=== PATIENT | male | born 1950 | race Caucasian/White ===

== ENCOUNTER 2023-09-16 16:07 | Inpatient (IN) ==
--- NOTE | 2023-09-16 16:20 | ED Triage Note ---
Date of Service September 16, 2023 Provider in Triage Author: Av Judge. History of Present Illness This patient was briefly evaluated while in triage. An abbreviated physical exam was performed. This patient is a 72-year-old Male who presents to the ED for evaluation of ongoing difficulty breathing. History of pleural effusion, had catheter placed 09/03/23. Dyspnea has not improved. Seems to be worse at night. States he could not take the difficulty breathing at night, and anxiety at night. No fevers. No chest pain. States the drainage from the catheter is becoming more clear/quinton and less red. Renal cell carcinoma on PO medication. Follows with pulmonary and oncology. Physical Exam CONSTITUTIONAL: in no acute pain or distress, resting comfortably SKIN: pink, warm, dry CARDIAC: tachycardic rate and regular rhythm RESPIRATORY: decreased breath sounds on left. In no severe respiratory distress Initial orders for labs and / or imaging were placed and patient was placed directly into an exam room. Please see further documentation for the full ED course.
--- NOTE | 2023-09-16 16:56 | Emergency Department Note ---
Impression & Plan Hypoxia, Tachypnea, Leukocytosis, Renal cancer, Abnormal chest CT, Elevated lactic acid level ED Provider Note NAME: BOB GAVIRIA AGE: 72 SEX: M : 1950 ARRIVES VIA: Walk-In INFORMANT: [Patient] ED PROVIDER(S): [Cheo Schafer MD] CHIEF COMPLAINT: Shortness of breath HISTORY OF PRESENT ILLNESS: The patient is a 72-year-old male who has had increasing shortness of breath for the last month. He has renal cancer and has had 1 kidney removed. He has disease spread to his lungs and has a right chest catheter in place from which he drains fluid. The patient states that despite the catheter, he has noticed increasing shortness of breath, especially with exertion. He has not had chest pain, no fever, no cough. No vomiting or diarrhea, he does have some occasional nausea. He has not noticed any urinary burning or other urinary issues. PMHx/PSHx/Social Hx: See Below PHYSICAL EXAM: GENERAL: Patient is in mild distress secondary to shortness of breath. HEENT: No acute trauma, normocephalic atraumatic, mucous membranes dry, no nasal congestion. NECK: No stridor, no adenopathy, no meningismus, trachea is midline. LUNGS: Increased respiratory rate, there are diminished breath sounds throughout, no wheezing. HEART: Mildly tachycardic, regular rhythm, no murmurs. ABDOMEN: Soft, nontender, no peritonitis. EXTREMITIES: No cyanosis, full range of motion of all the joints without pain or difficulty. NEUROLOGIC: Oriented x 3, no acute motor or sensory deficits, no focal weakness. SKIN: No jaundice, no diaphoresis. Pale. DIFFERENTIAL DIAGNOSIS: Pleural effusion, anemia, renal failure, electrolyte imbalance, PE, pneumonia, CHF, among others EMERGENCY DEPARTMENT PROCEDURES: MEDICAL DECISION MAKING: There is a mild leukocytosis, this could be consistent with infection. There was a mild anemia with a hemoglobin of 13.1. Platelet count somewhat elevated at 613. Renal panel testing showed a higher potassium and lower sodium. No renal failure. Lactic acid level was elevated at over 3, consistent with potential infection versus dehydration and hypoxia. No concerning liver enzyme elevation. ECG showed a sinus tachycardia, no acute ischemia. Cardiac enzyme testing x 1 was not consistent with acute cardiac injury. Chest x-ray shows potential pneumonia as well as some pleural fluid. No pneumothorax. The film was markedly different when compared to previous films. Chest CT did not show PE, multifocal pneumonia was seen versus changes from worsening malignancy. There was no pneumothorax. On exam, the patient was hypoxic without oxygen. He was tachypneic. The patient received IV saline, 1 L in total. He was given IV cefepime as empiric antibiotic coverage. He was maintained on nasal cannula O2 supplementation. The patient is more comfortable since treatment here in the ED. His heart rate has improved. He may have a pneumonia based on his workup. His dyspnea clearly has worsened in the last week, he has become hypoxic. The patient is in need of hospital stay. He did not meet criteria for 30 cc/kg of saline via sepsis protocol. I would be hesitant to give aggressive fluid hydration given the pleural fluid already noted on imaging. His lactic acid level does appear to be clearing based on a repeat test drawn after his 1 L of fluid hydration. I spoke with the patient and case management, I did speak with the on-call hospitalist. Prior/Outside records/notes reviewed: None ECG per my interpretation: Indication was shortness of breath. The ECG shows a sinus tachycardia with a rate of 101. There is no ST elevation, there is some nonspecific ST change. No PVCs. The QTc is 404. Continuous Cardiac Monitoring per my interpretation: An order was placed for continuous cardiac monitoring. The monitor shows a rate of 100 with normal sinus rhythm. Imaging/x-ray results per my interpretation: Chest x-ray shows potential right lung mass/infiltrate. There was pleural fluid seen on the left. No pneumothorax. Chronic Medical/Social conditions affecting care: Renal cancer Care/Management discussed with: Case management, the on-call hospitalist Level of care consideration(s): After review of the information above and other included data: --I believe the patient requires escalation of care to admission Critical Care Note: I have personally spent 39 minutes of critical care time in the direct management of this patient. This includes bedside care, interpretation of diagnostic studies, and testing, discussion with consultants, patient, and family members, and other required patient management activities. This 39 minutes is in excess of all separately billable procedures. DISPOSITION: Admission Past Med/Surg History Problem List (Updated 09/16/23 @ 20:58 by Cheo Schafer MD) Elevated lactic acid level (Acute) Abnormal chest CT (Acute) Renal cancer (Acute) Leukocytosis (Acute) Tachypnea (Acute) Hypoxia (Acute) Hyperkalemia Sepsis Lactate blood increase Acute respiratory failure with hypoxia Recurrent right pleural effusion Cough Encounter for pre-operative examination Acquired absence of kidney Pleural effusion due to another disorder Dyspnea Essential (primary) hypertension Mixed hyperlipidemia Depression Nonalcoholic steatohepatitis Type 2 diabetes mellitus without complication Multiple lung nodules on CT Malignant pleural effusion - Left Pleurx catheter placed 04/28/22 Per 05/05/22 CXR - left sided chest tube in place, small residual left pleural effusion with left basilar consolidation Renal cell cancer 2018- s/p nephrectomy, no chemo or radiation Medical History History of elevated PSA History of urinary calculi History of mumps History of measles History of varicella Surgical History Hx of cystoscopy S/P thoracentesis Left pleural effusion 03/09/22 H/O prostate biopsy History of nephrectomy 2018- left History of inguinal hernia repair Family History Father Diabetes Congestive heart failure Mother Cancer breast cancer Social History Smoking Status: Never smoker Tobacco Type: Cigars Cigarettes Per Day: SMOKED OCCASIONAL CIGAR - QUIT MANY YRS AGO; Second Hand Exposure: No; Do You Dip or Chew Tobacco: No; Hx Alcohol Use: Yes Alcohol type: beer Alcohol Intake Frequency Comment: rarely Hx Substance Use: No Preferred Language: Japanese Communication Ability: Effective 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 Beliefs That Will Affect Care: None marital status: Current Living Situation: Spouse current occupational status: retired How many Children do You have: 2 Feels Safe at Home: Yes caffeine: Yes during the past year weight has: remained stable Seatbelt Use: always Assistive Devices: None Allergies Allergies Allergy/AdvReac Type Severity Reaction Status Date / Time No Known Allergies Allergy Verified 09/16/23 19:12 Home Meds Home Medications Medication Instructions Recorded Confirmed metformin 1,000 mg tablet 1,000 mg PO BID 01/10/20 09/16/23 tamsulosin 0.4 mg capsule 0.8 mg PO QAM 01/16/20 09/16/23 dulaglutide 0.75 mg/0.5 mL 0.75 mg subcut WK 02/18/21 09/16/23 subcutaneous pen injector (Trulicity) simvastatin 20 mg tablet (Zocor) 20 mg PO QPM 03/24/22 09/16/23 levothyroxine 50 mcg capsule 50 mcg PO DAILY 09/01/23 09/16/23 dexamethasone 0.5 mg/5 mL oral 10 mg PO DIRECTED 09/16/23 09/16/23 solution everolimus (antineoplastic) 5 mg 5 mg PO DAILY 09/16/23 09/16/23 tablet lorazepam 1 mg tablet 1 mg PO Q4 PRN Anxiety 09/16/23 09/16/23 venlafaxine 150 mg 150 mg PO DAILY 09/16/23 09/16/23 capsule,extended release 24 hr Results & Data (ED) Vital Signs Vital Signs - 24 hr 09/16/23 16:11 09/16/23 16:22 09/16/23 16:25 Temperature 36 C L Temperature Source Temporal Artery Scan Pulse Rate 111 H 98 H Pulse Rate [Apical] Pulse Rate from SpO2 Sensor 99 H Respiratory Rate 18 19 Respiratory Effort / Characteristics Non-Labored Respiratory Depth Normal Respiratory Pattern Regular Blood Pressure 113/72 Blood Pressure [Right Arm] Blood Pressure Mean 85 Blood Pressure Mean [Right Arm] Pulse Oximetry 92 93 90 Oxygen Delivery Method Room Air Nasal Cannula Oxygen Flow Rate 2 Sepsis Recent Fever Within 48 Hours No Sepsis New/Unexplained Change in Mental Status N/A Sepsis Action Taken by Nursing No Action Required 09/16/23 16:30 09/16/23 16:42 09/16/23 17:00 Temperature Temperature Source Pulse Rate 99 H 100 H 103 H Pulse Rate [Apical] Pulse Rate from SpO2 Sensor 99 H 102 H Respiratory Rate 49 H 49 H Respiratory Effort / Characteristics Respiratory Depth Respiratory Pattern Blood Pressure 129/73 Blood Pressure [Right Arm] Blood Pressure Mean 91 Blood Pressure Mean [Right Arm] Pulse Oximetry 91 93 Oxygen Delivery Method Oxygen Flow Rate Sepsis Recent Fever Within 48 Hours Sepsis New/Unexplained Change in Mental Status Sepsis Action Taken by Nursing 09/16/23 17:30 09/16/23 18:12 09/16/23 18:13 Temperature Temperature Source Pulse Rate 94 H Pulse Rate [Apical] Pulse Rate from SpO2 Sensor 94 H 99 H Respiratory Rate 34 H Respiratory Effort / Characteristics Respiratory Depth Respiratory Pattern Blood Pressure 133/73 Blood Pressure [Right Arm] Blood Pressure Mean 111 Blood Pressure Mean [Right Arm] Pulse Oximetry 93 90 Oxygen Delivery Method Oxygen Flow Rate Sepsis Recent Fever Within 48 Hours Sepsis New/Unexplained Change in Mental Status Sepsis Action Taken by Nursing 09/16/23 18:13 09/16/23 18:30 09/16/23 19:05 Temperature Temperature Source Pulse Rate 98 H 97 H Pulse Rate [Apical] 96 H Pulse Rate from SpO2 Sensor 98 H 97 H Respiratory Rate 48 H 34 H 50 H Respiratory Effort / Characteristics Spontaneous Respiratory Depth Normal Respiratory Pattern Regular Blood Pressure Blood Pressure [Right Arm] 130/73 Blood Pressure Mean Blood Pressure Mean [Right Arm] 92 Pulse Oximetry 90 90 93 Oxygen Delivery Method Nasal Cannula Oxygen Flow Rate 4 Sepsis Recent Fever Within 48 Hours Sepsis New/Unexplained Change in Mental Status Sepsis Action Taken by Custodial Medications Current Medication List: was personally reviewed by me Laboratory Data Attestation: I reviewed the patient's lab results. 09/16/23 16:33 09/16/23 16:33 Lab Results 09/16/23 09/16/23 09/16/23 Range/Units 16:33 17:08 18:58 WBC 12.99 H (4.8-10.8) K/ul RBC 4.05 L (4.70-6.10) M/uL Hgb 13.1 L (14.0-18.0) g/dl Hct 39.2 L (42.0-52.0) % MCV 96.8 (80.0-100.0) fL MCH 32.3 (25.0-34.0) pg MCHC 33.4 (32.0-36.0) g/dL RDW Std Deviation 47.9 H (36.4-46.3) fL RDW Coeff of Joaquim 13.4 (11.5-14.5) % Plt Count 613 H (130-400) K/uL MPV 8.4 L (9.4-12.4) fL Immature Gran % (Auto) 0.5 % Neut % (Auto) 87.2 % Lymph % (Auto) 5.7 % [place] % (Auto) 6.1 % Eos % (Auto) 0.3 % Baso % (Auto) 0.2 % Neut # (Auto) 11.32 H (1.40-6.50) K/uL Lymph # (Auto) 0.74 L (1.20-3.40) K/uL [place] # (Auto) 0.79 H (0.11-0.59) K/uL Eos # (Auto) 0.04 (0.00-0.50) K/uL Baso # (Auto) 0.03 (0.00-0.20) K/uL Immature Gran # (Auto) 0.07 (0.01-0.20) K/uL Sodium 132 L (136-145) mmol/L Potassium 5.2 H (3.5-5.1) mmol/L Chloride 98 (98-107) mmol/L Carbon Dioxide 23 (21-32) mmol/L Anion Gap 11 (3-11) BUN 28 H (6-23) mg/dl Creatinine 0.89 (0.6-1.4) mg/dl Est Cr Clr Drug Dosing 75.5 ml/min Est GFR ( Amer) 100.4 ml/min Est GFR (Non-Af Amer) 86.6 ml/min BUN/Creatinine Ratio 31.5 H (10-20) Glucose 148 H (70-99(Fasting)) mg/dl Lactate 3.6 H* 2.1 H* (0.4-2.0) mmol/L Calcium 9.8 (8.6-10.3) mg/dl Magnesium 1.7 (1.7-2.4) mg/dl Total Bilirubin 0.7 (0.2-1.0) mg/dl AST 19 (13-39) U/L ALT 13 (7-52) U/L Alkaline Phosphatase 99 (34-104) U/L Troponin I High Sens 9.7 (0-20) pg/ml Total Protein 8.6 H (6.0-8.3) gm/dl Albumin 3.8 (3.4-5.0) gm/dl Globulin 4.8 H (2.5-4.0) gm/dl Albumin/Globulin Ratio 0.8 L (0.9-2) Procalcitonin 0.64 H (0-0.5) ng/ml Administered Medications Discontinued Medications Sodium Chloride (Nss) 500 mls @ 999 mls/hr IV .Q31M ONE Stop: 09/16/23 17:26 Last Infusion: 09/16/23 18:43 Dose: Infused Documented By: Admin: 09/16/23 17:06 Dose: 999 mls/hr Documented By: DEMETRIO Cefepime HCl (Maxipime) 2,000 mg in 20 mls @ 5 mls/min IV NOW STA; Protocol Stop: 09/16/23 17:23 Last Admin: 09/16/23 17:35 Dose: 5 mls/min Documented By: MERA Sodium Chloride (Nss) 500 mls @ 999 mls/hr IV .Q31M ONE Stop: 09/16/23 19:02 Last Infusion: 09/16/23 20:01 Dose: Infused Documented By: Admin: 09/16/23 18:43 Dose: 999 mls/hr Documented By: MERA Ioversol (Optiray 320 125ml) 119 ml IV ONCE ONE Stop: 09/16/23 18:11 Last Admin: 09/16/23 18:10 Dose: 119 ml Documented By: OXANA Morphine Sulfate (Morphine Sulfate 2 Mg/Ml Carp) 1 mg IV NOW STA Stop: 09/16/23 19:46 Last Admin: 09/16/23 19:54 Dose: 1 mg Documented By: MANJIT Imaging Data Radiologist's Impression: Chest X-Ray 09/16/23 16:20 XR chest 1V portable CLINICAL HISTORY: hx pleural effusion, ongoing dyspnea TECHNIQUE: Single frontal radiograph of the chest was obtained. Comparison: Comparison is made to chest radiograph 09/03/2023 FINDINGS: No lines and tubes are seen. Cardiomegaly is noted. Airspace opacities are in the bilateral lower lungs. Small bilateral pleural effusions are seen. IMPRESSION: 1. Multifocal airspace opacities may represent atelectasis, pneumonia, and/or aspiration. 2. Small bilateral pleural effusions. ACT 112: Negative or not required by law. Electronically signed by: Nirmal Pineda M.D. 09/16/2023 5:14 PM Chest CTA 09/16/23 16:51 CT angio chest PE protocol CLINICAL HISTORY: PE TECHNIQUE: Multidetector row helical CT of the chest was performed with angiographic protocol. Coronal and sagittal reformations were obtained. Coronal and sagittal MIPS were obtained from the axial data set and were submitted for review. Automated dose lowering techniques and/or adjustment according to patient size were utilized for this exam. CT DOSE: 898.94 mGy.cm Comparison: None available at the time of this dictation. FINDINGS: Lungs and pleura: Bilateral pleural thickening is significantly advanced from the prior exam. Scattered pulmonary nodules are seen including 8 mm nodule in the right upper lobe and a 12 mm nodule in the left upper lobe (image 160). Interlobular septal thickening is seen favoring the bilateral lower lungs. Heart and pericardium: Heart size is normal. No pericardial effusion. Vessels: No evidence of pulmonary embolism. Mediastinum and maryjane: Mediastinal lymphadenopathy is similar to prior exam. Chest wall and lower neck: Redemonstration of lymphadenopathy in the left axilla and lower paratracheal station, similar to prior exam. Abdomen: Unremarkable. Bones: Degenerative changes in the thoracic spine. IMPRESSION: 1. No evidence of pulmonary embolus. 2. Significant interval worsening of pleural thickening. A right chest tube is seen. 3. Multifocal airspace opacities may represent lymphangitic spread of tumor with or without superimposed aspiration/pneumonia. 4. Stable lymphadenopathy. 5. Additional findings as above. ACT 112: Negative or not required by law. Electronically signed by: Nirmal Pineda M.D. 09/16/2023 6:22 PM Discharge Plan Visit Data Chief Complaint: Shortness of Breath/Dyspnea Stated Complaint: SOB/TROUBLE BREATHING ED Provider: Cheo Schafer Discharge Problem: Hypoxia, Tachypnea, Leukocytosis, Renal cancer, Abnormal chest CT, Elevated lactic acid level Patient Disposition: Admitted As Inpatient Condition: Fair Discharge Instructions Interventions: ED Discharge Assessment Last Done: 09/16/23 20:07 Discharge Problem: Leukocytosis Qualifiers: Leukocytosis type: unspecified Qualified Code(s): D72.829 - Elevated white blood cell count, unspecified Renal cancer Qualifiers: Laterality: unspecified laterality Qualified Code(s): C64.9 - Malignant neoplasm of unspecified kidney, except renal pelvis
[2023-09-16 16:58] LABS: Basophils # (auto) 0.03 K/uL (0.00-0.20); Basophils % (auto) 0.2 %; Eosinophils # (auto) 0.04 K/uL (0.00-0.50); Eosinophils % (auto) 0.3 %; Hematocrit (blood only) 39.2 % (42.0-52.0); Hemoglobin 13.1 g/dl (14.0-18.0); Immature Granulocytes # (auto) 0.07 K/uL (0.01-0.20); Immature Granulocytes % (auto) 0.5 %; Lymphocytes # (auto) 0.74 K/uL (1.20-3.40); Lymphocytes % (auto) 5.7 %; Mean Corpuscular Hemoglobin 32.3 pg (25.0-34.0); Mean Corpuscular Hgb Conc 33.4 g/dL (32.0-36.0); Mean Corpuscular Volume 96.8 fL (80.0-100.0); Mean Platelet Volume 8.4 fL (9.4-12.4); Monocytes # (auto) 0.79 K/uL (0.11-0.59); Monocytes % (auto) 6.1 %; Neutrophils # (auto) 11.32 K/uL (1.40-6.50); Neutrophils % (auto) 87.2 %; Platelet Count 613 K/uL (130-400); RDW Coefficient of Variation 13.4 % (11.5-14.5); RDW Standard Deviation 47.9 fL (36.4-46.3); Red Blood Count 4.05 M/uL (4.70-6.10); White Blood Count 12.99 K/ul (4.8-10.8)
[2023-09-16] MEDS: SODIUM CHLORIDE 0.9% 500 ML IV ONE ×2 (17:06→18:43)
[2023-09-16 17:13] LABS: Albumin Globulin Ratio 0.8 (0.9-2); Albumin Level 3.8 gm/dl (3.4-5.0); BUN Creatinine Ratio 31.5 (10-20); Bilirubin,Total 0.7 mg/dl (0.2-1.0); Calcium 9.8 mg/dl (8.6-10.3); Creatinine Clr Calc Pharmacy 75.5 ml/min; Est GFR (African American) 100.4 ml/min; Est GFR (Non-African American) 86.6 ml/min; Globulin 4.8 gm/dl (2.5-4.0); Magnesium 1.7 mg/dl (1.7-2.4); Potassium 5.2 mmol/L (3.5-5.1); Total Protein 8.6 gm/dl (6.0-8.3)
--- NOTE | 2023-09-16 17:16 | XRay Report ---
XR chest 1V portable CLINICAL HISTORY: hx pleural effusion, ongoing dyspnea TECHNIQUE: Single frontal radiograph of the chest was obtained. Comparison: Comparison is made to chest radiograph 09/03/2023 FINDINGS: No lines and tubes are seen. Cardiomegaly is noted. Airspace opacities are in the bilateral lower john gs. Small bilateral pleural effusions are seen. IMPRESSION: 1. Multifocal airspace opacities may represent atelectasis, pneumonia, and/or aspiration. 2. Small bilateral pleural effusions. ACT 112: Negative or not required by law. Electronically signed by: Nirmal Pineda M.D. 09/16/2023 5:14 PM
[2023-09-16 17:19] LABS: Troponin I High Sensitivity 9.7 pg/ml (0-20)
[2023-09-16] MEDS: CEFEPIME 2,000 MG/20 ML VIAL IV STA (17:35)
[2023-09-16] MEDS: OPTIRAY 320 125ml IV ONE (18:10)
--- NOTE | 2023-09-16 18:25 | CT Scan Report ---
CT angio chest PE protocol CLINICAL HISTORY: PE TECHNIQUE: Multidetector row helical CT of the chest was performed with angiographic protocol. [place] l and sagittal reformations were obtained. Coronal and sagittal MIPS were obtained from the axial graham a set and were submitted for review. Automated dose lowering techniques and/or adjustment according to patient size were utilized for this exam. CT DOSE: 898.94 mGy.cm Comparison: None available at the time of this dictation. FINDINGS: Lungs and pleura: Bilateral pleural thickening is significantly advanced from the prior exam. Scatter ed pulmonary nodules are seen including 8 mm nodule in the right upper lobe and a 12 mm nodule in the left upper lobe (image 160). Interlobular septal thickening is seen favoring the bilateral lower john gs. Heart and pericardium: Heart size is normal. No pericardial effusion. Vessels: No evidence of pulmonary embolism. Mediastinum and maryjane: Mediastinal lymphadenopathy is similar to prior exam. Chest wall and lower neck: Redemonstration of lymphadenopathy in the left axilla and lower paratrache al station, similar to prior exam. Abdomen: Unremarkable. Bones: Degenerative changes in the thoracic spine. IMPRESSION: 1. No evidence of pulmonary embolus. 2. Significant interval worsening of pleural thickening. A right chest tube is seen. 3. Multifocal airspace opacities may represent lymphangitic spread of tumor with or without superimp osed aspiration/pneumonia. 4. Stable lymphadenopathy. 5. Additional findings as above. ACT 112: Negative or not required by law. Electronically signed by: Nirmal Pineda M.D. 09/16/2023 6:22 PM
--- NOTE | 2023-09-16 19:04 | History & Physical Report ---
Date of Service September 16, 2023 Assessment & Plan (1) Acute respiratory failure with hypoxia: Plan: -Admit to the PCU on tele and pulse oximetry -Currently hemodynamically stable, stable on 4L NC, and currently comfortable at rest -Presented to the ED with progressive SOB/TAMEZ over the past 1-2 weeks -Patient had new Pleurx cath placed on 09/02 by [facility] [place] [facility] -CTA of the chest was read as being negative for PE but with multifocal airspace opacities and significant interval pleural thickening -S/P one dose of Cefepime and 1L NSS in the ED -Will continue with Cefepime and Vancomycin for now -Will start incentive spirometry, flutter therapy, scheduled levalbuterol -PRN O2 to keep SpO2 at or above 92% -Will obtain procal, sputum culture, full respiratory biofire and VBG -Spoke with night staff in the ICU, l appreciate their assistance, they will check on him later tonight in case he decompensates -Will consult Pulmonology and Oncology to follow while admitted -SQ lovenoc for DVT PPX -HH/DMII diet -AM CBC,CMP, mag, PT/INR (2) Sepsis: Plan: -Meets sepsis criteria with the following: -WBC of 12k -Tachycardia with HR in the 110's -Pneumonia as his source -Initial lactate on arrival was 3.6 -->2.1 after 1L NSS in the ED -Received a dose of Cefepime in the ED -Blood cultures were collected in the ED -His sepsis fluid bolus based on ideal body weight is 1854mL >Will give a 500 mL LR bolus now but will hold off on large fluid boluses at this time as he has been hemodynamically stable and we want to avoid exacerbating his respiratory status with causing another malignant pleural effusion >Can continue small IV fluid boluses overnight if needed -Will continue with Cefepime and Vancomycin for now (3) Lactate blood increase: Plan: -Initial lactate of 3.6 -->2.1 after 1L NSS in the ED -Likely due to sepsis and dehydration -Has been hemodynamically stable -Rest of care per sepsis plan (4) Hyperkalemia: Plan: -Potassium of 5.2 in the ED -Unsure at this time if this was due to hemolysis as his renal function is stable and he is not on potassium supplements or potassium sparing medications -S/P 1L NSS in the ED -Will repeat stat potassium level and treat medically if still elevated -Continue to monitor on tele -Monitor am renal function and electrolytes (5) Essential (primary) hypertension: Plan: -Stable -No current antihypertensives at home -Continue to monitor (6) Type 2 diabetes mellitus without complication: Plan: -Hold metformin and Dulaglutide -Monitor BSG ACHS, goal is 110-160 -Will start with CF 50 and CR 15 ACHS for now as his appetite has been very poor -Adjust regimen as needed (7) Renal cell cancer: Plan: -Will be consulting Oncology and Pulmonology Plan The patient was discussed with Dr. Rome at the time of the admission History of Present Illness Chief Complaint: SOB Primary Care Provider: Yahir Ellis DO Ulises is a 72 year old male with a PMH significant for metastatic renal cell carcinoma with recurrent malignant pleural effusion S/P Right PleurX ca theter placement with Dr. Nguyễn on 09/03/23, S/P right nephrectomy in 2018, DMII, HTN, hyperlipidemia, and hypothyroidism who presented to the [facility] ED on 09/16/23 for progressive SOB and anxiety. On arrival to the ED the patient was noted to be tachycardic at 100, saturating at 90% on RA, respirations in the 30- 40's, and afebrile. Labs were significant for a leukocytosis of 12 with neutrophil predominance of 11, potassium of 5.2, sodium of 132, lactate of 3.6, and high sen trop WNL. Chest xray was read as "1. Multifocal airspace opacities may represent atelectasis, pneumonia, and/or aspiration. 2. Small bilateral pleural effusions.". CTA of the chest was read as "1. No evidence of pulmonary embolus. 2. Significant interval worsening of pleural thickening. A right chest tube is seen. 3. Multifocal airspace opacities may represent lymphangitic spread of tumor with or without superimposed aspiration/pneumonia. 4. Stable lymphadenopathy. 5. Additional findings as above.". Prior to admission the patient was given a dose of cefepime and 2, 500 mL NSS boluses. At the time of the exam the patient was sitting in bed in mild respiratory distress with tachypnea and and abdominal breathing, currently stable on 4L NC. History was obtained from the patient and his who is bedside. The patient is between treatments for his metastatic cancer at this time. [facility] and was to start a new oral therapy today. He had his current right-sided plurex catheter placed by [facility] on 09/03/23. He initially had improved respiratory status after placement. Over the past 1-2 weeks he has been developing progressive SOB/TAMEZ and a non-productive cough. They have been draining his plurex cath every other day and drained it just prior to ED arrival. His said they drained approximately 150 cc of quinton colored fluid. He denies chest pain, hemoptysis, pleuritic chest pain, abd pain, dysuria, hematuria, melena, LE swelling, and recent trauma. When asked, he denies feeling as though he is getting tired or having to work harder to breath, states that his increased respirations are mostly due to anxiety. We discussed code status, he wishes to be a full code at this time and his is his POA. Please refer to Dr. Rome's attestation for any changes to the treatment plan Allergies Allergy/AdvReac Type Severity Reaction Status Date / Time No Known Allergies Allergy Verified 09/16/23 19:12 Home Medications Medication Instructions Recorded Confirmed Type metformin 1,000 mg tablet 1,000 mg PO BID 01/10/20 09/16/23 History tamsulosin 0.4 mg capsule 0.8 mg PO QAM 01/16/20 09/16/23 History dulaglutide 0.75 mg/0.5 mL 0.75 mg subcut WK 02/18/21 09/16/23 History subcutaneous pen injector (Trulicity) simvastatin 20 mg tablet (Zocor) 20 mg PO QPM 03/24/22 09/16/23 History levothyroxine 50 mcg capsule 50 mcg PO DAILY 09/01/23 09/16/23 History dexamethasone 0.5 mg/5 mL oral 10 mg PO DIRECTED 09/16/23 09/16/23 History solution everolimus (antineoplastic) 5 mg 5 mg PO DAILY 09/16/23 09/16/23 History tablet lorazepam 1 mg tablet 1 mg PO Q4 PRN Anxiety 09/16/23 09/16/23 History venlafaxine 150 mg 150 mg PO DAILY 09/16/23 09/16/23 History capsule,extended release 24 hr Past Med/Surg History Problem List (Updated 09/18/23 @ 12:32 by Herbert Pond MD) Hypomagnesemia Pulmonary infiltrates Metastatic renal cell carcinoma Palliative care by specialist Advanced care planning/counseling discussion Dyspnea and respiratory abnormalities Cancer related pain Elevated lactic acid level (Acute) Abnormal chest CT (Acute) Renal cancer (Acute) Leukocytosis (Acute) Tachypnea (Acute) Hypoxia (Acute) Hyperkalemia Sepsis Lactate blood increase Acute respiratory failure with hypoxia Recurrent right pleural effusion Cough Encounter for pre-operative examination Acquired absence of kidney Pleural effusion due to another disorder Dyspnea Essential (primary) hypertension Mixed hyperlipidemia Depression Nonalcoholic steatohepatitis Type 2 diabetes mellitus without complication Multiple lung nodules on CT Malignant pleural effusion - Left Pleurx catheter placed 04/28/22 Per 05/05/22 CXR - left sided chest tube in place, small residual left pleural effusion with left basilar consolidation Renal cell cancer 2018- s/p nephrectomy, no chemo or radiation Medical History History of elevated PSA History of urinary calculi History of mumps History of measles History of varicella Surgical History Hx of cystoscopy S/P thoracentesis Left pleural effusion 03/09/22 H/O prostate biopsy History of nephrectomy 2018- left History of inguinal hernia repair Family History Father Diabetes Congestive heart failure Mother Cancer breast cancer Social History Smoking Status: Former smoker Tobacco Type: Cigars Cigarettes Per Day: SMOKED OCCASIONAL CIGAR - QUIT MANY YRS AGO; Second Hand Exposure: No; Do You Dip or Chew Tobacco: No; Tobacco Cessation Education Requested by Patient: No Hx Alcohol Use: Yes Alcohol type: beer Alcohol Intake Frequency Comment: rarely Hx Substance Use: No Preferred Language: Setswana Communication Ability: Effective Medical Receptionist Assistant Required: No Beliefs That Will Affect Care: None marital status: Current Living Situation: Spouse current occupational status: retired How many Children do You have: 2 Other Information That Helps Us Care for You: No Feels Safe at Home: Yes Safety Concerns: Feels Safe At This Time caffeine: Yes during the past year weight has: remained stable Seatbelt Use: always Assistive Devices: Walker Physical Exam Physical Exam: Physical Exam: General: In mild distress due to anxiety, stated age, chronically ill- appearing but non-toxic HEENT: Normocephalic, atraumatic, no scleral icterus, pupils around round, symmetrical, and reactive to light, dry mucus membranes, trachea midline, no thyromegaly Chest/Pulm: Mild respiratory distress with abdominal breathing, symmetrical chest expansion, scattered rhonchi and wheezing throughout >Pleurx cath is in place in the right lower chest, currently wrapped and without signs of drainage or infection Cardiac: Tachycardic rate, regular rhythm, no murmurs noted Abdomen: Negative for ascites and bruising, normoactive bowel sounds, soft, non-tender to palpation throughout Musculoskeletal: Symmetrical and without signs of acute trauma, upper and lower extremities with full ROM, no atrophy, spasticity, or flaccidity Extremities: Radial, dorsalis pedis, and posterior tibial pulses are intact and symmetrical, no edema noted in the BL LE's Skin: Warm, dry, no rashes , lesions, or scars noted Neuro: Alert and oriented to person, place, month, year, and president, no focal defects, no tremors noted Psych: Mildly anxious, but polite and cooperative during the exam Results & Data Results & Data Vital Signs (Past 12 Hours) Vital Signs Temp Pulse Resp BP Pulse Ox O2 Del Method O2 Flow Rate 09/16/23 18:30 97 H 34 H 90 09/16/23 18:13 98 H 48 H 90 09/16/23 18:13 133/73 09/16/23 18:12 90 09/16/23 17:30 94 H 34 H 93 09/16/23 17:00 103 H 49 H 129/73 93 09/16/23 16:42 100 H 09/16/23 16:30 99 H 49 H 91 09/16/23 16:25 90 Nasal Cannula 2 09/16/23 16:22 98 H 19 93 09/16/23 16:11 36 C L 111 H 18 113/72 92 Room Air Laboratory Results Abnormal lab results 09/16/23 09/16/23 09/16/23 Range/Units 16:33 17:08 18:58 WBC 12.99 H (4.8-10.8) K/ul RBC 4.05 L (4.70-6.10) M/uL Hgb 13.1 L (14.0-18.0) g/dl Hct 39.2 L (42.0-52.0) % RDW Std Deviation 47.9 H (36.4-46.3) fL Plt Count 613 H (130-400) K/uL MPV 8.4 L (9.4-12.4) fL Neut # (Auto) 11.32 H (1.40-6.50) K/uL Lymph # (Auto) 0.74 L (1.20-3.40) K/uL [place] # (Auto) 0.79 H (0.11-0.59) K/uL Sodium 132 L (136-145) mmol/L Potassium 5.2 H (3.5-5.1) mmol/L BUN 28 H (6-23) mg/dl BUN/Creatinine Ratio 31.5 H (10-20) Glucose 148 H (70-99(Fasting)) mg/dl Lactate 3.6 H* 2.1 H* (0.4-2.0) mmol/L Total Protein 8.6 H (6.0-8.3) gm/dl Globulin 4.8 H (2.5-4.0) gm/dl Albumin/Globulin Ratio 0.8 L (0.9-2) Diagnostic Findings Chest X-Ray 09/16/23 16:20 XR chest 1V portable CLINICAL HISTORY: hx pleural effusion, ongoing dyspnea TECHNIQUE: Single frontal radiograph of the chest was obtained. Comparison: Comparison is made to chest radiograph 09/03/2023 FINDINGS: No lines and tubes are seen. Cardiomegaly is noted. Airspace opacities are in the bilateral lower lungs. Small bilateral pleural effusions are seen. IMPRESSION: 1. Multifocal airspace opacities may represent atelectasis, pneumonia, and/or aspiration. 2. Small bilateral pleural effusions. ACT 112: Negative or not required by law. Electronically signed by: Nirmal Pineda M.D. 09/16/2023 5:14 PM Chest CTA 09/16/23 16:51 CT angio chest PE protocol CLINICAL HISTORY: PE TECHNIQUE: Multidetector row helical CT of the chest was performed with angiographic protocol. Coronal and sagittal reformations were obtained. Coronal and sagittal MIPS were obtained from the axial data set and were submitted for review. Automated dose lowering techniques and/or adjustment according to patient size were utilized for this exam. CT DOSE: 898.94 mGy.cm Comparison: None available at the time of this dictation. FINDINGS: Lungs and pleura: Bilateral pleural thickening is significantly advanced from th e prior exam. Scattered pulmonary nodules are seen including 8 mm nodule in the right upper lobe and a 12 mm nodule in the left upper lobe (image 160). Interlobular septal thickening is seen favoring the bilateral lower lungs. Heart and pericardium: Heart size is normal. No pericardial effusion. Vessels: No evidence of pulmonary embolism. Mediastinum and maryjane: Mediastinal lymphadenopathy is similar to prior exam. Chest wall and lower neck: Redemonstration of lymphadenopathy in the left axilla and lower paratracheal station, similar to prior exam. Abdomen: Unremarkable. Bones: Degenerative changes in the thoracic spine. IMPRESSION: 1. No evidence of pulmonary embolus. 2. Significant interval worsening of pleural thickening. A right chest tube is seen. 3. Multifocal airspace opacities may represent lymphangitic spread of tumor with or without superimposed aspiration/pneumonia. 4. Stable lymphadenopathy. 5. Additional findings as above. ACT 112: Negative or not required by law. Electronically signed by: Nirmal Pineda M.D. 09/16/2023 6:22 PM ECG Additional Comments: Sinus tachycardia Low voltage QRS Borderline ECG When compared with ECG of 05-MAY-2023 12:17, Nonspecific T wave abnormality now evident in Lateral leads Code Status & VTE Plan Code Status Full code VTE Prophylaxis Plan VTE Prophylaxis will be ordered: Yes Supervising Physician Co-Signing Physician Notes 72 yo male with metastatic renal disease, DM type 2 , right malignant pleural effusion, pleurx cath in place, drained at home 3 times a week, presents with dyspnea at rest , no fever, chiils, dry cough, no swelling, diagnosed with acute respiratory failure with hypoxia, CT chest no PE, but possible pneumonia vs lymphangitic spread of tumor , he started on IV Cefepime, oxygen provided. Follow up on blood cultures. Patient is about to start new chemotherapy today. Admit to PCU, IV antibiotics, oxygen suppl, consult pulm/oncology for furter recommendations, patient is full code. Insulin sliding scale for DM type 2, will hold Metformin, monitor BMP, has mild hyperkalemia. PG Care Time/CCT Total # of Minutes Spent Total Time Spent with Patient: Total time spent is greater than 50% in coordination of care (as documented) at patient's floor/unit and/or counseling patient: Coding [place] [address] INT INP/OBS CARE 75MIN Patient Type Established Medical Decision Making High Complexity Diagnoses Acute respiratory failure with hypoxia J96.01 Sepsis A41.9 Lactate blood increase R79.89 Hyperkalemia E87.5 Essential (primary) hypertension I10 Type 2 diabetes mellitus without complication E11.9 Renal cell cancer C64.9
[2023-09-16] MEDS ORDERED: VANCOMYCIN CONSULT ACTIVE PRN (19:33)
[2023-09-16] MEDS ORDERED: VANCOMYCIN HCL 1,000 MG in SODIUM CHLORIDE 0.9% 250 ML IV STA (19:33)
[2023-09-16] MEDS ORDERED: GLUCOSE 40% GEL 15 GM TUBE PO PRN (19:40)
[2023-09-16] MEDS ORDERED: GLUCOSE 10 TAB/TUBE PO PRN (19:40)
[2023-09-16] MEDS ORDERED: DEXTROSE 50% 50 ML SYRINGE IV PRN (19:40)
[2023-09-16] MEDS ORDERED: CARBOHYDRATES FOR HYPOGLYCEMIA PO PRN (19:40)
[2023-09-16] MEDS ORDERED: GLUCAGON FOR INJ 1 MG VIAL SQ PRN (19:40)
[2023-09-16] MEDS: MoRPHine SULFATE 2 MG/ML CARP IV STA ×2 (19:54→22:11)
[2023-09-16] MEDS: VANCOMYCIN HCL 2,000 MG in SODIUM CHLORIDE 0.9% 500 ML IV ONE (20:47)
[2023-09-16] MEDS: LACTATED RINGER'S 500 ML IV ONE (20:49)
[2023-09-16] MEDS: LEVALBUTEROL 1.25MG/0.5ML NEB NEB SCH (20:51)
[2023-09-16 21:03] LABS: Adenovirus PCR Not Detected (NotDetected); Bordetella parapertussis PCR Not Detected (NotDetected); Bordetella pertussis PCR Not Detected (NotDetected); Chlamydia pneumoniae PCR Not Detected (NotDetected); Coronavirus 229E PCR Not Detected (NotDetected); Coronavirus CoV-2 (COVID19)PCR Not Detected (NotDetected); Coronavirus HKU1 PCR Not Detected (NotDetected); Coronavirus NL63 PCR Not Detected (NotDetected); Coronavirus OC43PCR Not Detected (NotDetected); Human Metapneumovirus PCR Not Detected (NotDetected); Influenza A PCR Not Detected (NotDetected); Influenza B PCR Not Detected (NotDetected); Mycoplasma pneumoniae PCR Not Detected (NotDetected); Parainfluenza Virus 1 PCR Not Detected (NotDetected); Parainfluenza Virus 2 PCR Not Detected (NotDetected); Parainfluenza Virus 3 PCR Not Detected (NotDetected); Parainfluenza Virus 4 PCR Not Detected (NotDetected); Respiratory Syncytial VirusPCR Not Detected (NotDetected); Rhinovirus/Enterovirus PCR Not Detected (NotDetected)
[2023-09-16 21:22] LABS: Base Excess VBG -3.7 mEq/L; HCO3 VBG 22 mmol/L; PCO2 VBG 42 mmHg (38-50); PO2 VBG 46 mmHg; pH VBG 7.33 (7.36-7.41)
[2023-09-16] MEDS: INSULIN ASPART PER UNIT CHARGE SC SCH (21:43)
[2023-09-16] MEDS: SIMVASTATIN 20 MG TAB PO SCH (22:06)
[2023-09-16] MEDS: ENOXAPARIN INJ 40 MG/0.4 ML SYR SQ SCH (22:06)
[2023-09-17] MEDS: VANCOMYCIN HCL 1,000 MG in SODIUM CHLORIDE 0.9% 250 ML IV SCH (05:20)
[2023-09-17] MEDS: LEVOTHYROXINE SODIUM 50 MCG TABLET PO SCH (05:24)
[2023-09-17] MEDS: MoRPHine SULFATE 2 MG/ML CARP IV PRN ×3 (06:02→15:33)
[2023-09-17] MEDS: LEVALBUTEROL 1.25 MG/3 ML NEB ONE ×3 (07:01→19:11)
[2023-09-17 07:18] LABS: Basophils # (auto) 0.04 K/uL (0.00-0.20); Basophils % (auto) 0.3 %; Eosinophils # (auto) 0.05 K/uL (0.00-0.50); Eosinophils % (auto) 0.4 %; Hematocrit (blood only) 34.5 % (42.0-52.0); Immature Granulocytes # (auto) 0.08 K/uL (0.01-0.20); Immature Granulocytes % (auto) 0.7 %; Lymphocytes # (auto) 0.69 K/uL (1.20-3.40); Mean Corpuscular Hemoglobin 31.9 pg (25.0-34.0); Mean Corpuscular Hgb Conc 31.9 g/dL (32.0-36.0); Mean Platelet Volume 8.5 fL (9.4-12.4); Monocytes # (auto) 0.95 K/uL (0.11-0.59); Monocytes % (auto) 8.3 %; Neutrophils # (auto) 9.67 K/uL (1.40-6.50); Neutrophils % (auto) 84.3 %; Platelet Count 495 K/uL (130-400); RDW Coefficient of Variation 13.6 % (11.5-14.5); RDW Standard Deviation 50.2 fL (36.4-46.3); Red Blood Count 3.45 M/uL (4.70-6.10); White Blood Count 11.48 K/ul (4.8-10.8)
[2023-09-17 07:37] LABS: INR 1.1 (0.9-1.1); Prothrombin Time 11.4 Seconds (9.0-12.0)
[2023-09-17 07:59] LABS: Albumin Globulin Ratio 0.8 (0.9-2); Albumin Level 2.9 gm/dl (3.4-5.0); Bilirubin,Total 0.6 mg/dl (0.2-1.0); Calcium 8.7 mg/dl (8.6-10.3); Creatinine Clr Calc Pharmacy 75.8 ml/min; Est GFR (African American) 100.9 ml/min; Globulin 3.7 gm/dl (2.5-4.0); Magnesium 1.6 mg/dl (1.7-2.4); Potassium 5.1 mmol/L (3.5-5.1); Total Protein 6.6 gm/dl (6.0-8.3)
[2023-09-17] MEDS ORDERED: methylPREDNISolone 10 mg/mL (For Ped Dose < 7mg) IV SCH (08:30)
--- NOTE | 2023-09-17 08:32 | Palliative Care Consultation ---
Date of Consultation September 17, 2023 Assessment & Plan (1) Cancer related pain: uncontrolled cancer pain and dyspnea renal fxn WAL Pain regimen modified to: MS 1 and 2mg IV q2h prn / Hold for somnolence or RR less than 14; please document RR with each dose administration. (2) Dyspnea and respiratory abnormalities: see #1 (3) Advanced care planning/counseling discussion: Met face to face with pt at bedside for 30min He is recalcitrant to discussion, states he wants to keep pursuing cancer treatment He does not want to discuss goals of care beyond desiring more chemo. He reaffirms desire to be full code. He was not ready or willing to discuss implication of current admission and disease progression but did allow brief discussion acknowledging discussions with prior providers this admission and is aware there is more cancer through the lungs and wrapping around lungs/into lining. He however wants to believe this is fixable and states he will speak with oncology about what next steps should/could be. He was able to admit that if he is told there is no more cancer rx to offer and his disease is "terminal" then he would desire a comfort focus and only then would he be willing to engage is more conversations about EOL issues. (4) Palliative care by specialist: (5) Metastatic renal cell carcinoma: Plan as above will follow along for cancer related sx mgt ACP discussion reflected above, he reaffirms full code Thank you for allowing us to participate in the ongoing care of this patient. Please don't hesitate to call or page with any additional concerns. Dr. Maggy Garcia DNP Director, Palliative Care History of Present Illness Reason for Consultation: rcc, multiple symptoms Attending Physician: Herbert Pond MD History of Present Illness Admitted yesterday with progressive weakness, declining PS, progressive met RCC, dyspnea Per admitting notes: "metastatic renal cell carcinoma with recurrent malignant pleural effusion S/P Right PleurX catheter placement with Dr. Nguyễn on 09/03/23, S/P right nephrectomy in 2018, DMII, HTN, hyperlipidemia, and hypothyroidism who presented to the [facility] ED on 09/16/23 for progressive SOB and anxiety. On arrival to the ED the patient was noted to be tachycardic at 100, saturating at 90% on RA, respirations in the 30-40's, and afebrile. Labs were significant for a leukocytosis of 12 with neutrophil predominance of 11, potassium of 5.2, sodium of 132, lactate of 3.6, and high sen trop WNL. Chest xray was read as "1. Multifocal airspace opacities may represent atelectasis, pneumonia, and/or aspiration. 2. Small bilateral pleural effusions.". CTA of the chest was read as "1. No evidence of pulmonary embolus. 2. Significant interval worsening of pleural thickening. A right chest tube is seen. 3. Multifocal airspace opacities may represent lymphangitic spread of tumor with or without superimposed aspiration/pneumonia. 4. Stable lymphadenopathy. 5. Additional findings as above.". Prior to admission the patient was given a dose of cefepime and 2, 500 mL NSS boluses. At the time of the exam the patient was sitting in bed in mild respiratory distress with tachypnea and and abdominal breathing, currently stable on 4L NC. History was obtained from the patient and his who is bedside. The patient is between treatments for his metastatic cancer at this time. [facility] and was to start a new oral therapy today. He had his current right-sided plurex catheter placed by [facility] on 09/03/23. He initially had improved respiratory status after placement. Over the past 1-2 weeks he has been developing progressive SOB/TAMEZ and a non-productive cough. They have been draining his plurex cath every other day and drained it just prior to ED arrival. His said they drained approximately 150 cc of quinton colored fluid. He denies chest pain, hemoptysis, pleuritic chest pain, abd pain, dysuria, hematuria, melena, LE swelling, and recent trauma. When asked, he denies feeling as though he is getting tired or having to work harder to breath, states that his increased respirations are mostly due to anxiety. We discussed code status, he wishes to be a full code at this time and his is his POA. " Allergies Allergy/AdvReac Type Severity Reaction Status Date / Time No Known Allergies Allergy Verified 09/16/23 19:12 Home Medications Medication Instructions Recorded Confirmed Type metformin 1,000 mg tablet 1,000 mg PO BID 01/10/20 09/16/23 History tamsulosin 0.4 mg capsule 0.8 mg PO QAM 01/16/20 09/16/23 History dulaglutide 0.75 mg/0.5 mL 0.75 mg subcut WK 02/18/21 09/16/23 History subcutaneous pen injector (Trulicity) simvastatin 20 mg tablet (Zocor) 20 mg PO QPM 03/24/22 09/16/23 History levothyroxine 50 mcg capsule 50 mcg PO DAILY 09/01/23 09/16/23 History dexamethasone 0.5 mg/5 mL oral 10 mg PO DIRECTED 09/16/23 09/16/23 History solution everolimus (antineoplastic) 5 mg 5 mg PO DAILY 09/16/23 09/16/23 History tablet lorazepam 1 mg tablet 1 mg PO Q4 PRN Anxiety 09/16/23 09/16/23 History venlafaxine 150 mg 150 mg PO DAILY 09/16/23 09/16/23 History capsule,extended release 24 hr Patient History Medical History History of elevated PSA History of urinary calculi History of mumps History of measles History of varicella Surgical History Hx of cystoscopy S/P thoracentesis Left pleural effusion 03/09/22 H/O prostate biopsy History of nephrectomy 2018- left History of inguinal hernia repair Family History Father Diabetes Congestive heart failure Mother Cancer breast cancer Social History Smoking Status: Former smoker Tobacco Type: Cigars Cigarettes Per Day: SMOKED OCCASIONAL CIGAR - QUIT MANY YRS AGO; Second Hand Exposure: No; Do You Dip or Chew Tobacco: No; Tobacco Cessation Education Requested by Patient: No Hx Alcohol Use: Yes Alcohol type: beer Alcohol Intake Frequency Comment: rarely Hx Substance Use: No Preferred Language: Slovak Communication Ability: Effective Long Term Care Pharmacist Required: No Beliefs That Will Affect Care: None marital status: Current Living Situation: Spouse current occupational status: retired How many Children do You have: 2 Other Information That Helps Us Care for You: No Feels Safe at Home: Yes Safety Concerns: Feels Safe At This Time caffeine: Yes during the past year weight has: remained stable Seatbelt Use: always Assistive Devices: Walker Review of Systems Review of Systems: All systems reviewed & are unremarkable except as noted in Subjective Physical Exam Constitutional: + acute distress, + cachectic, + frail a ppearing and + diaphoretic Eyes: PERRL ENMT: Mouth: + dry oral mucous membranes and + poor dentition Neck: normal visual inspection and trachea midline Respiratory: + respiratory distress, + uses accessory muscles, + dullness to percussion, + cough, + pursed lip breathing and symmetric chest movement; + not able to speak in complete sentence Auscultation: + diminished lung sounds, + crackles and + pleural rub present Cardiovascular: Rate/Rhythm: + tachycardic and + irregularly irregular Gastrointestinal (Abdomen): Inspection/Auscultation: + abdomen distended Percussion/Palpation: + guarding Musculoskeletal: gen weakness Skin: + turgor decreased, + pallor and + hair thinning Neurologic: aaox3 Psychiatric: depressed, anxious, irritable at times Results & Data Vital Signs (Past 12 Hours) Vital Signs Temp Pulse Pulse Resp BP BP Pulse Ox 09/17/23 07:42 09/17/23 07:27 36.7 C 84 19 114/70 94 09/17/23 07:02 83 36 H 94 09/17/23 03:06 36.5 C 79 19 108/68 94 09/16/23 23:27 94 H 09/16/23 22:50 36.9 C 82 16 114/70 94 09/16/23 21:46 36.6 C 94 H 40 H 138/71 94 09/16/23 21:13 40 H 94 09/16/23 21:00 09/16/23 20:53 94 H 22 94 O2 Del Method O2 Flow Rate 09/17/23 07:42 Nasal Cannula 09/17/23 07:27 Nasal Cannula 5 09/17/23 07:02 Nasal Cannula 5 09/17/23 03:06 Nasal Cannula 4 09/16/23 23:27 09/16/23 22:50 Nasal Cannula 4 09/16/23 21:46 Nasal Cannula 4 09/16/23 21:13 Nasal Cannula 4 09/16/23 21:00 Nasal Cannula 4 09/16/23 20:53 Nasal Cannula 4 Laboratory Results 09/17/23 09/17/23 09/16/23 Range/Units 07:27 06:42 21:41 WBC 11.48 H (4.8-10.8) K/ul RBC 3.45 L (4.70-6.10) M/uL Hgb 11.0 L (14.0-18.0) g/dl Hct 34.5 L (42.0-52.0) % MCV 100.0 (80.0-100.0) fL MCH 31.9 (25.0-34.0) pg MCHC 31.9 L (32.0-36.0) g/dL RDW Std Deviation 50.2 H (36.4-46.3) fL RDW Coeff of Joaquim 13.6 (11.5-14.5) % Plt Count 495 H (130-400) K/uL MPV 8.5 L (9.4-12.4) fL Immature Gran % (Auto) 0.7 % Neut % (Auto) 84.3 % Lymph % (Auto) 6.0 % Morehouse % (Auto) 8.3 % Eos % (Auto) 0.4 % Baso % (Auto) 0.3 % Neut # (Auto) 9.67 H (1.40-6.50) K/uL Lymph # (Auto) 0.69 L (1.20-3.40) K/uL Morehouse # (Auto) 0.95 H (0.11-0.59) K/uL Eos # (Auto) 0.05 (0.00-0.50) K/uL Baso # (Auto) 0.04 (0.00-0.20) K/uL Immature Gran # (Auto) 0.08 (0.01-0.20) K/uL PT 11.4 (9.0-12.0) Seconds INR 1.1 (0.9-1.1) VBG pH (7.36-7.41) VBG pCO2 (38-50) mmHg VBG pO2 mmHg VBG HCO3 mmol/L VBG O2 Saturation % VBG Base Excess mEq/L Sodium 136 (136-145) mmol/L Potassium 5.1 (3.5-5.1) mmol/L Chloride 103 (98-107) mmol/L Carbon Dioxide 23 (21-32) mmol/L Anion Gap 10 (3-11) BUN 22 (6-23) mg/dl Creatinine 0.88 (0.6-1.4) mg/dl Est Cr Clr Drug Dosing 75.8 ml/min Est GFR ( Amer) 100.9 ml/min Est GFR (Non-Af Amer) 87.0 ml/min BUN/Creatinine Ratio 25.0 H (10-20) Glucose 126 H (70-99(Fasting)) mg/dl POC Glucose 99 148 H (70-99) mg/dl Lactate (0.4-2.0) mmol/L Calcium 8.7 (8.6-10.3) mg/dl Magnesium 1.6 L (1.7-2.4) mg/dl Total Bilirubin 0.6 (0.2-1.0) mg/dl AST 14 (13-39) U/L ALT 9 (7-52) U/L Alkaline Phosphatase 76 (34-104) U/L Troponin I High Sens (0-20) pg/ml Total Protein 6.6 D (6.0-8.3) gm/dl Albumin 2.9 L (3.4-5.0) gm/dl Globulin 3.7 (2.5-4.0) gm/dl Albumin/Globulin Ratio 0.8 L (0.9-2) Procalcitonin (0-0.5) ng/ml Nasal Screen MRSA (PCR) (Negative) Adenovirus (PCR) (NotDetected) B. pertussis DNA (PCR) (NotDetected) B.parapertussis DNA PCR (NotDetected) C. pneumoniae DNA (PCR) (NotDetected) Coronavirus OC43 (PCR) (NotDetected) Coronavirus HKU1 (PCR) (NotDetected) Coronavirus 229E (PCR) (NotDetected) SARS-CoV-2 (PCR) (NotDetected) Coronavirus NL63 (PCR) (NotDetected) Human Metapneumovir PCR (NotDetected) Influenza Type A (PCR) (NotDetected) Influenza Type B (PCR) (NotDetected) M. pneumoniae (PCR) (NotDetected) Parainfluenza 1 (PCR) (NotDetected) Parainfluenza 2 (PCR) (NotDetected) Parainfluenza 3 (PCR) (NotDetected) Parainfluenza 4 (PCR) (NotDetected) RSV (PCR) (NotDetected) Entero/Rhino (PCR) (NotDetected) 09/16/23 09/16/23 09/16/23 Range/Units 20:53 19:42 18:58 WBC (4.8-10.8) K/ul RBC (4.70-6.10) M/uL Hgb (14.0-18.0) g/dl Hct (42.0-52.0) % MCV (80.0-100.0) fL MCH (25.0-34.0) pg MCHC (32.0-36.0) g/dL RDW Std Deviation (36.4-46.3) fL RDW Coeff of Joaquim (11.5-14.5) % Plt Count (130-400) K/uL MPV (9.4-12.4) fL Immature Gran % (Auto) % Neut % (Auto) % Lymph % (Auto) % Morehouse % (Auto) % Eos % (Auto) % Baso % (Auto) % Neut # (Auto) (1.40-6.50) K/uL Lymph # (Auto) (1.20-3.40) K/uL Morehouse # (Auto) (0.11-0.59) K/uL Eos # (Auto) (0.00-0.50) K/uL Baso # (Auto) (0.00-0.20) K/uL Immature Gran # (Auto) (0.01-0.20) K/uL PT (9.0-12.0) Seconds INR (0.9-1.1) VBG pH 7.33 L (7.36-7.41) VBG pCO2 42 (38-50) mmHg VBG pO2 46 mmHg VBG HCO3 22 mmol/L VBG O2 Saturation 75.0 % VBG Base Excess -3.7 mEq/L Sodium (136-145) mmol/L Potassium 5.0 (3.5-5.1) mmol/L Chloride (98-107) mmol/L Carbon Dioxide (21-32) mmol/L Anion Gap (3-11) BUN (6-23) mg/dl Creatinine (0.6-1.4) mg/dl Est Cr Clr Drug Dosing ml/min Est GFR ( Amer) ml/min Est GFR (Non-Af Amer) ml/min BUN/Creatinine Ratio (10-20) Glucose (70-99(Fasting)) mg/dl POC Glucose (70-99) mg/dl Lactate 2.1 H* (0.4-2.0) mmol/L Calcium (8.6-10.3) mg/dl Magnesium (1.7-2.4) mg/dl Total Bilirubin (0.2-1.0) mg/dl AST (13-39) U/L ALT (7-52) U/L Alkaline Phosphatase (34-104) U/L Troponin I High Sens (0-20) pg/ml Total Protein (6.0-8.3) gm/dl Albumin (3.4-5.0) gm/dl Globulin (2.5-4.0) gm/dl Albumin/Globulin Ratio (0.9-2) Procalcitonin (0-0.5) ng/ml Nasal Screen MRSA (PCR) Negative (Negative) Adenovirus (PCR) Not Detected (NotDetected) B. pertussis DNA (PCR) Not Detected (NotDetected) B.parapertussis DNA PCR Not Detected (NotDetected) C. pneumoniae DNA (PCR) Not Detected (NotDetected) Coronavirus OC43 (PCR) Not Detected (NotDetected) Coronavirus HKU1 (PCR) Not Detected (NotDetected) Coronavirus 229E (PCR) Not Detected (NotDetected) SARS-CoV-2 (PCR) Not Detected (NotDetected) Coronavirus NL63 (PCR) Not Detected (NotDetected) Human Metapneumovir PCR Not Detected (NotDetected) Influenza Type A (PCR) Not Detected (NotDetected) Influenza Type B (PCR) Not Detected (NotDetected) M. pneumoniae (PCR) Not Detected (NotDetected) Parainfluenza 1 (PCR) Not Detected (NotDetected) Parainfluenza 2 (PCR) Not Detected (NotDetected) Parainfluenza 3 (PCR) Not Detected (NotDetected) Parainfluenza 4 (PCR) Not Detected (NotDetected) RSV (PCR) Not Detected (NotDetected) Entero/Rhino (PCR) Not Detected (NotDetected) 09/16/23 09/16/23 Range/Units 17:08 16:33 WBC 12.99 H (4.8-10.8) K/ul RBC 4.05 L (4.70-6.10) M/uL Hgb 13.1 L (14.0-18.0) g/dl Hct 39.2 L (42.0-52.0) % MCV 96.8 (80.0-100.0) fL MCH 32.3 (25.0-34.0) pg MCHC 33.4 (32.0-36.0) g/dL RDW Std Deviation 47.9 H (36.4-46.3) fL RDW Coeff of Joaquim 13.4 (11.5-14.5) % Plt Count 613 H (130-400) K/uL MPV 8.4 L (9.4-12.4) fL Immature Gran % (Auto) 0.5 % Neut % (Auto) 87.2 % Lymph % (Auto) 5.7 % Morehouse % (Auto) 6.1 % Eos % (Auto) 0.3 % Baso % (Auto) 0.2 % Neut # (Auto) 11.32 H (1.40-6.50) K/uL Lymph # (Auto) 0.74 L (1.20-3.40) K/uL Morehouse # (Auto) 0.79 H (0.11-0.59) K/uL Eos # (Auto) 0.04 (0.00-0.50) K/uL Baso # (Auto) 0.03 (0.00-0.20) K/uL Immature Gran # (Auto) 0.07 (0.01-0.20) K/uL PT (9.0-12.0) Seconds INR (0.9-1.1) VBG pH (7.36-7.41) VBG pCO2 (38-50) mmHg VBG pO2 mmHg VBG HCO3 mmol/L VBG O2 Saturation % VBG Base Excess mEq/L Sodium 132 L (136-145) mmol/L Potassium 5.2 H (3.5-5.1) mmol/L Chloride 98 (98-107) mmol/L Carbon Dioxide 23 (21-32) mmol/L Anion Gap 11 (3-11) BUN 28 H (6-23) mg/dl Creatinine 0.89 (0.6-1.4) mg/dl Est Cr Clr Drug Dosing 75.5 ml/min Est GFR ( Amer) 100.4 ml/min Est GFR (Non-Af Amer) 86.6 ml/min BUN/Creatinine Ratio 31.5 H (10-20) Glucose 148 H (70-99(Fasting)) mg/dl POC Glucose (70-99) mg/dl Lactate 3.6 H* (0.4-2.0) mmol/L Calcium 9.8 (8.6-10.3) mg/dl Magnesium 1.7 (1.7-2.4) mg/dl Total Bilirubin 0.7 (0.2-1.0) mg/dl AST 19 (13-39) U/L ALT 13 (7-52) U/L Alkaline Phosphatase 99 (34-104) U/L Troponin I High Sens 9.7 (0-20) pg/ml Total Protein 8.6 H (6.0-8.3) gm/dl Albumin 3.8 (3.4-5.0) gm/dl Globulin 4.8 H (2.5-4.0) gm/dl Albumin/Globulin Ratio 0.8 L (0.9-2) Procalcitonin 0.64 H (0-0.5) ng/ml Nasal Screen MRSA (PCR) (Negative) Adenovirus (PCR) (NotDetected) B. pertussis DNA (PCR) (NotDetected) B.parapertussis DNA PCR (NotDetected) C. pneumoniae DNA (PCR) (NotDetected) Coronavirus OC43 (PCR) (NotDetected) Coronavirus HKU1 (PCR) (NotDetected) Coronavirus 229E (PCR) (NotDetected) SARS-CoV-2 (PCR) (NotDetected) Coronavirus NL63 (PCR) (NotDetected) Human Metapneumovir PCR (NotDetected) Influenza Type A (PCR) (NotDetected) Influenza Type B (PCR) (NotDetected) M. pneumoniae (PCR) (NotDetected) Parainfluenza 1 (PCR) (NotDetected) Parainfluenza 2 (PCR) (NotDetected) Parainfluenza 3 (PCR) (NotDetected) Parainfluenza 4 (PCR) (NotDetected) RSV (PCR) (NotDetected) Entero/Rhino (PCR) (NotDetected) Diagnostic Findings Chest X-Ray 09/16/23 16:20 XR chest 1V portable CLINICAL HISTORY: hx pleural effusion, ongoing dyspnea TECHNIQUE: Single frontal radiograph of the chest was obtained. Comparison: Comparison is made to chest radiograph 09/03/2023 FINDINGS: No lines and tubes are seen. Cardiomegaly is noted. Airspace opacities are in the bilateral lower lungs. Small bilateral pleural effusions are seen. IMPRESSION: 1. Multifocal airspace opacities may represent atelectasis, pneumonia, and/or aspiration. 2. Small bilateral pleural effusions. ACT 112: Negative or not required by law. Electronically signed by: Nirmal Pineda M.D. 09/16/2023 5:14 PM Chest CTA 09/16/23 16:51 CT angio chest PE protocol CLINICAL HISTORY: PE TECHNIQUE: Multidetector row helical CT of the chest was performed with angiographic protocol. Coronal and sagittal reformations were obtained. Coronal and sagittal MIPS were obtained from the axial data set and were submitted for review. Automated dose lowering techniques and/or adjustment according to patient size were utilized for this exam. CT DOSE: 898.94 mGy.cm Comparison: None available at the time of this dictation. FINDINGS: Lungs and pleura: Bilateral pleural thickening is significantly advanced from the prior exam. Scattered pulmonary nodules are seen including 8 mm nodule in the right upper lobe and a 12 mm nodule in the left upper lobe (image 160). Interlobular septal thickening is seen favoring the bilateral lower lungs. Heart and pericardium: Heart size is normal. No pericardial effusion. Vessels: No evidence of pulmonary embolism. Mediastinum and maryjane: Mediastinal lymphadenopathy is similar to prior exam. Chest wall and lower neck: Redemonstration of lymphadenopathy in the left axilla and lower paratracheal station, similar to prior exam. Abdomen: Unremarkable. Bones: Degenerative changes in the thoracic spine. IMPRESSION: 1. No evidence of pulmonary embolus. 2. Significant interval worsening of pleural thickening. A right chest tube is seen. 3. Multifocal airspace opacities may represent lymphangitic spread of tumor with or without superimposed aspiration/pneumonia. 4. Stable lymphadenopathy. 5. Additional findings as above. ACT 112: Negative or not required by law. Electronically signed by: Nirmal Pineda M.D. 09/16/2023 6:22 PM PG Care Time/CCT Total # of Minutes Spent Total Time Spent with Patient: Total time spent is greater than 50% in coordination of care (as documented) at patient's floor/unit and/or counseling patient: I spent 90 minutes overall addressing this case: 20 min in medical data review/discussion with referring provider(s) and/or preparation for the visit 20 min in direct interaction with the patient/exam 30 min in Advance Care Planning/Goals of Care discussions as detailed above in note (must be >16min) 10 min in subsequent review and synthesis of assessment and plan 10 min communicating with other providers regarding the patient's case: Advanced Care Planning 03836 Advanced Care Planning 30 [place] [address] IN/OBS CONSULT LVL 5,80M (25 - SIGNIFICANT, SEPARATELY IDENTIFIABLE ) Patient Type New Medical Decision Making High Complexity Diagnoses Cancer related pain G89.3 Dyspnea and respiratory abnormalities R06.00; R06.89 Advanced care planning/counseling discussion Z71.89 Palliative care by specialist Z51.5 Metastatic renal cell carcinoma C64.9 Additional Codes Advanced Care Planning - 61523 Advanced Care Planning 30 Min: 05077 Advanced Care Planning 30 Min ([id number])
--- NOTE | 2023-09-17 08:42 | Electrocardiogram Report ---
Test Reason : Blood Pressure : / mmHG Vent. Rate : 101 BPM Atrial Rate : 101 BPM P-R Int : 158 ms QRS Dur : 072 ms QT Int : 312 ms P-R-T Axes : 024 -03 036 degrees QTc Int : 404 ms Sinus tachycardia Low voltage QRS Nonspecific T wave abnormality Lateral leads Borderline ECG When compared with ECG of 05-MAY-2023 12:17, Nonspecific T wave abnormality now evident in Lateral leads Confirmed by Jorge New ([id number]) on 09/17/2023 8:42:02 AM Referred By: Yahir Ellis Confirmed By:Jorge New
[2023-09-17] MEDS: LORazepam 1 MG TAB PO PRN (09:01)
[2023-09-17] MEDS: MAGNESIUM SULFATE / D5W 1 GM/100 ML BAG IV SCH (09:01)
[2023-09-17] MEDS: TAMSULOSIN HCL 0.4 MG CAP PO SCH (09:02)
[2023-09-17] MEDS: VENLAFAXINE HCL XR 150 MG CAPXR PO SCH (09:02)
--- NOTE | 2023-09-17 09:13 | Pharmacy Report ---
Pharmacy PK ABX Note - Date of Service September 17, 2023 - Assessment and Plan Assessment 72 year old M receiving empiric vancomycin/cefepime for treatment of possible sepsis/pulmonary source. Patient PMH including metastatic renal cell carcinoma with recurrent malignant pleural effusion S/P Right PleurX catheter placement on 09/03/23, S/P right nephrectomy in 2018, DMII, HTN, hyperlipidemia, and hypothyroidism. Pertinent microbiologic data includes: negative MRSA Nasal Swab, blood cultures pending. Initial WBC 12.99, Procal 0.64, lactate 3.6. SCr at baseline. Plan Vancomycin * Loading dose: 2000 mg IV x 1 * Maintenance dose: 1000 mg IV every 12 hours * Regimen is predicted to achieve target AUC/JJ of 400-600 mg/L.hr * Random level ordered / with AM labs Pharmacy will continue to follow and will adjust dose/frequency as necessary. Thank you. Pharmacy has transitioned to AUC monitoring for vancomycin. AUC/JJ is the preferred PK/PD target and is associated with decreased risk of nephrotoxicity compared to traditional trough targets.
[2023-09-17] MEDS: methylPREDNISolone 40 MG in SYRINGE 0 ML IV SCH (09:40)
--- NOTE | 2023-09-17 11:09 | Hospitalist Progress Note ---
Date of Service September 17, 2023 Assessment & Plan (1) Acute respiratory failure with hypoxia: Plan: Supplemental oxygen to maintain saturation greater than 90%. Bilateral infiltrates seen on CT scan that could be due to underlying malignancy or possibly infectious. Pulmonary medicine consultation requested and pending. He is currently on cefepime and vancomycin, day 2. No sputum produced for culture. (2) Pulmonary infiltrates: Plan: Bilateral infiltrates noted on chest CT scan. He is not coughing, has no fever, no elevated white count. This might be due to underlying malignancy. However, pneumonia needs to be ruled out. Pulmonary medicine consultation pending. He remains on cefepime and vancomycin, day 2 (3) Sepsis: Plan: Present on admission. Continue antibiotic therapy for now. Obtain sputum culture if sputum is produced. Supportive care (4) Hyperkalemia: Plan: Mild on admission. Avoid potassium supplementation. Correct acidosis. Serial labs (5) Essential (primary) hypertension: Plan: Stable. Continue current medical management (6) Type 2 diabetes mellitus without complication: Plan: ADA diet. Sliding scale coverage. Hold metformin and Dulaglutide (7) Renal cell cancer: Plan: With recurrent right malignant pleural effusion. He now has a right Pleurx catheter in place. Oncology and pulmonology consultation requested and pending Plan To be determined Admission and Anticipated Discharge Date Admission Date: September 16, 2023 Subjective Alert and oriented. He has asked that his morphine be administered more frequently as needed. 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 Magnesium replacement ongoing parenterally. Awaiting pulmonary consultation, oncology consultation, and palliative care. He recently had a right Pleurx catheter placed to drain his recurrent malignant pleural effusion. Review of Systems 2 Review of Systems: Constitutional-no fever or chills ENT-no blurred vision, no double vision, no epistaxis, no sore throat Respiratory-no cough, no wheezing. Shortness of breath with minimal exertion Cardiac-no palpitations, no chest pain, no syncope GI-no nausea, vomiting, diarrhea, melena, hematochezia -no urinary retention, no urinary incontinence, no dysuria, no hematuria Musculoskeletal-no joint pain, no muscle tenderness Skin-no bruising, no rashes, no pruritus Neuro-no isolated weakness, no paresthesia Psych-no depression, no anxiety Physical Exam 2 Physical Exam: General-alert and oriented x3, no fever, no chills HEENT-head atraumatic and normocephalic, pupils equal and reactive to light, extraocular muscles intact Neck-no lymphadenopathy or thyromegaly, trachea midline Chest-diminished breath sounds and rhonchi at the right base. Right Pleurx catheter in place. No rales, wheezing or rhonchi Cardiac-regular rate and rhythm, normal S1 and S2 Abdomen-normal bowel sounds, no hepatosplenomegaly Extremities-no cyanosis, clubbing, or edema Neuro-cranial nerves II through XII intact, motor and sensory function within normal limits, strength symmetrical, no focal deficits Psych-normal affect, normal mood Results & Data Results & Data Vital Signs (Past 12 Hours) Vital Signs Temp Pulse Pulse Resp BP BP Pulse Ox 09/17/23 07:42 09/17/23 07:27 36.7 C 84 19 114/70 94 09/17/23 07:02 83 36 H 94 09/17/23 03:06 36.5 C 79 19 108/68 94 09/16/23 23:27 94 H O2 Del Method O2 Flow Rate 09/17/23 07:42 Nasal Cannula 09/17/23 07:27 Nasal Cannula 5 09/17/23 07:02 Nasal Cannula 5 09/17/23 03:06 Nasal Cannula 4 09/16/23 23:27 Laboratory Results 09/17/23 06:42 09/17/23 06:42 PG Care Time/CCT Total # of Minutes Spent Total Time Spent with Patient: Total time spent is greater than 50% in coordination of care (as documented) at patient's floor/unit and/or counseling patient: Coding Level of Care Code 99531 SUB INP/OBS CARE 3/50MIN Diagnoses Acute respiratory failure with hypoxia J96.01 Pulmonary infiltrates R91.8 Sepsis A41.9 Hyperkalemia E87.5 Essential (primary) hypertension I10 Type 2 diabetes mellitus without complication E11.9 Renal cell cancer C64.9
[2023-09-17] MEDS ORDERED: MoRPHine SULFATE 2 MG/ML CARP IV PRN (11:40)
[2023-09-17] MEDS ORDERED: POLYETHYLENE (MIRALAX) 17 GM PACK PO PRN (11:41)
--- NOTE | 2023-09-17 14:48 | Pulmonary Consultation ---
Date of Consultation September 17, 2023 Assessment & Plan (1) Metastatic renal cell carcinoma: Laterality: right Qualified Code(s): C64.1 - Malignant neoplasm of right kidney, except renal pelvis (2) Hypoxia: (3) Recurrent right pleural effusion: Plan 72-year-old male known to me with a history of metastatic renal cell carcinoma. He presents with hypoxic respiratory failure due to significant metastatic disease burden from RCC. He has bilateral metastatic pleural disease which is causing significant restrictive pulmonary physiology leading to hypoxemia. 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 His Pleurx catheter appears to be adequately placed. Recommend continue drainage every other day. The site does not look infected. I am doubtful of an actual pulmonary infection, but think it is reasonable to continue with empiric antibiotics for the time being. I restarted the cefepime. Vancomycin has been discontinued as his MRSA screen was negative. Recommend ongoing discussion with palliative care and oncology. No further recommendations at this time. Please call with questions. Thank you for the consult. History of Present Illness Reason for Consultation: "Acute hypoxic respiratory failure, pneumonia" Attending Physician: Herbert Pond MD History of Present Illness 72-year-old male with a history of bilateral malignant pleural effusions related to renal cell carcinoma diagnosed in 2018, diabetes mellitus type 2, hypertension, hyperlipidemia and hypothyroidism who presented to the hospital yesterday due to significant shortness of breath. Denies chest pain, fevers, chills, cough or night sweats. I placed a Pleurx catheter in the right pleural space 09/03/2023 which the family has been draining every other day. [facility] was consulted by the hospitalist service today. He is currently being treated for presumptive pneumonia based on CT chest findings with vancomycin. He received a dose of cefepime in the emergency department. Procalcitonin was mildly elevated to 0.64. MRSA screen was negative on admission. CT chest was performed in the ER 09/16/2023 and radiology noted no evidence of pulmonary embolism, significant interval worsening of pleural thickening, multifocal airspace opacities concerning for lymphangitic spread of tumor with or without superimposed pneumonia and stable lymphadenopathy. Upon my review there does appear to be a loculated right upper lobe pleural effusion. There is a small basilar pleural effusion. The pleural catheter appears to be in appropriate position. There does appear to be lymphangitic spread of tumor. There is no obvious infiltrates concerning for pneumonia. Echo 08/20/2023 with grade 1 diastolic dysfunction. LV function was normal. White count on admission was elevated to 12,999. Lactate was also elevated to 3.6 on admission. Overall, he does not endorse any significant change in his shortness of breath compared to yesterday. Patient's was present during the exam. Allergies Allergy/AdvReac Type Severity Reaction Status Date / Time No Known Allergies Allergy Verified 09/16/23 19:12 Home Medications Medication Instructions Recorded Confirmed Type metformin 1,000 mg tablet 1,000 mg PO BID 01/10/20 09/16/23 History tamsulosin 0.4 mg capsule 0.8 mg PO QAM 01/16/20 09/16/23 History dulaglutide 0.75 mg/0.5 mL 0.75 mg subcut WK 02/18/21 09/16/23 History subcutaneous pen injector (Trulicity) simvastatin 20 mg tablet (Zocor) 20 mg PO QPM 03/24/22 09/16/23 History levothyroxine 50 mcg capsule 50 mcg PO DAILY 09/01/23 09/16/23 History dexamethasone 0.5 mg/5 mL oral 10 mg PO DIRECTED 09/16/23 09/16/23 History solution everolimus (antineoplastic) 5 mg 5 mg PO DAILY 09/16/23 09/16/23 History tablet lorazepam 1 mg tablet 1 mg PO Q4 PRN Anxiety 09/16/23 09/16/23 History venlafaxine 150 mg 150 mg PO DAILY 09/16/23 09/16/23 History capsule,extended release 24 hr Patient History Medical History History of elevated PSA History of urinary calculi History of mumps History of measles History of varicella Surgical History Hx of cystoscopy S/P thoracentesis Left pleural effusion 03/09/22 H/O prostate biopsy History of nephrectomy 2018- left History of inguinal hernia repair Family History Father Diabetes Congestive heart failure Mother Cancer breast cancer Social History Smoking Status: Former smoker Tobacco Type: Cigars Cigarettes Per Day: SMOKED OCCASIONAL CIGAR - QUIT MANY YRS AGO; Second Hand Exposure: No; Do You Dip or Chew Tobacco: No; Tobacco Cessation Education Requested by Patient: No Hx Alcohol Use: Yes Alcohol type: beer Alcohol Intake Frequency Comment: rarely Hx Substance Use: No Preferred Language: Irish Communication Ability: Effective 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 GENERAL - 72-year-old male appearing his stated age who is in no acute distress. Communicates well with provider and answers questions appropriately. SKIN - Without rashes or lesions. NOSE - Midline and without cyanosis. MOUTH/OROPHARYNX - Without perioral cyanosis. NECK - Neck with FROM. LUNGS - Chest wall evaluation demonstrates normal chest wall A:P diameter. Auscultation reveals diminishment of bilateral lung sounds with crackles on the right. CARDIAC - RRR with S1/S2. No murmur, rubs, or gallops appreciated. PSYCH - A&Ox3 and cooperates fully with examiner. Pt is very pleasant and inter acts well with examiner. Results & Data Results & Data Vital Signs (Past 12 Hours) Vital Signs Temp Pulse Resp BP BP Pulse Ox O2 Del Method 09/17/23 11:09 36.7 C 82 17 118/70 99 Nasal Cannula 09/17/23 07:42 Nasal Cannula 09/17/23 07:27 36.7 C 84 19 114/70 94 Nasal Cannula 09/17/23 07:02 83 36 H 94 Nasal Cannula 09/17/23 03:06 36.5 C 79 19 108/68 94 Nasal Cannula O2 Flow Rate 09/17/23 11:09 09/17/23 07:42 09/17/23 07:27 5 09/17/23 07:02 5 09/17/23 03:06 4 PG Care Time/CCT Total # of Minutes Spent Total Time Spent with Patient: Total time spent is greater than 50% in coordination of care (as documented) at patient's floor/unit and/or counseling patient: Coding Level of Care Code 20558 INT INP/OBS CARE 2/55MIN Diagnoses Renal cell carcinoma of right kidney metastatic to other site C64.1 Laterality: right Hypoxia R09.02 Recurrent right pleural effusion J90
[2023-09-17] MEDS: CEFEPIME 2,000 MG in SYRINGE 0 ML IV SCH (15:33)
--- NOTE | 2023-09-17 16:59 | Oncology Consultation ---
Date of Consultation September 17, 2023 History of Present Illness Attending Physician: Herbert Pond MD Allergies Allergy/AdvReac Type Severity Reaction Status Date / Time No Known Allergies Allergy Verified 09/16/23 19:12 Home Medications Medication Instructions Recorded Confirmed Type metformin 1,000 mg tablet 1,000 mg PO BID 01/10/20 09/16/23 History tamsulosin 0.4 mg capsule 0.8 mg PO QAM 01/16/20 09/16/23 History dulaglutide 0.75 mg/0.5 mL 0.75 mg subcut WK 02/18/21 09/16/23 History subcutaneous pen injector (Trulicity) simvastatin 20 mg tablet (Zocor) 20 mg PO QPM 03/24/22 09/16/23 History levothyroxine 50 mcg capsule 50 mcg PO DAILY 09/01/23 09/16/23 History dexamethasone 0.5 mg/5 mL oral 10 mg PO DIRECTED 09/16/23 09/16/23 History solution everolimus (antineoplastic) 5 mg 5 mg PO DAILY 09/16/23 09/16/23 History tablet lorazepam 1 mg tablet 1 mg PO Q4 PRN Anxiety 09/16/23 09/16/23 History venlafaxine 150 mg 150 mg PO DAILY 09/16/23 09/16/23 History capsule,extended release 24 hr Patient History Medical History History of elevated PSA History of urinary calculi History of mumps History of measles History of varicella Surgical History Hx of cystoscopy S/P thoracentesis Left pleural effusion 03/09/22 H/O prostate biopsy History of nephrectomy 2018- left History of inguinal hernia repair Family History Father Diabetes Congestive heart failure Mother Cancer breast cancer Social History Smoking Status: Former smoker Tobacco Type: Cigars Cigarettes Per Day: SMOKED OCCASIONAL CIGAR - QUIT MANY YRS AGO; Second Hand Exposure: No; Do You Dip or Chew Tobacco: No; Tobacco Cessation Education Requested by Patient: No Hx Alcohol Use: Yes Alcohol type: beer Alcohol Intake Frequency Comment: rarely Hx Substance Use: No Preferred Language: Citizen Of [place] Communication Ability: Effective Documentation Consultant Required: No Beliefs That Will Affect Care: None marital status: Current Living Situation: Spouse current occupational status: retired How many Children do You have: 2 Other Information That Helps Us Care for You: No Feels Safe at Home: Yes Safety Concerns: Feels Safe At This Time caffeine: Yes during the past year weight has: remained stable Seatbelt Use: always Assistive Devices: Walker Results & Data Vital Signs (Past 12 Hours) Vital Signs Temp Pulse Pulse Resp BP Pulse Ox O2 Del Method 09/17/23 16:44 82 09/17/23 14:56 36.6 C 84 19 123/75 97 Nasal Cannula 09/17/23 11:09 36.7 C 82 17 118/70 99 Nasal Cannula 09/17/23 07:42 Nasal Cannula 09/17/23 07:27 36.7 C 84 19 114/70 94 Nasal Cannula 09/17/23 07:02 83 36 H 94 Nasal Cannula O2 Flow Rate 09/17/23 16:44 09/17/23 14:56 09/17/23 11:09 09/17/23 07:42 09/17/23 07:27 5 09/17/23 07:02 5
[2023-09-17] MEDS ORDERED: NON-FORMULARY PATIENT'S OWN MED SCH (18:00)
[2023-09-17] MEDS: EVEROLIMUS 5 MG PO SCH (20:44)
[2023-09-17] MEDS: [UNRECOGNIZED DRUG - OTHER] PO SCH (20:45)
[2023-09-17] MEDS: LENVATINIB PO SCH (20:45)
[2023-09-18] MEDS ORDERED: VANCOMYCIN LEVEL ONE (04:44)
[2023-09-18] MEDS: LEVALBUTEROL 1.25 MG/3 ML NEB ONE (07:25)
[2023-09-18 07:38] LABS: Hematocrit (blood only) 32.6 % (42.0-52.0); Hemoglobin 10.3 g/dl (14.0-18.0); Mean Corpuscular Hemoglobin 31.7 pg (25.0-34.0); Mean Corpuscular Hgb Conc 31.6 g/dL (32.0-36.0); Mean Corpuscular Volume 100.3 fL (80.0-100.0); Mean Platelet Volume 8.6 fL (9.4-12.4); Platelet Count 440 K/uL (130-400); RDW Coefficient of Variation 13.2 % (11.5-14.5); RDW Standard Deviation 49.2 fL (36.4-46.3); Red Blood Count 3.25 M/uL (4.70-6.10); White Blood Count 11.53 K/ul (4.8-10.8)
[2023-09-18 08:09] LABS: Basophils # (auto) 0.01 K/uL (0.00-0.20); Basophils % (auto) 0.1 %; Immature Granulocytes # (auto) 0.05 K/uL (0.01-0.20); Immature Granulocytes % (auto) 0.4 %; Lymphocytes # (auto) 0.53 K/uL (1.20-3.40); Lymphocytes % (auto) 4.6 %; Monocytes # (auto) 0.19 K/uL (0.11-0.59); Monocytes % (auto) 1.6 %; Neutrophils # (auto) 10.75 K/uL (1.40-6.50); Neutrophils % (auto) 93.3 %
[2023-09-18] MEDS: DOCUSATE SODIUM/SENNA 50/8.6MG TAB PO SCH (08:11)
[2023-09-18 09:02] LABS: Calcium 8.9 mg/dl (8.6-10.3); Potassium 5.3 mmol/L (3.5-5.1)
[2023-09-18 09:08] LABS: BUN Creatinine Ratio 27.6 (10-20); Creatinine Clr Calc Pharmacy 76.4 ml/min; Est GFR (African American) 101.3 ml/min; Est GFR (Non-African American) 87.4 ml/min
[2023-09-18] MEDS ORDERED: LEVALBUTEROL 1.25MG/0.5ML NEB NEB PRN (11:10)
--- NOTE | 2023-09-18 12:33 | Hospitalist Progress Note ---
Date of Service September 18, 2023 Assessment & Plan (1) Acute respiratory failure with hypoxia: Plan: Supplemental oxygen to maintain saturation greater than 90%. Bilateral infiltrates seen on CT scan are probably due to underlying malignancy rather than infectious. Pulmonary medicine consultation appreciated. He remains on cefepime, day 3. Vancomycin has been discontinued. No sputum produced for culture. (2) Pulmonary infiltrates: Plan: Bilateral infiltrates noted on chest CT scan. He is not coughing, has no fever, no elevated white count. These findings are probably due to underlying malignancy. Pulmonary medicine consultation. He remains on cefepime, day 3. Vancomycin has been discontinued (3) Sepsis: Plan: Present on admission. Now resolved. Continue antibiotic therapy for now. Obtain sputum culture if sputum is produced. Supportive care (4) Hyperkalemia: Plan: Mild on admission. Now resolved. Avoid potassium supplementation. Serial labs (5) Hypomagnesemia: Plan: Corrected with parenteral replacement. Serial labs (6) Essential (primary) hypertension: Plan: Stable. Continue current medical management (7) Type 2 diabetes mellitus without complication: Plan: ADA diet. Sliding scale coverage. Holding metformin and Dulaglutide (8) Renal cell cancer: Plan: With recurrent right malignant pleural effusion. He now has a right Pleurx catheter in place. Oncology and pulmonology consultation appreciated. He has started chemotherapy while an inpatient. Plan Hopeful discharge to home soon Admission and Anticipated Discharge Date Admission Date: September 16, 2023 Subjective Alert and oriented. No distress. Palliative care consultation appreciated. Chemotherapy has been started while hospitalized. Supportive care Review of Systems 2 Review of Systems: Constitutional-no fever or chills ENT-no blurred vision, no double vision, no epistaxis, no sore throat Respiratory-no cough, no wheezing. Shortness of breath with minimal exertion Cardiac-no palpitations, no chest pain, no syncope GI-no nausea, vomiting, diarrhea, melena, hematochezia -no urinary retention, no urinary incontinence, no dysuria, no hematuria Musculoskeletal-no joint pain, no muscle tenderness Skin-no bruising, no rashes, no pruritus Neuro-no isolated weakness, no paresthesia Psych-depressed affect Physical Exam 2 Physical Exam: General-alert and oriented x3, no fever, no chills HEENT-head atraumatic and normocephalic, pupils equal and reactive to light, extraocular muscles intact Neck-no lymphadenopathy or thyromegaly, trachea midline Chest-diminished breath sounds and rhonchi at the right base. Right Pleurx catheter in place. No rales, wheezing or rhonchi Cardiac-regular rate and rhythm, normal S1 and S2 Abdomen-normal bowel sounds, no hepatosplenomegaly Extremities-no cyanosis, clubbing, or edema Neuro-cranial nerves II through XII intact, motor and sensory function within normal limits, strength symmetrical, no focal deficits Psych-depressed affect Results & Data Results & Data Vital Signs (Past 12 Hours) Vital Signs Temp Pulse Pulse Resp BP Pulse Ox O2 Del Method 09/18/23 09:00 75 09/18/23 08:06 Nasal Cannula 09/18/23 07:27 78 16 97 Nasal Cannula 09/18/23 07:20 36.5 C 73 19 107/66 98 Nasal Cannula 09/18/23 02:48 36.5 C 73 16 125/76 100 Nasal Cannula O2 Flow Rate 09/18/23 09:00 09/18/23 08:06 3 09/18/23 07:27 4 09/18/23 07:20 5.0 09/18/23 02:48 5 Laboratory Results 09/18/23 06:50 09/18/23 06:50 PG Care Time/CCT Total # of Minutes Spent Total Time Spent with Patient: Total time spent is greater than 50% in coordination of care (as documented) at patient's floor/unit and/or counseling patient: Coding Level of Care Code 62923 SUB INP/OBS CARE 3/50MIN Diagnoses Acute respiratory failure with hypoxia J96.01 Pulmonary infiltrates R91.8 Sepsis A41.9 Hyperkalemia E87.5 Hypomagnesemia E83.42 Essential (primary) hypertension I10 Type 2 diabetes mellitus without complication E11.9 Renal cell cancer C64.9
[2023-09-18] MEDS: SODIUM ZIRCONIUM CYCLOSILICATE 10 GM PACKET PO SCH (14:48)
[2023-09-18] MEDS: DEXAMETHASONE 0.5 MG/5 ML PO SCH (17:42)
[2023-09-18] MEDS ORDERED: MoRPHine SULFATE 2 MG/ML CARP IV PRN (18:32)
[2023-09-18] MEDS: MoRPHine SULFATE 2 MG/ML CARP IV PRN (20:05)
[2023-09-19 07:05] LABS: Hematocrit (blood only) 30.4 % (42.0-52.0); Hemoglobin 9.9 g/dl (14.0-18.0); Mean Corpuscular Hemoglobin 32.4 pg (25.0-34.0); Mean Corpuscular Hgb Conc 32.6 g/dL (32.0-36.0); Mean Corpuscular Volume 99.3 fL (80.0-100.0); Mean Platelet Volume 8.6 fL (9.4-12.4); Platelet Count 425 K/uL (130-400); RDW Coefficient of Variation 13.2 % (11.5-14.5); RDW Standard Deviation 47.9 fL (36.4-46.3); Red Blood Count 3.06 M/uL (4.70-6.10); White Blood Count 16.37 K/ul (4.8-10.8)
[2023-09-19 07:54] LABS: BUN Creatinine Ratio 32.6 (10-20); Calcium 8.9 mg/dl (8.6-10.3); Creatinine Clr Calc Pharmacy 77.3 ml/min; Est GFR (African American) 101.8 ml/min; Est GFR (Non-African American) 87.9 ml/min; Magnesium 1.8 mg/dl (1.7-2.4); Potassium 5.5 mmol/L (3.5-5.1)
[2023-09-19 07:55] LABS: Basophils # (auto) 0.01 K/uL (0.00-0.20); Basophils % (auto) 0.1 %; Immature Granulocytes # (auto) 0.11 K/uL (0.01-0.20); Immature Granulocytes % (auto) 0.7 %; Lymphocytes # (auto) 0.58 K/uL (1.20-3.40); Lymphocytes % (auto) 3.5 %; Monocytes # (auto) 0.22 K/uL (0.11-0.59); Monocytes % (auto) 1.3 %; Neutrophils # (auto) 15.45 K/uL (1.40-6.50); Neutrophils % (auto) 94.4 %
--- NOTE | 2023-09-19 14:07 | Hospitalist Progress Note ---
Date of Service September 19, 2023 Assessment & Plan (1) Acute respiratory failure with hypoxia: Plan: Supplemental oxygen to maintain saturation greater than 90%. Bilateral infiltrates seen on CT scan are probably due to underlying lymphangitic spread of malignancy rather than infectious etiology. Pulmonary medicine consultation appreciated. He remains on cefepime, day 4. Vancomycin has been discontinued. No sputum produced for culture. (2) Pulmonary infiltrates: Plan: Bilateral infiltrates noted on chest CT scan. Probably represents lymphangitic spread of malignancy. He is not coughing, has no fever, no elevated white count. Pulmonary medicine consultation appreciated. He remains on cefepime, day 4, and Solu-Medrol. Vancomycin has been discontinued (3) Sepsis: Plan: Present on admission. Now resolved. Continue antibiotic therapy for now. Obtain sputum culture if sputum is produced. Supportive care (4) Hyperkalemia: Plan: Potassium has increased to 5.5. Lokelma uptitrated to 3 times daily dosing today, September 18. Continue daily lab evaluation (5) Hypomagnesemia: Plan: Corrected with parenteral replacement. Serial labs (6) Essential (primary) hypertension: Plan: Stable. Continue current medical management (7) Type 2 diabetes mellitus without complication: Plan: ADA diet. Sliding scale coverage. Holding metformin and Dulaglutide (8) Renal cell cancer: Plan: With recurrent right malignant pleural effusion. He now has a right Pleurx catheter in place. Oncology and pulmonology consultation appreciated. He has started chemotherapy while an inpatient. Plan Hopeful discharge to home soon Admission and Anticipated Discharge Date Admission Date: September 16, 2023 Subjective Alert and oriented. No new problems. He is undergoing chemotherapy with everolimus. Potassium has increased to a 5.5 and Lokelma has been uptitrated to 3 times daily dosing. Continue daily lab. Review of Systems 2 Review of Systems: Constitutional-no fever or chills ENT-no blurred vision, no double vision, no epistaxis, no sore throat Respiratory-no cough, no wheezing. Shortness of breath with minimal exertion Cardiac-no palpitations, no chest pain, no syncope GI-no nausea, vomiting, diarrhea, melena, hematochezia -no urinary retention, no urinary incontinence, no dysuria, no hematuria Musculoskeletal-no joint pain, no muscle tenderness Skin-no bruising, no rashes, no pruritus Neuro-no isolated weakness, no paresthesia Psych-depressed affect Physical Exam 2 Physical Exam: General-alert and oriented x3, no fever, no chills HEENT-head atraumatic and normocephalic, pupils equal and reactive to light, extraocular muscles intact Neck-no lymphadenopathy or thyromegaly, trachea midline Chest-diminished breath sounds and rhonchi at the right base. Right Pleurx catheter in place. No rales, wheezing or rhonchi Cardiac-regular rate and rhythm, normal S1 and S2 Abdomen-normal bowel sounds, no hepatosplenomegaly Extremities-no cyanosis, clubbing, or edema Neuro-cranial nerves II through XII intact, motor and sensory function within normal limits, strength symmetrical, no focal deficits Psych-depressed affect Results & Data Results & Data Vital Signs (Past 12 Hours) Vital Signs Temp Pulse Pulse Resp BP BP Pulse Ox 09/19/23 11:31 36.4 C L 53 L 18 127/75 98 09/19/23 08:00 52 L 09/19/23 08:00 09/19/23 07:26 36.3 C L 66 17 144/80 H 99 09/19/23 03:08 36.6 C 68 16 124/66 98 O2 Del Method O2 Flow Rate 09/19/23 11:31 Nasal Cannula 09/19/23 08:00 09/19/23 08:00 Room Air 09/19/23 07:26 Room Air 09/19/23 03:08 Nasal Cannula 3 Laboratory Results 09/19/23 06:35 09/19/23 06:35 PG Care Time/CCT Total # of Minutes Spent Total Time Spent with Patient: Total time spent is greater than 50% in coordination of care (as documented) at patient's floor/unit and/or counseling patient: Coding Level of Care Code 62815 SUB INP/OBS CARE 3/50MIN Diagnoses Acute respiratory failure with hypoxia J96.01 Pulmonary infiltrates R91.8 Sepsis A41.9 Hyperkalemia E87.5 Hypomagnesemia E83.42 Essential (primary) hypertension I10 Type 2 diabetes mellitus without complication E11.9 Renal cell cancer C64.9
[2023-09-19] MEDS: SODIUM ZIRCONIUM CYCLOSILICATE 10 GM PACKET PO SCH (16:29)
[2023-09-20 07:54] LABS: Calcium 9.4 mg/dl (8.6-10.3); Est GFR (African American) 100.4 ml/min; Est GFR (Non-African American) 86.6 ml/min; Potassium 6.1 mmol/L (3.5-5.1)
[2023-09-20] MEDS: DEXTROSE 50% 50 ML SYRINGE IV ONE (08:54)
[2023-09-20] MEDS: LEVALBUTEROL 1.25MG/0.5ML NEB NEB SCH (08:54)
[2023-09-20] MEDS: INSULIN HUMAN REGULAR PER UNIT 10 UNITS in SYRINGE 9.9 ML IV STA (08:55)
[2023-09-20] MEDS: LEVALBUTEROL 1.25 MG/3 ML NEB ONE ×2 (09:07→13:20)
[2023-09-20] MEDS: CALCIUM GLUCONATE 1,000 MG/60 ML BAG IV STA (09:18)
[2023-09-20] MEDS: methylPREDNISolone 40 MG in SYRINGE 0 ML IV SCH (10:12)
[2023-09-20] MEDS: PATIROMER CALCIUM SORBITEX 8.4 GM PACK PO SCH (12:48)
[2023-09-20 13:06] LABS: BUN Creatinine Ratio 30.6 (10-20); Creatinine Clr Calc Pharmacy 68.1 ml/min; Est GFR (African American) 90.2 ml/min; Est GFR (Non-African American) 77.8 ml/min; Potassium 5.6 mmol/L (3.5-5.1)
[2023-09-20] MEDS: LEVALBUTEROL 1.25 MG/3 ML NEB NEB SCH (13:26)
--- NOTE | 2023-09-20 16:30 | Hospitalist Progress Note ---
Date of Service September 20, 2023 Assessment & Plan (1) Acute respiratory failure with hypoxia: Plan: Secondary to metastatic disease to lungs with possible lymphangitis spread +/- superimposed bacterial PNA Procal mildly elevated. No fevers or sputum production. Did have sepsis on admission with leukocytosis, tachycardia, and tachypnea, hypoxia, and bilateral infiltrates on CXR Now improving, weaned to 2.5LNC at rest-continue supplemental oxygen to maintain saturation greater than 90%. Pulmonary medicine consultation appreciated-PleurX to be drained every other day, continue abx for now but dc Vanco as MRSA nasal swab neg.I d/w PULM 09/19 and no role for IV steroids-discontinued Not producing sputum for sample. Blood cxs NGTD-will follow Continue cefepime Follow CXR (2) Pulmonary infiltrates: Plan: as above, PNA vs lymphangitis spread of cancer to lungs (3) Sepsis: Plan: Present on admission. Now resolved. Continue antibiotic therapy Obtain sputum culture if sputum is produced. Supportive care (4) Hyperkalemia: Plan: Potassium continues to increase daily despite being on Lokelma 3 times daily x 2 days No offending meds and d/w Oncology-everolimus not known to cause hyperkalemia Add daily Patiromer, change diet to low potassium as reports he has been getting bananas on tray each day Give 1 gram IV calcium gluc, D50 amp plus IV insulin 10 units, levalbuterol nebs-make scheduled Follow repeat BMP at noon-improved to 5.6 Follow again in AM Consider lasix (5) Hypomagnesemia: Plan: Corrected with parenteral replacement (6) Type 2 diabetes mellitus without complication: Plan: ADA diet. Sliding scale coverage. Holding metformin and Dulaglutide (7) Renal cell cancer: Plan: With recurrent right malignant pleural effusion. He now has a right Pleurx catheter in place. Oncology and pulmonology consultation appreciated. He has started chemotherapy while an inpatient. Drain catheter every other day Plan DVT proph-Lovenox SQ Dispo-continued stay, will need 2 step walk test prior to discharge, possible dc to home in 1-2 days Admission and Anticipated Discharge Date Admission Date: September 16, 2023 Subjective Pt feels better today than previous and at bedside thinks he is looking much better, has more energy. He reports his appetite is coming back. He is able to walk to bathroom and back without any problems. He moved his bowels a small amount today for the first time in 4-5 days. Tele with NSR, normal rates Physical Exam Constitutional: WD/WN, vitals as above Respiratory: Auscultation: + crackles (right base); no rhonchi and no wheezes Cardiovascular: Rate/Rhythm: regular rate and regular rhythm Heart Sounds: no murmur Extremities: + edema (1+ pitting edema distal legs bilat) Gastrointestinal (Abdomen): normal bowel sounds, soft, nontender, no h epatosplenomegaly Psychiatric: A+Ox3, euthymic affect Results & Data Results & Data Vital Signs (Past 12 Hours) Vital Signs Temp Pulse Pulse Resp BP BP Pulse Ox 09/20/23 15:45 36.4 C L 82 18 131/77 98 09/20/23 15:34 82 09/20/23 13:25 83 18 99 09/20/23 10:48 36.7 C 69 17 135/80 99 09/20/23 10:47 36.7 C 69 17 135/80 99 09/20/23 09:27 61 09/20/23 09:27 09/20/23 09:08 103 H 12 99 09/20/23 07:13 36.4 C L 52 L 17 150/78 H 96 O2 Del Method O2 Flow Rate 09/20/23 15:45 Nasal Cannula 2.5 09/20/23 15:34 09/20/23 13:25 Nasal Cannula 2 09/20/23 10:48 Nasal Cannula 3 09/20/23 10:47 Nasal Cannula 5 09/20/23 09:27 09/20/23 09:27 Nasal Cannula 3 09/20/23 09:08 Nasal Cannula 3 09/20/23 07:13 Nasal Cannula Laboratory Results BMP x 2, blood cultures reviewed PG Care Time/CCT Total # of Minutes Spent Total Time Spent with Patient: Total time spent is greater than 50% in coordination of care (as documented) at patient's floor/unit and/or counseling patient: Coding Level of Care Code 70665 SUB INP/OBS CARE 3/50MIN Diagnoses Acute respiratory failure with hypoxia J96.01 Pulmonary infiltrates R91.8 Sepsis A41.9 Hyperkalemia E87.5 Hypomagnesemia E83.42 Type 2 diabetes mellitus without complication E11.9 Renal cell cancer C64.9
[2023-09-20] MEDS ORDERED: LEVALBUTEROL 1.25 MG/3 ML NEB NEB SCH (19:00)
[2023-09-21 07:52] LABS: Basophils # (auto) 0.02 K/uL (0.00-0.20); Basophils % (auto) 0.2 %; Eosinophils # (auto) 0.05 K/uL (0.00-0.50); Eosinophils % (auto) 0.5 %; Hematocrit (blood only) 35.4 % (42.0-52.0); Hemoglobin 11.5 g/dl (14.0-18.0); Immature Granulocytes # (auto) 0.07 K/uL (0.01-0.20); Immature Granulocytes % (auto) 0.7 %; Lymphocytes # (auto) 1.02 K/uL (1.20-3.40); Lymphocytes % (auto) 10.3 %; Mean Corpuscular Hemoglobin 31.7 pg (25.0-34.0); Mean Corpuscular Hgb Conc 32.5 g/dL (32.0-36.0); Mean Corpuscular Volume 97.5 fL (80.0-100.0); Mean Platelet Volume 8.5 fL (9.4-12.4); Monocytes # (auto) 0.78 K/uL (0.11-0.59); Monocytes % (auto) 7.9 %; Neutrophils # (auto) 7.93 K/uL (1.40-6.50); Neutrophils % (auto) 80.4 %; Platelet Count 443 K/uL (130-400); RDW Coefficient of Variation 13.2 % (11.5-14.5); RDW Standard Deviation 47.4 fL (36.4-46.3); Red Blood Count 3.63 M/uL (4.70-6.10); White Blood Count 9.87 K/ul (4.8-10.8)
[2023-09-21 08:19] LABS: Calcium 9.1 mg/dl (8.6-10.3); Creatinine Clr Calc Pharmacy 73.4 ml/min; Est GFR (African American) 98.6 ml/min; Est GFR (Non-African American) 85.1 ml/min; Magnesium 1.8 mg/dl (1.7-2.4); Potassium 4.5 mmol/L (3.5-5.1)
--- NOTE | 2023-09-21 13:16 | Hospitalist Progress Note ---
Date of Service September 21, 2023 Assessment & Plan (1) Acute respiratory failure with hypoxia: Plan: Secondary to metastatic disease to lungs with possible lymphangitis spread +/- superimposed bacterial PNA Procal mildly elevated. No fevers or sputum production. Did have sepsis on admission with leukocytosis, tachycardia, and tachypnea, hypoxia, and bilateral infiltrates on CXR Now improving, weaned off supplemental O2 at rest-check 2 step walk test in AM prior to discharge Pulmonary medicine consultation appreciated-PleurX to be drained every other day, continue abx for now but dcd Vanco as MRSA nasal swab neg. I d/w PULM 09/19 and no role for IV steroids-discontinued Not producing sputum for sample. Blood cxs NGTD-will follow Continue cefepime x 1 more days for total of 7 days Follow CXR in AM (2) Pulmonary infiltrates: Plan: as above, PNA vs lymphangitis spread of cancer to lungs follow chest imaging (3) Sepsis: Plan: Present on admission. Now resolved. Continue antibiotic therapy Obtain sputum culture if sputum is produced. Supportive care (4) Hyperkalemia: Plan: Potassium continued to increase daily despite being on Lokelma 3 times daily x 2 days. Now improved with Patiromer, low K+ diet, D50 and insulin, levalbuterol nebs No offending meds and d/w Oncology-everolimus not known to cause hyperkalemia Continue daily Patiromer for today Is urinating and LE edema improved without lasix follow BMP in AM (5) Hypomagnesemia: Plan: Corrected with parenteral replacement (6) Type 2 diabetes mellitus without complication: Plan: ADA diet. Sliding scale coverage. Holding metformin and Dulaglutide (7) Renal cell cancer: Plan: With recurrent right malignant pleural effusion. He now has a right Pleurx catheter in place. Oncology and pulmonology consultation appreciated. He has started chemotherapy while an inpatient. Drain catheter every other day-minimal drainage removed on 09/20 F/u Oncology as outpt Plan DVT proph-Lovenox SQ Dispo-continued stay, will need 2 step walk test prior to discharge, likely dc to home tomorrow Admission and Anticipated Discharge Date Admission Date: September 16, 2023 Anticipated date of discharge: 09/22/23 Subjective Pt feeling stronger today. Not having any SOB, is moving bowels. Is now weaned off O2 at rest. He reports he is urinating large amounts today and legs are less swollen. Tele with NSR, ST rates 60-120s with exertion Physical Exam Constitutional: WD/WN, vitals as above Respiratory: Auscultation: + crackles (right base); no rhonchi and no wheezes Cardiovascular: Rate/Rhythm: regular rate and regular rhythm Heart Sounds: no murmur Extremities: no edema Gastrointestinal (Abdomen): normal bowel sounds, soft, nontender, no hepatosplenomegaly Psychiatric: A+Ox3, euthymic affect Results & Data Results & Data Vital Signs (Past 12 Hours) Vital Signs Temp Pulse Pulse Resp BP Pulse Ox O2 Del Method 09/21/23 12:50 92 H 18 94 Room Air 09/21/23 11:23 36.3 C L 78 18 145/79 H 96 Room Air 09/21/23 07:56 66 09/21/23 07:56 Room Air 09/21/23 07:38 36.2 C L 76 18 153/80 H 93 Room Air 09/21/23 06:59 69 18 94 Room Air 09/21/23 06:01 94 Room Air 09/21/23 04:35 95 Nasal Cannula 09/21/23 02:58 36.4 C L 16 157/88 H 100 Nasal Cannula O2 Flow Rate 09/21/23 12:50 09/21/23 11:23 09/21/23 07:56 09/21/23 07:56 09/21/23 07:38 09/21/23 06:59 09/21/23 06:01 09/21/23 04:35 1 09/21/23 02:58 2 Laboratory Results CBC, BMP, magnesium, blood cxs reviewed PG Care Time/CCT Total # of Minutes Spent Total Time Spent with Patient: Total time spent is greater than 50% in coordination of care (as documented) at patient's floor/unit and/or counseling patient: Coding Level of Care Code 03206 SUB INP/OBS CARE 2/35MIN Diagnoses Acute respiratory failure with hypoxia J96.01 Pulmonary infiltrates R91.8 Sepsis A41.9 Hyperkalemia E87.5 Hypomagnesemia E83.42 Type 2 diabetes mellitus without complication E11.9 Renal cell cancer C64.9
--- NOTE | 2023-09-21 14:22 | Communication Note ---
Date of Service: September 21, 2023 Feeling better, likely dc home this week Feels he can resume chemo Does not want to discuss / explore GOC fairly consistent that he would not want to discuss those issues until he is told he cannot have more chemo I will sign off no charge submitted Thank you for allowing us to participate in the ongoing care of this patient. Maggy Garcia DNP Director, Palliative Care
[2023-09-22 07:43] LABS: BUN Creatinine Ratio 28.9 (10-20); Calcium 8.6 mg/dl (8.6-10.3); Creatinine Clr Calc Pharmacy 71.9 ml/min; Est GFR (African American) 99.2 ml/min; Est GFR (Non-African American) 85.6 ml/min; Potassium 4.3 mmol/L (3.5-5.1)
--- NOTE | 2023-09-22 08:54 | XRay Report ---
TWO VIEW CHEST CLINICAL HISTORY: Pneumonia. Metastatic disease. FINDINGS: PA and lateral chest radiographs are compared to chest x-ray and chest CT dated 09/16/2023. The the heart is top normal for projection noting atherosclerotic calcification of the thoracic aort a. There is prominence of the pulmonary vasculature. A pleural catheter is again seen at the right kiara ng base. There are small bilateral pleural effusions with dependent consolidation. Fluid is seen kiana g the right minor fissure. No pneumothorax is identified. Findings of extensive pleural-based metasta tic disease were better assessed on the recent chest CT. The skeletal structures are osteopenic. The bony thorax is grossly intact. Surgical clips are seen in the upper abdomen. IMPRESSION: 1. A right pleural drain is unchanged in position. Small bilateral pleural effusions persist. 2. Dependent consolidation is seen bilaterally, left greater than right. This likely represents a com bination of atelectasis and pleural-based metastatic disease. Correlate clinically for evidence of peters perimposed pneumonia. 3. Pleural-based metastatic disease was much better assessed on recent CT scans. 4. Cardiomegaly with prominence of the pulmonary vasculature. Correlate clinically for evidence of fl uid overload/congestive change. ACT 112: Negative or not required by law. Electronically signed by: Cheo Mcgregor M.D. 09/22/2023 8:52 AM
[2023-09-22] MEDS ORDERED: LEVALBUTEROL 1.25 MG/3 ML NEB NEB PRN (12:08)
--- NOTE | 2023-09-22 13:05 | Discharge Summary ---
Discharge Summary Date of Service September 22, 2023 Principal Dx & Hospital Course #1 = Principal Diagnosis (1) Acute respiratory failure with hypoxia: Secondary to metastatic disease to lungs with possible lymphangitis spread +/- superimposed bacterial PNA Procal mildly elevated. No fevers or sputum production. Did have sepsis on admission with leukocytosis, tachycardia, and tachypnea, hypoxia, and bilateral infiltrates on CXR Now improving, weaned off supplemental O2 -passed a 2 step walk test-no supplemental O2 needed at home Continue flutter valve, ICS at home Continue albuterol inhaler prn cough at home as nebs here helped Pulmonary medicine consultation appreciated-PleurX to be drained every other day, recommended abx. I d/w PULM 09/19 and no role for IV steroids-discontinued Not producing sputum for sample. Blood cxs NGTD Received 7 days of cefepime Repeat CXR on day of discharge slightly improved with less fluid but still with multiple air space opacities, bibasilar consolidation and small bilat effusions F/u as scheduled with PULM in 1 week Continue chemo with Oncology (2) Pulmonary infiltrates: as above, PNA vs lymphangitis spread of cancer to lungs follow chest imaging completed abx (3) Sepsis: Present on admission. Now resolved. COmpleted antibiotic therapy blood cxs negative (4) Hyperkalemia: Potassium continued to increase daily despite being on Lokelma 3 times daily x 2 days. Now improved with Patiromer x 1 dose, low K+ diet, D50 and insulin, levalbuterol nebs No offending meds and d/w Oncology-everolimus not known to cause hyperkalemia follow BMP in 5 days as outpt Continue low K diet after discharge (5) Hypomagnesemia: Corrected with parenteral replacement (6) Type 2 diabetes mellitus without complication: ADA diet. Sliding scale coverage. Holding metformin and Dulaglutide but can resume on discharge (7) Renal cell cancer: With recurrent right malignant pleural effusion. He now has a right Pleurx catheter in place. Oncology and pulmonology consultation appreciated. He has started chemotherapy while an inpatient with Lenvima and everolimus Drain catheter every other day-minimal drainage removed on 09/20 F/u Oncology as outpt Plan DVT proph-Lovenox SQ Dispo-dc to home Notes For Next Care Provider Check BMP on Wednesday to monitor for hyperkalemia Medication Changes From Visit Added albuterol inhaler Started Lenvima and everolimus for chemo Admission HPI Per Admitting Provider Ulises is a 72 year old male with a PMH significant for metastatic renal cell carcinoma with recurrent malignant pleural effusion S/P Right PleurX catheter placement with Dr. Nguyễn on 09/03/23, S/P right nephrectomy in 2018, DMII, HTN, hyperlipidemia, and hypothyroidism who presented to the [facility] ED on 09/16/23 for progressive SOB and anxiety. On arrival to the ED the patient was noted to be tachycardic at 100, saturating at 90% on RA, respirations in the 30- 40's, and afebrile. Labs were significant for a leukocytosis of 12 with neutrophil predominance of 11, potassium of 5.2, sodium of 132, lactate of 3.6, and high sen trop WNL. Chest xray was read as "1. Multifocal airspace opacities may represent atelectasis, pneumonia, and/or aspiration. 2. Small bilateral pleural effusions.". CTA of the chest was read as "1. No evidence of pulmonary embolus. 2. Significant interval worsening of pleural thickening. A right chest tube is seen. 3. Multifocal airspace opacities may represent lymphangitic spread of tumor with or without superimposed aspiration/pneumonia. 4. Stable lymphadenopathy. 5. Additional findings as above.". Prior to admission the patient was given a dose of cefepime and 2, 500 mL NSS boluses. At the time of the exam the patient was sitting in bed in mild respiratory distress with tachypnea and and abdominal breathing, currently stable on 4L NC. History was obtained from the patient and his who is bedside. The patient is between treatments for his metastatic cancer at this time. [facility] and was to start a new oral therapy today. He had his current right-sided plurex catheter placed by [facility] on 09/03/23. He initially had improved respiratory status after placement. Over the past 1-2 weeks he has been developing progressive SOB/TAMEZ and a non-productive cough. They have been draining his plurex cath every other day and drained it just prior to ED arrival. His said they drained approximately 150 cc of quinton colored fluid. He denies chest pain, hemoptysis, pleuritic chest pain, abd pain, dysuria, hematuria, melena, LE swelling, and recent trauma. When asked, he denies feeling as though he is getting tired or having to work harder to breath, states that his increased respirations are mostly due to anxiety. We discussed code status, he wishes to be a full code at this time and his is his POA. Please refer to Dr. Rome's attestation for any changes to the treatment plan Discharge Exam Constitutional WD/WN, vitals as above Respiratory Auscultation: + crackles (right base); no rhonchi and no wheezes Cardiovascular Rate/Rhythm: regular rate and regular rhythm Heart Sounds: no murmur Extremities: + edema (trace pitting edema legs bilat) Gastrointestinal (Abdomen) normal bowel sounds, soft, nontender, no hepatosplenomegaly Psychiatric A+Ox3, euthymic affect Updated Medication List Medication Instructions Recorded Confirmed Type metformin 1,000 mg tablet 1,000 mg PO BID 01/10/20 09/16/23 History tamsulosin 0.4 mg capsule 0.8 mg PO QAM 01/16/20 09/16/23 History dulaglutide 0.75 mg/0.5 mL 0.75 mg subcut WK 02/18/21 09/16/23 History subcutaneous pen injector (Trulicity) simvastatin 20 mg tablet (Zocor) 20 mg PO QPM 03/24/22 09/16/23 History levothyroxine 50 mcg capsule 50 mcg PO DAILY 09/01/23 09/16/23 History dexamethasone 0.5 mg/5 mL oral 10 mg PO DIRECTED 09/16/23 09/16/23 History solution everolimus (antineoplastic) 5 mg 5 mg PO DAILY 09/16/23 09/16/23 History tablet lorazepam 1 mg tablet 1 mg PO Q4 PRN Anxiety 09/16/23 09/16/23 History venlafaxine 150 mg 150 mg PO DAILY 09/16/23 09/16/23 History capsule,extended release 24 hr albuterol sulfate 90 mcg/actuation 2 inh inhalation QID PRN shortness 09/22/23 Rx aerosol inhaler of breath or cough #8.5 grams lenvatinib 18 mg/day (10 mg x 1 18 mg PO DAILY #90 caps 09/22/23 Rx and 4 mg x 2) capsule (Lenvima) Hospital Stay Data Consultations 09/16/23 18:55 ED Decision to Admit Stat 09/16/23 19:42 Consult Pulmonology Routine 09/16/23 20:30 Consult Oncology Routine 09/17/23 08:29 Consult Palliative Care Routine Diagnostic Imagining Performed 09/16/23 16:51 CT angio chest PE protocol Stat Pending Results Patient Have Any Pending Studies at Discharge: No Discharge Instructions Given to Patient (Per Discharging Provider) You were admitted with shortness of breath from fluid in and around your lungs as well as from your cancer in the lungs. Yo were treated with antibiotics for pneumonia, inhalers, and chemotherapy for the cancer. You had improvement and completed all your antibiotics. Please continue using the inhaler as needed for cough, and the flutter valve and incentive spirometer. You had some high potassium levels which may be from your cancer treatments. Please continue to follow a low potassium diet and have your blood work checked on Wednesday09/27/23 with results sent to your PCP and to Dr. Packer. Follow up with the Customer Support Consultant and Oncologist as scheduled. Please follow up with your PCP as scheduled as well. Continue draining the PleurX every other day. Total Time Total Time Spent Total Time Spent (In Minutes): 35 min Coding Level of Care Code 85553 INP/OBS DISCH >30 MIN Diagnoses Acute respiratory failure with hypoxia J96.01 Pulmonary infiltrates R91.8 Sepsis A41.9 Hyperkalemia E87.5 Hypomagnesemia E83.42 Type 2 diabetes mellitus without complication E11.9 Renal cell cancer C64.9
== END 2023-09-22 14:58 | disposition home health service (06) | DRG 871 ==
LOC: ED 16:07 → 2S 19:09 → SUATTDRO 19:09 → 2S 20:07

== ENCOUNTER 2023-11-08 11:01 | Inpatient (IN) ==
--- NOTE | 2023-11-08 11:17 | Emergency Department Note ---
Impression & Plan SOB (shortness of breath), Generalized weakness, Metastatic renal cell carcinoma, Elevated lactic acid level ED Provider Note CHIEF COMPLAINT: SOB, cough HISTORY OF PRESENTING ILLNESS: This 73 year old male patient presents to the ER with his for evaluation of SOB and a cough for the past month. Symptoms have been getting progressively worse over the past several days. He has a history of kidney cancer that has metastasized to his lungs. He is currently on oral chemotherapy. He has not had any radiation. He follows with Dr. Packer of oncology and Gopi of pulmonology. He has not had much energy since the symptoms started. Denies chest pain. No swelling of his legs. Denies abdominal pain, nausea, or vomiting. No fevers, but has been having a dry cough, runny nose, and nasal congestion. He is not on any blood thinners. REVIEW OF SYSTEMS: See HPI for pertinent positives and pertinent negatives. ALLERGIES: NKDA MEDICATIONS: See below PAST MEDICAL HISTORY: See below PHYSICAL EXAM: Vital Signs: Vitals are noted on the nurse's note and reviewed by myself. GENERAL: The patient appears chronically ill, but non toxic in appearance and in no acute distress. SKIN: Capillary reflex less than 2 seconds. HEAD: Normocephalic, atraumatic. EARS: Bilateral external auditory canals clear without tragus tenderness. Bilateral tympanic membranes pearly sutton without erythema or effusion. No mastoid tenderness bilaterally. EYES: Pupils equal round and reactive to light and accommodation. Conjunctivae without injection, sclerae without icterus. Extraocular movements intact. NOSE: Patent, turbinates inflamed with no discharge. No sinus tenderness. MOUTH: Mucous membranes moist. Airway patent, uvula midline. Pharynx is not erythematous and not edematous without exudate. Pharynx without postnasal drip. No evidence for peritonsillar abscess. NECK: Supple without nuchal rigidity. No lymphadenopathy. HEART: Regular rate and rhythm without murmurs gallops or rubs. LUNGS: Clear to auscultation bilaterally with a few scattered wheezes without rales or rhonchi. No accessory muscle use or retractions. ABDOMEN: Positive bowel sounds x 4. Normal tympanic percussion. Soft, nontender, without masses or organomegaly. MUSCULOSKELETAL: Bilateral lower extremities without erythema, edema, warmth, or tenderness to palpation. Peripheral pulses 2+ and equal in the bilateral upper and lower extremities. NEURO: Patient was alert and oriented. DIFFERENTIAL DIAGNOSIS: Differential diagnosis includes URI, bronchitis, pneumonia, pneumothorax, hemothorax, PE, KS, pericarditis, myocarditis, airway obstruction, aspiration, pulmonary edema, asthma, COPD, CHF, pleurisy, metabolic acidosis, anemia, neoplasm, or others. ED COURSE AND MEDICAL DECISION MAKING: HISTORY FROM INDEPENDENT HISTORIAN: Additional history was obtained from the patient's MONITOR: Continuous quality assurance monitor body: Order was placed for continuous quality assurance monitor body. Patient was placed on the quality assurance monitor body and continuous pulse ox. Patient was noted to be in normal sinus rhythm at an initial rate of 88 bpm per my interpretation. EKG: EKG was interpreted by myself as normal sinus rhythm at 93 bpm with no acute ST or T wave changes. MEDICATIONS GIVEN: A total 1.5 L normal saline solution bolus. DuoNeb treatment. INTERPRETATION OF LABS: I interpreted the labs with full lab results as below in the lab section of this note. White blood cell count normal at 10.28. Hemoglobin low at 12.3, but stable. Platelet count normal at 371. Coags are normal. Sodium low at 132, glucose 126, and alk phos 160, but CMP otherwise normal. Lipase normal at 32. Magnesium normal at 1.7. High-sensitivity troponin x 2 were normal. Lactate elevated 2.9 with repeat lactate of 2.1. Procalcitonin normal at 0.18. Urinalysis with 1+ protein and 1+ ketones, but no evidence for UTI. Respiratory bio fire was negative. INTERPRETATION OF IMAGING: Imaging studies were interpreted by myself and read by radiology as per the imaging section of this note. CTA of the chest with IV contrast showed no evidence for PE or pneumonia. Findings consistent with a partial treatment response with improvement in the bilateral pleural effusions, pleural metastatic disease, and thoracic lymphadenopathy since September 16, 2023. Interval decrease in the size of the right adrenal metastasis. Persistent intralobar septal thickening which could reflect lymphangitic tumor or pulmonary edema. Heterogeneity of the liver with possible intrahepatic biliary ductal dilation with the left hepatic lobe. These findings may be artifactual, however, metastatic disease cannot be excluded. This can be assessed with nonemergent CT scan of the abdomen. Cholelithiasis. Mild nonspecific nydia hepatis and peripancreatic stranding which can be assessed on the follow-up CT scan. CONSULTATIONS: On-call hospitalist MDM SUMMARY: I examined the patient. The patient has had a cough and shortness of breath for the past month, but worsening shortness of breath and weakness over the past 2 days. An IV lock was placed and labs were drawn. The patient was initially given 500 mL normal saline solution bolus. However, his lactate level came back at 2.9 and he was given an additional 1 L normal saline solution bolus. The 1.5 L was close to his ideal body weight sepsis fluids, but I did not want to give additional fluids due to concerns for fluid overload. Blood cultures were obtained. Since there was no obvious source of infection at this time, antibiotics were held as the elevated lactate may be secondary to dehydration or his chronic medical conditions. Repeat lactate was still elevated at 2.1. Procalcitonin was normal. EKG and high-sensitivity troponin x 2 were normal and I have a low suspicion for ACS. Urinalysis without evidence for UTI. Respiratory bio fire was negative. The remainder of the laboratory studies as above. The patient declined any medication for pain while in the emergency department. He was given a DuoNeb treatment with partial improvement of his shortness of breath, but resolution of his wheezing. CTA of the chest with IV contrast showed no evidence for PE or pneumonia. It appears that there is partial treatment response of his known cancer and metastases. I had a meaningful discussion about this patient with Dr. Vo who agrees with my assessment and the treatment plan. Due to the patient's progressive shortness of breath and weakness at home with persistently elevated lactate levels, we feel the patient requires admission at this time. I spoke with the on-call hospitalist who agreed to admit the patient for further evaluation and treatment. Please refer to their dictation for further details. The patient's care was transferred in stable condition. DIAGNOSIS: Shortness of breath Weakness Elevated lactate Metastatic renal cell carcinoma Past Med/Surg History Problem List (Updated 11/08/23 @ 18:55 by Ariane Dukes PA-C) Elevated lactic acid level (Acute) Mouth pain Difficulty swallowing Generalized weakness (Acute) SOB (shortness of breath) (Acute) Dyspnea on exertion Hypomagnesemia Pulmonary infiltrates Metastatic renal cell carcinoma (Acute) Cancer related pain Abnormal chest CT (Acute) Renal cancer (Acute) Hyperkalemia Recurrent right pleural effusion Cough Encounter for pre-operative examination Acquired absence of kidney Pleural effusion due to another disorder Dyspnea Essential (primary) hypertension Mixed hyperlipidemia Depression Nonalcoholic steatohepatitis Type 2 diabetes mellitus without complication Multiple lung nodules on CT Malignant pleural effusion - Left Pleurx catheter placed 04/28/22 Per 05/05/22 CXR - left sided chest tube in place, small residual left pleural effusion with left basilar consolidation Medical History History of elevated PSA History of urinary calculi History of mumps History of measles History of varicella Surgical History Hx of cystoscopy S/P thoracentesis Left pleural effusion 03/09/22 H/O prostate biopsy History of nephrectomy 2018- left History of inguinal hernia repair Family History Father Diabetes Congestive heart failure Mother Cancer breast cancer Social History Smoking Status: Never smoker Tobacco Type: Cigars Cigarettes Per Day: SMOKED OCCASIONAL CIGAR - QUIT MANY YRS AGO; Second Hand Exposure: No; Do You Dip or Chew Tobacco: No; Hx Alcohol Use: Yes Alcohol type: beer Alcohol Intake Frequency Comment: rarely Hx Substance Use: No Preferred Language: Swedish Communication Ability: Effective [employer]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[employer] Required: No Beliefs That Will Affect Care: None marital status: Current Living Situation: Spouse current occupational status: retired How many Children do You have: 2 Feels Safe at Home: Yes caffeine: Yes during the past year weight has: remained stable Seatbelt Use: always Assistive Devices: Walker Allergies Allergies Allergy/AdvReac Type Severity Reaction Status Date / Time No Known Allergies Allergy Verified 10/22/23 10:38 Home Meds Home Medications Medication Instructions Recorded Confirmed metformin 1,000 mg tablet 1,000 mg PO BID 01/10/20 11/08/23 tamsulosin 0.4 mg capsule 0.8 mg PO QAM 01/16/20 11/08/23 dulaglutide 0.75 mg/0.5 mL 0.75 mg subcut WK 02/18/21 11/08/23 subcutaneous pen injector (Trulicity) simvastatin 20 mg tablet (Zocor) 20 mg PO QPM 03/24/22 11/08/23 levothyroxine 50 mcg capsule 50 mcg PO DAILY 09/01/23 11/08/23 lorazepam 1 mg tablet 1 mg PO Q4 PRN Anxiety 09/16/23 11/08/23 venlafaxine 150 mg 150 mg PO DAILY 09/16/23 11/08/23 capsule,extended release 24 hr cabotegravir sodium 30 mg tablet 60 mg PO UD 10/22/23 11/08/23 (Vocabria) magnesium aspart,citrate,oxide 400 mg PO DAILY 10/22/23 11/08/23 dronabinol 5 mg capsule 5 mg PO BID 11/08/23 11/08/23 sodium polystyrene sulfonate 15 60 ml PO DAILY 11/08/23 11/08/23 gram-sorbitol 20 gram/60 mL oral susp (SPS (with sorbitol)) Previous Rx's Medication Instructions Recorded albuterol sulfate 90 mcg/actuation 2 inh inhalation QID PRN shortness 09/22/23 aerosol inhaler of breath or cough #8.5 grams dexamethasone 0.5 mg/5 mL oral 10 mg (100 mL) PO DIRECTED #0 mL 09/22/23 solution everolimus (antineoplastic) 5 mg 5 mg PO DAILY #0 tabs 09/22/23 tablet lenvatinib 18 mg/day (10 mg x 1 18 mg PO DAILY #90 caps 09/22/23 and 4 mg x 2) capsule (Lenvima) Results & Data (ED) Vital Signs Vital Signs - 24 hr 11/08/23 11:02 11/08/23 11:20 11/08/23 11:34 Temperature 36.6 C Temperature Source Temporal Artery Scan Pulse Rate 102 H 91 H Pulse Rate from SpO2 Sensor Respiratory Rate 24 Respiratory Effort / Characteristics Non-Labored Spontaneous Short of Breath Respiratory Depth Normal Blood Pressure 110/74 Blood Pressure Mean 86 Pulse Oximetry 94 94 93 Oxygen Delivery Method Room Air Room Air Room Air Sepsis Recent Fever Within 48 Hours No Sepsis New/Unexplained Change in Mental Status N/A Sepsis Action Taken by Nursing No Action Required 11/08/23 11:38 11/08/23 11:39 11/08/23 12:00 Temperature Temperature Source Pulse Rate 91 H 87 Pulse Rate from SpO2 Sensor 87 88 Respiratory Rate 26 H 25 H Respiratory Effort / Characteristics Respiratory Depth Blood Pressure Blood Pressure Mean Pulse Oximetry 94 96 Oxygen Delivery Method Sepsis Recent Fever Within 48 Hours Sepsis New/Unexplained Change in Mental Status Sepsis Action Taken by Nursing 11/08/23 12:33 11/08/23 13:09 11/08/23 13:12 Temperature Temperature Source Pulse Rate 85 Pulse Rate from SpO2 Sensor 85 79 Respiratory Rate 15 Respiratory Effort / Characteristics Respiratory Depth Blood Pressure 133/83 Blood Pressure Mean 98 Pulse Oximetry 93 95 Oxygen Delivery Method Sepsis Recent Fever Within 48 Hours Sepsis New/Unexplained Change in Mental Status Sepsis Action Taken by Nursing 11/08/23 13:12 11/08/23 13:12 11/08/23 13:27 Temperature Temperature Source Pulse Rate Pulse Rate from SpO2 Sensor 77 Respiratory Rate Respiratory Effort / Characteristics Respiratory Depth Blood Pressure 133/83 133/83 Blood Pressure Mean 98 98 Pulse Oximetry 94 Oxygen Delivery Method Sepsis Recent Fever Within 48 Hours Sepsis New/Unexplained Change in Mental Status Sepsis Action Taken by Nursing 11/08/23 13:30 11/08/23 13:30 11/08/23 14:00 Temperature Temperature Source Pulse Rate Pulse Rate from SpO2 Sensor Respiratory Rate Respiratory Effort / Characteristics Respiratory Depth Blood Pressure 129/80 129/80 137/88 Blood Pressure Mean 92 92 99 Pulse Oximetry Oxygen Delivery Method Sepsis Recent Fever Within 48 Hours Sepsis New/Unexplained Change in Mental Status Sepsis Action Taken by Nursing 11/08/23 14:00 11/08/23 14:00 11/08/23 14:30 Temperature Temperature Source Pulse Rate Pulse Rate from SpO2 Sensor Respiratory Rate Respiratory Effort / Characteristics Respiratory Depth Blood Pressure 137/88 137/88 142/91 H Blood Pressure Mean 99 99 103 Pulse Oximetry Oxygen Delivery Method Sepsis Recent Fever Within 48 Hours Sepsis New/Unexplained Change in Mental Status Sepsis Action Taken by Nursing 11/08/23 14:30 11/08/23 14:39 Temperature Temperature Source Pulse Rate 79 Pulse Rate from SpO2 Sensor Respiratory Rate 20 Respiratory Effort / Characteristics Respiratory Depth Blood Pressure 142/91 H Blood Pressure Mean 103 Pulse Oximetry 94 Oxygen Delivery Method Sepsis Recent Fever Within 48 Hours Sepsis New/Unexplained Change in Mental Status Sepsis Action Taken by Nursing Laboratory Data 11/08/23 11:58 11/08/23 11:58 Lab Results 11/08/23 11/08/23 11/08/23 Range/Units 11:58 13:43 13:45 WBC 10.28 (4.8-10.8) K/ul RBC 4.29 L (4.70-6.10) M/uL Hgb 12.3 L (14.0-18.0) g/dl Hct 38.5 L (42.0-52.0) % MCV 89.7 (80.0-100.0) fL MCH 28.7 (25.0-34.0) pg MCHC 31.9 L (32.0-36.0) g/dL RDW Std Deviation 42.9 (36.4-46.3) fL RDW Coeff of Joaquim 13.1 (11.5-14.5) % Plt Count 371 (130-400) K/uL MPV 9.4 (9.4-12.4) fL Immature Gran % (Auto) 0.4 % Neut % (Auto) 84.1 % Lymph % (Auto) 8.2 % [place] % (Auto) 7.0 % Eos % (Auto) 0.1 % Baso % (Auto) 0.2 % Neut # (Auto) 8.65 H (1.40-6.50) K/uL Lymph # (Auto) 0.84 L (1.20-3.40) K/uL [place] # (Auto) 0.72 H (0.11-0.59) K/uL Eos # (Auto) 0.01 (0.00-0.50) K/uL Baso # (Auto) 0.02 (0.00-0.20) K/uL Immature Gran # (Auto) 0.04 (0.01-0.20) K/uL PT 11.2 (9.0-12.0) Seconds INR 1.0 (0.9-1.1) APTT 30 (21-31) Seconds PTT Ratio 1.1 Sodium 132 L (136-145) mmol/L Potassium 4.8 (3.5-5.1) mmol/L Chloride 96 L (98-107) mmol/L Carbon Dioxide 26 (21-32) mmol/L Anion Gap 10 (3-11) BUN 15 (6-23) mg/dl Creatinine 0.80 (0.6-1.4) mg/dl Est Cr Clr Drug Dosing Not Reportable Est GFR ( Amer) 104.2 ml/min Est GFR (Non-Af Amer) 89.9 ml/min BUN/Creatinine Ratio 18.8 (10-20) Glucose 126 H (70-99(Fasting)) mg/dl Lactate 2.9 H* 2.1 H* (0.4-2.0) mmol/L Calcium 9.3 (8.6-10.3) mg/dl Magnesium 1.7 (1.7-2.4) mg/dl Total Bilirubin 0.8 (0.2-1.0) mg/dl AST 34 (13-39) U/L ALT 22 (7-52) U/L Alkaline Phosphatase 160 H (34-104) U/L Troponin I High Sens 7.6 5.7 (0-20) pg/ml Total Protein 7.6 (6.0-8.3) gm/dl Albumin 3.1 L (3.4-5.0) gm/dl Globulin 4.5 H (2.5-4.0) gm/dl Albumin/Globulin Ratio 0.7 L (0.9-2) Lipase 32 (11-82) U/L Procalcitonin (0-0.5) ng/ml 11/08/23 Range/Units 14:29 WBC (4.8-10.8) K/ul RBC (4.70-6.10) M/uL Hgb (14.0-18.0) g/dl Hct (42.0-52.0) % MCV (80.0-100.0) fL MCH (25.0-34.0) pg MCHC (32.0-36.0) g/dL RDW Std Deviation (36.4-46.3) fL RDW Coeff of Joaquim (11.5-14.5) % Plt Count (130-400) K/uL MPV (9.4-12.4) fL Immature Gran % (Auto) % Neut % (Auto) % Lymph % (Auto) % [place] % (Auto) % Eos % (Auto) % Baso % (Auto) % Neut # (Auto) (1.40-6.50) K/uL Lymph # (Auto) (1.20-3.40) K/uL [place] # (Auto) (0.11-0.59) K/uL Eos # (Auto) (0.00-0.50) K/uL Baso # (Auto) (0.00-0.20) K/uL Immature Gran # (Auto) (0.01-0.20) K/uL PT (9.0-12.0) Seconds INR (0.9-1.1) APTT (21-31) Seconds PTT Ratio Sodium (136-145) mmol/L Potassium (3.5-5.1) mmol/L Chloride (98-107) mmol/L Carbon Dioxide (21-32) mmol/L Anion Gap (3-11) BUN (6-23) mg/dl Creatinine (0.6-1.4) mg/dl Est Cr Clr Drug Dosing Est GFR ( Amer) ml/min Est GFR (Non-Af Amer) ml/min BUN/Creatinine Ratio (10-20) Glucose (70-99(Fasting)) mg/dl Lactate (0.4-2.0) mmol/L Calcium (8.6-10.3) mg/dl Magnesium (1.7-2.4) mg/dl Total Bilirubin (0.2-1.0) mg/dl AST (13-39) U/L ALT (7-52) U/L Alkaline Phosphatase (34-104) U/L Troponin I High Sens (0-20) pg/ml Total Protein (6.0-8.3) gm/dl Albumin (3.4-5.0) gm/dl Globulin (2.5-4.0) gm/dl Albumin/Globulin Ratio (0.9-2) Lipase (11-82) U/L Procalcitonin 0.18 (0-0.5) ng/ml Administered Medications Lactated Ringer's (Lr) 1,000 mls @ 80 mls/hr IV .[id number] [facility] Stop: 11/09/23 03:59 Last Admin: 11/08/23 16:50 Dose: 80 mls/hr Documented By: MR Discontinued Medications Acetaminophen (Acetaminophen 325 Mg Tab) 650 mg PO NOW STA Stop: 11/08/23 15:25 Last Admin: 11/08/23 16:55 Dose: 650 mg Documented By: MR Albuterol (Albut/Ipratrop 3mg/0.5mg Neb 3 Ml Vial) 3 ml NEB NOW STA; Protocol Stop: 11/08/23 11:29 Last Admin: 11/08/23 11:39 Dose: 3 ml Documented By: CHANTALE Sodium Chloride (Nss) 500 mls @ 999 mls/hr IV .Q31M STA Stop: 11/08/23 11:57 Last Infusion: 11/08/23 12:10 Dose: Infused Documented By: Admin: 11/08/23 11:39 Dose: 999 mls/hr Documented By: CHANTALE Sodium Chloride (Nss) 1,000 mls @ 999 mls/hr IV .Q1H1M ONE Stop: 11/08/23 13:23 Last Infusion: 11/08/23 18:36 Dose: Infused Documented By: Admin: 11/08/23 12:41 Dose: 999 mls/hr Documented By: LEILA Ioversol (Optiray 320 125ml) 119 ml IV ONCE ONE Stop: 11/08/23 12:48 Last Admin: 11/08/23 12:48 Dose: 119 ml Documented By: KASSIDY Multi-Ingredient Mouthwash/Gargle (First - Mouthwash Blm 5 Ml Udp) 5 ml PO ONE ONE Stop: 11/08/23 15:16 Last Admin: 11/08/23 16:59 Dose: 5 ml Documented By: MR Imaging Data Radiologist's Impression: Chest CTA 11/08/23 11:28 CT ANGIOGRAPHY OF THE CHEST, PULMONARY EMBOLUS PROTOCOL CLINICAL HISTORY: Shortness of breath. Renal cell carcinoma. Evaluate for pulmonary embolus. COMPARISON STUDY: Chest CT September 16, 2023. Chest radiograph September 29, 2023. TECHNIQUE: Following IV administration of 119 mL of Optiray, helical axial images of the chest were obtained utilizing the pulmonary embolus protocol. Maximal intensity projections and sagittal and coronal reformats were viewed on an independent 3D workstation. IV contrast was administered without complication. Automated exposure control was utilized for the study. A dose lowering technique was utilized adhering to the principles of ALARA. CT DOSE: 710.47 mGy.cm FINDINGS: No pulmonary emboli are identified. There is no thoracic aortic dissection. Trace pericardial effusion is present. Small left pleural effusion has decreased in size since chest CT September 16, 2023. Right pleural effusion has essentially resolved. Irregular interlobular septal thickening persists. Thoracic lymphadenopathy has improved since CT of September 16, 2023. A left lower cervical lymph node image measures 3.2 x 1.9 cm, previously 3.5 x 2.4 cm. A subcarinal lymph node measures 5.6 x 3.1 cm, previously 6.5 x 3.5 cm. Several these nodes are partially calcified. Pleural thickening, greater on the left, has improved. A 3.9 cm irregular subpleural right lower lobe nodular opacity on image 79 previously measured 4.3 cm. Additional subpleural nodular opacities have mildly improved. There is no pneumothorax. No suspicious lesions within the bony thorax are present. There are gallstones within the gallbladder. Periportal edema is noted. There is also mild peripancreatic edema. The liver appears heterogeneous. This may be artifactual although underlying lesions could appear similar. Possible intrahepatic biliary ductal dilatation within the left hepatic lobe is noted. A 4 cm right adrenal metastasis previously measured 5.6 cm. IMPRESSION: 1. No pulmonary emboli identified. 2. Findings consistent with a partial treatment response. Improvement in the bilateral pleural effusions, pleural metastatic disease and thoracic lymphadenopathy since CT of September 16, 2023, as detailed above. Interval decrease in size of a right adrenal metastasis. 3. Persistent interlobular septal thickening. This could reflect lymphangitic tumor or pulmonary edema. 4. Heterogeneity of the liver with possible intrahepatic biliary ductal dilatation with the left hepatic lobe. The findings may be artifactual however metastatic disease cannot be excluded. This can be assessed with nonemergent CT of the abdomen. 5. Cholelithiasis. 5. Mild nonspecific nydia hepatis and peripancreatic stranding which can be assessed on the follow-up CT. ACT 112: Negative or not required by law. Electronically signed by: Tee Babb M.D. 11/08/2023 1:20 PM Discharge Plan Visit Data Chief Complaint: Shortness of Breath/Dyspnea Stated Complaint: DIFFICULTY BREATHING, COUGHING ED Provider: Lizette Vo ED Midlevel Provider: Ariane Dukes Discharge Problem: SOB (shortness of breath), Generalized weakness, Metastatic renal cell carcinoma, Elevated lactic acid level Patient Disposition: Admitted As Inpatient Condition: Good Discharge Instructions Interventions: ED Discharge Assessment Last Done: 11/08/23 17:54 Discharge Problem: Metastatic renal cell carcinoma Qualifiers: Laterality: unspecified laterality Qualified Code(s): C64.9 - Malignant neoplasm of unspecified kidney, except renal pelvis
[2023-11-08] MEDS: ALBUT/IPRATROP 3MG/0.5MG NEB 3 ML VIAL NEB STA (11:39)
[2023-11-08] MEDS: SODIUM CHLORIDE 0.9% 500 ML IV STA (11:39)
--- NOTE | 2023-11-08 12:21 | Emergency Department Note ---
ED Visit Note I was consulted by the Advanced Practice Provider, Ariane Dukes PA-C. I performed a substantive portion of the visit. This includes aspects of: History: Patient is a 73-year-old male presenting with shortness of breath that has been progressively worsening over the last month. It has been noticeably worse in the last week or so. Patient has a history of kidney cancer with metastases. He states he feels more short of breath when laying flat. Denies any chest pain. He is not on any anticoagulation. MDM: - Laboratory workup interpreted by myself showed normal WBC; stable electrolytes; normal troponin; elevated lactate (2.9); normal lipase - CTA chest negative for PE. - Viral respiratory panel negative - UA negative for infection. - Patient given 1.5L NS in ER. Repeat lactate still elevated at 2.1. - Given patient's symptoms and persistently elevated lactate, will admit to hospitalist service .
[2023-11-08 12:30] LABS: Basophils # (auto) 0.02 K/uL (0.00-0.20); Basophils % (auto) 0.2 %; Eosinophils # (auto) 0.01 K/uL (0.00-0.50); Eosinophils % (auto) 0.1 %; Hematocrit (blood only) 38.5 % (42.0-52.0); Hemoglobin 12.3 g/dl (14.0-18.0); Immature Granulocytes # (auto) 0.04 K/uL (0.01-0.20); Immature Granulocytes % (auto) 0.4 %; Lymphocytes # (auto) 0.84 K/uL (1.20-3.40); Lymphocytes % (auto) 8.2 %; Mean Corpuscular Hemoglobin 28.7 pg (25.0-34.0); Mean Corpuscular Hgb Conc 31.9 g/dL (32.0-36.0); Mean Corpuscular Volume 89.7 fL (80.0-100.0); Mean Platelet Volume 9.4 fL (9.4-12.4); Monocytes # (auto) 0.72 K/uL (0.11-0.59); Neutrophils # (auto) 8.65 K/uL (1.40-6.50); Neutrophils % (auto) 84.1 %; Platelet Count 371 K/uL (130-400); RDW Coefficient of Variation 13.1 % (11.5-14.5); RDW Standard Deviation 42.9 fL (36.4-46.3); Red Blood Count 4.29 M/uL (4.70-6.10); White Blood Count 10.28 K/ul (4.8-10.8)
[2023-11-08 12:36] LABS: Adenovirus PCR Not Detected (NotDetected); Bordetella parapertussis PCR Not Detected (NotDetected); Bordetella pertussis PCR Not Detected (NotDetected); Chlamydia pneumoniae PCR Not Detected (NotDetected); Coronavirus 229E PCR Not Detected (NotDetected); Coronavirus CoV-2 (COVID19)PCR Not Detected (NotDetected); Coronavirus HKU1 PCR Not Detected (NotDetected); Coronavirus NL63 PCR Not Detected (NotDetected); Coronavirus OC43PCR Not Detected (NotDetected); Human Metapneumovirus PCR Not Detected (NotDetected); Influenza A PCR Not Detected (NotDetected); Influenza B PCR Not Detected (NotDetected); Mycoplasma pneumoniae PCR Not Detected (NotDetected); Parainfluenza Virus 1 PCR Not Detected (NotDetected); Parainfluenza Virus 2 PCR Not Detected (NotDetected); Parainfluenza Virus 3 PCR Not Detected (NotDetected); Parainfluenza Virus 4 PCR Not Detected (NotDetected); Respiratory Syncytial VirusPCR Not Detected (NotDetected); Rhinovirus/Enterovirus PCR Not Detected (NotDetected)
[2023-11-08 12:40] LABS: Alanine Aminotransferase 22 U/L (7-52); Albumin Globulin Ratio 0.7 (0.9-2); Albumin Level 3.1 gm/dl (3.4-5.0); Alkaline Phosphatase 160 U/L (34-104); Anion Gap 10 (3-11); Aspartate Aminotransferase 34 U/L (13-39); BUN Creatinine Ratio 18.8 (10-20); Bilirubin,Total 0.8 mg/dl (0.2-1.0); Blood Urea Nitrogen 15 mg/dl (6-23); Calcium 9.3 mg/dl (8.6-10.3); Carbon Dioxide 26 mmol/L (21-32); Chloride 96 mmol/L (98-107); Est GFR (African American) 104.2 ml/min; Est GFR (Non-African American) 89.9 ml/min; Globulin 4.5 gm/dl (2.5-4.0); Glucose 126 mg/dl (70-99(Fasting)); Lipase 32 U/L (11-82); Magnesium 1.7 mg/dl (1.7-2.4); Potassium 4.8 mmol/L (3.5-5.1); Sodium 132 mmol/L (136-145); Total Protein 7.6 gm/dl (6.0-8.3)
[2023-11-08] MEDS: SODIUM CHLORIDE 0.9% 1,000 ML IV ONE (12:41)
[2023-11-08 12:47] LABS: Troponin I High Sensitivity 7.6 pg/ml (0-20)
[2023-11-08] MEDS: OPTIRAY 320 125ml IV ONE (12:48)
[2023-11-08 13:03] LABS: Partial Thromboplastin Ratio 1.1; Partial Thromboplastin Time 30 Seconds (21-31); Prothrombin Time 11.2 Seconds (9.0-12.0)
--- NOTE | 2023-11-08 13:21 | CT Scan Report ---
CT ANGIOGRAPHY OF THE CHEST, PULMONARY EMBOLUS PROTOCOL CLINICAL HISTORY: Shortness of breath. Renal cell carcinoma. Evaluate for pulmonary embolus. COMPARISON STUDY: Chest CT September 16, 2023. Chest radiograph September 29, 2023. TECHNIQUE: Following IV administration of 119 mL of Optiray, helical axial images of the chest were o btained utilizing the pulmonary embolus protocol. Maximal intensity projections and sagittal and cor onal reformats were viewed on an independent 3D workstation. IV contrast was administered without co mplication. Automated exposure control was utilized for the study. A dose lowering technique was ut ilized adhering to the principles of ALARA. CT DOSE: 710.47 mGy.cm FINDINGS: No pulmonary emboli are identified. There is no thoracic aortic dissection. Trace pericard ial effusion is present. Small left pleural effusion has decreased in size since chest CT September 15 4. Right pleural effusion has essentially resolved. Irregular interlobular septal thickening persists . Thoracic lymphadenopathy has improved since CT of September 16, 2023. A left lower cervical lymph node im age 89 of 231 measures 3.2 x 1.9 cm, previously 3.5 x 2.4 cm. A subcarinal lymph node measures 5.6 x 3.1 cm, previously 6.5 x 3.5 cm. Several these nodes are partially calcified. Pleural thickening, gr eater on the left, has improved. A 3.9 cm irregular subpleural right lower lobe nodular opacity on im age 81 previously measured 4.3 cm. Additional subpleural nodular opacities have mildly improved. Ther e is no pneumothorax. No suspicious lesions within the bony thorax are present. There are gallstones within the gallbladder. Periportal edema is noted. There is also mild peripancreatic edema. The liver appears heterogeneous. This may be artifactual although underlying lesions could appear similar. Pos sible intrahepatic biliary ductal dilatation within the left hepatic lobe is noted. A 4 cm right adre nal metastasis previously measured 5.6 cm. IMPRESSION: 1. No pulmonary emboli identified. 2. Findings consistent with a partial treatment response. Improvement in the bilateral pleural effusi ons, pleural metastatic disease and thoracic lymphadenopathy since CT of September 16, 2023, as detailed ab ove. Interval decrease in size of a right adrenal metastasis. 3. Persistent interlobular septal thickening. This could reflect lymphangitic tumor or pulmonary emili a. 4. Heterogeneity of the liver with possible intrahepatic biliary ductal dilatation with the left hepa tic lobe. The findings may be artifactual however metastatic disease cannot be excluded. This can be assessed with nonemergent CT of the abdomen. 5. Cholelithiasis. 5. Mild nonspecific nydia hepatis and peripancreatic stranding which can be assessed on the follow-up CT. ACT 112: Negative or not required by law. Electronically signed by: Tee Babb M.D. 11/08/2023 1:20 PM
[2023-11-08 13:26] LABS: Appearance Urine Clear (Clear); Bacteria Urine Automated None Seen (None Seen); Bilirubin Urine Negative (Negative); Blood Urine Negative (Negative); Color Urine Dark Yellow; Glucose Urine UA Negative (Negative); Ketones Urine 1+ (Negative); Leukocyte Esterase Urine Trace (Negative); Nitrite Urine Negative (Negative); Protein Urine 1+ (Negative); RBC Urine Automated 0-2 /hpf (0-2); Specific Gravity Urine 1.025 (1.000-1.030); Urobilinogen Urine Negative (Negative); WBC Urine Automated 0-5 /hpf (0-5)
[2023-11-08 13:27] LABS: Cast Urine Automated 0-2 /lpf (0-2); Mucus Urine Present (None Prsent)
--- NOTE | 2023-11-08 14:47 | History & Physical Report ---
Date of Service November 08, 2023 Assessment & Plan (1) Generalized weakness: Plan: Admit to Med/Surg on pulse oximetry Currently stable and nontoxic-appearing Presented to ED with approximately 1 month of progressive generalized weakness and intermittent shortness of breath Suspect his generalized weakness is likely due to malnutrition and dehydration due to poor oral intake from what appears to be mucositis from his chemotherapy Patient is without signs or symptoms of infection at this time, Pro-Tr is within normal limits, no signs of UTI or pneumonia, no recent GI symptoms or signs of skin infection Patient is status post 1.5 L normal saline in the ED, will give an additional 1 L LR on admission at 80 mL/h due to his dehydration Will start twice daily nutritional supplements to assist with nutritional support Will start aspiration precautions with easy due to diet and speech therapy consult Follow blood cultures ordered on admission If patient continues to have weakness without signs of infection, may need to consult with cancer care partnership for consideration of chemotherapy holiday SQ Lovenox for DVT prophylaxis Heart healthy/DM type II diet AM CBC, CMP, mag, PT/INR (2) SOB (shortness of breath): Plan: Patient notes progressive dyspnea on exertion over the past month with significant increase over the past 48 hours Does not feel his symptoms are occurring at rest at this time CTA of the chest was negative for signs of PE, appears to have partial treatment response No signs of pneumonia on imaging today Patient did have his Pleurx catheter recently removed in the pulmonology clinic on 10/26/2021, cannot rule out slowly progressing pleural effusion since this time causing his symptoms as last CT of the chest was obtained in August Patient does feel as though he got some improvement with the albuterol nebulizer treatment he received in the ED Suspect some component of his ongoing dyspnea is due to anxiety Start incentive spirometry and 4 times daily as needed albuterol nebulizer treatments Will obtain chest x-ray tomorrow morning to monitor for progression of pleural effusion since removal of his Pleurx catheter Continue as needed Ativan for anxiety (3) Difficulty swallowing: Plan: Patient notes increased mouth pain and difficulty swallowing over the past month or so His exam today appears more consistent with mucositis from his chemotherapy than oral thrush as he is without signs of white plaque but with erythematous mucosa Was prescribed 4 times daily dexamethasone suspension for this issue, however, he reports he often does not use it 4 times a day due to his schedule Will hold dexamethasone suspension for now and try 3 times daily Magic swizzle swish and swallow to monitor for improvement along with as needed acetaminophen If clinical concern for thrush increases can start swish and swallow nystatin Aspiration precautions with easy to diet have been ordered Will place speech consult to determine need for further evaluation with his recent issue of having pill stuck towards the distal aspect of his esophagus (4) Mouth pain: Plan: See difficulty swallowing (5) Type 2 diabetes mellitus without complication: Plan: Monitor BSG ACHS, goal is [id number] Will hold home metformin and Trulicity for now Start CF of 50 NCR of 15 ACHS for now with his reduced oral intake Hold basal insulin at this time to avoid hypoglycemia Adjust regimen as needed (6) Metastatic renal cell carcinoma: Plan: Will plan to continue lenvatinib and everolimus as his family can bring these in today If concern that his current chemotherapy is causing his ongoing generalized weakness will need to consult the cancer care partnership and consider chemotherapy Plan The patient was discussed with Dr. Tesfaye at the time of the admission History of Present Illness Chief Complaint: SOB, generalized weakness Primary Care Provider: DO Ulises Branham is a 73 year old male with a PMH significant for metastatic renal cell carcinoma with recurrent malignant pleural effusion S/P Right PleurX catheter placement with Dr. Nguyễn on 09/03/23 (currently on oral lenavtinib/everolimus), S/P right nephrectomy in 2018, DMII, HTN, hyperlipidemia, and hypothyroidism who presented to the [facility] ED on 11/08/2023 due to ongoing shortness of breath and generalized weakness over the past month. He remained stable in the ED besides right heart rate of 102 on arrival. Labs were significant for a WBC within normal limits, sodium of 132, initial lactate of 2.9, and full respiratory bio fire negative. CTA of the chest was read as negative for pulmonary emboli and did note findings consistent with a partial treatment response with improvement in the bilateral pleural effusions, pleural metastatic disease and thoracic lymphadenopathy send CT on September 16, 2023. Persistent interlobar septal thickening which could reflect lymphangitic tumor or pulmonary edema. Heterogenicity of the liver with possible intrahepatic biliary ductal dilation with left hepatic lobe. Findings may be artifactual however metastatic disease cannot be excluded. This can be assessed with nonemergent CT of the abdomen. Cholelithiasis. Mild nonspecific portal hepatis and Nazario pancreatic stranding which can be assessed on follow-up CT. The patient was given total of 1.5 L NSS and albuterol treatment while in the ED with improvement of his lactate to 2.1. We are asked to evaluate the patient for admission due to ongoing generalized weakness and elevated lactate on arrival. Is a patient was lying in bed no acute distress at time of exam with his bedside, history is obtained from both. They state that the patient has had progressive decreased oral intake and generalized weakness over the past month. He has also noticed increased cough and shortness of breath over this time span with significant increase in the past 48 hours. When asked, the patient states that he has been having difficulty swallowing due to mouth pain and dry mucous membranes. He feels the many of his pills get stuck shortly before they get to his stomach but eventually pass. When asked, he states that he does try to drink liquids prior to taking his pills this does seem to help at times. He will normally try to take his pills with applesauce to prevent him from getting stuck. He states that he has been feeling well after starting his new oral chemotherapy approximately 2 months ago, and that his generalized weakness seems to be consistent with decreased oral intake. He has had his ongoing dry cough and feels as though his increased shortness of breath is mainly due to anxiety when he feels as though he has lots of things he needs to get done. Denies recent fever, chills, chest pain, hemoptysis, abdominal pain, nausea/vomiting, dysuria, hematuria, increased urinary frequency, diarrhea, lower extremity swell ing, and recent trauma. He is a full code and when his to make medical decisions for him if he cannot make himself. Please refer to Dr. Tesfaye's attestation for any changes to the treatment plan. Allergies Allergy/AdvReac Type Severity Reaction Status Date / Time No Known Allergies Allergy Verified 10/22/23 10:38 Home Medications Medication Instructions Recorded Confirmed Type metformin 1,000 mg tablet 1,000 mg PO BID 01/10/20 11/08/23 History tamsulosin 0.4 mg capsule 0.8 mg PO QAM 01/16/20 11/08/23 History dulaglutide 0.75 mg/0.5 mL 0.75 mg subcut WK 02/18/21 11/08/23 History subcutaneous pen injector (Trulicity) simvastatin 20 mg tablet (Zocor) 20 mg PO QPM 03/24/22 11/08/23 History levothyroxine 50 mcg capsule 50 mcg PO DAILY 09/01/23 11/08/23 History lorazepam 1 mg tablet 1 mg PO Q4 PRN Anxiety 09/16/23 11/08/23 History venlafaxine 150 mg 150 mg PO DAILY 09/16/23 11/08/23 History capsule,extended release 24 hr albuterol sulfate 90 mcg/actuation 2 inh inhalation QID PRN shortness 09/22/23 11/08/23 Rx aerosol inhaler of breath or cough #8.5 grams dexamethasone 0.5 mg/5 mL oral 10 mg (100 mL) PO DIRECTED #0 mL 09/22/23 11/08/23 Rx solution everolimus (antineoplastic) 5 mg 5 mg PO DAILY #0 tabs 09/22/23 11/08/23 Rx tablet lenvatinib 18 mg/day (10 mg x 1 18 mg PO DAILY #90 caps 09/22/23 11/08/23 Rx and 4 mg x 2) capsule (Lenvima) cabotegravir sodium 30 mg tablet 60 mg PO UD 10/22/23 11/08/23 History (Vocabria) magnesium aspart,citrate,oxide 400 mg PO DAILY 10/22/23 11/08/23 History dronabinol 5 mg capsule 5 mg PO BID 11/08/23 11/08/23 History sodium polystyrene sulfonate 15 60 ml PO DAILY 11/08/23 11/08/23 History gram-sorbitol 20 gram/60 mL oral susp (SPS (with sorbitol)) Past Med/Surg History Problem List (Updated 11/09/23 @ 15:32 by El[facility] Solano [facility]) Multiple pulmonary nodules Elevated lactic acid level (Acute) Mouth pain Difficulty swallowing Generalized weakness (Acute) SOB (shortness of breath) (Acute) Dyspnea on exertion Hypomagnesemia Pulmonary infiltrates Metastatic renal cell carcinoma (Acute) Cancer related pain Abnormal chest CT (Acute) Renal cancer (Acute) Hyperkalemia Recurrent right pleural effusion Cough Encounter for pre-operative examination Acquired absence of kidney Pleural effusion due to another disorder Dyspnea Essential (primary) hypertension Mixed hyperlipidemia Depression Nonalcoholic steatohepatitis Type 2 diabetes mellitus without complication Multiple lung nodules on CT Malignant pleural effusion - Left Pleurx catheter placed 04/28/22 Per 05/05/22 CXR - left sided chest tube in place, small residual left pleural effusion with left basilar consolidation Medical History History of elevated PSA History of urinary calculi History of mumps History of measles History of varicella Surgical History Hx of cystoscopy S/P thoracentesis Left pleural effusion 03/09/22 H/O prostate biopsy History of nephrectomy 2018- left History of inguinal hernia repair Family History Father Diabetes Congestive heart failure Mother Cancer breast cancer Social History Smoking Status: Never smoker Tobacco Type: Cigars Cigarettes Per Day: SMOKED OCCASIONAL CIGAR - QUIT MANY YRS AGO; Second Hand Exposure: No; Do You Dip or Chew Tobacco: No; Tobacco Cessation Education Requested by Patient: No Hx Alcohol Use: No Hx Substance Use: No Preferred Language: German Communication Ability: Effective 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 Beliefs That Will Affect Care: None marital status: Current Living Situation: Spouse current occupational status: retired How many Children do You have: 2 Other Information That Helps Us Care for You: No Feels Safe at Home: Yes Safety Concerns: Feels Safe At This Time caffeine: Yes during the past year weight has: remained stable Seatbelt Use: always Assistive Devices: Cane, Walker and Wheelchair Assistive Devices Comment: Walker used in hospital Physical Exam Physical Exam: Physical Exam: General: In no acute distress, stated age, malnourished, chronically ill- appearing HEENT: Normocephalic, atraumatic, no scleral icterus, pupils around round, symmetrical, and reactive to light, mucus membranes are dry and erythematous consistent with mucositis, trachea midline, no thyromegaly Chest/Pulm: No respiratory distress, symmetrical chest expansion, scattered expiratory wheezing Cardiac: RRR, no murmurs noted Abdomen: Negative for ascites and bruising, normoactive bowel sounds, soft, non-tender to palpation throughout Musculoskeletal: Symmetrical and without signs of acute trauma, upper and lower extremities with full ROM, no atrophy, spasticity, or flaccidity Extremities: Radial, dorsalis pedis, and posterior tibial pulses are intact and symmetrical, no edema noted in the BL LE's Skin: Warm, dry, no rashes , lesions, or scars noted Neuro: Alert and oriented to person, place, month, year, and president, no focal defects, , no tremors noted Psych: No acute distress, calm and cooperative during the exam Results & Data Results & Data Vital Signs (Past 12 Hours) Vital Signs Temp Pulse Resp BP Pulse Ox O2 Del Method 11/08/23 12:33 85 15 93 11/08/23 12:00 25 H 96 11/08/23 11:39 87 26 H 94 11/08/23 11:38 91 H 11/08/23 11:34 91 H 93 Room Air 11/08/23 11:20 94 Room Air 11/08/23 11:02 36.6 C 102 H 24 110/74 94 Room Air Laboratory Results Abnormal lab results 11/08/23 11/08/23 11/08/23 Range/Units 11:58 13:45 Unknown RBC 4.29 L (4.70-6.10) M/uL Hgb 12.3 L (14.0-18.0) g/dl Hct 38.5 L (42.0-52.0) % MCHC 31.9 L (32.0-36.0) g/dL Neut # (Auto) 8.65 H (1.40-6.50) K/uL Lymph # (Auto) 0.84 L (1.20-3.40) K/uL [place] # (Auto) 0.72 H (0.11-0.59) K/uL Sodium 132 L (136-145) mmol/L Chloride 96 L (98-107) mmol/L Glucose 126 H (70-99(Fasting)) mg/dl Lactate 2.9 H* 2.1 H* (0.4-2.0) mmol/L Alkaline Phosphatase 160 H (34-104) U/L Albumin 3.1 L (3.4-5.0) gm/dl Globulin 4.5 H (2.5-4.0) gm/dl Albumin/Globulin Ratio 0.7 L (0.9-2) Urine Protein 1+ H (Negative) Urine Ketones 1+ H (Negative) Ur Leukocyte Esterase Trace H (Negative) U Epithel Cells (Auto) 3-5 H (0-2) /hpf Urine Mucus Present A (None Prsent) Diagnostic Findings Chest CTA 11/08/23 11:28 CT ANGIOGRAPHY OF THE CHEST, PULMONARY EMBOLUS PROTOCOL CLINICAL HISTORY: Shortness of breath. Renal cell carcinoma. Evaluate for pulmonary embolus. COMPARISON STUDY: Chest CT September 16, 2023. Chest radiograph September 29, 2023. TECHNIQUE: Following IV administration of 119 mL of Optiray, helical axial images of the chest were obtained utilizing the pulmonary embolus protocol. Maximal intensity projections and sagittal and coronal reformats were viewed on an independent 3D workstation. IV contrast was administered without complication. Automated exposure control was utilized for the study. A dose lowering technique was utilized adhering to the principles of ALARA. CT DOSE: 710.47 mGy.cm FINDINGS: No pulmonary emboli are identified. There is no thoracic aortic dissection. Trace pericardial effusion is present. Small left pleural effusion has decreased in size since chest CT September 16, 2023. Right pleural effusion has essentially resolved. Irregular interlobular septal thickening persists. Thoracic lymphadenopathy has improved since CT of September 16, 2023. A left lower cervical lymph node image 202 of 231 measures 3.2 x 1.9 cm, previously 3.5 x 2.4 cm. A subcarinal lymph node measures 5.6 x 3.1 cm, previously 6.5 x 3.5 cm. Several these nodes are partially calcified. Pleural thickening, greater on the left, has improved. A 3.9 cm irregular subpleural right lower lobe nodular opacity on image 79 previously measured 4.3 cm. Additional subpleural nodular o pacities have mildly improved. There is no pneumothorax. No suspicious lesions within the bony thorax are present. There are gallstones within the gallbladder. Periportal edema is noted. There is also mild peripancreatic edema. The liver appears heterogeneous. This may be artifactual although underlying lesions could appear similar. Possible intrahepatic biliary ductal dilatation within the left hepatic lobe is noted. A 4 cm right adrenal metastasis previously measured 5.6 cm. IMPRESSION: 1. No pulmonary emboli identified. 2. Findings consistent with a partial treatment response. Improvement in the bilateral pleural effusions, pleural metastatic disease and thoracic lymphadenopathy since CT of September 16, 2023, as detailed above. Interval decrease in size of a right adrenal metastasis. 3. Persistent interlobular septal thickening. This could reflect lymphangitic tumor or pulmonary edema. 4. Heterogeneity of the liver with possible intrahepatic biliary ductal dilatation with the left hepatic lobe. The findings may be artifactual however metastatic disease cannot be excluded. This can be assessed with nonemergent CT of the abdomen. 5. Cholelithiasis. 5. Mild nonspecific nydia hepatis and peripancreatic stranding which can be assessed on the follow-up CT. ACT 112: Negative or not required by law. Electronically signed by: Tee Bbab M.D. 11/08/2023 1:20 PM ECG Additional Comments: Normal sinus rhythm Low voltage QRS Cannot rule out Anterior infarct , age undetermined Abnormal ECG When compared with ECG of 16-SEP-2023 16:25, Minimal criteria for Anterior infarct are now Present Nonspecific T wave abnormality no longer evident in Lateral leads Code Status & VTE Plan Code Status full code VTE Prophylaxis Plan VTE Prophylaxis will be ordered: Yes Supervising Physician Co-Signing Physician Notes I personally saw and examined the patient. I verified all quintana points and agree with Eduard Jamil PA-C with the following exceptions and/or additions: 73 year old male with metastatic renal cell carcinoma on chemotherapy presents to the ER with shortness of breath. Recent pleurx tube removed 10/26 without accumulation of pleural effusion. No chest pain. Shortness of breath with generalized fatigue and weakness. No one sided weakness, change in speech, vision, hearing. Some pain in his mouth with swallowing. No dysphagia. O/E A&Ox3, oral mucosal erythema, HS RRR, no murmurs, Chest CTAB, Abdo SNT, CN2->12 intact, no focal motor/sensory deficit A/P Shortness of breath - no clear cause of worsening shortness of breath on admission. he clearly has metastatic disease to his lung although this is improving. No PE. chemotherapy drugs do not have cardiomyopathy listed as a side effect. Suspect most likely just generalized fatigue and weakness from malnutrition and chemotherapy. TSH with AM labs Grade 2 stomatitis - suspected secondary to everolimus. magic mouth wash. Otherwise as above PG Care Time/CCT Total # of Minutes Spent Total Time Spent with Patient: Total time spent is greater than 50% in coordination of care (as documented) at patient's floor/unit and/or counseling patient: Coding [place] [address] INT INP/OBS CARE 3/75MIN Patient Type Established Medical Decision Making High Complexity Diagnoses Generalized weakness R53.1 SOB (shortness of breath) R06.02 Difficulty swallowing R13.10 Mouth pain K13.79 Type 2 diabetes mellitus without complication E11.9 Renal cell carcinoma of right kidney metastatic to other site C64.1 Laterality: right (6) Metastatic renal cell carcinoma Laterality: right Qualified Code(s): C64.1 - Malignant neoplasm of right kidney, except renal pelvis
[2023-11-08] MEDS ORDERED: GLUCOSE 40% GEL 15 GM TUBE PO PRN (15:17)
[2023-11-08] MEDS ORDERED: DEXTROSE 50% 50 ML SYRINGE IV PRN (15:17)
[2023-11-08] MEDS ORDERED: GLUCAGON FOR INJ 1 MG VIAL SQ PRN (15:17)
[2023-11-08] MEDS ORDERED: GLUCOSE 10 TAB/TUBE PO PRN (15:17)
[2023-11-08] MEDS: LACTATED RINGER'S 1,000 ML IV SCH (16:50)
[2023-11-08] MEDS: ACETAMINOPHEN 325 MG TAB PO STA (16:55)
[2023-11-08] MEDS: FIRST - Mouthwash BLM 5 ML UDP PO ONE (16:59)
[2023-11-08] MEDS: INSULIN ASPART PER UNIT CHARGE SC SCH (19:58)
[2023-11-08] MEDS: FIRST - Mouthwash BLM 119 ML PO SCH (20:20)
[2023-11-08] MEDS: ENOXAPARIN INJ 40 MG/0.4 ML SYR SQ SCH (20:20)
[2023-11-08] MEDS: SIMVASTATIN 20 MG TAB PO SCH (20:21)
[2023-11-08] MEDS: droNABinol 2.5 MG CAP PO SCH (21:21)
[2023-11-08] MEDS ORDERED: ACETAMINOPHEN 325 MG TAB PO PRN (21:30)
[2023-11-08] MEDS: EVEROLIMUS PO SCH (22:44)
[2023-11-08] MEDS: LENVATINIB MESYLATE 4 MG PO SCH (22:45)
[2023-11-09] MEDS: LEVOTHYROXINE SODIUM 50 MCG TABLET PO SCH (06:12)
--- NOTE | 2023-11-09 07:06 | Electrocardiogram Report ---
Test Reason : Blood Pressure : / mmHG Vent. Rate : 093 BPM Atrial Rate : 093 BPM P-R Int : 172 ms QRS Dur : 074 ms QT Int : 334 ms P-R-T Axes : 033 -13 030 degrees QTc Int : 415 ms Normal sinus rhythm Low voltage QRS Cannot rule out Anterior infarct , age undetermined Abnormal ECG When compared with ECG of 16-SEP-2023 16:25, Minimal criteria for Anterior infarct are now Present Nonspecific T wave abnormality no longer evident in Lateral leads Confirmed by Jose Manuel Weinberg ([id number]) on 11/09/2023 7:06:25 AM Referred By: REFERRED SELF Confirmed By:Jose Manuel Weinberg
[2023-11-09 07:15] LABS: Basophils # (auto) 0.03 K/uL (0.00-0.20); Basophils % (auto) 0.3 %; Eosinophils # (auto) 0.06 K/uL (0.00-0.50); Eosinophils % (auto) 0.6 %; Hematocrit (blood only) 39.8 % (42.0-52.0); Hemoglobin 12.6 g/dl (14.0-18.0); Immature Granulocytes # (auto) 0.03 K/uL (0.01-0.20); Immature Granulocytes % (auto) 0.3 %; Lymphocytes # (auto) 0.98 K/uL (1.20-3.40); Lymphocytes % (auto) 9.3 %; Mean Corpuscular Hemoglobin 28.8 pg (25.0-34.0); Mean Corpuscular Hgb Conc 31.7 g/dL (32.0-36.0); Mean Corpuscular Volume 90.9 fL (80.0-100.0); Mean Platelet Volume 9.5 fL (9.4-12.4); Monocytes # (auto) 0.56 K/uL (0.11-0.59); Monocytes % (auto) 5.3 %; Neutrophils # (auto) 8.87 K/uL (1.40-6.50); Neutrophils % (auto) 84.2 %; Platelet Count 385 K/uL (130-400); RDW Standard Deviation 43.3 fL (36.4-46.3); Red Blood Count 4.38 M/uL (4.70-6.10); White Blood Count 10.53 K/ul (4.8-10.8)
--- NOTE | 2023-11-09 07:32 | XRay Report ---
XR chest 1V portable HISTORY: 73 years-old Male monitor for recurrent pleural effusions acute shortness of breath COMPARISON: CTA chest 11/08/2023 TECHNIQUE: AP view of the chest FINDINGS: Cardiac silhouette is mildly enlarged. Pulmonary emphysema with interstitial coarsening. Scattered no dular airspace opacities redemonstrated with irregular focus of consolidation within the basal right lower lobe better seen on comparison CTA. Nodular pleural thickening of left greater than right hemit horaces with small left pleural effusion and persistent left basilar consolidation. Trace right pleur al effusion. Bones appear grossly intact. IMPRESSION: 1. Unchanged trace right and small left pleural effusions with bibasilar densities. 2. Emphysema with reticular interstitial opacities again noted which may represent interstitial pulmo nary edema versus lymphangitic carcinomatosis. 3. Please refer to yesterday's CTA of the chest for further discussion of the patient's metastatic fi ndings. ACT 112: Negative or not required by law. The above report was generated using voice recognition software. It may contain grammatical, syntax o r spelling errors. Electronically signed by: Ramon Godinez M.D. 11/09/2023 7:31 AM
[2023-11-09 07:35] LABS: Albumin Globulin Ratio 0.7 (0.9-2); Albumin Level 3.1 gm/dl (3.4-5.0); BUN Creatinine Ratio 18.3 (10-20); Bilirubin,Total 0.8 mg/dl (0.2-1.0); Calcium 9.7 mg/dl (8.6-10.3); Est GFR (African American) 109.4 ml/min; Est GFR (Non-African American) 94.4 ml/min; Globulin 4.5 gm/dl (2.5-4.0); Magnesium 1.8 mg/dl (1.7-2.4); Potassium 4.9 mmol/L (3.5-5.1); Total Protein 7.6 gm/dl (6.0-8.3)
[2023-11-09 07:49] LABS: Thyroid Stimulating Hormone 26.136 uIu/ml (0.300-4.500)
[2023-11-09 07:54] LABS: INR 1.1 (0.9-1.1); Prothrombin Time 11.5 Seconds (9.0-12.0)
--- NOTE | 2023-11-09 08:22 | Hospitalist Progress Note ---
Date of Service November 09, 2023 Assessment & Plan (1) Generalized weakness: Plan: Admit to Med/Surg on pulse oximetry Currently stable and nontoxic-appearing Presented to ED with approximately 1 month of progressive generalized weakness and intermittent shortness of breath Suspect his generalized weakness is likely due to malnutrition and dehydration due to poor oral intake from what appears to be mucositis from his chemotherapy Patient is without signs or symptoms of infection at this time, Pro-Tr is within normal limits, no signs of UTI or pneumonia, no recent GI symptoms or signs of skin infection Patient is status post 1.5 L normal saline in the ED, will give an additional 1 L LR on admission at 80 mL/h due to his dehydration Will start twice daily nutritional supplements to assist with nutritional support Will start aspiration precautions with easy due to diet and speech therapy consult Follow blood cultures ordered on admission If patient continues to have weakness without signs of infection, may need to consult with [facility] for consideration of chemotherapy holiday SQ Lovenox for DVT prophylaxis Heart healthy/DM type II diet AM CBC, CMP, mag, PT/INR 11/08 TSH elevated 26 -T4 checked w/ AM labs and wnl 0.76 however will add T3 On Synthroid 50mcg daily at baseline -TSH was 11 back in April 2023 and reports has NOT had any changes at that time however has had dry skin/hoarseness/edema/etc and will plan for increase to 75mcg for AM and rec repeat TFT outpt/adjustment as needed Lipase not elevated, given peripancreatic stranding on CT CTA w/o PE, persistent interlobular septal thickening, ?lymphangitic tumor vs pulm edema Does also note cholelithiasis. TB wnl, ALP elevated 144. Monitor for RUQ pain/etc but denied GI sx on admission other than poor PO intake from mucositis from chemo? Lasix 20mg IV x 1 given congestion, no pleurX in place (removed October, reported not having any drainage). Site looks good but reports RN to notify provider/remove raquel. Will consult while inpatient Hematology consult placed to weigh in, continues on current oral regimen unless otherwise stated by heme/onc PT/OT consults pending (2) SOB (shortness of breath): Plan: Worsening SOB on exertion over the past month, worsened in past 48hrs prior to admission. Not much symptoms at rest but significant worsening w/ activity No increased/change in sputum production Respiratory biofire negative CTA Chest NEG for PE, shows some partial response to treatment w/ his chemotherapy WBC borderline 10.5 but w/ L shift. Procal 0.18 on admission/blood cultures obtained/pending and will need to monitor PleurX removed earlier this month, October 26, per patient as not having much output/drainage- had been placed due to recurrent malignant effusions, --> cannot rule out slowly progressing pleural effusion since this time causing his symptoms as last CT of the chest was obtained in August --Pulm consulted while inpatient, as above as still w/ sutures needing removed as well/consideration for replacement Lasix 20mg IV x 1 to see if helps (wet, unproductive cough, effusions on imaging) poor PO intake but ?related to congestion --CTA chest noting "Persistent interlobular septal thickening. This could reflect lymphangitic tumor or pulmonary edema" Hematology/oncology consult placed, appreciate recs/assistance Continue incentive spirometer, nebulizer treatments as needed, supplemental O2 to maintain sats (94% on RA) Suspect some component of anxiety-Ativan available prn Consider 2step prior to dc to ensure no drops/needs w/ ambulation (3) Difficulty swallowing: Plan: Increased mouth pain/issues with swallowing for approx 1 month Aspiration precautions, Speech consult - did have recent issue of having pill stuck towards distal aspect of esophagus Was on dexamethasone suspension QID however not using as frequent at home. Held PO steroid on admission and ordered magic swizzle which he reports is helping Does NOT appear to have thrush at this time but will continue to monitor/add swish/swallow nystatin if occurs Aspiration precautions, speech evaluation as above TSH elevated to 26 as above, plans for increased synthroid in AM/repeat TFT outpatient Heme/onc consulted as above as well given CTA report, ?need for CTAP for assessment -- will defer until see by oncology Continue to monitor PO intake., brand engineer consult placed (4) Mouth pain: Plan: See difficulty swallowing, continue magic swizzle. No appearance of thrus h/monitor for need for nystatin but will continue to monitor (5) Type 2 diabetes mellitus without complication: Plan: A1c 7.2 back in February 2022, will plan to add to AM labs Home metformin/Trulicity on hold BSG AC/HS, SSI while inpatient. Holding off basal insulin to prevent hypoglycemia Monitor BSGs/adjustment as needed (6) Metastatic renal cell carcinoma: Plan: Will plan to continue lenvatinib and everolimus as his family can bring these in - ordered Heme/onc consulted as above for input/assistance/consideration for chemo contributing to current clinical picture Plan continued inpatient stay Admission and Anticipated Discharge Date Admission Date: November 08, 2023 Subjective Patient evaluated this morning, sitting up in bed. Reports not feeling much better since admission. Had PleurX in place previously, but noted had removal October 26 as not having much drainage. +cough, CTA negative for PE but discussed consult for heme/onc. Discussed Synthroid dosing, prior elevation and he denies having had any adjustments. Given TSH elevated to 26 discussed plan to increase to 75mcg for AM. Pulm consult placed for consideration/needing replacement as well as patient reporting nurse called him and said provider would see him inpatient for suture removal. Site looks good/not infected appearing. He has a cough, wet sounding but nonproductive. Also has some nasal congestion, nasal spray ordered. Speech seen, soft/bite size diet continued. Does have some mucositis/pain from chemo, denies need at this time and reports they have been giving him mouthwash. Questions/concerns addressed at this time. Results & Data Results & Data Vital Signs (Past 12 Hours) Vital Signs Temp Pulse Resp BP Pulse Ox O2 Del Method 11/09/23 07:31 36.9 C 80 18 148/91 H 94 Room Air PG Care Time/CCT Total # of Minutes Spent Total Time Spent with Patient: Total time spent is greater than 50% in coordination of care (as documented) at patient's floor/unit and/or counseling patient: Coding Level of Care Code 87496 SUB INP/OBS CARE 3/50MIN Diagnoses Generalized weakness R53.1 SOB (shortness of breath) R06.02 Difficulty swallowing R13.10 Mouth pain K13.79 Type 2 diabetes mellitus without complication E11.9 Renal cell carcinoma of right kidney metastatic to other site C64.9 Laterality: unspecified laterality (6) Metastatic renal cell carcinoma Laterality: unspecified laterality Qualified Code(s): C64.9 - Malignant neoplasm of unspecified kidney, except renal pelvis
[2023-11-09 08:25] LABS: T4 Free Thyroxine 0.76 ng/dl (0.61-1.60)
[2023-11-09] MEDS: VENLAFAXINE HCL XR 150 MG CAPXR PO SCH (08:59)
[2023-11-09] MEDS: TAMSULOSIN HCL 0.4 MG CAP PO SCH (08:59)
[2023-11-09] MEDS: MAGNESIUM OXIDE 400 MG TAB PO SCH (08:59)
[2023-11-09] MEDS: SODIUM CHLORIDE 0.65% NA SOLN 45 ML (OCEAN) ONE (10:35)
--- NOTE | 2023-11-09 11:10 | Pulmonary Consultation ---
Date of Consultation November 09, 2023 Assessment & Plan (1) SOB (shortness of breath): (2) Metastatic renal cell carcinoma: Laterality: unspecified laterality Qualified Code(s): C64.9 - Malignant neoplasm of unspecified kidney, except renal pelvis (3) Abnormal chest CT: (4) Multiple pulmonary nodules: Plan CTA chest 11/08/2023 personally reviewed: Circumferential small left-sided pleural effusion with pleural thickening Right lower lobe supradiaphragmatic 3.9 cm nodularity, left upper lobe 9 mm pulmonary nodule, both are mildly improved compared to 09/16/2023 Significant subcarinal lymphadenopathy -- Small pleural effusion with pleural thickening on the left Likely related to patient's underlying stage IV renal cell carcinoma Initially patient had Pleurx catheter placed on the left side, it was removed in the office by patient's primary juice mixer on 10/27/2023 No intervention needed for the pleural effusion Procalcitonin 0.18, respiratory bio fire negative for everything on 11/08/2023 --Multiple pulmonary nodules Like representing metastatic spread in the renal cell carcinoma Plan: Sutures from the right side have been removed without any issues. Patient has very minimal fluid on the left side which is chronic. No significant pleural effusion on the right side. No further recommendation from pulmonary perspective. Please call directly with any questions Please note the above document was generated using voice recognition software. It may contain grammatical, syntax or spelling errors.Any formal questions or concerns about the content, text or information contained within the body of this dictation should be directly addressed to the provider for clarification. History of Present Illness Attending Physician: Viola Gaona MD History of Present Illness 73-year-old male presented to the hospital for generalized weakness Past medical history: Renal cell carcinoma with pleural effusions in the past, hypothyroidism, anxiety/depression Pulmonary were consulted for history of Pleurx catheter At the time of examination patient's was in the room Patient was resting comfortably on the bed. He was saturating 94% on room air. Respiratory rate were in the mid teens. Heart rate in the high 70s The reason he came to the hospital was generalized weakness and shortness of breath. Denied any fever or chills No nausea vomiting Occasional cough with clear phlegm. No hemoptysis. No dysuria or diarrhea prior to coming to the hospital. He has been complaining of diarrhea today. Allergies Allergy/AdvReac Type Severity Reaction Status Date / Time No Known Allergies Allergy Verified 10/22/23 10:38 Home Medications Medication Instructions Recorded Confirmed Type metformin 1,000 mg tablet 1,000 mg PO BID 01/10/20 11/08/23 History tamsulosin 0.4 mg capsule 0.8 mg PO QAM 01/16/20 11/08/23 History dulaglutide 0.75 mg/0.5 mL 0.75 mg subcut WK 02/18/21 11/08/23 History subcutaneous pen injector (Trulicity) simvastatin 20 mg tablet (Zocor) 20 mg PO QPM 03/24/22 11/08/23 History levothyroxine 50 mcg capsule 50 mcg PO DAILY 09/01/23 11/08/23 History lorazepam 1 mg tablet 1 mg PO Q4 PRN Anxiety 09/16/23 11/08/23 History venlafaxine 150 mg 150 mg PO DAILY 09/16/23 11/08/23 History capsule,extended release 24 hr albuterol sulfate 90 mcg/actuation 2 inh inhalation QID PRN shortness 09/22/23 11/08/23 Rx aerosol inhaler of breath or cough #8.5 grams dexamethasone 0.5 mg/5 mL oral 10 mg (100 mL) PO DIRECTED #0 mL 09/22/23 11/08/23 Rx solution everolimus (antineoplastic) 5 mg 5 mg PO DAILY #0 tabs 09/22/23 11/08/23 Rx tablet lenvatinib 18 mg/day (10 mg x 1 18 mg PO DAILY #90 caps 09/22/23 11/08/23 Rx and 4 mg x 2) capsule (Lenvima) cabotegravir sodium 30 mg tablet 60 mg PO UD 10/22/23 11/08/23 History (Vocabria) magnesium aspart,citrate,oxide 400 mg PO DAILY 10/22/23 11/08/23 History dronabinol 5 mg capsule 5 mg PO BID 11/08/23 11/08/23 History sodium polystyrene sulfonate 15 60 ml PO DAILY 11/08/23 11/08/23 History gram-sorbitol 20 gram/60 mL oral susp (SPS (with sorbitol)) Patient History Medical History History of elevated PSA History of urinary calculi History of mumps History of measles History of varicella Surgical History Hx of cystoscopy S/P thoracentesis Left pleural effusion 03/09/22 H/O prostate biopsy History of nephrectomy 2018- left History of inguinal hernia repair Family History Father Diabetes Congestive heart failure Mother Cancer breast cancer Social History Smoking Status: Never smoker Tobacco Type: Cigars Cigarettes Per Day: SMOKED OCCASIONAL CIGAR - QUIT MANY YRS AGO; Second Hand Exposure: No; Do You Dip or Chew Tobacco: No; Tobacco Cessation Education Requested by Patient: No Hx Alcohol Use: No Hx Substance Use: No Preferred Language: Romanian Communication Ability: Effective Hand Quilter Required: No Beliefs That Will Affect Care: None marital status: Current Living Situation: Spouse current occupational status: retired How many Children do You have: 2 Other Information That Helps Us Care for You: No Feels Safe at Home: Yes Safety Concerns: Feels Safe At This Time caffeine: Yes during the past year weight has: remained stable Seatbelt Use: always Assistive Devices: Cane, Walker and Wheelchair Assistive Devices Comment: Walker used in hospital Review of Systems 2 Review of Systems: All systems reviewed & are unremarkable except as noted in HPI & below Physical Exam 2 Physical Exam: Constitutional: No acute distress HEENT: EOMI, PERRLA Respiratory system: Decreased air entry bilaterally, no wheeze, no rhonchi, positive crackles bilateral lower lobes CVS: S1-S2 positive, no murmurs or gallops Abdomen: Soft, nontender, nondistended, positive bowel sounds x4 Extremities: +2 pulses bilaterally radialis/ dorsalis pedis, no cyanosis, no edema Neuro: Awake alert oriented x3 Psych: Normal mood and affect G/U: No Lopez Skin: no rashes, warm and dry Lymphatic: no cervical or axillary lymphadenopathy Results & Data Results & Data Vital Signs (Past 12 Hours) Vital Signs Temp Pulse Resp BP Pulse Ox O2 Del Method 11/09/23 07:31 36.9 C 80 18 148/91 H 94 Room Air Laboratory Results 11/09/23 06:21 11/09/23 06:21 PG Care Time/CCT Total # of Minutes Spent Total Time Spent with Patient: Total time spent is greater than 50% in coordination of care (as documented) at patient's floor/unit and/or counseling patient: Coding Level of Care Code 87083 INT INP/OBS CARE 2/55MIN Diagnoses SOB (shortness of breath) R06.02 Renal cell carcinoma of right kidney metastatic to other site C64.9 Laterality: unspecified laterality Abnormal chest CT R93.89 Multiple pulmonary nodules R91.8
[2023-11-09] MEDS: FUROSEMIDE INJ 20 MG/2 ML VIAL IV ONE (11:14)
[2023-11-09] MEDS: LORazepam 1 MG TAB PO PRN (17:30)
[2023-11-09] MEDS: ALBUTEROL HFA 8 GM INHALER INH PRN (18:09)
[2023-11-09 20:01] LABS: Adenovirus F 40/41 PCR Not Detected (NotDetected); Astrovirus PCR Not Detected (NotDetected); Campylobacter PCR Not Detected (NotDetected); Cryptosporidium PCR Not Detected (NotDetected); Cyclospora cayetanensis PCR Not Detected (NotDetected); Entamoeba histolytica PCR Not Detected (NotDetected); Enteroaggregative E.coli(EAEC) Not Detected (NotDetected); Enteropathogenic E.coli (EPEC) Not Detected (NotDetected); Enterotoxigenic E.coli (ETEC) Not Detected (NotDetected); Giardia lamblia PCR Not Detected (NotDetected); Norovirus GI/GII PCR Not Detected (NotDetected); Plesiomonas shigelloides PCR Not Detected (NotDetected); Rotavirus A PCR Not Detected (NotDetected); Salmonella PCR Not Detected (NotDetected); Sapovirus PCR Not Detected (NotDetected); Shiga-like Toxin E.coli (STEC) Not Detected (NotDetected); Shigella/Enteroinvasive E.coli Not Detected (NotDetected); Vibrio cholerae PCR Not Detected (NotDetected); Vibrio species PCR Not Detected (NotDetected); Yersinia enterocolitica PCR Not Detected (NotDetected)
[2023-11-10] MEDS: LEVOTHYROXINE SODIUM 75 MCG TABLET PO SCH (05:48)
[2023-11-10 08:02] LABS: Albumin Globulin Ratio 0.7 (0.9-2); Albumin Level 3.1 gm/dl (3.4-5.0); BUN Creatinine Ratio 20.8 (10-20); Bilirubin,Total 0.6 mg/dl (0.2-1.0); Calcium 9.4 mg/dl (8.6-10.3); Creatinine Clr Calc Pharmacy 81.9 ml/min; Est GFR (African American) 108.8 ml/min; Est GFR (Non-African American) 93.9 ml/min; Globulin 4.4 gm/dl (2.5-4.0); Magnesium 1.7 mg/dl (1.7-2.4); Total Protein 7.5 gm/dl (6.0-8.3)
[2023-11-10 08:06] LABS: Basophils # (auto) 0.02 K/uL (0.00-0.20); Basophils % (auto) 0.2 %; Eosinophils % (auto) 1.1 %; Hematocrit (blood only) 38.1 % (42.0-52.0); Hemoglobin 12.2 g/dl (14.0-18.0); Immature Granulocytes # (auto) 0.02 K/uL (0.01-0.20); Immature Granulocytes % (auto) 0.2 %; Lymphocytes # (auto) 0.74 K/uL (1.20-3.40); Lymphocytes % (auto) 8.2 %; Mean Corpuscular Hemoglobin 28.4 pg (25.0-34.0); Mean Corpuscular Volume 88.6 fL (80.0-100.0); Mean Platelet Volume 9.8 fL (9.4-12.4); Monocytes # (auto) 0.55 K/uL (0.11-0.59); Monocytes % (auto) 6.1 %; Neutrophils # (auto) 7.54 K/uL (1.40-6.50); Neutrophils % (auto) 84.2 %; Platelet Count 369 K/uL (130-400); RDW Coefficient of Variation 13.2 % (11.5-14.5); RDW Standard Deviation 42.5 fL (36.4-46.3); White Blood Count 8.97 K/ul (4.8-10.8)
--- NOTE | 2023-11-10 08:20 | Hospitalist Progress Note ---
Date of Service November 10, 2023 Assessment & Plan (1) Generalized weakness: Plan: 73yo presents for ~1 month of progressive weakness/SOB. Suspect ongoing dehydration/malnutrition/deconditioning contributing as well as hypothyroidism and side effects from chemotherapy/mucositis s/p 1.5L NSS in ER, additional 1L on admission for dehydration from poor PO intake , likely from mucositis from his chemotherapy. CTA chest NEGATIVE for PE, dose show response to treatment. No evidence for PNA. Of note, no RUQ pain on exam but does have cholelithiasis on imaging. TB wnl, ALP elevated but trending down on repeat and will monitor. Lipase not elevated UA w/o signs for infection, culture NO GROWTH FINAL Biofire negative. Stool biofire checked/negative given reports diarrhea WBC wnl, remains afebrile Blood cultures NGTD x 48 hours Magic mouth wash, nystatin. Speech consulted- minced/moist diet. Continue aspiration precautions Nutrition consult/boost with meals Given lasix 20mg IV x 1 for little volume overload from IVF on admission to see if assisted w/ SOB symptoms. Pulm consulted and no need for repeat PleurX at this tiem TSH elevation to 26, normal T4/t3 however on replacement at baseline and symptoms consistent with such and INCREASED to 75mcg daily. Repeat TFT 4wks w/ PCP/adjustment if needed Changing ativan to 1mg BID scheduled, prn available in day if needing but per discussion w/ patient/ he takes pretty routinely morning/night and want to prevent any withdrawal Did consult heme/onc as suspect chemo contributing/consideration for drug holiday -Dr Packer saw last evening, 11/08, placed ORAL REGIMEN (Lenvima/Zortress) ON HOLD WHILE INPATIENT, planning for 2 week break. Reports feeling SLIGHTLY better today Therapy evaluations pending/continued while inpatient. Monitor for need for rehab vs HHPT (HHPT prob better for patient w/ his anxiety) DVT proph: lovenox SQ (2) SOB (shortness of breath): Plan: ongoing issues CTA neg for PE WBC borderline on admission w/ L shift but improving off abx at present. Procal 0.18, blood cultures no growth/urine cx negative was given 20mg IV lasix for IVF on admission and effusion on repeat to see if assisting Pulm consulted given prior Pleurx for recurrent malignant effusion, removed October 26 as no further drainage sutures removed. site looks good. no need for repeat placement, pulm signed off Heme/onc consulted, drug holiday as above planned Suspect anxiety large component as well - making ativan BID scheduled as above, keep prn for additional dosing as needed. TSH elevated/synthroid increased No sputum production/fevers. Continue pulmonary toilet, consider 2 step prior to dc (3) Difficulty swallowing: Plan: Increased mouth pain/issues with swallowing for approx 1 month Aspiration precautions, Speech consult - did have recent issue of having pill stuck towards distal aspect of esophagus, anxiety about happening again Was on dexamethasone suspension QID however not using as frequent at home. Held PO steroid on admission and ordered magic swizzle which he reports is helping added nystatin to see if any help lower issues but no overt thrush on exam Aspiration precautions Speech consulted - minced/moist diet TSH elevation/Synthroid increased Heme/onc consulted as above Continue supplements/minced/moist diet, aspiration precautions (4) Mouth pain: Plan: See difficulty swallowing, continue magic swizzle. Added nystatin to see if any imprvoement (5) Type 2 diabetes mellitus without complication: Plan: A1c 7.2 back in February 2022, will plan to add to AM labs Home metformin/Trulicity on hold BSG AC/HS, SSI while inpatient. Holding off basal insulin to prevent hypoglycemia Monitor BSGs/adjustment as needed (6) Metastatic renal cell carcinoma: Plan: On admission, continued lenvatinib and everolimus and family brought in As above, placed ON HOLD FOR NOW, planning for holding x 2 weeks given FTT and f/u Dr Packer at dc Plan continued inpatient stay chan ativan as above, added nystatin oral continue therapy evals, likely need some HHPT at dc vs rehab (probably best for patient at home w/ HHPT given anxiety/etc) and potential dc next 24-48hours if improvements off chemo. consider 2 step prior to dc. updated at bedside Admission and Anticipated Discharge Date Admission Date: November 09, 2023 Subjective Eval this afternoon, in room. Patient just finishing working with therapy, reports maybe feeling a LITTLE bit better. Does have shallow breathing/anxious at times, does endorse almost out of his ativan at home and hoping pharmacy has once discharge. Inquired about how taking at home and reports takes twice daily pretty consistently. Discussed will make BID and have prn dose available for afternoon. Improvement in PO intake slightly, is taking the boosts w/ meals. Per , his mother came in earlier and told him to eat. Does have issues with swallowing/painful at times. Speech saw and placed on minced/moist diet/aspiration precautions. Patient does sit at the side of the bed to eat. Discussed increased Synthroid, holding his home chemo/holiday for [address] Packer - they endorse they did see/speak with him while inpatient as well. Will need repeat TFT outpatient. Discussed consideration for rehab but will continue to monitor evals. Suspect he would prefer home with HHPT in home environment if able to meet goals. Stable on RA. Discussed will plan for 2step prior to dc. Timing for discharge pending status/intake and how he is feeling. Questions/concerns addressed at this time. Physical Exam Physical Exam: General: chronically ill appearing male, malnourished, sitting up in bed, just finishing working with therapy Head atraumatic, normocephalic, mm slightly dry, trachea midline significant stomatitis Resp: decreased air entry bilaterally, no wheezing/rales, bibasilar crackles, on room air, shallow breathing at times CV: RRR, no significant m/r/g, no pitting edema/calf tenderness GI: +BS, soft/NT : no duncan MSK/Neuro: generalized weakness but nonfocal Psych: AOx3, cooperative with exam Results & Data Results & Data Vital Signs (Past 12 Hours) Vital Signs Temp Pulse Resp BP Pulse Ox O2 Del Method 11/10/23 07:27 36.4 C L 85 16 121/75 95 Room Air 11/09/23 21:05 Room Air 11/09/23 20:30 36.7 C 86 18 133/82 96 Room Air Laboratory Results 11/10/23 11/10/23 11/10/23 Range/Units 11:28 07:38 06:18 WBC 8.97 (4.8-10.8) K/ul RBC 4.30 L (4.70-6.10) M/uL Hgb 12.2 L (14.0-18.0) g/dl Hct 38.1 L (42.0-52.0) % MCV 88.6 (80.0-100.0) fL MCH 28.4 (25.0-34.0) pg MCHC 32.0 (32.0-36.0) g/dL RDW Std Deviation 42.5 (36.4-46.3) fL RDW Coeff of Joaquim 13.2 (11.5-14.5) % Plt Count 369 (130-400) K/uL MPV 9.8 (9.4-12.4) fL Immature Gran % (Auto) 0.2 % Neut % (Auto) 84.2 % Lymph % (Auto) 8.2 % [place] % (Auto) 6.1 % Eos % (Auto) 1.1 % Baso % (Auto) 0.2 % Neut # (Auto) 7.54 H (1.40-6.50) K/uL Lymph # (Auto) 0.74 L (1.20-3.40) K/uL [place] # (Auto) 0.55 (0.11-0.59) K/uL Eos # (Auto) 0.10 (0.00-0.50) K/uL Baso # (Auto) 0.02 (0.00-0.20) K/uL Immature Gran # (Auto) 0.02 (0.01-0.20) K/uL Sodium 132 L (136-145) mmol/L Potassium 4.0 (3.5-5.1) mmol/L Chloride 94 L (98-107) mmol/L Carbon Dioxide 28 (21-32) mmol/L Anion Gap 10 (3-11) BUN 15 (6-23) mg/dl Creatinine 0.72 (0.6-1.4) mg/dl Est Cr Clr Drug Dosing 81.9 ml/min Est GFR ( Amer) 108.8 ml/min Est GFR (Non-Af Amer) 93.9 ml/min BUN/Creatinine Ratio 20.8 H (10-20) Glucose 105 H (70-99(Fasting)) mg/dl POC Glucose 127 H 102 H (70-99) mg/dl Calcium 9.4 (8.6-10.3) mg/dl Magnesium 1.7 (1.7-2.4) mg/dl Total Bilirubin 0.6 (0.2-1.0) mg/dl AST 21 (13-39) U/L ALT 14 (7-52) U/L Alkaline Phosphatase 126 H (34-104) U/L Total Protein 7.5 (6.0-8.3) gm/dl Albumin 3.1 L (3.4-5.0) gm/dl Globulin 4.4 H (2.5-4.0) gm/dl Albumin/Globulin Ratio 0.7 L (0.9-2) Stl C. cayetanensis PCR (NotDetected) Stool Rotavirus A PCR (NotDetected) Stl Adenov F 40/41 PCR (NotDetected) Stool Astrovirus (PCR) (NotDetected) Stool Campylobacter PCR (NotDetected) Stl C. diff Tox B Gene (Neg) Stool Cryptosporidium PCR (NotDetected) Stl E.coli Shiga Tox PCR (NotDetected) Stl Enterotoxigenic E PCR (NotDetected) Stool EPEC (PCR) (NotDetected) Stool EAEC (PCR) (NotDetected) Stl E. histolytica PCR (NotDetected) Stool Giardia Lamblia PCR (NotDetected) Stool Salmonella PCR (NotDetected) Stool Sapovirus (PCR) (NotDetected) Stl P. shigelloides PCR (NotDetected) Stl Shigella/EIEC PCR (NotDetected) St Y.enterocolitica PCR (NotDetected) Stool Vibrio (PCR) (NotDetected) Stl Vibrio cholerae PCR (NotDetected) Stl Norovirus GI/GII PCR (NotDetected) 11/09/23 11/09/23 11/09/23 Range/Units 20:27 18:22 18:20 WBC (4.8-10.8) K/ul RBC (4.70-6.10) M/uL Hgb (14.0-18.0) g/dl Hct (42.0-52.0) % MCV (80.0-100.0) fL MCH (25.0-34.0) pg MCHC (32.0-36.0) g/dL RDW Std Deviation (36.4-46.3) fL RDW Coeff of Joaquim (11.5-14.5) % Plt Count (130-400) K/uL MPV (9.4-12.4) fL Immature Gran % (Auto) % Neut % (Auto) % Lymph % (Auto) % [place] % (Auto) % Eos % (Auto) % Baso % (Auto) % Neut # (Auto) (1.40-6.50) K/uL Lymph # (Auto) (1.20-3.40) K/uL [place] # (Auto) (0.11-0.59) K/uL Eos # (Auto) (0.00-0.50) K/uL Baso # (Auto) (0.00-0.20) K/uL Immature Gran # (Auto) (0.01-0.20) K/uL Sodium (136-145) mmol/L Potassium (3.5-5.1) mmol/L Chloride (98-107) mmol/L Carbon Dioxide (21-32) mmol/L Anion Gap (3-11) BUN (6-23) mg/dl Creatinine (0.6-1.4) mg/dl Est Cr Clr Drug Dosing ml/min Est GFR ( Amer) ml/min Est GFR (Non-Af Amer) ml/min BUN/Creatinine Ratio (10-20) Glucose (70-99(Fasting)) mg/dl POC Glucose 136 H (70-99) mg/dl Calcium (8.6-10.3) mg/dl Magnesium (1.7-2.4) mg/dl Total Bilirubin (0.2-1.0) mg/dl AST (13-39) U/L ALT (7-52) U/L Alkaline Phosphatase (34-104) U/L Total Protein (6.0-8.3) gm/dl Albumin (3.4-5.0) gm/dl Globulin (2.5-4.0) gm/dl Albumin/Globulin Ratio (0.9-2) Stl C. cayetanensis PCR Not Detected (NotDetected) Stool Rotavirus A PCR Not Detected (NotDetected) Stl Adenov F 40/41 PCR Not Detected (NotDetected) Stool Astrovirus (PCR) Not Detected (NotDetected) Stool Campylobacter PCR Not Detected (NotDetected) Stl C. diff Tox B Gene Negative Cdiff Gene (Neg) Stool Cryptosporidium PCR Not Detected (NotDetected) Stl E.coli Shiga Tox PCR Not Detected (NotDetected) Stl Enterotoxigenic E PCR Not Detected (NotDetected) Stool EPEC (PCR) Not Detected (NotDetected) Stool EAEC (PCR) Not Detected (NotDetected) Stl E. histolytica PCR Not Detected (NotDetected) Stool Giardia Lamblia PCR Not Detected (NotDetected) Stool Salmonella PCR Not Detected (NotDetected) Stool Sapovirus (PCR) Not Detected (NotDetected) Stl P. shigelloides PCR Not Detected (NotDetected) Stl Shigella/EIEC PCR Not Detected (NotDetected) St Y.enterocolitica PCR Not Detected (NotDetected) Stool Vibrio (PCR) Not Detected (NotDetected) Stl Vibrio cholerae PCR Not Detected (NotDetected) Stl Norovirus GI/GII PCR Not Detected (NotDetected) 11/09/23 Range/Units 16:49 WBC (4.8-10.8) K/ul RBC (4.70-6.10) M/uL Hgb (14.0-18.0) g/dl Hct (42.0-52.0) % MCV (80.0-100.0) fL MCH (25.0-34.0) pg MCHC (32.0-36.0) g/dL RDW Std Deviation (36.4-46.3) fL RDW Coeff of Joaquim (11.5-14.5) % Plt Count (130-400) K/uL MPV (9.4-12.4) fL Immature Gran % (Auto) % Neut % (Auto) % Lymph % (Auto) % [place] % (Auto) % Eos % (Auto) % Baso % (Auto) % Neut # (Auto) (1.40-6.50) K/uL Lymph # (Auto) (1.20-3.40) K/uL [place] # (Auto) (0.11-0.59) K/uL Eos # (Auto) (0.00-0.50) K/uL Baso # (Auto) (0.00-0.20) K/uL Immature Gran # (Auto) (0.01-0.20) K/uL Sodium (136-145) mmol/L Potassium (3.5-5.1) mmol/L Chloride (98-107) mmol/L Carbon Dioxide (21-32) mmol/L Anion Gap (3-11) BUN (6-23) mg/dl Creatinine (0.6-1.4) mg/dl Est Cr Clr Drug Dosing ml/min Est GFR ( Amer) ml/min Est GFR (Non-Af Amer) ml/min BUN/Creatinine Ratio (10-20) Glucose (70-99(Fasting)) mg/dl POC Glucose 99 (70-99) mg/dl Calcium (8.6-10.3) mg/dl Magnesium (1.7-2.4) mg/dl Total Bilirubin (0.2-1.0) mg/dl AST (13-39) U/L ALT (7-52) U/L Alkaline Phosphatase (34-104) U/L Total Protein (6.0-8.3) gm/dl Albumin (3.4-5.0) gm/dl Globulin (2.5-4.0) gm/dl Albumin/Globulin Ratio (0.9-2) Stl C. cayetanensis PCR (NotDetected) Stool Rotavirus A PCR (NotDetected) Stl Adenov F 40/41 PCR (NotDetected) Stool Astrovirus (PCR) (NotDetected) Stool Campylobacter PCR (NotDetected) Stl C. diff Tox B Gene (Neg) Stool Cryptosporidium PCR (NotDetected) Stl E.coli Shiga Tox PCR (NotDetected) Stl Enterotoxigenic E PCR (NotDetected) Stool EPEC (PCR) (NotDetected) Stool EAEC (PCR) (NotDetected) Stl E. histolytica PCR (NotDetected) Stool Giardia Lamblia PCR (NotDetected) Stool Salmonella PCR (NotDetected) Stool Sapovirus (PCR) (NotDetected) Stl P. shigelloides PCR (NotDetected) Stl Shigella/EIEC PCR (NotDetected) St Y.enterocolitica PCR (NotDetected) Stool Vibrio (PCR) (NotDetected) Stl Vibrio cholerae PCR (NotDetected) Stl Norovirus GI/GII PCR (NotDetected) PG Care Time/CCT Total # of Minutes Spent Total Time Spent with Patient: Total time spent is greater than 50% in coordination of care (as documented) at patient's floor/unit and/or counseling patient: Coding Level of Care Code 99918 SUB INP/OBS CARE 3/50MIN Diagnoses Generalized weakness R53.1 SOB (shortness of breath) R06.02 Difficulty swallowing R13.10 Mouth pain K13.79 Type 2 diabetes mellitus without complication E11.9 Renal cell carcinoma of right kidney metastatic to other site C64.9 Laterality: unspecified laterality (6) Metastatic renal cell carcinoma Laterality: unspecified laterality Qualified Code(s): C64.9 - Malignant neoplasm of unspecified kidney, except renal pelvis
--- NOTE | 2023-11-10 08:31 | Oncology Consultation ---
Date of Consultation November 10, 2023 Assessment & Plan (1) Metastatic renal cell carcinoma: I had a very lengthy discussion with the patient and his today. Since the patient is generally feeling poor has difficulty swallowing and shortness of breath I recommended holding his lenvatinib/everolimus for a couple of weeks especially keeping in mind failure to thrive. I reviewed the CT scan which shows an improvement in his renal cell cancer. Recommend supportive care at this time with IV fluids, Magic mouthwash for oral ulcers if any. Rest of the management per our hospital internal medicine colleagues. Plan Hold lenvatinib and everolimus given the failure to thrive, generalized weakness. Medical oncology will continue to follow the patient and make appropriate recommendations. Will hold lenvatinib/everolimus for 2 weeks time. 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 Mary Moncada [phone] FAX [phone] [email or web address] Discussed possible protocol enrollment but elected to defer that to future lines of salvage Indicated cabozantinib monotherapy is preferable over the combination with nivolumab based on no improved efficacy and some increased toxicity with combination Subsequent to cabozantinib, additional "standard" lines could include lenvatinib plus pembrolizumab, lenvatinib plus everolimus, tivozanib, bevacizumab Cabozantinib 60 mg daily start 02/02/2023 Monitor CMP, CBC, urinalysis with urine protein/creatinine ratio, BMP, thyroid function EKG and cardiac sx Signs of GI toxicity or perforation/fistula, palmar plantar dysesthesia, unusual bleeding/hemorrhage, signs of RPLS or, wound healing issues HISTORY: 10/08/2017 left radical nephrectomy with lymph node sampling (surgery in [place] with pathology reviewed at [facility]) Pathology: Sarcomatoid conventional clear-cell renal cell carcinoma 9.0 cm Sarcomatoid component comprises 80% of the total tumor Prominent necrosis for approximately 80% of the tumor Nuclear grade IV Angiolymphatic invasion identified All margins free of carcinoma No definite extension beyond the renal capsule or into renal sinus fat 0/9 lymph nodes Staged as pT3a pN0 apparent cM0 / III Gradual onset of dyspnea February, 03/08/2022 CT Chest angio from an outside hospital (presumably [facility]) scanned to our chart showing No pulmonary embolism Moderatelarge left pleural effusion slightly hyperdense to simple fluid 12 mm solid left upper lung nodule new liter 4 x 2.8 cm soft tissue density right adrenal nodule, new from 08/17/2017 and concerning for malignancy 04/01/2022 PET/CT 1. Large left pleural effusion, increased in size since chest CT of March 08, 2022. Multiple FDG avid left sided pleural implants. This effusion is malignant and given the clinical history, metastatic renal cell carcinoma is favored. A second primary would be difficult to exclude but is considered less likely. 2. 3.8 x 2.8 cm FDG avid right adrenal metastasis and pathologic subcarinal lymphadenopathy. 3. 5 mm left upper lobe nodule which is difficult to characterize given its small size but may reflect a small metastasis. 4. No abnormality within the left nephrectomy bed. 5. Enlarged prostate. Multiple small bladder calculi. 04/07/2022 left chest thoracentesis at [facility] removed 2.4 liters He had a brief vasovagal immediately following the tap Pleural fluid cytology showed: Changes suspicious for metastatic carcinoma are seen. 05/13/2022 CT chest ([facility]) 1. Significant improvement in the left pleural effusion since prior study. The patient has persistent mild to moderate left effusion. 2. Diffuse abnormal pleural thickening and pleural studding concerning for metastatic disease 3. Parenchymal mass in the left upper lobe concerning for metastatic disease 4. Mass lesion in the right adrenal gland concerning for metastatic disease 05/15/2022 EBUS (Dr. Nguyễn) Lymph node, station 7, endobronchial ultrasound fine-needle aspiration: Metastatic carcinoma consistent with renal cell carcinoma Ipi/nivo x 4 cycles 06/03/2022 - 08/05/2022 followed by nivolumab maintenance through 11/25/2022, stopped for progression 08/10/2022 CT Chest 1. Interval progression of the mediastinal lymphadenopathy consistent with progressive metastatic disease. 2. Extensive left pleural metastatic disease is similar to the prior study. A small partially loculated left pleural effusion has slightly decreased in size. 3. A right adrenal gland metastasis is again noted. 4. A few scattered pulmonary nodules as described above remain unchanged. 08/10/2022 CT abd/pelvis Thoracic lymphadenopathy and extensive left pleural metastases are better depicted on the chest CT which will be reported separately. There is 1. Increase in size of the right adrenal metastasis since PET/CT of April 01, 2022. This suggests disease progression. No additional sites of metastatic disease within the abdomen or pelvis. No abnormality within the left nephrectomy bed. 2. Thoracic lymphadenopathy and numerous left-sided pleural implants better depicted on the chest CT which will be reported separately. 3. Right-sided nephrolithiasis. No ureteral calculi. Multiple small bladder calculi. Mild dilatation of the right collecting system and right ureter. Enlarged prostate. With question of pseudoprogression continue with same regimen of nivolumab maintenance 09/21/2022 CT C/A/P Similar picture of thoracic metastatic disease with possible lymphangitic spread - nonprogressive compared to 08/10/2022 study. Similarly the metastatic mediastinal left hilar adenopathy was unchanged as well as a right adrenal metastasis 07/06/2023, CT of the chest abdomen pelvis: IMPRESSION: 1. Overall stability of pleural thickening and multiple pulmonary nodules. 2. Multiple foci of lymphadenopathy are stable from prior exam with the exception of new lymphadenopathy in the left axillary station. Findings likely represent worsening disease. IMPRESSION: 1. Overall mixed response to treatment as compared to 04/05/2023. 2. There is likely progressive metastatic pleural disease at the right lung base, as well as progressive lymphatic spread of tumor in the right lower lobe. A small right pleural effusion has increased in size. 3. A right adrenal metastasis has modestly decreased in size from previous. 4. Pleural-based metastatic disease at the left lung base as not appreciably changed. Metastatic foci in the left chest wall and left cardiophrenic lymph nodes are also likely unchanged. 5. Status post left nephrectomy. 6. Cholelithiasis. 7. Marked prostatomegaly with evidence of chronic bladder obstruction. Bladder calculi are observed. 8. Colonic diverticulosis without CT evidence of acute diverticulitis. 9. Additional findings as above. Current status: 12/14/2022 CT Chest 1. Overall progression of multifocal metastatic disease As compared to 09/21/2022. 2. There is progressive left-sided pleural-based metastatic disease, with possible lymphangitic spread of tumor in the left lower lung. 3. Progressive mediastinal, left hilar, and left supraclavicular lymphadenopathy. 4. There are new tiny pleural-based nodules at the right lung base which are suspicious for developing metastatic disease. 5. Enlarging right adrenal metastasis. 6. Small left pleural effusion. 7. Cholelithiasis. 8. An irregular nodule at the left apex is unchanged and may also be neoplastic. 9. Additional findings as above. 12/14/2022 CT abd/pelvis 1. Postsurgical changes of left nephrectomy without evidence of recurrent disease below the diaphragm. 2. Right hydroureter is seen. No obstructive stones are seen however there are numerous layering stones in the bladder which may represent recently passed stones. 3. Please see CT chest for findings of thoracic metastatic disease. With clear progression no additional doses of nivolumab given and patient switched to cabozantinib 60 mg daily as of 02/02/2023 04/05/2023 CT chest Interval minimal progression of multifocal metastatic disease. In particular, left-sided pleural disease and multiple pulmonary nodules are stable with a few progressive nodules and redemonstration of lymphangitic spread of tumor. Mediastinal lymphadenopathy is unchanged, there is new left axillary lymphadenopathy which is suspicious for metastatic disease. Again noted are left chest wall nodules concerning for metastatic disease. 04/05/2023 CT abd/pelvis 1. Mild decrease in size of the right adrenal metastasis since CT of December 14, 2022. 2. No additional sites of metastatic disease within the abdomen or pelvis. 3. Extensive thoracic metastatic disease, better depicted on the chest CT which will be reported separately. # Hyperkalemia. Repeat potassium today is stable at 5.1, EKG pending # Nephrolithiasis see 12/14/2022 CT. No immediate obstruction but moderate hydronephrosis suggest possible recent passage of a stone. See communication to Dr. Ramon -will be interested in he is in the # 07/23/2021 PSA 8.3 but a 09/12/2021 10-site prostate biopsy was benign, full details are in his chart 09/17/2022 PSA 7.020 ([facility] scanned lab) Current 2-dimensional imaging does not suggest any immediate threat from prostate cancer nor any dramatic bony metastases, focus will be on renal carcinoma for now We will repeat his PSA determination next labs current treatment: lenvatinib/everolimus, started on 09/08/2023 CT angiogram of the chest, 11/08/2023 IMPRESSION: 1. No pulmonary emboli identified. 2. Findings consistent with a partial treatment response. Improvement in the bilateral pleural effusions, pleural metastatic disease and thoracic lymphadenopathy since CT of September 16, 2023, as detailed above. Interval decrease in size of a right adrenal metastasis. 3. Persistent interlobular septal thickening. This could reflect lymphangitic tumor or pulmonary edema. 4. Heterogeneity of the liver with possible intrahepatic biliary ductal dilatation with the left hepatic lobe. The findings may be artifactual however metastatic disease cannot be excluded. This can be assessed with nonemergent CT of the abdomen. 5. Cholelithiasis. 5. Mild nonspecific nydia hepatis and peripancreatic stranding which can be assessed on the follow-up CT. the patient is a very pleasant 73-year-old man with metastatic renal cell cancer with above-mentioned history who is very well-known to me from the clinic. His most recent treatment was lenvatinib/everolimus, started in August 2023. At that time we had noted pulmonary progression. He was admitted to the hospital with generalized weakness and fatigue, increased shortness of breath, difficulty swallowing of the mouth due to dry mucous membranes. Medical oncology has been consulted to assist in management of this patient with shortness of breath, generalized weakness and fatigue as well as metastatic renal cell cancer who is currently on lenvatinib and everolimus. Allergies Allergy/AdvReac Type Severity Reaction Status Date / Time No Known Allergies Allergy Verified 10/22/23 10:38 Home Medications Medication Instructions Recorded Confirmed Type metformin 1,000 mg tablet 1,000 mg PO BID 01/10/20 11/08/23 History tamsulosin 0.4 mg capsule 0.8 mg PO QAM 01/16/20 11/08/23 History dulaglutide 0.75 mg/0.5 mL 0.75 mg subcut WK 02/18/21 11/08/23 History subcutaneous pen injector (Trulicity) simvastatin 20 mg tablet (Zocor) 20 mg PO QPM 03/24/22 11/08/23 History levothyroxine 50 mcg capsule 50 mcg PO DAILY 09/01/23 11/08/23 History lorazepam 1 mg tablet 1 mg PO Q4 PRN Anxiety 09/16/23 11/08/23 History venlafaxine 150 mg 150 mg PO DAILY 09/16/23 11/08/23 History capsule,extended release 24 hr albuterol sulfate 90 mcg/actuation 2 inh inhalation QID PRN shortness 09/22/23 11/08/23 Rx aerosol inhaler of breath or cough #8.5 grams dexamethasone 0.5 mg/5 mL oral 10 mg (100 mL) PO DIRECTED #0 mL 09/22/23 11/08/23 Rx solution everolimus (antineoplastic) 5 mg 5 mg PO DAILY #0 tabs 09/22/23 11/08/23 Rx tablet lenvatinib 18 mg/day (10 mg x 1 18 mg PO DAILY #90 caps 09/22/23 11/08/23 Rx and 4 mg x 2) capsule (Lenvima) cabotegravir sodium 30 mg tablet 60 mg PO UD 10/22/23 11/08/23 History (Vocabria) magnesium aspart,citrate,oxide 400 mg PO DAILY 10/22/23 11/08/23 History dronabinol 5 mg capsule 5 mg PO BID 11/08/23 11/08/23 History sodium polystyrene sulfonate 15 60 ml PO DAILY 11/08/23 11/08/23 History gram-sorbitol 20 gram/60 mL oral susp (SPS (with sorbitol)) Patient History Medical History History of elevated PSA History of urinary calculi History of mumps History of measles History of varicella Surgical History Hx of cystoscopy S/P thoracentesis Left pleural effusion 03/09/22 H/O prostate biopsy History of nephrectomy 2018- left History of inguinal hernia repair Family History Father Diabetes Congestive heart failure Mother Cancer breast cancer Social History Smoking Status: Never smoker Tobacco Type: Cigars Cigarettes Per Day: SMOKED OCCASIONAL CIGAR - QUIT MANY YRS AGO; Second Hand Exposure: No; Do You Dip or Chew Tobacco: No; Tobacco Cessation Education Requested by Patient: No Hx Alcohol Use: No Hx Substance Use: No Preferred Language: Moroccan Communication Ability: Effective 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: No Beliefs That Will Affect Care: None marital status: Current Living Situation: Spouse current occupational status: retired How many Children do You have: 2 Other Information That Helps Us Care for You: No Feels Safe at Home: Yes Safety Concerns: Feels Safe At This Time caffeine: Yes during the past year weight has: remained stable Seatbelt Use: always Assistive Devices: Cane, Walker and Wheelchair Assistive Devices Comment: Walker used in hospital Review of Systems Review of Systems: Generalized weakness, fatigue, shortness of breath, dry mucous membranes Constitutional: as per Subjective / HPI Eyes: as per Subjective / HPI Ear, Nose, Mouth, Throat: as per Subjective / HPI Respiratory: as per Subjective / HPI Cardiovascular: as per Subjective / HPI Gastrointestinal: as per Subjective / HPI Genitourinary: + as per Subjective / HPI Musculoskeletal: as per Subjective / HPI Integumentary: as per Subjective / HPI Neurologic: as per Subjective / HPI Psychiatric: as per Subjective / HPI Endocrine: as per Subjective / HPI Hematologic / Lymphatic: as per Subjective / HPI Allergy / Immunological: as per Subjective / HPI Physical Exam Constitutional: WD/WN, vitals as above Eyes: PERRL, conjunctivae normal, anicteric sclerae ENMT: external ear and nose normal, oropharynx normal Neck: trachea midline, no thyromegaly Respiratory: normal respiratory effort, lungs clear to auscultation Cardiovascular: RRR, no murmur, no edema Gastrointestinal (Abdomen): normal bowel sounds, soft, nontender, no hepatosplenomegaly Musculoskeletal: no cyanosis or clubbing, extremities motor strength 5/5 Skin: no rashes, warm and dry Neurologic: patellar DTR's 2+ bilat, sensation intact Psychiatric: A+Ox3, euthymic affect Lymphatic: no cervical or axillary lymphadenopathy Results & Data Vital Signs (Past 12 Hours) Vital Signs Temp Pulse Resp BP Pulse Ox O2 Del Method 11/10/23 07:27 36.4 C L 85 16 121/75 95 Room Air 11/09/23 21:05 Room Air 11/09/23 20:30 36.7 C 86 18 133/82 96 Room Air (1) Metastatic renal cell carcinoma Laterality: unspecified laterality Qualified Code(s): C64.9 - Malignant neoplasm of unspecified kidney, except renal pelvis
[2023-11-10] MEDS: NYSTATIN SUSP 500,000 U/5 ML UDC PO SCH (16:26)
[2023-11-10] MEDS: CARBOHYDRATES FOR HYPOGLYCEMIA PO PRN (16:28)
[2023-11-10] MEDS: MAGNESIUM CHLORIDE W/CALCIUM 64MG DELAYED REL TAB PO SCH (17:03)
[2023-11-10] MEDS: OPTIRAY 320 100ml IV ONE (17:21)
--- NOTE | 2023-11-10 17:47 | CT Scan Report ---
CT abdomen pelvis wo/w con CT DOSE: 1553.47 mGy.cm CLINICAL HISTORY: weakness, eval progression met disease, cholelithi TECHNIQUE: Multiaxial CT images of the abdomen and pelvis were performed both before and after the in travenous administration of contrast. A dose lowering technique was utilized adhering to the princip les of BRANT. COMPARISON STUDY: Chest CTA 11/08/2023. Abdomen and pelvis CT 07/06/2023. FINDINGS: There is a small left pleural effusion again noted. Persistent nodular interstitial thicken ing at the lung bases which could represent lymphangitic spread of tumor. Right lower lobe nodular op acities are again noted including a 3.9 cm right lung base irregular opacity. Left greater than right pleural metastatic disease is again noted. These findings are better appreciated on the recent chest CTA. There are few punctate right renal calculi. No ureteral calculi. No hydronephrosis. Subcarinal lymphadenopathy again noted. There are multiple irregular hypodense lesions seen scattered throughout the liver which are new from the prior study. The majority of these demonstrate a peripheral distrib ution. These are indeterminate. Multifocal metastatic disease would be the diagnosis of exclusion. Mu ltifocal infarcts or infectious process such as an ascending cholangitis also remains in the differen tial diagnosis. Dominant focus within the right hepatic lobe on image 132 measures 2.6 cm. The main p ortal vein is patent. Multiple small gallstones. Mild thickening of the gallbladder wall and mild thi ckening of the common bile duct is noted. The pancreas and spleen are unremarkable. A right adrenal g land metastasis is again noted measuring 3.6 cm. Prior left nephrectomy. No evidence for intrahepatic bile duct dilatation. Retroperitoneal surgical clips are present. Normal caliber abdominal aorta. No retroperitoneal or pelvic lymphadenopathy. Prostate gland remains enlarged. No contrast within the b ladder from the prior CT examination. Trace pelvic free fluid is noted. No pneumoperitoneum. No pneum atosis. No suspicious lytic or blastic osseous lesions. A metal nodularity most pronounced within the right lower quadrant best seen on image 210. This likely represents metastatic disease. This is new from the prior study. Colonic diverticulosis. No evidence for acute diverticulitis. No bowel wall thi ckening or obstruction. Normal appendix. IMPRESSION: 1. Redemonstration of metastatic disease within the chest. This is better appreciated on the recent c hest CTA. 2. Multiple scattered irregular hypodense foci seen throughout the liver. The majority of these demon strate a peripheral distribution. These are new compared to the prior studies. Therefore, metastatic disease would be the diagnosis of exclusion. There is also diffuse thickening of the wall of the extr a hepatic bile ducts. Therefore, an ascending cholangitis or less likely hepatic infarcts also remain differential diagnosis. 3. 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 4. Prior left nephrectomy. 5. Gallbladder wall thickening with cholelithiasis. This has progressed in the interval. No surroundi ng inflammatory change identified. An early acute cholecystitis. Would be the diagnosis of exclusion. 6. No evidence for bowel obstruction. 7. Redemonstration of the right adrenal metastasis. 8. Prior left nephrectomy. . Additional findings as described above. ACT 112: Negative or not required by law. Electronically signed by: Gold Guardado M.D. 11/10/2023 5:45 PM
[2023-11-10] MEDS: LORazepam 1 MG TAB PO SCH (21:41)
[2023-11-11 07:42] LABS: Basophils # (auto) 0.02 K/uL (0.00-0.20); Basophils % (auto) 0.2 %; Eosinophils # (auto) 0.05 K/uL (0.00-0.50); Eosinophils % (auto) 0.5 %; Hematocrit (blood only) 37.3 % (42.0-52.0); Hemoglobin 12.2 g/dl (14.0-18.0); Immature Granulocytes # (auto) 0.04 K/uL (0.01-0.20); Immature Granulocytes % (auto) 0.4 %; Lymphocytes # (auto) 0.71 K/uL (1.20-3.40); Lymphocytes % (auto) 7.6 %; Mean Corpuscular Hemoglobin 28.6 pg (25.0-34.0); Mean Corpuscular Hgb Conc 32.7 g/dL (32.0-36.0); Mean Corpuscular Volume 87.4 fL (80.0-100.0); Mean Platelet Volume 9.6 fL (9.4-12.4); Monocytes % (auto) 6.4 %; Neutrophils # (auto) 7.96 K/uL (1.40-6.50); Neutrophils % (auto) 84.9 %; Platelet Count 410 K/uL (130-400); RDW Coefficient of Variation 13.1 % (11.5-14.5); RDW Standard Deviation 41.5 fL (36.4-46.3); Red Blood Count 4.27 M/uL (4.70-6.10); White Blood Count 9.38 K/ul (4.8-10.8)
[2023-11-11 08:00] LABS: Albumin Globulin Ratio 0.7 (0.9-2); BUN Creatinine Ratio 22.8 (10-20); Bilirubin,Total 0.5 mg/dl (0.2-1.0); Calcium 9.3 mg/dl (8.6-10.3); Creatinine Clr Calc Pharmacy 74.6 ml/min; Est GFR (African American) 104.7 ml/min; Est GFR (Non-African American) 90.3 ml/min; Globulin 4.2 gm/dl (2.5-4.0); Magnesium 1.7 mg/dl (1.7-2.4); Potassium 4.4 mmol/L (3.5-5.1); Total Protein 7.2 gm/dl (6.0-8.3)
--- NOTE | 2023-11-11 08:10 | Hospitalist Progress Note ---
Date of Service November 11, 2023 Assessment & Plan (1) Generalized weakness: Plan: 73yo presents for ~1 month of progressive weakness/SOB. Suspect ongoing dehydration/malnutrition/deconditioning contributing as well as hypothyroidism and side effects from chemotherapy/mucositis s/p 1.5L NSS in ER, additional 1L on admission for dehydration from poor PO intake , likely from mucositis from his chemotherapy. CTA chest NEGATIVE for PE, dose show response to treatment. No evidence for PNA. -->Of note, no RUQ pain on exam but does have cholelithiasis on imaging. TB wnl, ALP elevated and will monitor. Lipase not elevated UA w/o signs for infection, culture NO GROWTH FINAL Biofire negative. Stool biofire checked/negative given reports diarrhea Magic mouth wash, nystatin. Speech consulted- minced/moist diet. Continue aspiration precautions Nutrition consult/boost with meals Given lasix 20mg IV x 1 for little volume overload from IVF on admission to see if assisted w/ SOB symptoms. Pulm consulted and no need for repeat PleurX at this tie TSH elevation to 26, normal T4/t3 however on replacement at baseline and symptoms consistent with such and INCREASED to 75mcg daily. Repeat TFT 4wks w/ PCP/adjustment if needed Changed ativan to 1mg BID scheduled, prn available in day if needing but per discussion w/ patient/ he takes pretty routinely morning/night and want to prevent any withdrawal Did consult heme/onc as suspect chemo contributing/consideration for drug holiday-Dr Packer saw last evening, 11/08, placed ORAL REGIMEN (Lenvima/Zortress) ON HOLD WHILE INPATIENT, planning for 2 week break. 11/10 WBC wnl, afebrile (notable L shift) but has been afebrile. blood cultures NGTD. Urine cx no growth on final Ativan BID scheduled, Na 130 (also on effexor). TSH elevation as above/Synthroid increased Removed AHA portion of diet, continue supplementation. Check serum osm Continue increased Synthroid Remains OFF oral chemotherapy Albuterol HFA changed to chan TB wnl, did have elevated lactic on admission, ALP elevated and slightly worse today CTAP obtained given CTA chest findings for further eval. --> CTA noting "diffuse thickening of the wall of the extra hepatic bile ducts. Therefore, an ascending cholangitis or less likely hepatic infarcts also remain differential diagnosis." "Gallbladder wall thickening with cholelithiasis. This has progressed in the interval. No surrounding inflammatory change identified. An early acute cholecystitis. Would be the diagnosis of exclusion." General surgery consulted for eval/recs, appreciate assistance- emilia Sim from surgery, will discuss w/ Dr Le and get back to me Zosyn IV ordered empirically for now DVT proph: lovenox SQ Therapy evaluations pending/continued while inpatient. Monitor for need for rehab vs HHPT (HHPT prob better for patient w/ his anxiety) Monitor on repeat exam (2) SOB (shortness of breath): Plan: ongoing issues, CTA negative for PE WBC not elevated but does have L shift. Procal 0.18 on admission. Blood cultures NGTD x 48hours. Urine cx final negative Did get lasix 20mg IV prior to assist w/ effusion, holding off further Pulm consulted, no need for PleurX, signed off, sutures removed Ativan made CHAN 1mg BID, decreasing to 0.5mg BID and has additional prn TSH elevated, synthroid increased Continue pulm toilet Albuterol HFA made qid chan per req consider 2 step prior to dc (3) Difficulty swallowing: Plan: Increased mouth pain/issues with swallowing for approx 1 month Aspiration precautions, Speech consult - did have recent issue of having pill stuck towards distal aspect of esophagus, anxiety about happening again Was on dexamethasone suspension QID however not using as frequent at home. Held PO steroid on admission and ordered magic swizzle which he reports is helping added nystatin to see if any help lower issues but no overt thrush on exam Aspiration precautions Speech consulted - minced/moist diet TSH elevation/Synthroid increased Heme/onc consulted as above Continue supplements/minced/moist diet, aspiration precautions (4) Mouth pain: Plan: See difficulty swallowing, continue magic swizzle. Added nystatin to see if any imprvoement (5) Type 2 diabetes mellitus without complication: Plan: A1c 7.2 back in February 2022, will plan to add to AM labs Home metformin/Trulicity on hold BSG AC/HS, SSI while inpatient. Holding off basal insulin to prevent hypoglycemia Monitor BSGs/adjustment as needed (6) Metastatic renal cell carcinoma: Plan: On admission, continued lenvatinib and everolimus and family brought in As above, placed ON HOLD FOR NOW, planning for holding x 2 weeks given FTT and f/u Dr Packer [place] (7) Vitamin D deficiency: Plan: checked w/ nutritional status, LOW 19.3 Starting PO supplementation, would continue at dc Plan continued inpatient stay, Zosyn IV started/general surgery consulted updated bedside 11/09, told to call if any questions/concerns /need for update sooner therapy evals rec for home w/ HH, CM to follow plan for 2step prior to dc to ensure no needs Admission and Anticipated Discharge Date Admission Date: November 09, 2023 Subjective Evaluated this morning, does seem as anxiety improved but little more fatigued today. Continues boost supplements w/ meals. No further diarrhea. Ongoing weakness. Discussed decreasing ativan dosing to 0.5mg BID scheduled, additional prn available if needed. Discussed CTAP findings, does have some RUQ/scapular discomfort. Discussed consultation w/ surgery however will plan to start empiric abx at this time for GB concerns. No fever/chills but WBC borderline w/ L shift, blood cultures remain NGTD> Questions/concerns addressed at this time. Physical Exam Physical Exam: General: chronically ill appearing male, malnourished, sitting up in bed, NAD Head atraumatic, normocephalic, mm slightly dry (slightly improved), trachea midline. +stomatitis Resp: decreased air entry bilaterally, no wheezing/rales, bibasilar crackles, on room air, shallow breathing at times, on room air CV: RRR, no significant m/r/g, no pitting edema/calf tenderness GI: +BS, slight distension, +tenderness RLQ, also RUQ to deep palpation but no guarding/rigidity/wamrth : no duncan MSK/Neuro: generalized weakness but nonfocal Psych: AOx3, cooperative with exam Results & Data Results & Data Vital Signs (Past 12 Hours) Vital Signs Temp Pulse Resp BP Pulse Ox O2 Del Method 11/11/23 07:41 36.6 C 85 17 106/69 92 Room Air 11/10/23 20:50 37 C 94 H 20 116/75 92 Room Air Laboratory Results 11/11/23 11/11/23 11/11/23 Range/Units 09:20 07:42 07:02 WBC 9.38 (4.8-10.8) K/ul RBC 4.27 L (4.70-6.10) M/uL Hgb 12.2 L (14.0-18.0) g/dl Hct 37.3 L (42.0-52.0) % MCV 87.4 (80.0-100.0) fL MCH 28.6 (25.0-34.0) pg MCHC 32.7 (32.0-36.0) g/dL RDW Std Deviation 41.5 (36.4-46.3) fL RDW Coeff of Joaquim 13.1 (11.5-14.5) % Plt Count 410 H (130-400) K/uL MPV 9.6 (9.4-12.4) fL Immature Gran % (Auto) 0.4 % Neut % (Auto) 84.9 % Lymph % (Auto) 7.6 % [place] % (Auto) 6.4 % Eos % (Auto) 0.5 % Baso % (Auto) 0.2 % Neut # (Auto) 7.96 H (1.40-6.50) K/uL Lymph # (Auto) 0.71 L (1.20-3.40) K/uL [place] # (Auto) 0.60 H (0.11-0.59) K/uL Eos # (Auto) 0.05 (0.00-0.50) K/uL Baso # (Auto) 0.02 (0.00-0.20) K/uL Immature Gran # (Auto) 0.04 (0.01-0.20) K/uL Sodium 130 L (136-145) mmol/L Potassium 4.4 (3.5-5.1) mmol/L Chloride 94 L (98-107) mmol/L Carbon Dioxide 26 (21-32) mmol/L Anion Gap 10 (3-11) BUN 18 (6-23) mg/dl Creatinine 0.79 (0.6-1.4) mg/dl Est Cr Clr Drug Dosing 74.6 ml/min Est GFR ( Amer) 104.7 ml/min Est GFR (Non-Af Amer) 90.3 ml/min BUN/Creatinine Ratio 22.8 H (10-20) Glucose 139 H (70-99(Fasting)) mg/dl POC Glucose 163 H (70-99) mg/dl Estimat Average Glucose 157 mg/dl Hemoglobin A1c 7.1 H (4.5-5.6) % Osmolality 279 L (280-300) mOsm/kg Calcium 9.3 (8.6-10.3) mg/dl Magnesium 1.7 (1.7-2.4) mg/dl Iron 27 L (35-175) mcg/dl TIBC 210 L (250-450) mcg/dl Unsaturated IBC 183 (155-355) mcg/dl Transferrin % Sat 13 L (20-50) % Ferritin 476.7 H (8-388) ng/ml Total Bilirubin 0.5 (0.2-1.0) mg/dl AST 20 (13-39) U/L ALT 13 (7-52) U/L Alkaline Phosphatase 151 H (34-104) U/L Total Protein 7.2 (6.0-8.3) gm/dl Albumin 3.0 L (3.4-5.0) gm/dl Globulin 4.2 H (2.5-4.0) gm/dl Albumin/Globulin Ratio 0.7 L (0.9-2) Vitamin B12 Pending 25-OH Vitamin D Total 19.3 L (30-100) ng/ml Folate Pending Urine Osmolality Pending Ur Random Sodium 51 mmol/L 11/10/23 11/10/23 11/10/23 Range/Units 20:42 17:02 16:28 WBC (4.8-10.8) K/ul RBC (4.70-6.10) M/uL Hgb (14.0-18.0) g/dl Hct (42.0-52.0) % MCV (80.0-100.0) fL MCH (25.0-34.0) pg MCHC (32.0-36.0) g/dL RDW Std Deviation (36.4-46.3) fL RDW Coeff of Joaquim (11.5-14.5) % Plt Count (130-400) K/uL MPV (9.4-12.4) fL Immature Gran % (Auto) % Neut % (Auto) % Lymph % (Auto) % [place] % (Auto) % Eos % (Auto) % Baso % (Auto) % Neut # (Auto) (1.40-6.50) K/uL Lymph # (Auto) (1.20-3.40) K/uL [place] # (Auto) (0.11-0.59) K/uL Eos # (Auto) (0.00-0.50) K/uL Baso # (Auto) (0.00-0.20) K/uL Immature Gran # (Auto) (0.01-0.20) K/uL Sodium (136-145) mmol/L Potassium (3.5-5.1) mmol/L Chloride (98-107) mmol/L Carbon Dioxide (21-32) mmol/L Anion Gap (3-11) BUN (6-23) mg/dl Creatinine (0.6-1.4) mg/dl Est Cr Clr Drug Dosing ml/min Est GFR ( Amer) ml/min Est GFR (Non-Af Amer) ml/min BUN/Creatinine Ratio (10-20) Glucose (70-99(Fasting)) mg/dl POC Glucose 133 H 109 H 69 L* (70-99) mg/dl Estimat Average Glucose mg/dl Hemoglobin A1c (4.5-5.6) % Osmolality (280-300) mOsm/kg Calcium (8.6-10.3) mg/dl Magnesium (1.7-2.4) mg/dl Iron (35-175) mcg/dl TIBC (250-450) mcg/dl Unsaturated IBC (155-355) mcg/dl Transferrin % Sat (20-50) % Ferritin (8-388) ng/ml Total Bilirubin (0.2-1.0) mg/dl AST (13-39) U/L ALT (7-52) U/L Alkaline Phosphatase (34-104) U/L Total Protein (6.0-8.3) gm/dl Albumin (3.4-5.0) gm/dl Globulin (2.5-4.0) gm/dl Albumin/Globulin Ratio (0.9-2) Vitamin B12 25-OH Vitamin D Total (30-100) ng/ml Folate Urine Osmolality Ur Random Sodium mmol/L 11/10/23 11/10/23 Range/Units 16:28 11:28 WBC (4.8-10.8) K/ul RBC (4.70-6.10) M/uL Hgb (14.0-18.0) g/dl Hct (42.0-52.0) % MCV (80.0-100.0) fL MCH (25.0-34.0) pg MCHC (32.0-36.0) g/dL RDW Std Deviation (36.4-46.3) fL RDW Coeff of Joaquim (11.5-14.5) % Plt Count (130-400) K/uL MPV (9.4-12.4) fL Immature Gran % (Auto) % Neut % (Auto) % Lymph % (Auto) % [place] % (Auto) % Eos % (Auto) % Baso % (Auto) % Neut # (Auto) (1.40-6.50) K/uL Lymph # (Auto) (1.20-3.40) K/uL [place] # (Auto) (0.11-0.59) K/uL Eos # (Auto) (0.00-0.50) K/uL Baso # (Auto) (0.00-0.20) K/uL Immature Gran # (Auto) (0.01-0.20) K/uL Sodium (136-145) mmol/L Potassium (3.5-5.1) mmol/L Chloride (98-107) mmol/L Carbon Dioxide (21-32) mmol/L Anion Gap (3-11) BUN (6-23) mg/dl Creatinine (0.6-1.4) mg/dl Est Cr Clr Drug Dosing ml/min Est GFR ( Amer) ml/min Est GFR (Non-Af Amer) ml/min BUN/Creatinine Ratio (10-20) Glucose (70-99(Fasting)) mg/dl POC Glucose 64 L* 127 H (70-99) mg/dl Estimat Average Glucose mg/dl Hemoglobin A1c (4.5-5.6) % Osmolality (280-300) mOsm/kg Calcium (8.6-10.3) mg/dl Magnesium (1.7-2.4) mg/dl Iron (35-175) mcg/dl TIBC (250-450) mcg/dl Unsaturated IBC (155-355) mcg/dl Transferrin % Sat (20-50) % Ferritin (8-388) ng/ml Total Bilirubin (0.2-1.0) mg/dl AST (13-39) U/L ALT (7-52) U/L Alkaline Phosphatase (34-104) U/L Total Protein (6.0-8.3) gm/dl Albumin (3.4-5.0) gm/dl Globulin (2.5-4.0) gm/dl Albumin/Globulin Ratio (0.9-2) Vitamin B12 25-OH Vitamin D Total (30-100) ng/ml Folate Urine Osmolality Ur Random Sodium mmol/L Diagnostic Findings Abdomen/Pelvis CT 11/10/23 16:47 CT abdomen pelvis wo/w con CT DOSE: 1553.47 mGy.cm CLINICAL HISTORY: weakness, eval progression met disease, cholelithi TECHNIQUE: Multiaxial CT images of the abdomen and pelvis were performed both before and after the intravenous administration of contrast. A dose lowering technique was utilized adhering to the principles of ALARA. COMPARISON STUDY: Chest CTA 11/08/2023. Abdomen and pelvis CT 07/06/2023. FINDINGS: There is a small left pleural effusion again noted. Persistent nodular interstitial thickening at the lung bases which could represent lymphangitic spread of tumor. Right lower lobe nodular opacities are again noted including a 3.9 cm right lung base irregular opacity. Left greater than right pleural metastatic disease is again noted. These findings are better appreciated on the recent chest CTA. There are few punctate right renal calculi. No ureteral calculi. No hydronephrosis. Subcarinal lymphadenopathy again noted. There are multiple irregular hypodense lesions seen scattered throughout the liver which are new from the prior study. The majority of these demonstrate a peripheral distribution. These are indeterminate. Multifocal metastatic disease would be the diagnosis of exclusion. Multifocal infarcts or infectious process such as an ascending cholangitis also remains in the differential diagnosis. Dominant focus within the right hepatic lobe on image 132 measures 2.6 cm. The main portal vein is patent. Multiple small gallstones. Mild thickening of the gallbladder wall and mild thickening of the common bile duct is noted. The pancreas and spleen are unremarkable. A right adrenal gland metastasis is again noted measuring 3.6 cm. Prior left nephrectomy. No evidence for intrahepatic bile duct dilatation. Retroperitoneal surgical clips are present. Normal caliber abdominal aorta. No retroperitoneal or pelvic lymphadenopathy. Prostate gland remains enlarged. No contrast within the bladder from the prior CT examination. Trace pelvic free fluid is noted. No pneumoperitoneum. No pneumatosis. No suspicious lytic or blastic osseous lesions. A metal nodularity most pronounced within the right lower quadrant best seen on image 210. This likely represents metastatic disease. This is new from the prior study. Colonic diverticulosis. No evidence for acute diverticulitis. No bowel wall thickening or obstruction. Normal appendix. IMPRESSION: 1. Redemonstration of metastatic disease within the chest. This is better appreciated on the recent chest CTA. 2. Multiple scattered irregular hypodense foci seen throughout the liver. The majority of these demonstrate a peripheral distribution. These are new compared to the prior studies. Therefore, metastatic disease would be the diagnosis of exclusion. There is also diffuse thickening of the wall of the extra hepatic bile ducts. Therefore, an ascending cholangitis or less likely hepatic infarcts also remain differential diagnosis. 3. Omental nodularity most pronounced within the right lower quadrant is new co mpared the prior study and is consistent with metastatic disease in the setting of peritoneal carcinomatosis. 4. Prior left nephrectomy. 5. Gallbladder wall thickening with cholelithiasis. This has progressed in the interval. No surrounding inflammatory change identified. An early acute cholecystitis. Would be the diagnosis of exclusion. 6. No evidence for bowel obstruction. 7. Redemonstration of the right adrenal metastasis. 8. Prior left nephrectomy. . Additional findings as described above. ACT 112: Negative or not required by law. Electronically signed by: Gold Guardado M.D. 11/10/2023 5:45 PM PG Care Time/CCT Total # of Minutes Spent Total Time Spent with Patient: Total time spent is greater than 50% in coordination of care (as documented) at patient's floor/unit and/or counseling patient: Coding Level of Care Code 92669 SUB INP/OBS CARE 3/50MIN Diagnoses Generalized weakness R53.1 SOB (shortness of breath) R06.02 Difficulty swallowing R13.10 Mouth pain K13.79 Type 2 diabetes mellitus without complication E11.9 Renal cell carcinoma of right kidney metastatic to other site C64.9 Laterality: unspecified laterality Vitamin D deficiency E55.9 (6) Metastatic renal cell carcinoma Laterality: unspecified laterality Qualified Code(s): C64.9 - Malignant neoplasm of unspecified kidney, except renal pelvis
[2023-11-11 08:24] LABS: Estimated Average Glucose 157 mg/dl; Hemoglobin A1C 7.1 % (4.5-5.6)
[2023-11-11 09:38] LABS: Ferritin 476.7 ng/ml (8-388)
[2023-11-11] MEDS: ALBUTEROL HFA 8 GM INHALER INH SCH ×2 (09:44→14:18)
[2023-11-11] MEDS: CHOLECALCIFEROL 25 MCG (1000 UNITS) TAB PO SCH (10:22)
[2023-11-11 11:03] LABS: Folate (Folic Acid),Ser orPlas 9.68 ng/ml (>5.38)
[2023-11-11] MEDS ORDERED: LORazepam 0.5 MG TAB PO PRN (11:04)
[2023-11-11] MEDS: PIPERACILLIN/TAZOBACTAM 4.5 GM in DEXTROSE 5% MINI-B 100 ML IV ONE (11:10)
--- NOTE | 2023-11-11 15:16 | Surgery Consultation ---
Date of Consultation November 11, 2023 Assessment & Plan (1) Generalized weakness: (2) Metastatic renal cell carcinoma: (3) Abnormal chest CT: Plan 73-year-old gentleman with metastatic renal cell carcinoma admitted to the hospital for weakness and shortness of breath. Incidental finding of possible acute cholecystitis on CT scan. He has no symptoms whatsoever. He has been placed on antibiotics. No surgical intervention is required at this time. Please call with any new or concerning symptoms. History of Present Illness Reason for Consultation: Possible cholecystitis Requesting Physician: Viola Gaona MD Attending Physician: Viola Gaona MD History of Present Illness 73-year-old gentleman with a history of metastatic renal cell carcinoma on chemotherapy presents to the hospital with progressive weakness and shortness of breath. During his workup in the hospital, a CT scan was done which demonstrates gallbladder wall thickening and possible signs of cholecystitis. In talking to him, he has absolutely no right upper quadrant pain or tenderness. He denies nausea or vomiting. He denies fevers or chills. His labs are normal. Allergies Allergy/AdvReac Type Severity Reaction Status Date / Time No Known Allergies Allergy Verified 10/22/23 10:38 Home Medications Medication Instructions Recorded Confirmed Type metformin 1,000 mg tablet 1,000 mg PO BID 01/10/20 11/08/23 History tamsulosin 0.4 mg capsule 0.8 mg PO QAM 01/16/20 11/08/23 History dulaglutide 0.75 mg/0.5 mL 0.75 mg subcut WK 02/18/21 11/08/23 History subcutaneous pen injector (Trulicity) simvastatin 20 mg tablet (Zocor) 20 mg PO QPM 03/24/22 11/08/23 History levothyroxine 50 mcg capsule 50 mcg PO DAILY 09/01/23 11/08/23 History lorazepam 1 mg tablet 1 mg PO Q4 PRN Anxiety 09/16/23 11/08/23 History venlafaxine 150 mg 150 mg PO DAILY 09/16/23 11/08/23 History capsule,extended release 24 hr albuterol sulfate 90 mcg/actuation 2 inh inhalation QID PRN shortness 09/22/23 11/08/23 Rx aerosol inhaler of breath or cough #8.5 grams dexamethasone 0.5 mg/5 mL oral 10 mg (100 mL) PO DIRECTED #0 mL 09/22/23 11/08/23 Rx solution everolimus (antineoplastic) 5 mg 5 mg PO DAILY #0 tabs 09/22/23 11/08/23 Rx tablet lenvatinib 18 mg/day (10 mg x 1 18 mg PO DAILY #90 caps 09/22/23 11/08/23 Rx and 4 mg x 2) capsule (Lenvima) cabotegravir sodium 30 mg tablet 60 mg PO UD 10/22/23 11/08/23 History (Vocabria) magnesium aspart,citrate,oxide 400 mg PO DAILY 10/22/23 11/08/23 History dronabinol 5 mg capsule 5 mg PO BID 11/08/23 11/08/23 History sodium polystyrene sulfonate 15 60 ml PO DAILY 11/08/23 11/08/23 History gram-sorbitol 20 gram/60 mL oral susp (SPS (with sorbitol)) Patient History Medical History History of elevated PSA History of urinary calculi History of mumps History of measles History of varicella Surgical History Hx of cystoscopy S/P thoracentesis Left pleural effusion 03/09/22 H/O prostate biopsy History of nephrectomy 2018- left History of inguinal hernia repair Family History Father Diabetes Congestive heart failure Mother Cancer breast cancer Social History Smoking Status: Never smoker Tobacco Type: Cigars Cigarettes Per Day: SMOKED OCCASIONAL CIGAR - QUIT MANY YRS AGO; Second Hand Exposure: No; Do You Dip or Chew Tobacco: No; Tobacco Cessation Education Requested by Patient: No Hx Alcohol Use: No Hx Substance Use: No Preferred Language: Latvian Communication Ability: Effective Gate Guard Required: No Beliefs That Will Affect Care: None marital status: Current Living Situation: Spouse current occupational status: retired How many Children do You have: 2 Other Information That Helps Us Care for You: No Feels Safe at Home: Yes Safety Concerns: Feels Safe At This Time caffeine: Yes during the past year weight has: remained stable Seatbelt Use: always Assistive Devices: Cane, Walker and Wheelchair Assistive Devices Comment: Walker used in hospital Review of Systems Review of Systems: All systems reviewed & are unremarkable except as noted in HPI & below Physical Exam Constitutional: WD/WN, vitals as above Eyes: PERRL, conjunctivae normal, anicteric sclerae Neck: trachea midline, no thyromegaly Respiratory: normal respiratory effort; no respiratory distress and no labored breathing Cardiovascular: Rate/Rhythm: regular rate and regular rhythm Gastrointestinal (Abdomen): Inspection/Auscultation: abdomen normal to inspection; abdomen not distended Percussion/Palpation: abdomen soft; abdomen nontender, no guarding and abdomen not rigid Skin: no rashes, warm and dry Psychiatric: A+Ox3, euthymic affect Results & Data Vital Signs (Past 12 Hours) Vital Signs Temp Pulse Resp BP Pulse Ox Pulse Ox O2 Del Method 11/11/23 09:44 101 H 16 91 Room Air 11/11/23 08:00 92 11/11/23 07:41 36.6 C 85 17 106/69 92 Room Air O2 Del Method 11/11/23 09:44 11/11/23 08:00 Room Air 11/11/23 07:41 Laboratory Results 11/11/23 11/11/23 11/11/23 Range/Units 11:23 09:20 07:42 WBC (4.8-10.8) K/ul RBC (4.70-6.10) M/uL Hgb (14.0-18.0) g/dl Hct (42.0-52.0) % MCV (80.0-100.0) fL MCH (25.0-34.0) pg MCHC (32.0-36.0) g/dL RDW Std Deviation (36.4-46.3) fL RDW Coeff of Joaquim (11.5-14.5) % Plt Count (130-400) K/uL MPV (9.4-12.4) fL Immature Gran % (Auto) % Neut % (Auto) % Lymph % (Auto) % [place] % (Auto) % Eos % (Auto) % Baso % (Auto) % Neut # (Auto) (1.40-6.50) K/uL Lymph # (Auto) (1.20-3.40) K/uL [place] # (Auto) (0.11-0.59) K/uL Eos # (Auto) (0.00-0.50) K/uL Baso # (Auto) (0.00-0.20) K/uL Immature Gran # (Auto) (0.01-0.20) K/uL Sodium (136-145) mmol/L Potassium (3.5-5.1) mmol/L Chloride (98-107) mmol/L Carbon Dioxide (21-32) mmol/L Anion Gap (3-11) BUN (6-23) mg/dl Creatinine (0.6-1.4) mg/dl Est Cr Clr Drug Dosing ml/min Est GFR ( Amer) ml/min Est GFR (Non-Af Amer) ml/min BUN/Creatinine Ratio (10-20) Glucose (70-99(Fasting)) mg/dl POC Glucose 175 H 163 H (70-99) mg/dl Estimat Average Glucose mg/dl Hemoglobin A1c (4.5-5.6) % Osmolality (280-300) mOsm/kg Calcium (8.6-10.3) mg/dl Magnesium (1.7-2.4) mg/dl Iron (35-175) mcg/dl TIBC (250-450) mcg/dl Unsaturated IBC (155-355) mcg/dl Transferrin % Sat (20-50) % Ferritin (8-388) ng/ml Total Bilirubin (0.2-1.0) mg/dl AST (13-39) U/L ALT (7-52) U/L Alkaline Phosphatase (34-104) U/L Total Protein (6.0-8.3) gm/dl Albumin (3.4-5.0) gm/dl Globulin (2.5-4.0) gm/dl Albumin/Globulin Ratio (0.9-2) Vitamin B12 (180-914) pg/ml 25-OH Vitamin D Total (30-100) ng/ml Folate (>5.38) ng/ml Urine Osmolality 619 (500-800) mOsm/kg Ur Random Sodium 51 mmol/L 11/11/23 11/10/23 11/10/23 Range/Units 07:02 20:42 17:02 WBC 9.38 (4.8-10.8) K/ul RBC 4.27 L (4.70-6.10) M/uL Hgb 12.2 L (14.0-18.0) g/dl Hct 37.3 L (42.0-52.0) % MCV 87.4 (80.0-100.0) fL MCH 28.6 (25.0-34.0) pg MCHC 32.7 (32.0-36.0) g/dL RDW Std Deviation 41.5 (36.4-46.3) fL RDW Coeff of Joaquim 13.1 (11.5-14.5) % Plt Count 410 H (130-400) K/uL MPV 9.6 (9.4-12.4) fL Immature Gran % (Auto) 0.4 % Neut % (Auto) 84.9 % Lymph % (Auto) 7.6 % [place] % (Auto) 6.4 % Eos % (Auto) 0.5 % Baso % (Auto) 0.2 % Neut # (Auto) 7.96 H (1.40-6.50) K/uL Lymph # (Auto) 0.71 L (1.20-3.40) K/uL [place] # (Auto) 0.60 H (0.11-0.59) K/uL Eos # (Auto) 0.05 (0.00-0.50) K/uL Baso # (Auto) 0.02 (0.00-0.20) K/uL Immature Gran # (Auto) 0.04 (0.01-0.20) K/uL Sodium 130 L (136-145) mmol/L Potassium 4.4 (3.5-5.1) mmol/L Chloride 94 L (98-107) mmol/L Carbon Dioxide 26 (21-32) mmol/L Anion Gap 10 (3-11) BUN 18 (6-23) mg/dl Creatinine 0.79 (0.6-1.4) mg/dl Est Cr Clr Drug Dosing 74.6 ml/min Est GFR ( Amer) 104.7 ml/min Est GFR (Non-Af Amer) 90.3 ml/min BUN/Creatinine Ratio 22.8 H (10-20) Glucose 139 H (70-99(Fasting)) mg/dl POC Glucose 133 H 109 H (70-99) mg/dl Estimat Average Glucose 157 mg/dl Hemoglobin A1c 7.1 H (4.5-5.6) % Osmolality 279 L (280-300) mOsm/kg Calcium 9.3 (8.6-10.3) mg/dl Magnesium 1.7 (1.7-2.4) mg/dl Iron 27 L (35-175) mcg/dl TIBC 210 L (250-450) mcg/dl Unsaturated IBC 183 (155-355) mcg/dl Transferrin % Sat 13 L (20-50) % Ferritin 476.7 H (8-388) ng/ml Total Bilirubin 0.5 (0.2-1.0) mg/dl AST 20 (13-39) U/L ALT 13 (7-52) U/L Alkaline Phosphatase 151 H (34-104) U/L Total Protein 7.2 (6.0-8.3) gm/dl Albumin 3.0 L (3.4-5.0) gm/dl Globulin 4.2 H (2.5-4.0) gm/dl Albumin/Globulin Ratio 0.7 L (0.9-2) Vitamin B12 332 (180-914) pg/ml 25-OH Vitamin D Total 19.3 L (30-100) ng/ml Folate 9.68 (>5.38) ng/ml Urine Osmolality (500-800) mOsm/kg Ur Random Sodium mmol/L 11/10/23 11/10/23 Range/Units 16:28 16:28 WBC (4.8-10.8) K/ul RBC (4.70-6.10) M/uL Hgb (14.0-18.0) g/dl Hct (42.0-52.0) % MCV (80.0-100.0) fL MCH (25.0-34.0) pg MCHC (32.0-36.0) g/dL RDW Std Deviation (36.4-46.3) fL RDW Coeff of Joaquim (11.5-14.5) % Plt Count (130-400) K/uL MPV (9.4-12.4) fL Immature Gran % (Auto) % Neut % (Auto) % Lymph % (Auto) % [place] % (Auto) % Eos % (Auto) % Baso % (Auto) % Neut # (Auto) (1.40-6.50) K/uL Lymph # (Auto) (1.20-3.40) K/uL [place] # (Auto) (0.11-0.59) K/uL Eos # (Auto) (0.00-0.50) K/uL Baso # (Auto) (0.00-0.20) K/uL Immature Gran # (Auto) (0.01-0.20) K/uL Sodium (136-145) mmol/L Potassium (3.5-5.1) mmol/L Chloride (98-107) mmol/L Carbon Dioxide (21-32) mmol/L Anion Gap (3-11) BUN (6-23) mg/dl Creatinine (0.6-1.4) mg/dl Est Cr Clr Drug Dosing ml/min Est GFR ( Amer) ml/min Est GFR (Non-Af Amer) ml/min BUN/Creatinine Ratio (10-20) Glucose (70-99(Fasting)) mg/dl POC Glucose 69 L* 64 L* (70-99) mg/dl Estimat Average Glucose mg/dl Hemoglobin A1c (4.5-5.6) % Osmolality (280-300) mOsm/kg Calcium (8.6-10.3) mg/dl Magnesium (1.7-2.4) mg/dl Iron (35-175) mcg/dl TIBC (250-450) mcg/dl Unsaturated IBC (155-355) mcg/dl Transferrin % Sat (20-50) % Ferritin (8-388) ng/ml Total Bilirubin (0.2-1.0) mg/dl AST (13-39) U/L ALT (7-52) U/L Alkaline Phosphatase (34-104) U/L Total Protein (6.0-8.3) gm/dl Albumin (3.4-5.0) gm/dl Globulin (2.5-4.0) gm/dl Albumin/Globulin Ratio (0.9-2) Vitamin B12 (180-914) pg/ml 25-OH Vitamin D Total (30-100) ng/ml Folate (>5.38) ng/ml Urine Osmolality (500-800) mOsm/kg Ur Random Sodium mmol/L (2) Metastatic renal cell carcinoma Laterality: unspecified laterality Qualified Code(s): C64.9 - Malignant neoplasm of unspecified kidney, except renal pelvis
[2023-11-11] MEDS: PIPERACILLIN/TAZOBACTAM 4.5 GM in DEXTROSE 5% MINI-B 100 ML IV SCH (16:00)
[2023-11-11] MEDS: LORazepam 0.5 MG TAB PO SCH (21:27)
[2023-11-12 07:47] LABS: Basophils # (auto) 0.02 K/uL (0.00-0.20); Basophils % (auto) 0.2 %; Eosinophils # (auto) 0.03 K/uL (0.00-0.50); Eosinophils % (auto) 0.3 %; Hematocrit (blood only) 37.3 % (42.0-52.0); Hemoglobin 12.3 g/dl (14.0-18.0); Immature Granulocytes # (auto) 0.03 K/uL (0.01-0.20); Immature Granulocytes % (auto) 0.3 %; Lymphocytes # (auto) 0.63 K/uL (1.20-3.40); Lymphocytes % (auto) 6.9 %; Mean Corpuscular Hemoglobin 28.5 pg (25.0-34.0); Mean Corpuscular Volume 86.5 fL (80.0-100.0); Mean Platelet Volume 9.3 fL (9.4-12.4); Monocytes # (auto) 0.68 K/uL (0.11-0.59); Monocytes % (auto) 7.5 %; Neutrophils % (auto) 84.8 %; Platelet Count 437 K/uL (130-400); RDW Coefficient of Variation 13.2 % (11.5-14.5); RDW Standard Deviation 41.7 fL (36.4-46.3); Red Blood Count 4.31 M/uL (4.70-6.10); White Blood Count 9.09 K/ul (4.8-10.8)
--- NOTE | 2023-11-12 08:36 | Hospitalist Progress Note ---
<Statement entered by Viola Gaona MD - 11/12/23 19:17> I personally reviewed Mr. Pepe's chart including vital signs labs blood glucose studies. I met with Mr. Pepe and his today at bedside and examined him. We will complete a trial of broad-spectrum antibiotics in case of component of cholangitis or pneumonia and see whether he has a response. oral intake has been poor due to anorexia and mucositis. He continues with protein supplements and topical treatments, we have added mirtazapine at at bedtime to see whether this will improve his appetite.I agree with documentation below by Missy Weston PA-C. Date of Service November 12, 2023 Assessment & Plan (1) Generalized weakness: Plan: 73yo presents for ~1 month of progressive weakness/SOB. Suspect ongoing dehydration/malnutrition/deconditioning contributing as well as hypothyroidism and side effects from chemotherapy/mucositis s/p 1.5L NSS in ER, additional 1L on admission for dehydration from poor PO intake , likely from mucositis from his chemotherapy. CTA chest NEGATIVE for PE, dose show response to treatment. No evidence for PNA. -->Of note, no RUQ pain on exam but does have cholelithiasis on imaging. TB wnl, ALP elevated and will monitor. Lipase not elevated UA w/o signs for infection, culture NO GROWTH FINAL Biofire negative. Stool biofire checked/negative given reports diarrhea Magic mouth wash, nystatin. Speech consulted- minced/moist diet. Continue aspiration precautions Nutrition consult/boost with meals Given lasix 20mg IV x 1 for little volume overload from IVF on admission to see if assisted w/ SOB symptoms. Pulm consulted and no need for repeat PleurX at this tiem TSH elevation to 26, normal T4/t3 however on replacement at baseline and symptoms consistent with such and INCREASED to 75mcg daily. Repeat TFT 4wks w/ PCP/adjustment if needed Changed ativan to 1mg BID scheduled, prn available in day if needing but per discussion w/ patient/ he takes pretty routinely morning/night and want to prevent any withdrawal Did consult heme/onc as suspect chemo contributing/consideration for drug holiday-Dr Packer saw last evening, 11/08, placed ORAL REGIMEN (Lenvima/Zortress) ON HOLD WHILE INPATIENT, planning for 2 week break. 11/10 WBC wnl, afebrile (notable L shift) but has been afebrile. blood cultures NGTD. Urine cx no growth on final Ativan BID scheduled, Na 130 (also on effexor). TSH elevation as above/Synthroid increased Removed AHA portion of diet, continue supplementation. Check serum osm Continue increased Synthroid Remains OFF oral chemotherapy Albuterol HFA changed to chan TB wnl, did have elevated lactic on admission, ALP elevated and slightly worse today CTAP obtained given CTA chest findings for further eval. --> CTA noting "diffuse thickening of the wall of the extra hepatic bile ducts. Therefore, an ascending cholangitis or less likely hepatic infarcts also remain differential diagnosis." "Gallbladder wall thickening with cholelithiasis. This has progressed in the interval. No surrounding inflammatory change identified. An early acute cholecystitis. Would be the diagnosis of exclusion." General surgery consulted for eval/recs, appreciate assistance- messaged Chiquis from surgery, will discuss w/ Dr Le and get back to me Zosyn IV ordered empirically for now DVT proph: lovenox SQ 11/11 WBC 9k, L shift does appear slightly improved Continues on Zosyn for abdominal coverage, also should cover lungs General surgery consulted, felt incidental finding as patient denied sx however did message Dr Le this morning and he agreed would continue abx for now. ALP trending down to 130 on AM labs Ativan decreased to 0.5mg PO BID, additional prn available Iron studies w/ low iron/trans % but elevated ferritin. ?2nd to infection w/ GB. Avoid IV supp at present B12 low normal 332, IM x 1, then start PO to see if helps Folate wnl 9.68 Na prior low 130, hypothyroid w/ TSH 26 on admit w/ increased Synthroid as below. Also removed restrictions on diet to promote increased intake. Has been taking boost supplements. 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 Has prior been + and treated for Lyme and would defer Therapy evaluations w/ HH recs. CM to follow Messaged pulm for re-eval, consideration additional agents to assist w/ expectoration/etc. Repeat BNP pending per pulm, appreciate recs/assistance Consideration for palliative consult however prior note w/ noting if chemo offered (and only taking holiday for now) would not want to discuss GOC. May need to touch base w/ Dr Packer in AM for ongoing discussions (2) SOB (shortness of breath): Plan: ongoing issues, CTA negative for PE WBC not elevated but does have L shift. Procal 0.18 on admission. Blood cultures NGTD x 48hours. Urine cx final negative Did get lasix 20mg IV prior to assist w/ effusion, held off further given poor PO intake Pulm consulted, no need for PleurX, signed off, sutures removed CXR as above, reports worse breathing Is on Zosyn as above Asked pulm to see again 11/11 as above. Continue pulmonary toilet, albuterol HFA chan, O2 as needed in the meantime (3) Difficulty swallowing: Plan: Increased mouth pain/issues with swallowing for approx 1 month Aspiration precautions, Speech consult - did have recent issue of having pill stuck towards distal aspect of esophagus, anxiety about happening again Was on dexamethasone suspension QID however not using as frequent at home. Held PO steroid on admission and ordered magic swizzle which he reports is helping added nystatin to see if any help lower issues but no overt thrush on exam. Aspiration precautions Speech consulted - minced/moist diet TSH elevation/Synthroid increased Heme/onc consulted as above 11/11-- Continue aspiration precautions, diet advanced for increased variety but not much of appetite. Encouraged continued boost Reports no pain w/ swallowing but no appetite. Remeron 15mg HS added (4) Mouth pain: Plan: See difficulty swallowing, continue magic swizzle. Added nystatin to see if any improvement and continued (5) Type 2 diabetes mellitus without complication: Plan: A1c 7.2 back in February 2022, will plan to add to AM labs Home metformin/Trulicity on hold BSG AC/HS, SSI while inpatient. Holding off basal insulin to prevent hypoglycemia Removed carb count,diet as above (prior BSG drop 11/09) and no further drops monitor/adjust as needed (6) Metastatic renal cell carcinoma: Plan: On admission, continued lenvatinib and everolimus and family brought in As above, placed ON HOLD FOR NOW, planning for holding x 2 weeks given FTT and f/u Dr Packer at [place] may need to reach back out as above (7) Vitamin D deficiency: Plan: checked w/ nutritional status, LOW 19.3 Starting PO supplementation, would continue at dc Plan continued inpatient stay, Zosyn IV continued Pulm asked to re-eval for today given reports increased SOB CM to follow/HH per PT evals. Will need repeat 2step prior to dc Consideration for palliative consult pending continued inpatient course Admission and Anticipated Discharge Date Admission Date: November 09, 2023 Subjective Evaluated after lunch, in room. Upgraded diet but not eating much. Placed on 2L, however when asked if breathing improved on such he initially said no but then reported he could feel a difference. Inquired if not hungry due to pain/mood or appetite. he reports he has no appetite. Encouraged continued boost if not wanting much else. CXR appears worse today, pulm edema. Lasix x 1 to assist w/ pulm congestion. Will add flutter valve. Encouraged taking deep breaths but he reports cough when taking deep breath and prevents such. Will ask pulm to see patient today as well to weigh in for additional recs. Surgery consult discussed and continued abx for now for coverage as discussed. Lyme testing w/ +IgG, but has been tx for Lyme in the past. Physical Exam Physical Exam: General: chronically ill appearing male getting back into bed, in room, nad but fatigued/short of breath, on 2L NC Head atraumatic, normocephalic, mm slightly dry (slightly improved), trachea midline. +stomatitis improved Resp: decreased air entry bilaterally, no wheezing/rales, bibasilar crackles, on room air, shallow breathing at times, on room air CV: RRR, no significant m/r/g, no pitting edema/calf tenderness GI: +BS, slight distension, decreased tenderness RUQ, no guarding rigidity : no duncan MSK/Neuro: generalized weakness but nonfocal Psych: AOx3, depressed/flat affect Results & Data Results & Data Vital Signs (Past 12 Hours) Vital Signs Temp Pulse Resp BP Pulse Ox O2 Del Method 11/12/23 07:35 36.7 C 95 H 18 106/72 91 Room Air 11/12/23 07:27 95 H 16 90 Room Air 11/11/23 20:50 36.8 C 103 H 15 111/74 92 Room Air Laboratory Results 07/11/12/23 11/12/23 Range/Units 14:16 11:32 07:32 WBC (4.8-10.8) K/ul RBC (4.70-6.10) M/uL Hgb (14.0-18.0) g/dl Hct (42.0-52.0) % MCV (80.0-100.0) fL MCH (25.0-34.0) pg MCHC (32.0-36.0) g/dL RDW Std Deviation (36.4-46.3) fL RDW Coeff of Joaquim (11.5-14.5) % Plt Count (130-400) K/uL MPV (9.4-12.4) fL Immature Gran % (Auto) % Neut % (Auto) % Lymph % (Auto) % [place] % (Auto) % Eos % (Auto) % Baso % (Auto) % Neut # (Auto) (1.40-6.50) K/uL Lymph # (Auto) (1.20-3.40) K/uL [place] # (Auto) (0.11-0.59) K/uL Eos # (Auto) (0.00-0.50) K/uL Baso # (Auto) (0.00-0.20) K/uL Immature Gran # (Auto) (0.01-0.20) K/uL Sodium (136-145) mmol/L Potassium (3.5-5.1) mmol/L Chloride (98-107) mmol/L Carbon Dioxide (21-32) mmol/L Anion Gap (3-11) BUN (6-23) mg/dl Creatinine (0.6-1.4) mg/dl Est Cr Clr Drug Dosing ml/min Est GFR ( Amer) ml/min Est GFR (Non-Af Amer) ml/min BUN/Creatinine Ratio (10-20) Glucose (70-99(Fasting)) mg/dl POC Glucose 232 H 157 H (70-99) mg/dl Calcium (8.6-10.3) mg/dl Magnesium (1.7-2.4) mg/dl Total Bilirubin (0.2-1.0) mg/dl AST (13-39) U/L ALT (7-52) U/L Alkaline Phosphatase (34-104) U/L B-Natriuretic Peptide Pending Total Protein (6.0-8.3) gm/dl Albumin (3.4-5.0) gm/dl Globulin (2.5-4.0) gm/dl Albumin/Globulin Ratio (0.9-2) Anaplasma Smear Lyme Disease Screen (Negative) Lyme Tier 2 IgG Confirm (Negative) Lyme Tier 2 IgM Confirm (Negative) 11/12/23 11/11/23 11/11/23 Range/Units 07:28 20:48 16:08 WBC 9.09 (4.8-10.8) K/ul RBC 4.31 L (4.70-6.10) M/uL Hgb 12.3 L (14.0-18.0) g/dl Hct 37.3 L (42.0-52.0) % MCV 86.5 (80.0-100.0) fL MCH 28.5 (25.0-34.0) pg MCHC 33.0 (32.0-36.0) g/dL RDW Std Deviation 41.7 (36.4-46.3) fL RDW Coeff of Joaquim 13.2 (11.5-14.5) % Plt Count 437 H (130-400) K/uL MPV 9.3 L (9.4-12.4) fL Immature Gran % (Auto) 0.3 % Neut % (Auto) 84.8 % Lymph % (Auto) 6.9 % [place] % (Auto) 7.5 % Eos % (Auto) 0.3 % Baso % (Auto) 0.2 % Neut # (Auto) 7.70 H (1.40-6.50) K/uL Lymph # (Auto) 0.63 L (1.20-3.40) K/uL [place] # (Auto) 0.68 H (0.11-0.59) K/uL Eos # (Auto) 0.03 (0.00-0.50) K/uL Baso # (Auto) 0.02 (0.00-0.20) K/uL Immature Gran # (Auto) 0.03 (0.01-0.20) K/uL Sodium 130 L (136-145) mmol/L Potassium 4.9 (3.5-5.1) mmol/L Chloride 93 L (98-107) mmol/L Carbon Dioxide 25 (21-32) mmol/L Anion Gap 12 H (3-11) BUN 29 H (6-23) mg/dl Creatinine 1.19 D (0.6-1.4) mg/dl Est Cr Clr Drug Dosing 49.5 ml/min Est GFR ( Amer) 70.8 ml/min Est GFR (Non-Af Amer) 61.1 ml/min BUN/Creatinine Ratio 24.4 H (10-20) Glucose 166 H (70-99(Fasting)) mg/dl POC Glucose 169 H 127 H (70-99) mg/dl Calcium 9.4 (8.6-10.3) mg/dl Magnesium 1.9 (1.7-2.4) mg/dl Total Bilirubin 0.6 (0.2-1.0) mg/dl AST 18 (13-39) U/L ALT 11 (7-52) U/L Alkaline Phosphatase 130 H (34-104) U/L B-Natriuretic Peptide Total Protein 7.3 (6.0-8.3) gm/dl Albumin 3.0 L (3.4-5.0) gm/dl Globulin 4.3 H (2.5-4.0) gm/dl Albumin/Globulin Ratio 0.7 L (0.9-2) Anaplasma Smear See Comment Lyme Disease Screen (Negative) Lyme Tier 2 IgG Confirm (Negative) Lyme Tier 2 IgM Confirm (Negative) 11/11/23 Range/Units 08:10 WBC (4.8-10.8) K/ul RBC (4.70-6.10) M/uL Hgb (14.0-18.0) g/dl Hct (42.0-52.0) % MCV (80.0-100.0) fL MCH (25.0-34.0) pg MCHC (32.0-36.0) g/dL RDW Std Deviation (36.4-46.3) fL RDW Coeff of Joaquim (11.5-14.5) % Plt Count (130-400) K/uL MPV (9.4-12.4) fL Immature Gran % (Auto) % Neut % (Auto) % Lymph % (Auto) % [place] % (Auto) % Eos % (Auto) % Baso % (Auto) % Neut # (Auto) (1.40-6.50) K/uL Lymph # (Auto) (1.20-3.40) K/uL [place] # (Auto) (0.11-0.59) K/uL Eos # (Auto) (0.00-0.50) K/uL Baso # (Auto) (0.00-0.20) K/uL Immature Gran # (Auto) (0.01-0.20) K/uL Sodium (136-145) mmol/L Potassium (3.5-5.1) mmol/L Chloride (98-107) mmol/L Carbon Dioxide (21-32) mmol/L Anion Gap (3-11) BUN (6-23) mg/dl Creatinine (0.6-1.4) mg/dl Est Cr Clr Drug Dosing ml/min Est GFR ( Amer) ml/min Est GFR (Non-Af Amer) ml/min BUN/Creatinine Ratio (10-20) Glucose (70-99(Fasting)) mg/dl POC Glucose (70-99) mg/dl Calcium (8.6-10.3) mg/dl Magnesium (1.7-2.4) mg/dl Total Bilirubin (0.2-1.0) mg/dl AST (13-39) U/L ALT (7-52) U/L Alkaline Phosphatase (34-104) U/L B-Natriuretic Peptide Total Protein (6.0-8.3) gm/dl Albumin (3.4-5.0) gm/dl Globulin (2.5-4.0) gm/dl Albumin/Globulin Ratio (0.9-2) Anaplasma Smear Lyme Disease Screen Positive H (Negative) Lyme Tier 2 IgG Confirm Positive H (Negative) Lyme Tier 2 IgM Confirm Negative (Negative) Diagnostic Findings Chest X-Ray 11/12/23 08:57 XR chest 2V PA/lateral HISTORY: 73 years-old Male sob, f/u acute shortness of breath COMPARISON: Chest x-ray 11/09/2023, CTA chest 11/06/2023 TECHNIQUE: AP view of the chest FINDINGS: Cardiac silhouette is enlarged. Pulmonary vascular congestion with left greater than right mixed interstitial and alveolar opacities within the mid to lower lung zone predominate distribution. Left greater than right layering pleural effusions with pleural nodularity and reticular nodular pulmonary opacities. Upper abdominal surgical clips. IMPRESSION: 1. Cardiomegaly with pulmonary vascular congestion and probable mild pulmonary edema with small pleural effusions and bibasilar consolidation. 2. Pulmonary and pleural metastasis redemonstrated. Findings are better assessed on the 11/08/2023 CTA chest. ACT 112: Negative or not required by law. The above report was generated using voice recognition software. It may contain grammatical, syntax or spelling errors. Electronically signed by: Ramon Godinez M.D. 11/12/2023 10:25 AM PG Care Time/CCT Total # of Minutes Spent Total Time Spent with Patient: Total time spent is greater than 50% in coordination of care (as documented) at patient's floor/unit and/or counseling patient: Coding Level of Care Code 36942 SUB INP/OBS CARE 3/50MIN Diagnoses Generalized weakness R53.1 SOB (shortness of breath) R06.02 Difficulty swallowing R13.10 Mouth pain K13.79 Type 2 diabetes mellitus without complication E11.9 Renal cell carcinoma of right kidney metastatic to other site C64.9 Laterality: unspecified laterality Vitamin D deficiency E55.9 (6) Metastatic renal cell carcinoma Laterality: unspecified laterality Qualified Code(s): C64.9 - Malignant neoplasm of unspecified kidney, except renal pelvis
[2023-11-12 08:44] LABS: Albumin Globulin Ratio 0.7 (0.9-2); BUN Creatinine Ratio 24.4 (10-20); Bilirubin,Total 0.6 mg/dl (0.2-1.0); Calcium 9.4 mg/dl (8.6-10.3); Creatinine Clr Calc Pharmacy 49.5 ml/min; Est GFR (African American) 70.8 ml/min; Est GFR (Non-African American) 61.1 ml/min; Globulin 4.3 gm/dl (2.5-4.0); Magnesium 1.9 mg/dl (1.7-2.4); Potassium 4.9 mmol/L (3.5-5.1); Total Protein 7.3 gm/dl (6.0-8.3)
[2023-11-12 10:19] LABS: Lyme Screen Rflx Confirmation Positive (Negative)
[2023-11-12] MEDS: CYANOCOBALAMIN 1000 MCG/ML VIAL IM ONE (10:26)
[2023-11-12] MEDS: SODIUM CHLORIDE 1 GM TABLET PO ONE (10:27)
--- NOTE | 2023-11-12 10:27 | XRay Report ---
XR chest 2V PA/lateral HISTORY: 73 years-old Male sob, f/u acute shortness of breath COMPARISON: Chest x-ray 11/09/2023, CTA chest 11/06/2023 TECHNIQUE: AP view of the chest FINDINGS: Cardiac silhouette is enlarged. Pulmonary vascular congestion with left greater than right mixed inte rstitial and alveolar opacities within the mid to lower lung zone predominate distribution. Left grea ter than right layering pleural effusions with pleural nodularity and reticular nodular pulmonary opa cities. Upper abdominal surgical clips. IMPRESSION: 1. Cardiomegaly with pulmonary vascular congestion and probable mild pulmonary edema with small pleur al effusions and bibasilar consolidation. 2. Pulmonary and pleural metastasis redemonstrated. Findings are better assessed on the 11/08/2023 CTA chest. ACT 112: Negative or not required by law. The above report was generated using voice recognition software. It may contain grammatical, syntax o r spelling errors. Electronically signed by: Ramon Godinez M.D. 11/12/2023 10:25 AM
[2023-11-12 10:53] LABS: Lyme Ab IgG 2nd Tier Confirm Positive (Negative); Lyme Ab IgM 2nd Tier Confirm Negative (Negative)
[2023-11-12] MEDS ORDERED: DOXYCYCLINE HYCLATE 100 MG in DEXTROSE 5% MINI-B 100 ML IV SCH (13:00)
--- NOTE | 2023-11-12 13:15 | Pulmonology Progress Note ---
Date of Service November 12, 2023 Assessment & Plan (1) SOB (shortness of breath): (2) Metastatic renal cell carcinoma: Laterality: unspecified laterality Qualified Code(s): C64.9 - Malignant neoplasm of unspecified kidney, except renal pelvis (3) Abnormal chest CT: (4) Multiple pulmonary nodules: Plan CTA chest 11/08/2023 personally reviewed: Circumferential small left-sided pleural effusion with pleural thickening Right lower lobe supradiaphragmatic 3.9 cm nodularity, left upper lobe 9 mm pulmonary nodule, both are mildly improved compared to 09/16/2023 Significant subcarinal lymphadenopathy -- Small pleural effusion with pleural thickening on the left Likely related to patient's underlying stage IV renal cell carcinoma Initially patient had Pleurx catheter placed on the left side, it was removed in the office by patient's primary house decorator on 10/27/2023 No intervention needed for the pleural effusion Procalcitonin 0.18, respiratory bio fire negative for everything on 11/08/2023 --Multiple pulmonary nodules Like representing metastatic spread in the renal cell carcinoma Plan: Chest x-ray from today does not show any significant change compared to the monitors done in September. Probably mild pulmonary vascular congestion Follow-up BNP Can consider guaifenesin-DM for his cough I will still recommend incentive spirometry Reducing there is a component of depression as well on top of underlying malignancy Unfortunately there is not much to offer from pulmonary perspective. Please note the above document was generated using voice recognition software. It may contain grammatical, syntax or spelling errors.Any formal questions or concerns about the content, text or information contained within the body of this dictation should be directly addressed to the provider for clarification. Admission and Anticipated Discharge Date Admission Date: November 09, 2023 Subjective Patient seen and bedside. No acute distress Pulmonary consulted because patient has been complaining of generalized fatigue and shortness of breath on exertion He was saturating 91% on room air. Saturation went up to 92-93% when I ask him to take deep breath Still complains of cough and he coughs whenever he takes a deep breath in Has been afebrile He does bring up phlegm is mostly clear. Denies any hemoptysis No nausea or vomiting No headache, no blurry vision Review of Systems 2 Review of Systems: All systems reviewed & are unremarkable except as noted in Subjective Physical Exam 2 Physical Exam: Constitutional: No acute distress HEENT: EOMI, PERRLA Respiratory system: Decreased air entry bilaterally, no wheeze, no rhonchi, positive crackles bilateral lower lobes CVS: S1-S2 positive, no murmurs or gallops Abdomen: Soft, nontender, nondistended, positive bowel sounds x4 Extremities: +2 pulses bilaterally radialis/ dorsalis pedis, no cyanosis, no edema Neuro: Awake alert oriented x3 Psych: Normal mood and affect G/U: No Lopez Skin: no rashes, warm and dry Lymphatic: no cervical or axillary lymphadenopathy Results & Data Results & Data Vital Signs (Past 12 Hours) Vital Signs Temp Pulse Resp BP Pulse Ox O2 Del Method O2 Flow Rate 11/12/23 12:09 80 16 94 Nasal Cannula 2 11/12/23 07:35 36.7 C 95 H 18 106/72 91 Room Air 11/12/23 07:27 95 H 16 90 Room Air Laboratory Results 11/12/23 07:28 11/12/23 07:28 PG Care Time/CCT Total # of Minutes Spent Total Time Spent with Patient: Total time spent is greater than 50% in coordination of care (as documented) at patient's floor/unit and/or counseling patient: Coding Level of Care Code 84234 SUB INP/OBS CARE 2/35MIN Diagnoses SOB (shortness of breath) R06.02 Renal cell carcinoma of right kidney metastatic to other site C64.9 Laterality: unspecified laterality Abnormal chest CT R93.89 Multiple pulmonary nodules R91.8
[2023-11-12] MEDS: FUROSEMIDE INJ 20 MG/2 ML VIAL IV ONE (13:34)
[2023-11-12] MEDS ORDERED: guaiFENesin/DEXTROM SYRUP 100MG/10MG 5ML UDC PO PRN (16:07)
--- NOTE | 2023-11-12 16:10 | Communication Note ---
Date of Service: November 12, 2023 Discussed w/ heme/onc, no GOC conversation, tumor is responding to treatment. Pulm saw, CXR is slightly worse. BNP normal. Did attempt dose of lasix IV x 1, urine dark/concentrated and holding off further. Covered w/ Zosyn for abd which should cover lungs as well. Lung mets have progressed. -- Adding mucinex DM 10mg QID, continue encouraging incentive sp irometer/pulmonary toilet
[2023-11-12] MEDS: MIRTAZAPINE TAB 15 MG TAB PO SCH (20:45)
[2023-11-13 07:26] LABS: Basophils # (auto) 0.01 K/uL (0.00-0.20); Basophils % (auto) 0.1 %; Eosinophils # (auto) 0.09 K/uL (0.00-0.50); Eosinophils % (auto) 1.1 %; Hematocrit (blood only) 37.2 % (42.0-52.0); Hemoglobin 11.9 g/dl (14.0-18.0); Immature Granulocytes # (auto) 0.07 K/uL (0.01-0.20); Immature Granulocytes % (auto) 0.9 %; Lymphocytes # (auto) 0.52 K/uL (1.20-3.40); Lymphocytes % (auto) 6.4 %; Mean Corpuscular Hemoglobin 28.8 pg (25.0-34.0); Mean Corpuscular Volume 90.1 fL (80.0-100.0); Mean Platelet Volume 10.2 fL (9.4-12.4); Monocytes % (auto) 8.6 %; Neutrophils # (auto) 6.75 K/uL (1.40-6.50); Neutrophils % (auto) 82.9 %; Platelet Count 353 K/uL (130-400); RDW Coefficient of Variation 13.7 % (11.5-14.5); RDW Standard Deviation 44.6 fL (36.4-46.3); Red Blood Count 4.13 M/uL (4.70-6.10); White Blood Count 8.14 K/ul (4.8-10.8)
[2023-11-13 07:40] LABS: Alanine Aminotransferase 10 U/L (7-52); Albumin Level 2.9 gm/dl (3.4-5.0); Alkaline Phosphatase 111 U/L (34-104); Anion Gap 10 (3-11); BUN Creatinine Ratio 27.3 (10-20); Bilirubin,Total 0.5 mg/dl (0.2-1.0); Blood Urea Nitrogen 33 mg/dl (6-23); Calcium 9.2 mg/dl (8.6-10.3); Carbon Dioxide 27 mmol/L (21-32); Chloride 94 mmol/L (98-107); Creatinine Clr Calc Pharmacy 48.7 ml/min; Est GFR (African American) 69.4 ml/min; Est GFR (Non-African American) 59.9 ml/min; Glucose 158 mg/dl (70-99(Fasting)); Sodium 131 mmol/L (136-145); Total Protein 7.1 gm/dl (6.0-8.3)
--- NOTE | 2023-11-13 08:04 | Hospitalist Progress Note ---
Date of Service November 13, 2023 Assessment & Plan (1) Generalized weakness: Plan: 73yo presents for ~1 month of progressive weakness/SOB. Suspect ongoing dehydration/malnutrition/deconditioning contributing as well as hypothyroidism and side effects from chemotherapy/mucositis s/p 1.5L NSS in ER, additional 1L on admission for dehydration from poor PO intake , likely from mucositis from his chemotherapy. CTA chest NEGATIVE for PE, dose show response to treatment. No evidence for PNA. -->Of note, no RUQ pain on exam but does have cholelithiasis on imaging. TB wnl, ALP elevated and will monitor. Lipase not elevated UA w/o signs for infection, culture NO GROWTH FINAL Biofire negative. Stool biofire checked/negative given reports diarrhea Magic mouth wash, nystatin. Speech consulted- minced/moist diet. Continue aspiration precautions Nutrition consult/boost with meals Given lasix 20mg IV x 1 for little volume overload from IVF on admission to see if assisted w/ SOB symptoms. Pulm consulted and no need for repeat PleurX at this tie TSH elevation to 26, normal T4/t3 however on replacement at baseline and symptoms consistent with such and INCREASED to 75mcg daily. Repeat TFT 4wks w/ PCP/adjustment if needed Changed ativan to 1mg BID scheduled, prn available in day if needing but per discussion w/ patient/ he takes pretty routinely morning/night and want to prevent any withdrawal Did consult heme/onc as suspect chemo contributing/consideration for drug holiday-Dr Packer saw last evening, 11/08, placed ORAL REGIMEN (Lenvima/Zortress) ON HOLD WHILE INPATIENT, planning for 2 week break. 11/10 WBC wnl, afebrile (notable L shift) but has been afebrile. blood cultures NGTD. Urine cx no growth on final Ativan BID scheduled, Na 130 (also on effexor). TSH elevation as above/Synthroid increased Removed AHA portion of diet, continue supplementation. Check serum osm Continue increased Synthroid Remains OFF oral chemotherapy Albuterol HFA changed to chan TB wnl, did have elevated lactic on admission, ALP elevated and slightly worse today CTAP obtained given CTA chest findings for further eval. --> CTA noting "diffuse thickening of the wall of the extra hepatic bile ducts. Therefore, an ascending cholangitis or less likely hepatic infarcts also remain differential diagnosis." "Gallbladder wall thickening with cholelithiasis. This has progressed in the interval. No surrounding inflammatory change identified. An early acute cholecystitis. Would be the diagnosis of exclusion." General surgery consulted for eval/recs, appreciate assistance- messaged Chiquis from surgery, will discuss w/ Dr Le and get back to me Zosyn IV ordered empirically for now DVT proph: lovenox SQ 11/11 WBC 9k, L shift does appear slightly improved Continues on Zosyn for abdominal coverage, also should cover lungs General surgery consulted, felt incidental finding as patient denied sx however did message Dr Le this morning and he agreed would continue abx for now. ALP trending down to 130 on AM labs Ativan decreased to 0.5mg PO BID, additional prn available Iron studies w/ low iron/trans % but elevated ferritin. ?2nd to infection w/ GB. Avoid IV supp at present B12 low normal 332, IM x 1, then start PO to see if helps Folate wnl 9.68 Na prior low 130, hypothyroid w/ TSH 26 on admit w/ increased Synthroid as below. Also removed restrictions on diet to promote increased intake. Has been taking boost supplements. 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 Has prior been + and treated for Lyme and would defer Therapy evaluations w/ HH recs. CM to follow Messaged pulm for re-eval, consideration additional agents to assist w/ expectoration/etc. Repeat BNP pending per pulm, appreciate recs/assistance * Discussed w/ heme/onc, no GOC conversation, tumor is responding to treatment. * Pulm saw, CXR is slightly worse. BNP normal. Did attempt dose of lasix IV x 1, urine dark/concentrated and holding off further. Covered w/ Zosyn for abd which should cover lungs as well. Lung mets have progressed. * -- Adding mucinex DM 10mg QID, continue encouraging incentive spirometer/pulmonary toilet 11/12 Feeling SLIGHTLY better today Home PO chemo on hold/drug holiday x 2 wks planned/outpt f/u Zosyn IV continued--ALP trending down, procal 0.26. WBC wnl (L shift improving). Plts normal. No further anion gap Blood cultures still NGTD from admission. Nutrition is poor at baseline, but he reports drinking most of the boost provided with meals. Does not appear as dehydrated today despite BUN/Cr on labs and would avoid IVF given effusions on CXR to avoid worsening respiratory status. On 1L NC Pulm rec'd mucinex DM 10mg qid, had been ordered prn and not given. CHANGED to SCHEDULED, did get dose today and believes helpful and will continue Holding off further diuretics given PO intake. Attempted 1x dose 11/11 + 1gm NaCL, Na 131 on AM labs. Low dose remeron 15mg HS to help w/ sleep/mood/appetite. Home marinol on hold as doesn't help much and causes some adv side effects and remeron appearing to be more helpful and will continue Pulm also rec'd to check Vit D/Vit B12 which were done prior, and ensure synthroid adjustment made VIt D LOW - replacement ordered/continued B12 low normal, IM x 1 on 11/11 and placed on PO daily TSH 26, increased synthroid to 75mcg daily this past week w/ elevations and symptoms c/w (along with other reasons of course as well) - should have new rx at [facility] Continued inpatient stay, planning for HHPT pending status over the weekend (2) SOB (shortness of breath): Plan: IMPROVING slightly CTA chest on admit neg for PE but does have progression of lung mets (however renal responding to tx per heme/onc) Placed on 2L yesterday for comfort as dropped to high 80s on room air with activity. CXR appeared slightly worse/asked pulm to re-eval as above. Holding off further lasix/BNP 50 On Zosyn as above for CTAP findings but also should cover for pulm SCHEDULED cough syrup 10mg QID, continue pulmonary toilet. ALbuterol HFA QID Titrate O2 as able Plan for 2 step at [facility] (3) Metastatic renal cell carcinoma: Plan: On admission, continued lenvatinib and everolimus and family brought in As above, placed ON HOLD FOR NOW and plan to hold x 2 weeks given FTT and f/u Dr Packer at [facility] Discussed w/ Dr Packer 11/11, not to have GOC discussion yet as still plans to offer continued chemo given response outpt palliative as appropriate when not able to offer any further chemo as prior wishes (4) Hypothyroidism: Plan: as above, TSH 11 earlier this year, WORSE at 26 this admission. T4/T3 wnl however on 50mcg daily --> as discussed prior, suspect some symptoms/fluid retention/other symtpoms from such and INCREASED synthroid to 75mcg daily and discussed w/ family at bedside will need repeat TFT 4-6 wks/adjustment (consider shorter 4 wks given prior elevation to ensure not needing further adjustment) (5) B12 deficiency: Plan: low normal 332 1000mcg IM dose x 1 on 11/11, continues on 1000mcg daily - should be continued at discharge Folate also checked, was wnl at 9.68 (6) Difficulty swallowing: Plan: Increased mouth pain/issues with swallowing for approx 1 month Aspiration precautions, Speech consult - did have recent issue of having pill stuck towards distal aspect of esophagus, anxiety about happening again Was on dexamethasone suspension QID however not using as frequent at home. Held PO steroid on admission and ordered magic swizzle which he reports is helping added nystatin to see if any help lower issues but no overt thrush on exam. Aspiration precautions Speech consulted - minced/moist diet TSH elevation/Synthroid increased Heme/onc consulted as above 11/11-11/12-- Continue aspiration precautions, diet advanced for increased variety but not much of appetite however is attempting to drink most of the boost provided and appears intact slightly improved w/ addition of remeron given reports just not feeling hungry/appetite to help w/ appetite stimulation and will continue (7) Mouth pain: Plan: See difficulty swallowing, continue magic swizzle. Added nystatin to see if any improvement - continued (8) Type 2 diabetes mellitus without complication: Plan: A1c 7.2 back in February 2022, will plan to add to AM labs Home metformin/Trulicity on hold BSG AC/HS, SSI while inpatient. Holding off basal insulin to prevent hypoglycemia Removed carb count,diet as above (prior BSG drop 11/09) and no further drops but NOW ELEVATED 210s this afternoon (is having improvement in PO) -- changed CR/continue to monitor/adjustment as needed (9) Vitamin D deficiency: Plan: checked w/ nutritional status, LOW 19.3. Started PO supplementation- should be continued at [facility] Plan Reports feeling SLIGHTLY better today, will continue to monitor through weekend continued inpatient stay, Zosyn IV continued/nutritional supplements and cough syrup made scheduled/pulmonary toilet. continue remeron for sleep/mood/appetite and marinol placed on hold plan for repeat 2step at [facility] Will f/u with CM about potential to fill out form for handicap pass as inquired by during encounter today for ease w/ follow up appts Admission and Anticipated Discharge Date Admission Date: November 09, 2023 Subjective Evaluated this afternoon, daughter and in room. Patient reports got some decent sleep last night, will continue remeron. He is drinking most of the boost. On 1L NC and reports breathing slightly improved. Changed cough syrup to scheduled and to continue incentive spirometer. Does have slight improvement in air entry today. Will plan for 2step. Discussed pulm recs to check B12/vit D and TSH/synthroid adjustment which have already been done. Both B12/vit D replacement and increased synthroid which will take some time to work but suspect needing adjustment since earlier this year w/ TSH 11. Physical Exam Physical Exam: General: 73yo chronically ill appearing/malnourished male sitting up in bed, /daughter at bedside, reports feeling SLIGHTLY better today, NAD Head atraumatic, normocephalic, mm slightly dry but IMPROVED slightly, +stomatitis (improved) no evidence for thrush Resp: reduced air entry bilaterally however appears SLIGHTLY improved, +bibasilar crackles, +coarse breath sounds at times, no wheezing, +cough w/ deep breathing, on 1L NC, no tachypnea CV: RRR, no significant m/r/g, no pitting edema/calf tenderness GI: +BS, soft/NT, no guarding/rigidity : no duncan MSK/Neuro: generalized weakness but nonfocal able to sit up in bed a little better today w/ assistance Psych: AOx3, depressed/flat affect - slightly improved/improved spirits compared to day prior Results & Data Results & Data Vital Signs (Past 12 Hours) Vital Signs Temp Pulse Resp BP Pulse Ox O2 Del Method O2 Flow Rate 11/13/23 07:35 60 16 97 Nasal Cannula 2 11/13/23 07:30 Nasal Cannula 2 11/13/23 07:18 36.3 C L 90 18 105/70 96 Nasal Cannula 2 11/12/23 20:42 Nasal Cannula 2 11/12/23 20:00 36.7 C 101 H 22 120/81 95 Nasal Cannula 2 Laboratory Results 11/13/23 11/13/23 11/13/23 Range/Units 11:34 07:59 07:52 WBC (4.8-10.8) K/ul RBC (4.70-6.10) M/uL Hgb (14.0-18.0) g/dl Hct (42.0-52.0) % MCV (80.0-100.0) fL MCH (25.0-34.0) pg MCHC (32.0-36.0) g/dL RDW Std Deviation (36.4-46.3) fL RDW Coeff of Joaquim (11.5-14.5) % Plt Count (130-400) K/uL MPV (9.4-12.4) fL Immature Gran % (Auto) % Neut % (Auto) % Lymph % (Auto) % [place] % (Auto) % Eos % (Auto) % Baso % (Auto) % Neut # (Auto) (1.40-6.50) K/uL Lymph # (Auto) (1.20-3.40) K/uL [place] # (Auto) (0.11-0.59) K/uL Eos # (Auto) (0.00-0.50) K/uL Baso # (Auto) (0.00-0.20) K/uL Immature Gran # (Auto) (0.01-0.20) K/uL Sodium (136-145) mmol/L Potassium 4.8 Chloride (98-107) mmol/L Carbon Dioxide (21-32) mmol/L Anion Gap (3-11) BUN (6-23) mg/dl Creatinine (0.6-1.4) mg/dl Est Cr Clr Drug Dosing ml/min Est GFR ( Amer) ml/min Est GFR (Non-Af Amer) ml/min BUN/Creatinine Ratio (10-20) Glucose (70-99(Fasting)) mg/dl POC Glucose 239 H 158 H (70-99) mg/dl Calcium (8.6-10.3) mg/dl Magnesium (1.7-2.4) mg/dl Total Bilirubin (0.2-1.0) mg/dl Direct Bilirubin 0.2 AST 16 ALT (7-52) U/L Alkaline Phosphatase (34-104) U/L B-Natriuretic Peptide (0-100) pg/ml Total Protein (6.0-8.3) gm/dl Albumin (3.4-5.0) gm/dl Procalcitonin (0-0.5) ng/ml 11/13/23 11/12/23 11/12/23 Range/Units 06:20 20:41 16:35 WBC 8.14 (4.8-10.8) K/ul RBC 4.13 L (4.70-6.10) M/uL Hgb 11.9 L (14.0-18.0) g/dl Hct 37.2 L (42.0-52.0) % MCV 90.1 (80.0-100.0) fL MCH 28.8 (25.0-34.0) pg MCHC 32.0 (32.0-36.0) g/dL RDW Std Deviation 44.6 (36.4-46.3) fL RDW Coeff of Joaquim 13.7 (11.5-14.5) % Plt Count 353 (130-400) K/uL MPV 10.2 (9.4-12.4) fL Immature Gran % (Auto) 0.9 % Neut % (Auto) 82.9 % Lymph % (Auto) 6.4 % [place] % (Auto) 8.6 % Eos % (Auto) 1.1 % Baso % (Auto) 0.1 % Neut # (Auto) 6.75 H (1.40-6.50) K/uL Lymph # (Auto) 0.52 L (1.20-3.40) K/uL [place] # (Auto) 0.70 H (0.11-0.59) K/uL Eos # (Auto) 0.09 (0.00-0.50) K/uL Baso # (Auto) 0.01 (0.00-0.20) K/uL Immature Gran # (Auto) 0.07 (0.01-0.20) K/uL Sodium 131 L (136-145) mmol/L Potassium TNP Chloride 94 L (98-107) mmol/L Carbon Dioxide 27 (21-32) mmol/L Anion Gap 10 (3-11) BUN 33 H (6-23) mg/dl Creatinine 1.21 (0.6-1.4) mg/dl Est Cr Clr Drug Dosing 48.7 ml/min Est GFR ( Amer) 69.4 ml/min Est GFR (Non-Af Amer) 59.9 ml/min BUN/Creatinine Ratio 27.3 H (10-20) Glucose 158 H (70-99(Fasting)) mg/dl POC Glucose 199 H 193 H (70-99) mg/dl Calcium 9.2 (8.6-10.3) mg/dl Magnesium 2.0 (1.7-2.4) mg/dl Total Bilirubin 0.5 (0.2-1.0) mg/dl Direct Bilirubin TNP AST TNP ALT 10 (7-52) U/L Alkaline Phosphatase 111 H (34-104) U/L B-Natriuretic Peptide (0-100) pg/ml Total Protein 7.1 (6.0-8.3) gm/dl Albumin 2.9 L (3.4-5.0) gm/dl Procalcitonin 0.26 (0-0.5) ng/ml 11/12/23 Range/Units 14:16 WBC (4.8-10.8) K/ul RBC (4.70-6.10) M/uL Hgb (14.0-18.0) g/dl Hct (42.0-52.0) % MCV (80.0-100.0) fL MCH (25.0-34.0) pg MCHC (32.0-36.0) g/dL RDW Std Deviation (36.4-46.3) fL RDW Coeff of Joaquim (11.5-14.5) % Plt Count (130-400) K/uL MPV (9.4-12.4) fL Immature Gran % (Auto) % Neut % (Auto) % Lymph % (Auto) % [place] % (Auto) % Eos % (Auto) % Baso % (Auto) % Neut # (Auto) (1.40-6.50) K/uL Lymph # (Auto) (1.20-3.40) K/uL [place] # (Auto) (0.11-0.59) K/uL Eos # (Auto) (0.00-0.50) K/uL Baso # (Auto) (0.00-0.20) K/uL Immature Gran # (Auto) (0.01-0.20) K/uL Sodium (136-145) mmol/L Potassium Chloride (98-107) mmol/L Carbon Dioxide (21-32) mmol/L Anion Gap (3-11) BUN (6-23) mg/dl Creatinine (0.6-1.4) mg/dl Est Cr Clr Drug Dosing ml/min Est GFR ( Amer) ml/min Est GFR (Non-Af Amer) ml/min BUN/Creatinine Ratio (10-20) Glucose (70-99(Fasting)) mg/dl POC Glucose (70-99) mg/dl Calcium (8.6-10.3) mg/dl Magnesium (1.7-2.4) mg/dl Total Bilirubin (0.2-1.0) mg/dl Direct Bilirubin AST ALT (7-52) U/L Alkaline Phosphatase (34-104) U/L B-Natriuretic Peptide 50 (0-100) pg/ml Total Protein (6.0-8.3) gm/dl Albumin (3.4-5.0) gm/dl Procalcitonin (0-0.5) ng/ml PG Care Time/CCT Total # of Minutes Spent Total Time Spent with Patient: Total time spent is greater than 50% in coordination of care (as documented) at patient's floor/unit and/or counseling patient: Coding Level of Care Code 50909 SUB INP/OBS CARE 3/50MIN Diagnoses Generalized weakness R53.1 SOB (shortness of breath) R06.02 Renal cell carcinoma of right kidney metastatic to other site C64.9 Laterality: unspecified laterality Hypothyroidism E03.9 B12 deficiency E53.8 Difficulty swallowing R13.10 Mouth pain K13.79 Type 2 diabetes mellitus without complication E11.9 Vitamin D deficiency E55.9 (3) Metastatic renal cell carcinoma Laterality: unspecified laterality Qualified Code(s): C64.9 - Malignant neoplasm of unspecified kidney, except renal pelvis
[2023-11-13 08:30] LABS: Bilirubin Direct 0.2 mg/dl (0-0.2); Potassium 4.8 mmol/L (3.5-5.1)
[2023-11-13] MEDS: guaiFENesin/DEXTROM SYRUP 100MG/10MG 5ML UDC PO SCH (08:37)
[2023-11-13] MEDS: CYANOCOBALAMIN (B-12) 500 MCG TABLET PO SCH (08:38)
[2023-11-14 07:42] LABS: Basophils # (auto) 0.01 K/uL (0.00-0.20); Basophils % (auto) 0.1 %; Eosinophils # (auto) 0.05 K/uL (0.00-0.50); Eosinophils % (auto) 0.5 %; Hematocrit (blood only) 36.1 % (42.0-52.0); Hemoglobin 11.6 g/dl (14.0-18.0); Immature Granulocytes # (auto) 0.03 K/uL (0.01-0.20); Immature Granulocytes % (auto) 0.3 %; Lymphocytes # (auto) 0.49 K/uL (1.20-3.40); Lymphocytes % (auto) 5.3 %; Mean Corpuscular Hemoglobin 28.4 pg (25.0-34.0); Mean Corpuscular Hgb Conc 32.1 g/dL (32.0-36.0); Mean Corpuscular Volume 88.3 fL (80.0-100.0); Mean Platelet Volume 9.3 fL (9.4-12.4); Monocytes # (auto) 0.84 K/uL (0.11-0.59); Neutrophils # (auto) 7.87 K/uL (1.40-6.50); Neutrophils % (auto) 84.8 %; Platelet Count 412 K/uL (130-400); RDW Coefficient of Variation 13.3 % (11.5-14.5); RDW Standard Deviation 43.3 fL (36.4-46.3); Red Blood Count 4.09 M/uL (4.70-6.10); White Blood Count 9.29 K/ul (4.8-10.8)
[2023-11-14 07:57] LABS: Albumin Globulin Ratio 0.8 (0.9-2); BUN Creatinine Ratio 34.3 (10-20); Bilirubin,Total 0.5 mg/dl (0.2-1.0); Calcium 9.1 mg/dl (8.6-10.3); Creatinine Clr Calc Pharmacy 56.1 ml/min; Est GFR (African American) 82.4 ml/min; Est GFR (Non-African American) 71.1 ml/min; Globulin 3.9 gm/dl (2.5-4.0); Phosphorus 4.1 mg/dl (2.5-4.9); Potassium 4.3 mmol/L (3.5-5.1); Total Protein 6.9 gm/dl (6.0-8.3)
--- NOTE | 2023-11-14 08:15 | Hospitalist Progress Note ---
Date of Service November 14, 2023 Assessment & Plan (1) Generalized weakness: Plan: 73yo presents for ~1 month of progressive weakness/SOB. Suspect ongoing dehydration/malnutrition/deconditioning contributing as well as hypothyroidism and side effects from chemotherapy/mucositis s/p 1.5L NSS in ER, additional 1L on admission for dehydration from poor PO intake , likely from mucositis from his chemotherapy. CTA chest NEGATIVE for PE, dose show response to treatment. No evidence for PNA. -->Of note, no RUQ pain on exam but does have cholelithiasis on imaging. TB wnl, ALP elevated (now on Zosyn as below). Lipase wnl UA/cx NEGATIVE Respiratory Biofire, Stool PCR/cdiff testing NEGATIVE Lyme IgM neg, IgG + however has been treated in the past/no tx at this time Speech consulted, minced/moist -- adv to reg/easy to chew Nutrition consult/boost w/ meals -- encouraged BOOST intake TSH ELEVATED to 26, synthroid increased to 75mcg -- needs repeat TFT 4wks/further adjustment as needed B12 LOW normal 332 and was given IM x 1, continued on 1000mcg PO daily Vit D LOW 19.3, PO replacement started Heme/onc consulted, seen 11/08 -- PLACED ORAL CHEMO (Lenvima/Zortress) on HOLD and plan for 2 week break but planned to resume outpatient Attempted lasix IV x 1 to assist w/ breathing prior which helped but having issues w/ PO intake and avoiding further . Pulm prior consulted and no recs for repeat PleurX at this time. BNP not elevated x 2 WBC elevation w/ elevated ALP and concerns for weakness w/ liliam on CTA chest imaging and recs for CTAP which was done and noted "diffuse thickening of the wall of the extra hepatic bile ducts. Therefore, an ascending cholangitis or less likely hepatic infarcts also remain differential diagnosis.""Gallbladder wall thickening with cholelithiasis. This has progressed in the interval. No surrounding inflammatory change identified. An early acute cholecystitis. Would be the diagnosis of exclusion." Surgery consulted, no planned intervention but discussed w/ Dr Le and would continue course of abx (also should cover for lungs) Added mucinex DM cough syrup 10mg QID, made SCHEDULED per discussion with pulm Ativan 0.5mg BID scheduled, prn available if needed Added remeron 15mg HS for mood/sleep/appetite stimulation/depression and reports helped and is taking in most of boost but still not very hungry. Marinol placed on hold as not effective per patient and reporting makes things worse. ALbumin 2.9 11/13 Labs improving however patient reporting feeling slightly worse today-->Had continuously been titrated off oxygen but ambulating to bathroom w/ significant shortness of breath and found to have SpO2 83% back from bathroom and placed back on 2L w/ improvement. On 1L currently w/ SpO2 91%. Will ask nursing to check ambulatory pulse ox as suspect dropping w/ activity/needs at dc and had prior planned for 2step prior to discharge WBC remains borderline but afebrile Continues on Zosyn IV. ALP now wnl 103 Synthroid/Vit D/VIt B12 as above Na 132, Cr 1.21--> Cr 1.05 without IVF/diuretics and no further to be provided for now Repeat C2V given wheezing on exam/increased O2 w/ ambulation- can reach out to pulm if needed given prior pleurX Changing albuterol HFA to xopenex nebs q8h scheduled, adding budesonide 0.25mg neb BID for wheezing Continue cough syrup QID scheduled, pulmonary toilet/incentive spirometer. O2 as needed Encouraged PO intake/boost (has been drinking). Albumin slightly improved 2.9--> 3.0. Continue regular/easy to chew diet Continued inpatient stay, planning for HHPT pending status Will reach back to heme/onc for discussion in AM as prior plan to have drug holiday but if remains in current condition unclear if will be able to offer but per my prior discussion with Dr Packer he had planned to resume once completed a break but will need further discussion. Doesn't seem quite ready for hospice at this time unless he weren't able to continue treatment but also voices concerns about being able to tolerate any further and will need continued discussions. (2) SOB (shortness of breath): Plan: CTA chest on admit neg for PE but does have lung mets, noting partial response. Home PO chemo on hold IMPROVING slightly 11/12 HOWEVER see above, worse today/wheezing on exam. Repeat chest 2view/changing HFA to xopenex/budesonide nebs to see if any improvement Pulm consulted as above, cough syrup chan, pulm toilet. BNP not elevated Asking RN to keep on O2 w/ ambulation and check ambulatory pulse ox in room to see needs w/ ambulation and will plan for official 2step at time of discharge as suspect needs given drops w/ ambulation (3) Metastatic renal cell carcinoma: Plan: On admission, continued lenvatinib and everolimus and family brought in however see above now on hold for drug holiday given #1 Will touch base w/ Dr Packer 11/14 for ongoing discussion given encounter w/ patient 11/13 but did discuss prior discussion w/ Dr Packer with patient that he had still planned to offer chemo/not planning for palliative/hospice as above THerayp evals/HHPT at me when able (4) Hypothyroidism: Plan: as above, TSH 11 earlier this year, WORSE at 26 this admission. T4/T3 wnl however on 50mcg daily and INCREASED to 75mcg daily and should be continued on such at me. Rec repeat TFT 4wk outpt/further increase if needed (5) B12 deficiency: Plan: low normal 332 1000mcg IM dose x 1 on 11/11, continues on 1000mcg daily and should be continued at discharge Folate also checked- wnl at 9.68 (6) Difficulty swallowing: Plan: Increased mouth pain/issues with swallowing for approx 1 month Aspiration precautions, Speech consult - did have recent issue of having pill stuck towards distal aspect of esophagus, anxiety about happening again Was on dexamethasone suspension QID however not using as frequent at home. Held PO steroid on admission and ordered magic swizzle which he reports is helping added nystatin to see if any help lower issues but no overt thrush on exam. Aspiration precautions Speech consulted - minced/moist diet, adv as above. TSH elevation/synthroid adjustment as above Remeron added to assist w/ mood/sleep/appetite. ?amlodipine of any benefit. could consider trial if desired (7) Mouth pain: Plan: See difficulty swallowing, continue magic swizzle. Added nystatin to see if any improvement - continued for now (8) Type 2 diabetes mellitus without complication: Plan: A1c 7.2 back in February 2022, repeat 7.1 BSG AC/HS, SSI while inpatient. Removed DM II from diet to allow for more variety as well as poor PO intake/prior hypoglycemia 11/09 but has had periodic spikes. NO basal Discussed w/ nursing today as prior not adding up carbs/not on dietary sheet when brought up to assist w/ coverage and added back carb coverage as she is agreeable to monitor trays/confirm w/ carb sheets we have. Loose CR 10 for now given CF 25 and will monitor/adjust as needed as is also getting dextrose in IV w/ his Zosyn Monitor/adj as needed (9) Vitamin D deficiency: Plan: checked w/ nutritional status/resp and was LOW 19.3. Started PO supplementation daily and should be continued at dc Plan ongoing weakness/fatigue, Ambulatory pulse ox w/ nursing, O2 as needed and needs formal 2step and likely O2 arranged at me. Dispo:PT/OT rec for HHPT., Timing TBD pending status but ongoing weekness/fatigue slightly worsened breathing today and repeating C2V/nebs as outlined. Consideration to reach back to pulm if needed and plan to touch base w/ Dr Packer in AM for ongoing discussions whether able to continue chemo if continues in current state or if needing to revisit palliaitve however did discuss w/ Ulises and in room that prior discussions w/ oncology indicating would continue chemotherapy given response on imaging F/u gerson in AM about handicap placard Admission and Anticipated Discharge Date Admission Date: November 09, 2023 Subjective Evaluated around lunch, in room. Had been off O2 from resp, ambulating to bathroom and SpO2 to lower 80s, rebounded on 1-2L NC. Discussed w/ nursing to continue w/ O2 and likely dropping w/ ambulation. Will check ambulatory pulse ox but discussed likely need for O2 at me. He reports drinking most of boost, remeron/ativan at night effective at current dose and doesn't want reduction in ativan w/ such. Less cough but still w/ deep breathing. Does have a little more wheezing on exam, discussed ordering some nebulized medication which he notes had before and agreeable. Will order some xopenex and budesonide nebs to assist w/ wheezing/bronchitis/pneumonitis type symptoms. He does endorse wondering when he will get out fo the hospital and not wanting to go until feeling better He notes he doesn't have anything to look forward to/not able to eat great, breathing difficulty, frailty, tolerance to chemo. Discussed Synthroid will take some time for adjustment, is on B12/Vit D replacement. Labs improved. Remains on abx, moving bowels. no significant diarrhea. Will reach back to heme/onc for discussion in AM as prior plan to have drug holi day but if remains in current condition unclear if will be able to offer but per my prior discussion with Dr Packer he had planned to resume once completed a break but will need further discussion. Doesn't seem quite ready for hospice at this time unless he weren't able to continue treatment but also voices concerns about being able to tolerate any further and will need continued discussions. Questions/concerns addressed at this time. Physical Exam Physical Exam: General: 73yo chronically ill appearing/malnourished male sitting up in bed, in room, NAD but dyspneic w/ exertion Head atraumatic, mm slightly dry but stable/improved slightly from day prior Resp: diminished in the bases w/ associated crackles, coarse breath sounds at times but having increased inspiratory/expiratory wheezing today, on 1L NC, +cough CV: RRR/slightly tachy to 100s at times, quite HS but S1/S2, no significant m/r /g, no pitting edema/calf tenderness GI: +BS,soft, no further tenderness RUQ/flank : no duncan MSK/Neuro: generalized weakness but nonfocal. able to sit up in bed better however increased weakness/SOB w/ activity today/wheezing Psych: AOx3, depressed/flat affect, Results & Data Results & Data Vital Signs (Past 12 Hours) Vital Signs Temp Pulse Resp BP Pulse Ox O2 Del Method O2 Flow Rate 11/14/23 07:47 36.6 C 89 18 116/77 90 Nasal Cannula 1 11/14/23 07:22 92 H 18 90 Room Air 11/14/23 00:29 36.7 C 97 H 16 108/72 92 Nasal Cannula 2 11/13/23 21:59 Nasal Cannula 2 Laboratory Results 11/14/23 11/14/23 11/14/23 Range/Units 11:43 07:44 06:53 WBC 9.29 (4.8-10.8) K/ul RBC 4.09 L (4.70-6.10) M/uL Hgb 11.6 L (14.0-18.0) g/dl Hct 36.1 L (42.0-52.0) % MCV 88.3 (80.0-100.0) fL MCH 28.4 (25.0-34.0) pg MCHC 32.1 (32.0-36.0) g/dL RDW Std Deviation 43.3 (36.4-46.3) fL RDW Coeff of Joaquim 13.3 (11.5-14.5) % Plt Count 412 H (130-400) K/uL MPV 9.3 L (9.4-12.4) fL Immature Gran % (Auto) 0.3 % Neut % (Auto) 84.8 % Lymph % (Auto) 5.3 % Preble % (Auto) 9.0 % Eos % (Auto) 0.5 % Baso % (Auto) 0.1 % Neut # (Auto) 7.87 H (1.40-6.50) K/uL Lymph # (Auto) 0.49 L (1.20-3.40) K/uL Preble # (Auto) 0.84 H (0.11-0.59) K/uL Eos # (Auto) 0.05 (0.00-0.50) K/uL Baso # (Auto) 0.01 (0.00-0.20) K/uL Immature Gran # (Auto) 0.03 (0.01-0.20) K/uL Sodium 132 L (136-145) mmol/L Potassium 4.3 (3.5-5.1) mmol/L Chloride 95 L (98-107) mmol/L Carbon Dioxide 27 (21-32) mmol/L Anion Gap 10 (3-11) BUN 36 H (6-23) mg/dl Creatinine 1.05 (0.6-1.4) mg/dl Est Cr Clr Drug Dosing 56.1 ml/min Est GFR ( Amer) 82.4 ml/min Est GFR (Non-Af Amer) 71.1 ml/min BUN/Creatinine Ratio 34.3 H (10-20) Glucose 165 H (70-99(Fasting)) mg/dl POC Glucose 241 H 184 H (70-99) mg/dl Calcium 9.1 (8.6-10.3) mg/dl Phosphorus 4.1 (2.5-4.9) mg/dl Magnesium 2.0 (1.7-2.4) mg/dl Total Bilirubin 0.5 (0.2-1.0) mg/dl AST 14 (13-39) U/L ALT 8 (7-52) U/L Alkaline Phosphatase 103 (34-104) U/L Total Creatine Kinase 16 L (30-223) U/L Total Protein 6.9 (6.0-8.3) gm/dl Albumin 3.0 L (3.4-5.0) gm/dl Globulin 3.9 (2.5-4.0) gm/dl Albumin/Globulin Ratio 0.8 L (0.9-2) 11/13/23 11/13/23 Range/Units 20:32 16:51 WBC (4.8-10.8) K/ul RBC (4.70-6.10) M/uL Hgb (14.0-18.0) g/dl Hct (42.0-52.0) % MCV (80.0-100.0) fL MCH (25.0-34.0) pg MCHC (32.0-36.0) g/dL RDW Std Deviation (36.4-46.3) fL RDW Coeff of Joaquim (11.5-14.5) % Plt Count (130-400) K/uL MPV (9.4-12.4) fL Immature Gran % (Auto) % Neut % (Auto) % Lymph % (Auto) % Preble % (Auto) % Eos % (Auto) % Baso % (Auto) % Neut # (Auto) (1.40-6.50) K/uL Lymph # (Auto) (1.20-3.40) K/uL Preble # (Auto) (0.11-0.59) K/uL Eos # (Auto) (0.00-0.50) K/uL Baso # (Auto) (0.00-0.20) K/uL Immature Gran # (Auto) (0.01-0.20) K/uL Sodium (136-145) mmol/L Potassium (3.5-5.1) mmol/L Chloride (98-107) mmol/L Carbon Dioxide (21-32) mmol/L Anion Gap (3-11) BUN (6-23) mg/dl Creatinine (0.6-1.4) mg/dl Est Cr Clr Drug Dosing ml/min Est GFR ( Amer) ml/min Est GFR (Non-Af Amer) ml/min BUN/Creatinine Ratio (10-20) Glucose (70-99(Fasting)) mg/dl POC Glucose 202 H 191 H (70-99) mg/dl Calcium (8.6-10.3) mg/dl Phosphorus (2.5-4.9) mg/dl Magnesium (1.7-2.4) mg/dl Total Bilirubin (0.2-1.0) mg/dl AST (13-39) U/L ALT (7-52) U/L Alkaline Phosphatase (34-104) U/L Total Creatine Kinase (30-223) U/L Total Protein (6.0-8.3) gm/dl Albumin (3.4-5.0) gm/dl Globulin (2.5-4.0) gm/dl Albumin/Globulin Ratio (0.9-2) PG Care Time/CCT Total # of Minutes Spent Total Time Spent with Patient: Total time spent is greater than 50% in coordination of care (as documented) at patient's floor/unit and/or counseling patient: Coding Level of Care Code 01027 SUB INP/OBS CARE 3/50MIN Diagnoses Generalized weakness R53.1 SOB (shortness of breath) R06.02 Renal cell carcinoma of right kidney metastatic to other site C64.9 Laterality: unspecified laterality Hypothyroidism E03.9 B12 deficiency E53.8 Difficulty swallowing R13.10 Mouth pain K13.79 Type 2 diabetes mellitus without complication E11.9 Vitamin D deficiency E55.9 (3) Metastatic renal cell carcinoma Laterality: unspecified laterality Qualified Code(s): C64.9 - Malignant neoplasm of unspecified kidney, except renal pelvis
--- NOTE | 2023-11-14 13:55 | XRay Report ---
XR chest 2V PA/lateral HISTORY: 73 years-old Male wheezing acute shortness of breath COMPARISON: 11/12/2023 TECHNIQUE: PA and lateral views of the chest FINDINGS: Cardiac silhouette is enlarged. Extensive mixed interstitial and alveolar opacities with progressive consolidation of the lung bases and right mid lung. Layering pleural effusions have also increased in size. No pneumothorax. Upper abdominal surgical clips. Degenerative changes of the shoulders and spi ne. IMPRESSION: 1. Cardiomegaly with extensive mixed interstitial and alveolar opacities which have progressed from p rior. 2. Increased size of the layering pleural effusions. ACT 112: Negative or not required by law. The above report was generated using voice recognition software. It may contain grammatical, syntax o r spelling errors. Electronically signed by: Ramon Godinez M.D. 11/14/2023 1:54 PM
[2023-11-14] MEDS: LEVALBUTEROL HCL 0.63 MG/3 ML NEB NEB SCH (14:10)
[2023-11-14] MEDS: BUDESONIDE 0.25 MG/2 ML VIAL (PULMICORT) NEB SCH (14:10)
[2023-11-14] MEDS: FAMOTIDINE 20MG IV PUSH 20 MG/5 ML SYR IV SCH (15:58)
--- NOTE | 2023-11-15 08:11 | Hospitalist Progress Note ---
<Statement entered by Viola Gaona MD - 11/15/23 15:58> Mr. Pepe with metastatic RCC unfortunately has not improved after a week in the hospital despite addressing failure to thrive from multiple angles, including trial of broad spectrum antibiotics. Respiratory status has worsened, reviewed chest CT films, planned for thoracentesis which hopefully will provide some tem porary relief. Date of Service November 15, 2023 Assessment & Plan (1) SOB (shortness of breath): Plan: Presented with weakness/SOB. PleurX on the RIGHT removed October 26 (prior had one on the left) but not draining anything and removed CTA chest on admission negative for PE, findings c/w partial treatment response w/ improvement in b/l pleural effusions, pleural metastatic disease and thoracic lymphadenopathy, interval decrease in size of R adrenal mets, persistent interlobar septal thickening, ?lymphangitic tumor or pulmonary edema. Had been on room air at rest w/ suspected drops in O2 w/ ambulation given lung mets however did attempt lasix IV despite negative BNP to help w/ edema/effusions without significant response and given poor PO intake avoiding further diuretics but had been taking in boost supplements/albumin improved Slight improvement in breathing 11/12 however appeared worse on 11/13 and repeat C2V obtained which appeared worse and discussed w/ pulm given extensive mixed interstitial and alveolar opacities which have progressed from prior. Increased size of the layering pleural effusions. I&O not accurate as having unmeasured voids, continued weight loss Did order nebs w/ xopenex/budesonide to see if helped Continued cough syrup QID Pulmonary toilet WORSENED BREATHING/HYPOXIA today WBC elevation 11.3k. Bcx from admission NEGATIVE Discussed w/ Dr Nguyễn this morning and last evening given worsening CXR but now increased O2 needs and recs for repeat CT chest noncontrast for further eval Dr Zamora/Ochoa inpatient today as he is in clininc. Prior PleurX removed as not having drainage CT Chest noncontrast obtained * 1. Cardiomegaly with pulmonary edema, small pericardial effusion and new loculated moderate right pleural effusion. * 2. Pathologic thoracic lymphadenopathy with metastatic disease of the chest redemonstrated as described above. * 3. Progressive nodular bilateral airspace opacities may represent a superimposed pneumonia. * 4. Possible lymphangitic carcinomatosis. He is in clinic, Dr Zamora/Ochoa inpatient today. Discussed w/ patient and agreeable/wanting catheter for drainage/symptom management Did ask Dr Packer to see again today as messaged last evening give unlikely to tolerate any further chemo in current state and if not going to offer, patient/ aggreaable to palliative consultation which was placed and hopeful able to see tomorrow after seen by oncology Supplemental O2 to maintain sats, will need continued oxygen likely at ma pending response to catheter/drainage. Pulm saw, planning for IR drainage/fluid analysis to see if malignant vs infectious however prior samples malignant Remains on Zosyn IV for coverage, ?switching to Cefepime Continued inpatient stay (2) Generalized weakness: Plan: 73yo presents for ~1 month of progressive weakness/SOB. MULTIFACTORIAL: dehydration/poor PO intake, pulm mets, chemo, hypothyroidism, B12/Vit D deficiency, progressive disease CTA chest neg for PE, biofire resp/stool negative as well as for cdiff Lyme IgG + but neg IgM and tx in the past. TSH elevation 26-- increased synthroid 75mcg daily B12 deficiency/low normal - IM x 1, continued PO daily Vit D low- PO started/continued Ativan for anxiety continued but at lower dose and prn available as well. Remeron added prior for mood/sleep/appetite which does seem to have helped appetite but poor PO tolerance Nutrition consulted, boost supplements. Has been taking, albumin improved prior Heme/onc consulted, planned for chemo holiday x 2 weeks, but progressive findings off chemo as above and do not suspect able to tolerate further in current condition. Dr Packer to see today/palliative consult placed pending discussion for tomorrow (3) Metastatic renal cell carcinoma: Plan: Continued lenvatinib and everolimus and family brought in however see above now on hold for drug holiday given above, however worsening findings on CT chest as above/loculated effusion and CTAP obtained this past week as well Heme/onc consulted, appreciate repeat eval/discussion as above for today and plan for palliaitve consult for tomorrow pending discussion as suspect hospice likely at ma if no improvement w/ symptoms w/ drain/eval (4) Hypothyroidism: Plan: as above, TSH 11 earlier this year, WORSE at 26 this admission. T4/T3 wnl however on 50mcg daily and INCREASED to 75mcg daily and should be continued on such at dc/adjustment outpt (5) B12 deficiency: Plan: low normal 332 and given IM x 1 and continued PO daily Folate wnl 9 (6) Difficulty swallowing: Plan: Mouth pain/issues with swallowing for approx 1 month Aspiration precautions, Speech consult - did have recent issue of having pill stuck towards distal aspect of esophagus, anxiety about happening again Was on dexamethasone suspension QID however not using as frequent at home. Nystatin/magic swizzle Aspiration precautions, boost supplements, speech eval Synthroid adjustment as above (7) Mouth pain: Plan: see above, pain controlled but difficult w/ appetite and added remeron and taking most of boost but continued/worsened weakness as above (8) Type 2 diabetes mellitus without complication: Plan: A1c 7.2 back in February 2022, repeat 7.1 BSG AC/HS, SSI while inpatient. Removed DM II from diet to increase variety and had prior hypoglycemia. Added back carb ratio/monitor No basal given poor PO intake but increased BSGs, suspect 2nd to progression of above/illness, and given complex patient did add pharmacy consult for glycemic assistance (9) Vitamin D deficiency: Plan: LOW 19.3, replacement started/continued Plan DVT proph: lovenox SQ continued continued inpatient stay, worsening respiratory status/CT chest as above and pulm re-eval/IR for drainage/fluid analysis Dr Packer to discuss plans w/ patient regarding ongoing treatment given progression off of oral chemo for less than a week at present w/ rapid progression in chest as above/palliative consult placed and to see in AM. Did also discuss w/ case management given prior PT/OT recs for HH however may need to arrange for palliative/hospice at discharge pending sx response w/ drainage and discussions w/ oncology/palliative Updated at bedside 11/14. Will need oxygen at dc, 2step closer to time pending discussions Admission and Anticipated Discharge Date Admission Date: November 09, 2023 Subjective Evaluated around lunch, had been sent to CT scan noncon for further eval given increased SOB/oxygen needs and exam yesterday w/ worsening CXR as discussed w/ Dr Nguyễn this morning who is not in the hospital today and Ochoa/Dr Zamora covering and discussed w/ patient and in room. Quite dyspneic and having trouble w/ tolerance even to sit up to eat lunch today. On 3L NC, discussed prior attempts to help fluid w/ lasix and dehydration and likely not effective however did discuss and patient agreeable to catheter placement/drainage. Inquired about Pleurx. Discussed provider said pigtail however will see if able to replace PleurX but can be discussed when they see him. Ulises reports wanting done "as soon as they can" in regards to timing for placement. at bedside and discussed progression/concerns for not being able to resume chemo and message to Dr Packer last evening and this morning. Has not yet seen patient but will await evaluation. noting if not going to be able to offer/tolerate any more chemo they want to hear this from him and then will have palliative consult in place which has been ordered and hopefully able to see tomorrow once seen by Dr Packer today. Questions/concerns addressed at this time. Physical Exam Physical Exam: General: 73yo chronically ill appearing male, appears worse, increased work of breathing/increased weakness Head atraumatic, bitemporal wasting, mm try, trachea midline Resp: coarse breath sounds throughout, diminished in the bases , worse on the R>L w/ inspiratory/expiratory wheezing, on 3L NC CV: regular rhythm, slightly tachy to 90-100s, quiet HS but no significant mrg, no pitting edema/calf tenderness GI: +BS, soft/slight distension but nontender ; no duncan MSK/Neuro: non focal/not confused but generalized weakness throughout Psych: alert/oriented, depressed affect Results & Data Results & Data Vital Signs (Past 12 Hours) Vital Signs Temp Pulse Resp BP Pulse Ox O2 Del Method O2 Flow Rate 11/15/23 07:22 36.5 C 71 18 116/72 92 Nasal Cannula 3 11/15/23 07:19 18 92 Nasal Cannula 3 11/15/23 04:11 83 16 93 Nasal Cannula 2 11/14/23 21:10 Nasal Cannula 2 11/14/23 21:06 37.1 C 95 H 18 110/69 92 Nasal Cannula 2 Laboratory Results 11/15/23 11/15/23 11/15/23 Range/Units 11:38 08:27 07:46 WBC 11.34 H (4.8-10.8) K/ul RBC 4.14 L (4.70-6.10) M/uL Hgb 11.6 L (14.0-18.0) g/dl Hct 37.3 L (42.0-52.0) % MCV 90.1 (80.0-100.0) fL MCH 28.0 (25.0-34.0) pg MCHC 31.1 L (32.0-36.0) g/dL RDW Std Deviation 44.0 (36.4-46.3) fL RDW Coeff of Joaquim 13.4 (11.5-14.5) % Plt Count 449 H (130-400) K/uL MPV 9.3 L (9.4-12.4) fL Immature Gran % (Auto) 0.5 % Neut % (Auto) 85.8 % Lymph % (Auto) 4.7 % [place] % (Auto) 8.6 % Eos % (Auto) 0.3 % Baso % (Auto) 0.1 % Neut # (Auto) 9.73 H (1.40-6.50) K/uL Lymph # (Auto) 0.53 L (1.20-3.40) K/uL [place] # (Auto) 0.98 H (0.11-0.59) K/uL Eos # (Auto) 0.03 (0.00-0.50) K/uL Baso # (Auto) 0.01 (0.00-0.20) K/uL Immature Gran # (Auto) 0.06 (0.01-0.20) K/uL Sodium 132 L (136-145) mmol/L Potassium 3.9 (3.5-5.1) mmol/L Chloride 94 L (98-107) mmol/L Carbon Dioxide 27 (21-32) mmol/L Anion Gap 11 (3-11) BUN 33 H (6-23) mg/dl Creatinine 1.05 (0.6-1.4) mg/dl Est Cr Clr Drug Dosing 56.1 ml/min Est GFR ( Amer) 82.4 ml/min Est GFR (Non-Af Amer) 71.1 ml/min BUN/Creatinine Ratio 31.4 H (10-20) Glucose 232 H (70-99(Fasting)) mg/dl POC Glucose 229 H 206 H (70-99) mg/dl Calcium 9.6 (8.6-10.3) mg/dl Magnesium 2.1 (1.7-2.4) mg/dl Total Bilirubin 0.5 (0.2-1.0) mg/dl Direct Bilirubin 0.2 (0-0.2) mg/dl AST 14 (13-39) U/L ALT 9 (7-52) U/L Alkaline Phosphatase 99 (34-104) U/L Total Protein 6.8 (6.0-8.3) gm/dl Albumin 2.9 L (3.4-5.0) gm/dl Cortisol AM Sample 28.89 H (6.2-22.6) mcg/dl 11/14/23 11/14/23 Range/Units 20:37 16:48 WBC (4.8-10.8) K/ul RBC (4.70-6.10) M/uL Hgb (14.0-18.0) g/dl Hct (42.0-52.0) % MCV (80.0-100.0) fL MCH (25.0-34.0) pg MCHC (32.0-36.0) g/dL RDW Std Deviation (36.4-46.3) fL RDW Coeff of Joaquim (11.5-14.5) % Plt Count (130-400) K/uL MPV (9.4-12.4) fL Immature Gran % (Auto) % Neut % (Auto) % Lymph % (Auto) % [place] % (Auto) % Eos % (Auto) % Baso % (Auto) % Neut # (Auto) (1.40-6.50) K/uL Lymph # (Auto) (1.20-3.40) K/uL [place] # (Auto) (0.11-0.59) K/uL Eos # (Auto) (0.00-0.50) K/uL Baso # (Auto) (0.00-0.20) K/uL Immature Gran # (Auto) (0.01-0.20) K/uL Sodium (136-145) mmol/L Potassium (3.5-5.1) mmol/L Chloride (98-107) mmol/L Carbon Dioxide (21-32) mmol/L Anion Gap (3-11) BUN (6-23) mg/dl Creatinine (0.6-1.4) mg/dl Est Cr Clr Drug Dosing ml/min Est GFR ( Amer) ml/min Est GFR (Non-Af Amer) ml/min BUN/Creatinine Ratio (10-20) Glucose (70-99(Fasting)) mg/dl POC Glucose 203 H 180 H (70-99) mg/dl Calcium (8.6-10.3) mg/dl Magnesium (1.7-2.4) mg/dl Total Bilirubin (0.2-1.0) mg/dl Direct Bilirubin (0-0.2) mg/dl AST (13-39) U/L ALT (7-52) U/L Alkaline Phosphatase (34-104) U/L Total Protein (6.0-8.3) gm/dl Albumin (3.4-5.0) gm/dl Cortisol AM Sample (6.2-22.6) mcg/dl Diagnostic Findings Chest CT 11/15/23 09:06 CT chest diagnostic wo con CT DOSE: 417.97 mGy.cm CLINICAL HISTORY: 73 years-old Male with worsening CXR, resp status/effusions, ca. ?infx.. Acute shortness of breath with pulmonary opacities . 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 TECHNIQUE: Multiaxial CT images of the chest were performed without contrast. A dose lowering technique was utilized adhering to the principles of ALARA. COMPARISON: CTA chest 11/08/2023 FINDINGS: No thoracic aortic aneurysm. Small pericardial effusion is present. Small left pleural effusion is unchanged. There is a new loculated moderate- sized right pleural effusion. Irregular interlobular septal thickening persists. Thoracic lymphadenopathy is overall unchanged. A left lower cervical lymph node image 42 series 4 measures 3.2 x 1.9 cm. A subcarinal lymph node measures 5.9 x 3.0 cm. several these nodes are partially calcified. Pleural thickening, greater on the left again noted with progression on the right. A 5 cm irregular subpleural right lower lobe nodular opacity on image 167 previously measured 3.9 cm. There is no pneumothorax. There is progressive mixed interstitial and alveolar opacities with worsening of the intralobular septal thickening. Subpleural patchy nodular consolidative foci also noted. No suspicious lesions within the bony thorax are present. There are gallstones within the gallbladder. Periportal edema is noted. There is also mild peripancre atic edema. Hepatic metastatic disease. Possible intrahepatic biliary ductal dilatation within the left hepatic lobe is noted. A 4 cm right adrenal metastasis is unchanged IMPRESSION: 1. Cardiomegaly with pulmonary edema, small pericardial effusion and new loculated moderate right pleural effusion. 2. Pathologic thoracic lymphadenopathy with metastatic disease of the chest redemonstrated as described above. 3. Progressive nodular bilateral airspace opacities may represent a superimposed pneumonia. 4. Possible lymphangitic carcinomatosis. 5. Hepatic and right adrenal metastasis. 6. Cholelithiasis. ACT 112: Negative or not required by law. Electronically signed by: Ramon Godinez M.D. 11/15/2023 11:39 AM PG Care Time/CCT Total # of Minutes Spent Total Time Spent with Patient: Total time spent is greater than 50% in coordination of care (as documented) at patient's floor/unit and/or counseling patient: Prolonged Care Time Prolonged Care Time: Yes additional 90 minutes of time spent above usual for discussion with multiple providers (Dr Nguyễn/pulmonology team in house presently, palliative provider and oncology) as well as time spent at bedside for discussion with patient and regarding plan of care in event not able to offer more chemotherapy/goals of care Coding Level of Care Code 74404 SUB INP/OBS CARE 3/50MIN (25 - SIGNIFICANT, SEPARATELY IDENTIFIABLE ) Diagnoses SOB (shortness of breath) R06.02 Generalized weakness R53.1 Renal cell carcinoma of right kidney metastatic to other site C64.9 Laterality: unspecified laterality Hypothyroidism E03.9 B12 deficiency E53.8 Difficulty swallowing R13.10 Mouth pain K13.79 Type 2 diabetes mellitus without complication E11.9 Vitamin D deficiency E55.9 Additional Codes Prolonged Care Time - Prolonged Care Time: Yes ([id number]) (3) Metastatic renal cell carcinoma Laterality: unspecified laterality Qualified Code(s): C64.9 - Malignant neoplasm of unspecified kidney, except renal pelvis
[2023-11-15 08:56] LABS: Basophils # (auto) 0.01 K/uL (0.00-0.20); Basophils % (auto) 0.1 %; Eosinophils # (auto) 0.03 K/uL (0.00-0.50); Eosinophils % (auto) 0.3 %; Hematocrit (blood only) 37.3 % (42.0-52.0); Hemoglobin 11.6 g/dl (14.0-18.0); Immature Granulocytes # (auto) 0.06 K/uL (0.01-0.20); Immature Granulocytes % (auto) 0.5 %; Lymphocytes # (auto) 0.53 K/uL (1.20-3.40); Lymphocytes % (auto) 4.7 %; Mean Corpuscular Hgb Conc 31.1 g/dL (32.0-36.0); Mean Corpuscular Volume 90.1 fL (80.0-100.0); Mean Platelet Volume 9.3 fL (9.4-12.4); Monocytes # (auto) 0.98 K/uL (0.11-0.59); Monocytes % (auto) 8.6 %; Neutrophils # (auto) 9.73 K/uL (1.40-6.50); Neutrophils % (auto) 85.8 %; Platelet Count 449 K/uL (130-400); RDW Coefficient of Variation 13.4 % (11.5-14.5); Red Blood Count 4.14 M/uL (4.70-6.10); White Blood Count 11.34 K/ul (4.8-10.8)
[2023-11-15 09:12] LABS: Albumin Level 2.9 gm/dl (3.4-5.0); BUN Creatinine Ratio 31.4 (10-20); Bilirubin Direct 0.2 mg/dl (0-0.2); Bilirubin,Total 0.5 mg/dl (0.2-1.0); Calcium 9.6 mg/dl (8.6-10.3); Creatinine Clr Calc Pharmacy 56.1 ml/min; Est GFR (African American) 82.4 ml/min; Est GFR (Non-African American) 71.1 ml/min; Magnesium 2.1 mg/dl (1.7-2.4); Potassium 3.9 mmol/L (3.5-5.1); Total Protein 6.8 gm/dl (6.0-8.3)
--- NOTE | 2023-11-15 11:41 | CT Scan Report ---
CT chest diagnostic wo con CT DOSE: 417.97 mGy.cm CLINICAL HISTORY: 73 years-old Male with worsening CXR, resp status/effusions, ca. ?infx.. Acute jeff rtness of breath with pulmonary opacities . History of pleural metastasis and pathologic thoracic torrey nopathy. Adrenal metastasis. TECHNIQUE: Multiaxial CT images of the chest were performed without contrast. A dose lowering techni que was utilized adhering to the principles of ALARA. COMPARISON: CTA chest 11/08/2023 FINDINGS: No thoracic aortic aneurysm. Small pericardial effusion is present. Small left pleural effu todd is unchanged. There is a new loculated moderate-sized right pleural effusion. Irregular interlobular septal thickening persists. Thoracic lymphadenopathy is overall unchanged. A l eft lower cervical lymph node image 42 series 4 measures 3.2 x 1.9 cm. A subcarinal lymph node measur es 5.9 x 3.0 cm. several these nodes are partially calcified. Pleural thickening, greater on the left again noted with progression on the right. A 5 cm irregular subpleural right lower lobe nodular opac ity on image 167 previously measured 3.9 cm. There is no pneumothorax. There is progressive mixed int erstitial and alveolar opacities with worsening of the intralobular septal thickening. Subpleural pat maddie nodular consolidative foci also noted. No suspicious lesions within the bony thorax are present. There are gallstones within the gallbladder . Periportal edema is noted. There is also mild peripancreatic edema. Hepatic metastatic disease. Pos sible intrahepatic biliary ductal dilatation within the left hepatic lobe is noted. A 4 cm right adre nal metastasis is unchanged IMPRESSION: 1. Cardiomegaly with pulmonary edema, small pericardial effusion and new loculated moderate right ple ural effusion. 2. Pathologic thoracic lymphadenopathy with metastatic disease of the chest redemonstrated as describ ed above. 3. Progressive nodular bilateral airspace opacities may represent a superimposed pneumonia. 4. Possible lymphangitic carcinomatosis. 5. Hepatic and right adrenal metastasis. 6. Cholelithiasis. ACT 112: Negative or not required by law. Electronically signed by: Ramon Godinez M.D. 11/15/2023 11:39 AM
--- NOTE | 2023-11-15 14:03 | Communication Note ---
Date of Service: November 15, 2023 [facility] Med Brief Note Consult received/appreciated/chart reviewed patient known to me from prior admission Awaiting onc eval and would like to speak with them re treatment options. This is c/w known prior wishes - he wants to pursue any cancer tx onions available I will re visit tomorrow No charge submitted. TS 20min Thank you for allowing us to participate in the ongoing care of this patient. Please page with any additional concerns. Bere Garcia DNP Director, Palliative Medicine
--- NOTE | 2023-11-15 14:14 | Pulmonology Progress Note ---
Date of Service November 15, 2023 Assessment & Plan (1) Abnormal chest CT: (2) SOB (shortness of breath): (3) Metastatic renal cell carcinoma: Laterality: unspecified laterality Qualified Code(s): C64.9 - Malignant neoplasm of unspecified kidney, except renal pelvis (4) Multiple pulmonary nodules: Plan IMPRESSION: Unfortunate 73-year-old male with a history of metastatic renal cell carcinoma with recent removal of relatively placed RIGHT-sided Pleurx catheter. Pulmonary medicine reconsulted in the setting of worsening shortness of breath and findings of RIGHT-sided effusion with concerns for loculation. RECOMMENDATIONS: 1. Recurrent RIGHT-sided effusion - CT findings performed today demonstrate moderate RIGHT-sided pleural effusion with concern for loculation. 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 Unfortunately, the patient is too weak and frail to undergo chemotherapy which seem to have been working in preventing recurrence of effusion. That being said, if the patient is unable to be treated for his renal cell carcinoma and this is reflective of rapidly progressive and recurrent effusion, this likely represents an end-stage process for the patient. Utilizing shared decision- making, we did have a lengthy discussion reviewing options including doing nothing and focusing on comfort, performing diagnostic/therapeutic thoracentesis to assess fluid and assess his response to removal of the fluid, or placing pigtail catheter for continuous drainage. At this point, the patient and are more interested in removal of fluid. We will place an order for IR for evaluation of therapeutic/diagnostic thoracentesis. Orders placed for fluid c ultures and cytology. Certainly, if this is door to door sales representative of an infectious etiology or if fluid is unsuccessfully able to be drained, I am concerned that this is ongoing to be a recoverable or treatable condition for the patient. We did broach the subject and additionally, discussed meeting with palliative care to review options including pain control, anxiety control, and insight regarding the and dying process. The patient and do state that they are interested, but are more interested in having fluid removed and discussing condition then. We will reconvene tomorrow after thoracentesis. 2. Shortness of breath - Multifactorial in the 73-year-old gentleman with end- stage renal cell carcinoma and recurrent effusion. 3. Metastatic renal cell carcinoma - Currently managed by [facility]. 4. Multiple pulmonary nodules - Concerning for metastatic disease. Thank you for allowing us to participate in the care of this patient. Pulmonary will follow along. Admission and Anticipated Discharge Date Admission Date: November 09, 2023 Subjective Was reconsulted by primary service as the patient was having progressively worsening shortness of breath over the last [address] of the chest was obtained without contrast which demonstrates recurrence of RIGHT-sided effusion with concern for loculated component. Patient was seen and evaluated at bedside. He states that he has had shortness of breath since the time of admission, but notes that it has worsened over the last 3 to 4 days. He offers no complaints of chest pain. No hemoptysis. No significant productive cough. Patient has been unable to undergo chemotherapy secondary to weakness and frailty. He wishes to undergo intervention to help remove pleural fluid if able. He states that he is fine with his breathing as he is laying flat, but any changes in position make it worse. Review of Systems Review of Systems: A complete 10 point review of systems was reviewed with the patient with p ertinent positives and negatives as per history of present illness. All else were negative. Physical Exam Physical Exam: VITAL SIGNS - Vital signs and nursing notes were reviewed. GENERAL - 73-year-old male appearing his stated age. Communicates well with provider and answers questions appropriately. SKIN - Incision site to the RIGHT-sided chest wall without surrounding signs of infection. No TTP. NOSE - Midline and without cyanosis. MOUTH/OROPHARYNX - Without perioral cyanosis. LUNGS -slightly breathless with conversation. Slight tachypnea at rest. Diminished lung sounds to the RIGHT-sided lung field. CARDIAC - RRR with S1/S2. No murmur, rubs, or gallops appreciated. ABDOMEN - Abdominal inspection demonstrates an obese abdomen. BS normoactive all four quadrants. No tenderness, palpable masses, or ascites noted. EXTREMITIES - Nail clubbing not present. No peripheral cyanosis. No pretibial edema present. +3/5 radial palpated throughout. PSYCH - A&Ox3 and cooperates fully with examiner. Pt is very pleasant and interacts well with examiner. Results & Data Results & Data Vital Signs (Past 12 Hours) Vital Signs Temp Pulse Resp BP Pulse Ox O2 Del Method O2 Flow Rate 11/15/23 09:23 91 Nasal Cannula 3 11/15/23 09:23 87 L Nasal Cannula 2 11/15/23 07:22 36.5 C 71 18 116/72 92 Nasal Cannula 3 11/15/23 07:19 18 92 Nasal Cannula 3 11/15/23 07:15 Nasal Cannula 3 11/15/23 04:11 83 16 93 Nasal Cannula 2 PG Care Time/CCT Total # of Minutes Spent Total Time Spent with Patient: Total time spent is greater than 50% in coordination of care (as documented) at patient's floor/unit and/or counseling patient: Coding Level of Care Code 47210 SUB INP/OBS CARE 3/50MIN Diagnoses Abnormal chest CT R93.89 SOB (shortness of breath) R06.02 Renal cell carcinoma of right kidney metastatic to other site C64.9 Laterality: unspecified laterality Multiple pulmonary nodules R91.8
[2023-11-15] MEDS ORDERED: PHARMACY GLYCEMIC MGMT CONSULT PRN (15:27)
--- NOTE | 2023-11-15 16:38 | Hematology/Oncology Prog Note ---
Date of Service November 15, 2023 Assessment & Plan (1) Metastatic renal cell carcinoma: Plan: continue to hold chemotherapy going forward given the generalized decline in his health and deconditioning. Will continue to hold lenvatinib plus everolimus Indefinitely. had a brief discussion about goals of care and possible consideration of best supportive care. Plan Suspend oncological treatment. Palliative care on board. Medical oncology will continue to follow make appropriate recommendations. Admission and Anticipated Discharge Date Admission Date: November 09, 2023 Subjective Still very short of breath, declining generally. Appetite remains poor Review of Systems Review of Systems: All systems reviewed & are unremarkable except as noted in HPI & below Constitutional: as per Subjective / HPI Eyes: as per Subjective / HPI Ear, Nose, Mouth, Throat: as per Subjective / HPI Respiratory: as per Subjective / HPI Cardiovascular: as per Subjective / HPI Gastrointestinal: as per Subjective / HPI Genitourinary: + as per Subjective / HPI Musculoskeletal: as per Subjective / HPI Integumentary: as per Subjective / HPI Neurologic: as per Subjective / HPI Psychiatric: as per Subjective / HPI Endocrine: as per Subjective / HPI Hematologic / Lymphatic: as per Subjective / HPI Physical Exam Constitutional: WD/WN, vitals as above Eyes: PERRL, conjunctivae normal, anicteric sclerae ENMT: external ear and nose normal, oropharynx normal Neck: trachea midline, no thyromegaly Respiratory: normal respiratory effort, lungs clear to auscultation Cardiovascular: RRR, no murmur, no edema Gastrointestinal (Abdomen): normal bowel sounds, soft, nontender, no hepatosplenomegaly Musculoskeletal: no cyanosis or clubbing, extremities motor strength 5/5 Skin: no rashes, warm and dry Neurologic: patellar DTR's 2+ bilat, sensation intact Psychiatric: A+Ox3, euthymic affect Genitourinary: no testicular masses, no penis abnormality Lymphatic: no cervical or axillary lymphadenopathy Results & Data Vital Signs (Past 12 Hours) Vital Signs Temp Pulse Resp BP BP Pulse Ox O2 Del Method 11/15/23 16:06 37.0 C 94 H 18 107/72 95 Nasal Cannula 11/15/23 14:16 107 H 25 H 87 L Nasal Cannula 11/15/23 09:23 91 Nasal Cannula 11/15/23 09:23 87 L Nasal Cannula 11/15/23 07:22 36.5 C 71 18 116/72 92 Nasal Cannula 11/15/23 07:19 18 92 Nasal Cannula 11/15/23 07:15 Nasal Cannula O2 Flow Rate 11/15/23 16:06 3 11/15/23 14:16 3 11/15/23 09:23 3 11/15/23 09:23 2 11/15/23 07:22 3 11/15/23 07:19 3 11/15/23 07:15 3 (1) Metastatic renal cell carcinoma Laterality: unspecified laterality Qualified Code(s): C64.9 - Malignant neoplasm of unspecified kidney, except renal pelvis
[2023-11-15] MEDS: LANTUS PER UNIT CHARGE SC SCH (17:20)
[2023-11-16 08:16] LABS: Basophils # (auto) 0.02 K/uL (0.00-0.20); Basophils % (auto) 0.2 %; Eosinophils # (auto) 0.03 K/uL (0.00-0.50); Eosinophils % (auto) 0.3 %; Hematocrit (blood only) 35.3 % (42.0-52.0); Hemoglobin 11.5 g/dl (14.0-18.0); Immature Granulocytes # (auto) 0.05 K/uL (0.01-0.20); Immature Granulocytes % (auto) 0.5 %; Lymphocytes # (auto) 0.54 K/uL (1.20-3.40); Lymphocytes % (auto) 4.9 %; Mean Corpuscular Hemoglobin 28.7 pg (25.0-34.0); Mean Corpuscular Hgb Conc 32.6 g/dL (32.0-36.0); Mean Platelet Volume 9.2 fL (9.4-12.4); Monocytes # (auto) 0.99 K/uL (0.11-0.59); Neutrophils # (auto) 9.42 K/uL (1.40-6.50); Neutrophils % (auto) 85.1 %; Platelet Count 431 K/uL (130-400); RDW Coefficient of Variation 13.6 % (11.5-14.5); RDW Standard Deviation 43.8 fL (36.4-46.3); Red Blood Count 4.01 M/uL (4.70-6.10); White Blood Count 11.05 K/ul (4.8-10.8)
[2023-11-16 08:43] LABS: Albumin Globulin Ratio 0.8 (0.9-2); Albumin Level 2.8 gm/dl (3.4-5.0); BUN Creatinine Ratio 32.7 (10-20); Bilirubin,Total 0.5 mg/dl (0.2-1.0); Calcium 9.2 mg/dl (8.6-10.3); Creatinine Clr Calc Pharmacy 60.1 ml/min; Est GFR (African American) 89.5 ml/min; Est GFR (Non-African American) 77.3 ml/min; Globulin 3.7 gm/dl (2.5-4.0); Magnesium 2.1 mg/dl (1.7-2.4); Total Protein 6.5 gm/dl (6.0-8.3)
--- NOTE | 2023-11-16 10:16 | Pharmacy Report ---
Pharmacy Glycemic Short Note 2 - Date of Service November 16, 2023 - Glycemic Short BSG Results (Last 24 hours): 11/15/23 11/15/23 11/15/23 11:38 16:56 20:54 Glucose POC Glucose 229 H 136 H 144 H 11/16/23 11/16/23 07:55 08:04 Glucose 156 H POC Glucose 289 H OUTPATIENT ANTIDIABETIC REGIMEN: * Metformin 1 gm PO BID * Trulicity 0.75 mg SQ weekly * HbA1c = 7.1% on 11/11/23 ASSESSMENT: * 73 y/o M admitted for SOB/weakness and metastatic renal cell carcinoma. History of diabetes managed on Metformin PO and Trulicity SQ at home. * BSGs yesterday were [phone] mg/dl. Fasting BSG today was 156 mg/dl. * Pharmacy was consulted last night. Basal insulin 6 units (stress of 1) given yesterday at dinner time. Continued the same today AM. * Novolog carb ratio was tightened to 8 yesterday. Pre-lunch BSG trended down to 142 mg/dl today. Loosened carb ratio slightly to 9. PLAN FOR INPATIENT GLYCEMIC CONTROL: * Hold outpatient diabetes medications * Basal insulin * Lantus 6 units SQ QAM * Bolus insulin * NovoLog per scale ACHS or Q6hrs while NPO * Goal Range: Low 110 mg/dL - High 140 mg/dL * Correction Factor: 25 mg/dL/unit * Nutritional / Prandial insulin per carb ratio of 1 unit per 9 grams CHO consumed
[2023-11-16 10:50] LABS: Appearance Pleural Fluid Slightly Hazy; Color Pleural Fluid Pale Yellow; RBC Pleural Fluid Auto 4000 /uL; Source Pleural Fluid Right Lung; WBC Pleural Fluid Auto 183 /uL
[2023-11-16 11:00] LABS: Total Protein Pleural Fluid 3.9 gm/dl
--- NOTE | 2023-11-16 11:03 | XRay Report ---
XR chest 1V not portable HISTORY: 73 years-old Male s/p rt thora follow-up study in a patient with pleural effusions COMPARISON: Chest CT 11/15/2023 TECHNIQUE: PA view of the chest FINDINGS: Cardiac silhouette is enlarged. Pulmonary vascular congestion with mixed interstitial and alveolar op acities redemonstrated. Layering pleural effusions are again noted, decreased in size on the right. N o postprocedural pneumothorax. Pulmonary nodular foci with pleural thickening better seen on prior CT . Degenerative changes of the shoulders and spine. IMPRESSION: 1. Decreased size of the right pleural effusion status post thoracentesis. 2. No postprocedural pneumothorax identified. 3. Additional findings of the chest are better evaluated on the CT from 11/15/2023. ACT 112: Negative or not required by law. The above report was generated using voice recognition software. It may contain grammatical, syntax o r spelling errors. Electronically signed by: Ramon Godinez M.D. 11/16/2023 11:02 AM
[2023-11-16 11:22] LABS: Eosinophils, Fluid 2 %; Lymphocytes, Fluid 67 %; Mono,Macrophage,Mesothelial 10 %; Neutrophils, Fluid 21 %
--- NOTE | 2023-11-16 11:52 | Ultrasound Report ---
ULTRASOUND-GUIDED RIGHT THORACENTESIS CLINICAL HISTORY: Loculated right pleural effusion PROCEDURE: Procedure and risks were explained. Informed consent was obtained. A final timeout was com pleted. The right lateral thorax was prepped and draped in sterile fashion. 1% lidocaine was utilized for skin anesthesia. Utilizing ultrasound guidance, a 5 [place] safety centesis catheter was advanced into the right pleura l effusion. Ultrasound images were obtained. A total of 650 mL straw-colored pleural fluid was remove d and sent to the lab. The catheter was removed and Band-Aid applied. The patient tolerated the proce dure well. Postprocedure chest x-ray will be performed. Vital signs will be monitored on the floor. IMPRESSION: Ultrasound-guided right thoracentesis as above. Performed, dictated, and signed by Chano Yu PA-C; to be co-signed by Dr. Nirmal Pineda. Electronically signed by: Nirmal Pineda M.D. 11/16/2023 5:14 PM
--- NOTE | 2023-11-16 12:43 | Pulmonology Progress Note ---
Date of Service November 16, 2023 Assessment & Plan (1) Abnormal chest CT: (2) SOB (shortness of breath): (3) Metastatic renal cell carcinoma: Laterality: unspecified laterality Qualified Code(s): C64.9 - Malignant neoplasm of unspecified kidney, except renal pelvis (4) Multiple pulmonary nodules: Plan Impression: 73-year-old male with metastatic renal cancer and malignant pleural effusion. His Pleurx catheter was removed and there was some reaccumulation of pleural fluid. He underwent thoracentesis today but did not have any symptomatic improvement in his tachypnea or shortness of breath. It is likely that the symptoms are related to other etiologies including pleural implants with restrictive lung disease, potentially lymphangitic spread, and parenchymal involvement. Recommendations: 1. Malignant pleural effusion: As the patient did not experience significant relief, I would not expect a Pleurx catheter to offer him symptomatic benefit so would not proceed down this route. Rather I think transitioning to palliative care measures would be more appropriate as his burden of disease is unlikely to respond to pulmonary interventions at this point in time and I am not sure the patient is a candidate for additional systemic chemotherapy given his poor performance status. He is scheduled to meet with palliative care later today. Reengaging medical oncology to determine whether or not there are additional systemic therapies available to decrease his tumor burden may be appropriate as well. 2. Would continue supplemental oxygen titrated to keep saturations at or above 88% however if the patient elects to pursue a more palliative approach, could consider the use of medications designed to eliminate her true dyspnea and shortness of breath and reconsider the role of oxygen as a comfort measure. Unfortunately, pulmonary has little else to offer at this point in time. We are available to assist in evaluating the patient if needed but I think at this point in time his care is primarily going to be dictated by palliative care and medical oncology. Feel free to contact us if we can be of additional assistance Admission and Anticipated Discharge Date Admission Date: November 09, 2023 Subjective Patient seen and examined. EMR reviewed. The patient underwent thoracentesis with interventional radiology today. A total of 650 cc was removed off of the right chest. The patient states he feels no different. Specifically, this did not improve any of the shortness of breath or respiratory symptoms. He denies any fevers, chills, or night sweats. He remains short of breath at rest Review of Systems 2 Review of Systems: All systems reviewed & are unremarkable except as noted in Subjective Physical Exam 2 Physical Exam: VITAL SIGNS - Vital signs and nursing notes were reviewed. GENERAL - 73-year-old male appearing his stated age. Communicates well with provider and answers questions appropriately. SKIN - Incision site to the RIGHT-sided chest wall without surrounding signs of infection. No TTP. NOSE - Midline and without cyanosis. MOUTH/OROPHARYNX - Without perioral cyanosis. LUNGS -slightly breathless with conversation. Slight tachypnea at rest. Diminished lung sounds to the RIGHT-sided lung field. CARDIAC - RRR with S1/S2. No murmur, rubs, or gallops appreciated. ABDOMEN - Abdominal inspection demonstrates an obese abdomen. BS normoactive all four quadrants. No tenderness, palpable masses, or ascites noted. EXTREMITIES - Nail clubbing not present. No peripheral cyanosis. No pretibial edema present. +3/5 radial palpated throughout. PSYCH - A&Ox3 and cooperates fully with examiner. Pt is very pleasant and interacts well with examiner. Results & Data Results & Data Vital Signs (Past 12 Hours) Vital Signs Temp Pulse Resp BP BP Pulse Ox O2 Del Method 11/16/23 11:01 36.4 C L 92 H 28 H 104/63 93 Nasal Cannula 11/16/23 10:45 36.8 C 93 H 24 107/68 95 Nasal Cannula 11/16/23 10:15 36.7 C 92 H 18 108/76 95 Nasal Cannula 11/16/23 10:00 36.8 C 91 H 20 105/69 96 Nasal Cannula 11/16/23 07:50 Nasal Cannula 11/16/23 07:49 36.6 C 89 18 115/76 94 Nasal Cannula 11/16/23 07:11 78 17 98 Nasal Cannula O2 Flow Rate 11/16/23 11:01 4 11/16/23 10:45 4 11/16/23 10:15 4 11/16/23 10:00 4 11/16/23 07:50 4 11/16/23 07:49 4 11/16/23 07:11 4 Laboratory Results 11/16/23 07:55 11/16/23 07:55 Diagnostic Findings Chest x-ray from today demonstrated decrease in size of the left-sided effusion. Right side remains encased with pleural implants. PG Care Time/CCT Total # of Minutes Spent Total Time Spent with Patient: Total time spent is greater than 50% in coordination of care (as documented) at patient's floor/unit and/or counseling patient: Coding Level of Care Code 83346 SUB INP/OBS CARE 350MIN Diagnoses Abnormal chest CT R93.89 SOB (shortness of breath) R06.02 Renal cell carcinoma of right kidney metastatic to other site C64.9 Laterality: unspecified laterality Multiple pulmonary nodules R91.8
--- NOTE | 2023-11-16 16:12 | Palliative Care Consultation ---
Date of Consultation November 16, 2023 Assessment & Plan (1) Dyspnea and respiratory abnormalities: malignant pleural effusion with 650ml removed earlier this morning no signif improvement in his resp effort (2) Difficulty swallowing: worsening over a few months per prefers pudding and sips water and boost will ask for [employer] eval Magic mouthwash in use for burning. no open lesions ?subclinical thrush Dysphagia type: unspecified Qualified Code(s): R13.10 - Dysphagia, unspecified (3) Generalized weakness: progressive over last few months, PS 2-3, resting 75-80% of the day (4) Cancer related pain: controlled at present (5) Advanced care planning/counseling discussion: A 45min face to face ACP meeting was held at bedside with pt and he is frustrated the thora did not help his breathing improve he notes his weakness is worsening but he wants to know what he can have for cancer treatment he states he is going to have a chemo holiday for 2 weeks then resume at likely lower dosing then re eval to see how he is doing. he is able to tell me he knows that his body is not tolerating the chemo but he knows the chemo has shown to be having a good effect on treating the cancer, so he feels very frustrated and conflicted that he is having trouble tolerating the therapy that is helping and hurting him at the same time notes that they know this change may not be enough for him to tolerate and if he worsens in spite of changes then a transition to comfort would be best for him. He was not willing to explore this further but did state "you may be right." They would like to see the results from tap and await formal recc from oncology. He is aware there may not be more that can be done to treat his cancer and understands there is more than can be done to focus QOL/comfort if and when he desires. Plan As above Thank you for allowing us to participate in the ongoing care of this patient. Please page with any additional concerns. Bere Garcia DNP Director, Palliative Medicine History of Present Illness Reason for Consultation: goals of care Attending Physician: Georgi Sanford MD History of Present Illness Mr. Pepe is a 73-year-old gentleman with metastatic renal cell carcinoma admitted from home with 5 days of worsening shortness of breath and dyspnea and found to have a malignant pleural effusion. His prior Pleurx catheter had been removed due to low drainage and output. He had a thoracentesis earlier today with a total output of 650 mL. He reports he does not feel any improvement in his breathing since that procedure. Additionally, his performance status has been declining. He is seen at the bedside together with his who shares that he is in a resting or sedentary position for approximately 75 to 80% of the day. He will spend the remaining portion of the day walking into their living room, sitting on a recliner or going out on the porch to sit in a chair. He will sometimes walk around the house, or to get the mail which she states is about 100 feet from their front door. His appetite has also been declining. His oral intake has been complicated by increasing trouble swallowing, noting that in the last few months he has really not been able to tolerate things with the texture other than putting and sometimes even water going down the wrong way. He has trouble with larger pills. He also complains of a burning sensation in his mouth but has not seen any open lesions or sores. notes that his weight has been steadily declining and his pant size dropped from a size 36 waist size 30 to waist in approximately 1 month's time. At the time of my evaluation, he remains on nasal cannula at 4 L/min with an SpO2 noted over 90 %. Allergies Allergy/AdvReac Type Severity Reaction Status Date / Time No Known Allergies Allergy Verified 10/22/23 10:38 Home Medications Medication Instructions Recorded Confirmed Type metformin 1,000 mg tablet 1,000 mg PO BID 01/10/20 11/08/23 History tamsulosin 0.4 mg capsule 0.8 mg PO QAM 01/16/20 11/08/23 History dulaglutide 0.75 mg/0.5 mL 0.75 mg subcut WK 02/18/21 11/08/23 History subcutaneous pen injector ([place]) simvastatin 20 mg tablet (Zocor) 20 mg PO QPM 03/24/22 11/08/23 History levothyroxine 50 mcg capsule 50 mcg PO DAILY 09/01/23 11/08/23 History lorazepam 1 mg tablet 1 mg PO Q4 PRN Anxiety 09/16/23 11/08/23 History venlafaxine 150 mg 150 mg PO DAILY 09/16/23 11/08/23 History capsule,extended release 24 hr albuterol sulfate 90 mcg/actuation 2 inh inhalation QID PRN shortness 09/22/23 11/08/23 Rx aerosol inhaler of breath or cough #8.5 grams dexamethasone 0.5 mg/5 mL oral 10 mg (100 mL) PO DIRECTED #0 mL 09/22/23 11/08/23 Rx solution everolimus (antineoplastic) 5 mg 5 mg PO DAILY #0 tabs 09/22/23 11/08/23 Rx tablet lenvatinib 18 mg/day (10 mg x 1 18 mg PO DAILY #90 caps 09/22/23 11/08/23 Rx and 4 mg x 2) capsule (Lenvima) cabotegravir sodium 30 mg tablet 60 mg PO UD 10/22/23 11/08/23 History (Vocabria) magnesium aspart,citrate,oxide 400 mg PO DAILY 10/22/23 11/08/23 History dronabinol 5 mg capsule 5 mg PO BID 11/08/23 11/08/23 History sodium polystyrene sulfonate 15 60 ml PO DAILY 11/08/23 11/08/23 History gram-sorbitol 20 gram/60 mL oral susp (SPS (with sorbitol)) Patient History Medical History History of elevated PSA History of urinary calculi History of mumps History of measles History of varicella Surgical History Hx of cystoscopy S/P thoracentesis Left pleural effusion 03/09/22 H/O prostate biopsy History of nephrectomy 2018- left History of inguinal hernia repair Family History Father Diabetes Congestive heart failure Mother Cancer breast cancer Social History Smoking Status: Never smoker Tobacco Type: Cigars Cigarettes Per Day: SMOKED OCCASIONAL CIGAR - QUIT MANY YRS AGO; Second Hand Exposure: No; Do You Dip or Chew Tobacco: No; Tobacco Cessation Education Requested by Patient: No Hx Alcohol Use: No Hx Substance Use: No Preferred Language: Citizen Of The [place] Communication Ability: Effective Social Work Assistant Required: No Beliefs That Will Affect Care: None marital status: Current Living Situation: Spouse current occupational status: retired How many Children do You have: 2 Other Information That Helps Us Care for You: No Feels Safe at Home: Yes Safety Concerns: Feels Safe At This Time caffeine: Yes during the past year weight has: remained stable Seatbelt Use: always Assistive Devices: Cane, Walker and Wheelchair Assistive Devices Comment: Walker used in hospital Review of Systems Review of Systems: All systems reviewed & are unremarkable except as noted in Subjective Physical Exam Physical Exam: Frail appearing elderly male, resting in bed, semireclining. Bitemporal wasting is noted. There is increased respiratory effort at rest. There is conversational dyspnea. Use of accessory muscles is noted. Abdominal breathing is noted. He is awake alert and oriented x 3. His vocal quality is very soft. There is occasional dry cough with throat clearing. Mucosal membranes are slightly dry, no obvious lesions. There is no overt JVD. Neck is supple and without stridor. Lungs are diminished on the right greater than the left. S1- S2, tachycardic with an apical rate of 104. Abdomen nontender, bowel sounds present. Generalized weakness to all extremities, no significant edema noted. Pleasant and cooperative with exam. Skin is pale and cool to touch. Results & Data Vital Signs (Past 12 Hours) Vital Signs Temp Pulse Resp BP BP Pulse Ox O2 Del Method 11/16/23 14:35 93 H 22 93 Nasal Cannula 11/16/23 12:01 36.3 C L 91 H 24 101/66 97 Nasal Cannula 11/16/23 11:31 36.5 C 90 20 98/63 L 96 Nasal Cannula 11/16/23 11:01 36.4 C L 92 H 28 H 104/63 93 Nasal Cannula 11/16/23 10:45 36.8 C 93 H 24 107/68 95 Nasal Cannula 11/16/23 10:15 36.7 C 92 H 18 108/76 95 Nasal Cannula 11/16/23 10:00 36.8 C 91 H 20 105/69 96 Nasal Cannula 11/16/23 07:50 Nasal Cannula 11/16/23 07:49 36.6 C 89 18 115/76 94 Nasal Cannula 11/16/23 07:11 78 17 98 Nasal Cannula O2 Flow Rate 11/16/23 14:35 4 11/16/23 12:01 4 11/16/23 11:31 4 11/16/23 11:01 4 11/16/23 10:45 4 11/16/23 10:15 4 11/16/23 10:00 4 11/16/23 07:50 4 11/16/23 07:49 4 11/16/23 07:11 4 Laboratory Results 11/16/23 11/16/23 11/16/23 Range/Units Unknown 11:32 08:04 WBC (4.8-10.8) K/ul RBC (4.70-6.10) M/uL Hgb (14.0-18.0) g/dl Hct (42.0-52.0) % MCV (80.0-100.0) fL MCH (25.0-34.0) pg MCHC (32.0-36.0) g/dL RDW Std Deviation (36.4-46.3) fL RDW Coeff of Joaquim (11.5-14.5) % Plt Count (130-400) K/uL MPV (9.4-12.4) fL Immature Gran % (Auto) % Neut % (Auto) % Lymph % (Auto) % [place] % (Auto) % Eos % (Auto) % Baso % (Auto) % Neut # (Auto) (1.40-6.50) K/uL Lymph # (Auto) (1.20-3.40) K/uL [place] # (Auto) (0.11-0.59) K/uL Eos # (Auto) (0.00-0.50) K/uL Baso # (Auto) (0.00-0.20) K/uL Immature Gran # (Auto) (0.01-0.20) K/uL Sodium (136-145) mmol/L Potassium (3.5-5.1) mmol/L Chloride (98-107) mmol/L Carbon Dioxide (21-32) mmol/L Anion Gap (3-11) BUN (6-23) mg/dl Creatinine (0.6-1.4) mg/dl Est Cr Clr Drug Dosing ml/min Est GFR ( Amer) ml/min Est GFR (Non-Af Amer) ml/min BUN/Creatinine Ratio (10-20) Glucose (70-99(Fasting)) mg/dl POC Glucose 142 H 289 H (70-99) mg/dl Estimat Average Glucose mg/dl Hemoglobin A1c (4.5-5.6) % Osmolality (280-300) mOsm/kg Calcium (8.6-10.3) mg/dl Phosphorus (2.5-4.9) mg/dl Magnesium (1.7-2.4) mg/dl Iron (35-175) mcg/dl TIBC (250-450) mcg/dl Unsaturated IBC (155-355) mcg/dl Transferrin % Sat (20-50) % Ferritin (8-388) ng/ml Total Bilirubin (0.2-1.0) mg/dl Direct Bilirubin AST (13-39) U/L ALT (7-52) U/L Alkaline Phosphatase (34-104) U/L Lactate Dehydrogenase (86-244) U/L Total Creatine Kinase (30-223) U/L B-Natriuretic Peptide (0-100) pg/ml Total Protein (6.0-8.3) gm/dl Albumin (3.4-5.0) gm/dl Globulin (2.5-4.0) gm/dl Albumin/Globulin Ratio (0.9-2) Vitamin B12 (180-914) pg/ml 25-OH Vitamin D Total (30-100) ng/ml Folate (>5.38) ng/ml Procalcitonin (0-0.5) ng/ml Cortisol AM Sample (6.2-22.6) mcg/dl Urine Osmolality (500-800) mOsm/kg Ur Random Sodium mmol/L Fluid Neutrophils % 21 % Fluid Lymphocytes % 67 % Fluid Eosinophils % 2 % Fluid Meso/Macro/[place] % 10 % Fluid Comment Pleural Fluid Source Right Lung Pleural Color Pale Yellow Pleural Appearance Slightly Hazy Pleural pH 7.43 H (7.3-7.4) Pleural WBC (Auto) 183 /uL Pleural RBC (Auto) 4000 /uL Pleural Total Protein 3.9 gm/dl Pleural LDH 292 U/L Pleural Glucose 121 mg/dl Pleural Amylase 24 U/L Stl C. cayetanensis PCR (NotDetected) Stool Rotavirus A PCR (NotDetected) Stl Adenov F 40/41 PCR (NotDetected) Stool Astrovirus (PCR) (NotDetected) Stool Campylobacter PCR (NotDetected) Stl C. diff Tox B Gene (Neg) Stool Cryptosporidium PCR (NotDetected) Stl E.coli Shiga Tox PCR (NotDetected) Stl Enterotoxigenic E PCR (NotDetected) Stool EPEC (PCR) (NotDetected) Stool EAEC (PCR) (NotDetected) Stl E. histolytica PCR (NotDetected) Stool Giardia Lamblia PCR (NotDetected) Stool Salmonella PCR (NotDetected) Stool Sapovirus (PCR) (NotDetected) Stl P. shigelloides PCR (NotDetected) Stl Shigella/EIEC PCR (NotDetected) St Y.enterocolitica PCR (NotDetected) Stool Vibrio (PCR) (NotDetected) Stl Vibrio cholerae PCR (NotDetected) Stl Norovirus GI/GII PCR (NotDetected) Anaplasma Smear Lyme Disease Screen (Negative) Lyme Tier 2 IgG Confirm (Negative) Lyme Tier 2 IgM Confirm (Negative) 11/16/23 11/15/23 11/15/23 Range/Units 07:55 20:54 16:56 WBC 11.05 H (4.8-10.8) K/ul RBC 4.01 L (4.70-6.10) M/uL Hgb 11.5 L (14.0-18.0) g/dl Hct 35.3 L (42.0-52.0) % MCV 88.0 (80.0-100.0) fL MCH 28.7 (25.0-34.0) pg MCHC 32.6 (32.0-36.0) g/dL RDW Std Deviation 43.8 (36.4-46.3) fL RDW Coeff of Joaquim 13.6 (11.5-14.5) % Plt Count 431 H (130-400) K/uL MPV 9.2 L (9.4-12.4) fL Immature Gran % (Auto) 0.5 % Neut % (Auto) 85.1 % Lymph % (Auto) 4.9 % [place] % (Auto) 9.0 % Eos % (Auto) 0.3 % Baso % (Auto) 0.2 % Neut # (Auto) 9.42 H (1.40-6.50) K/uL Lymph # (Auto) 0.54 L (1.20-3.40) K/uL [place] # (Auto) 0.99 H (0.11-0.59) K/uL Eos # (Auto) 0.03 (0.00-0.50) K/uL Baso # (Auto) 0.02 (0.00-0.20) K/uL Immature Gran # (Auto) 0.05 (0.01-0.20) K/uL Sodium 135 L (136-145) mmol/L Potassium 4.0 (3.5-5.1) mmol/L Chloride 95 L (98-107) mmol/L Carbon Dioxide 29 (21-32) mmol/L Anion Gap 11 (3-11) BUN 32 H (6-23) mg/dl Creatinine 0.98 (0.6-1.4) mg/dl Est Cr Clr Drug Dosing 60.1 ml/min Est GFR ( Amer) 89.5 ml/min Est GFR (Non-Af Amer) 77.3 ml/min BUN/Creatinine Ratio 32.7 H (10-20) Glucose 156 H (70-99(Fasting)) mg/dl POC Glucose 144 H 136 H (70-99) mg/dl Estimat Average Glucose mg/dl Hemoglobin A1c (4.5-5.6) % Osmolality (280-300) mOsm/kg Calcium 9.2 (8.6-10.3) mg/dl Phosphorus (2.5-4.9) mg/dl Magnesium 2.1 (1.7-2.4) mg/dl Iron (35-175) mcg/dl TIBC (250-450) mcg/dl Unsaturated IBC (155-355) mcg/dl Transferrin % Sat (20-50) % Ferritin (8-388) ng/ml Total Bilirubin 0.5 (0.2-1.0) mg/dl Direct Bilirubin AST 14 (13-39) U/L ALT 7 (7-52) U/L Alkaline Phosphatase 90 (34-104) U/L Lactate Dehydrogenase 148 (86-244) U/L Total Creatine Kinase (30-223) U/L B-Natriuretic Peptide (0-100) pg/ml Total Protein 6.5 (6.0-8.3) gm/dl Albumin 2.8 L (3.4-5.0) gm/dl Globulin 3.7 (2.5-4.0) gm/dl Albumin/Globulin Ratio 0.8 L (0.9-2) Vitamin B12 (180-914) pg/ml 25-OH Vitamin D Total (30-100) ng/ml Folate (>5.38) ng/ml Procalcitonin (0-0.5) ng/ml Cortisol AM Sample (6.2-22.6) mcg/dl Urine Osmolality (500-800) mOsm/kg Ur Random Sodium mmol/L Fluid Neutrophils % % Fluid Lymphocytes % % Fluid Eosinophils % % Fluid Meso/Macro/[place] % % Fluid Comment Pleural Fluid Source Pleural Color Pleural Appearance Pleural pH (7.3-7.4) Pleural WBC (Auto) /uL Pleural RBC (Auto) /uL Pleural Total Protein gm/dl Pleural LDH U/L Pleural Glucose mg/dl Pleural Amylase U/L Stl C. cayetanensis PCR (NotDetected) Stool Rotavirus A PCR (NotDetected) Stl Adenov F 40/41 PCR (NotDetected) Stool Astrovirus (PCR) (NotDetected) Stool Campylobacter PCR (NotDetected) Stl C. diff Tox B Gene (Neg) Stool Cryptosporidium PCR (NotDetected) Stl E.coli Shiga Tox PCR (NotDetected) Stl Enterotoxigenic E PCR (NotDetected) Stool EPEC (PCR) (NotDetected) Stool EAEC (PCR) (NotDetected) Stl E. histolytica PCR (NotDetected) Stool Giardia Lamblia PCR (NotDetected) Stool Salmonella PCR (NotDetected) Stool Sapovirus (PCR) (NotDetected) Stl P. shigelloides PCR (NotDetected) Stl Shigella/EIEC PCR (NotDetected) St Y.enterocolitica PCR (NotDetected) Stool Vibrio (PCR) (NotDetected) Stl Vibrio cholerae PCR (NotDetected) Stl Norovirus GI/GII PCR (NotDetected) Anaplasma Smear Lyme Disease Screen (Negative) Lyme Tier 2 IgG Confirm (Negative) Lyme Tier 2 IgM Confirm (Negative) 11/15/23 11/15/23 11/15/23 Range/Units 11:38 08:27 07:46 WBC 11.34 H (4.8-10.8) K/ul RBC 4.14 L (4.70-6.10) M/uL Hgb 11.6 L (14.0-18.0) g/dl Hct 37.3 L (42.0-52.0) % MCV 90.1 (80.0-100.0) fL MCH 28.0 (25.0-34.0) pg MCHC 31.1 L (32.0-36.0) g/dL RDW Std Deviation 44.0 (36.4-46.3) fL RDW Coeff of Joaquim 13.4 (11.5-14.5) % Plt Count 449 H (130-400) K/uL MPV 9.3 L (9.4-12.4) fL Immature Gran % (Auto) 0.5 % Neut % (Auto) 85.8 % Lymph % (Auto) 4.7 % [place] % (Auto) 8.6 % Eos % (Auto) 0.3 % Baso % (Auto) 0.1 % Neut # (Auto) 9.73 H (1.40-6.50) K/uL Lymph # (Auto) 0.53 L (1.20-3.40) K/uL [place] # (Auto) 0.98 H (0.11-0.59) K/uL Eos # (Auto) 0.03 (0.00-0.50) K/uL Baso # (Auto) 0.01 (0.00-0.20) K/uL Immature Gran # (Auto) 0.06 (0.01-0.20) K/uL Sodium 132 L (136-145) mmol/L Potassium 3.9 (3.5-5.1) mmol/L Chloride 94 L (98-107) mmol/L Carbon Dioxide 27 (21-32) mmol/L Anion Gap 11 (3-11) BUN 33 H (6-23) mg/dl Creatinine 1.05 (0.6-1.4) mg/dl Est Cr Clr Drug Dosing 56.1 ml/min Est GFR ( Amer) 82.4 ml/min Est GFR (Non-Af Amer) 71.1 ml/min BUN/Creatinine Ratio 31.4 H (10-20) Glucose 232 H (70-99(Fasting)) mg/dl POC Glucose 229 H 206 H (70-99) mg/dl Estimat Average Glucose mg/dl Hemoglobin A1c (4.5-5.6) % Osmolality (280-300) mOsm/kg Calcium 9.6 (8.6-10.3) mg/dl Phosphorus (2.5-4.9) mg/dl Magnesium 2.1 (1.7-2.4) mg/dl Iron (35-175) mcg/dl TIBC (250-450) mcg/dl Unsaturated IBC (155-355) mcg/dl Transferrin % Sat (20-50) % Ferritin (8-388) ng/ml Total Bilirubin 0.5 (0.2-1.0) mg/dl Direct Bilirubin 0.2 AST 14 (13-39) U/L ALT 9 (7-52) U/L Alkaline Phosphatase 99 (34-104) U/L Lactate Dehydrogenase (86-244) U/L Total Creatine Kinase (30-223) U/L B-Natriuretic Peptide (0-100) pg/ml Total Protein 6.8 (6.0-8.3) gm/dl Albumin 2.9 L (3.4-5.0) gm/dl Globulin (2.5-4.0) gm/dl Albumin/Globulin Ratio (0.9-2) Vitamin B12 (180-914) pg/ml 25-OH Vitamin D Total (30-100) ng/ml Folate (>5.38) ng/ml Procalcitonin (0-0.5) ng/ml Cortisol AM Sample 28.89 H (6.2-22.6) mcg/dl Urine Osmolality (500-800) mOsm/kg Ur Random Sodium mmol/L Fluid Neutrophils % % Fluid Lymphocytes % % Fluid Eosinophils % % Fluid Meso/Macro/[place] % % Fluid Comment Pleural Fluid Source Pleural Color Pleural Appearance Pleural pH (7.3-7.4) Pleural WBC (Auto) /uL Pleural RBC (Auto) /uL Pleural Total Protein gm/dl Pleural LDH U/L Pleural Glucose mg/dl Pleural Amylase U/L Stl C. cayetanensis PCR (NotDetected) Stool Rotavirus A PCR (NotDetected) Stl Adenov F 40/41 PCR (NotDetected) Stool Astrovirus (PCR) (NotDetected) Stool Campylobacter PCR (NotDetected) Stl C. diff Tox B Gene (Neg) Stool Cryptosporidium PCR (NotDetected) Stl E.coli Shiga Tox PCR (NotDetected) Stl Enterotoxigenic E PCR (NotDetected) Stool EPEC (PCR) (NotDetected) Stool EAEC (PCR) (NotDetected) Stl E. histolytica PCR (NotDetected) Stool Giardia Lamblia PCR (NotDetected) Stool Salmonella PCR (NotDetected) Stool Sapovirus (PCR) (NotDetected) Stl P. shigelloides PCR (NotDetected) Stl Shigella/EIEC PCR (NotDetected) St Y.enterocolitica PCR (NotDetected) Stool Vibrio (PCR) (NotDetected) Stl Vibrio cholerae PCR (NotDetected) Stl Norovirus GI/GII PCR (NotDetected) Anaplasma Smear Lyme Disease Screen (Negative) Lyme Tier 2 IgG Confirm (Negative) Lyme Tier 2 IgM Confirm (Negative) 11/14/23 11/14/23 11/14/23 Range/Units 20:37 16:48 11:43 WBC (4.8-10.8) K/ul RBC (4.70-6.10) M/uL Hgb (14.0-18.0) g/dl Hct (42.0-52.0) % MCV (80.0-100.0) fL MCH (25.0-34.0) pg MCHC (32.0-36.0) g/dL RDW Std Deviation (36.4-46.3) fL RDW Coeff of Joaquim (11.5-14.5) % Plt Count (130-400) K/uL MPV (9.4-12.4) fL Immature Gran % (Auto) % Neut % (Auto) % Lymph % (Auto) % [place] % (Auto) % Eos % (Auto) % Baso % (Auto) % Neut # (Auto) (1.40-6.50) K/uL Lymph # (Auto) (1.20-3.40) K/uL [place] # (Auto) (0.11-0.59) K/uL Eos # (Auto) (0.00-0.50) K/uL Baso # (Auto) (0.00-0.20) K/uL Immature Gran # (Auto) (0.01-0.20) K/uL Sodium (136-145) mmol/L Potassium (3.5-5.1) mmol/L Chloride (98-107) mmol/L Carbon Dioxide (21-32) mmol/L Anion Gap (3-11) BUN (6-23) mg/dl Creatinine (0.6-1.4) mg/dl Est Cr Clr Drug Dosing ml/min Est GFR ( Amer) ml/min Est GFR (Non-Af Amer) ml/min BUN/Creatinine Ratio (10-20) Glucose (70-99(Fasting)) mg/dl POC Glucose 203 H 180 H 241 H (70-99) mg/dl Estimat Average Glucose mg/dl Hemoglobin A1c (4.5-5.6) % Osmolality (280-300) mOsm/kg Calcium (8.6-10.3) mg/dl Phosphorus (2.5-4.9) mg/dl Magnesium (1.7-2.4) mg/dl Iron (35-175) mcg/dl TIBC (250-450) mcg/dl Unsaturated IBC (155-355) mcg/dl Transferrin % Sat (20-50) % Ferritin (8-388) ng/ml Total Bilirubin (0.2-1.0) mg/dl Direct Bilirubin AST (13-39) U/L ALT (7-52) U/L Alkaline Phosphatase (34-104) U/L Lactate Dehydrogenase (86-244) U/L Total Creatine Kinase (30-223) U/L B-Natriuretic Peptide (0-100) pg/ml Total Protein (6.0-8.3) gm/dl Albumin (3.4-5.0) gm/dl Globulin (2.5-4.0) gm/dl Albumin/Globulin Ratio (0.9-2) Vitamin B12 (180-914) pg/ml 25-OH Vitamin D Total (30-100) ng/ml Folate (>5.38) ng/ml Procalcitonin (0-0.5) ng/ml Cortisol AM Sample (6.2-22.6) mcg/dl Urine Osmolality (500-800) mOsm/kg Ur Random Sodium mmol/L Fluid Neutrophils % % Fluid Lymphocytes % % Fluid Eosinophils % % Fluid Meso/Macro/[place] % % Fluid Comment Pleural Fluid Source Pleural Color Pleural Appearance Pleural pH (7.3-7.4) Pleural WBC (Auto) /uL Pleural RBC (Auto) /uL Pleural Total Protein gm/dl Pleural LDH U/L Pleural Glucose mg/dl Pleural Amylase U/L Stl C. cayetanensis PCR (NotDetected) Stool Rotavirus A PCR (NotDetected) Stl Adenov F 40/41 PCR (NotDetected) Stool Astrovirus (PCR) (NotDetected) Stool Campylobacter PCR (NotDetected) Stl C. diff Tox B Gene (Neg) Stool Cryptosporidium PCR (NotDetected) Stl E.coli Shiga Tox PCR (NotDetected) Stl Enterotoxigenic E PCR (NotDetected) Stool EPEC (PCR) (NotDetected) Stool EAEC (PCR) (NotDetected) Stl E. histolytica PCR (NotDetected) Stool Giardia Lamblia PCR (NotDetected) Stool Salmonella PCR (NotDetected) Stool Sapovirus (PCR) (NotDetected) Stl P. shigelloides PCR (NotDetected) Stl Shigella/EIEC PCR (NotDetected) St Y.enterocolitica PCR (NotDetected) Stool Vibrio (PCR) (NotDetected) Stl Vibrio cholerae PCR (NotDetected) Stl Norovirus GI/GII PCR (NotDetected) Anaplasma Smear Lyme Disease Screen (Negative) Lyme Tier 2 IgG Confirm (Negative) Lyme Tier 2 IgM Confirm (Negative) 11/14/23 11/14/23 11/13/23 Range/Units 07:44 06:53 20:32 WBC 9.29 (4.8-10.8) K/ul RBC 4.09 L (4.70-6.10) M/uL Hgb 11.6 L (14.0-18.0) g/dl Hct 36.1 L (42.0-52.0) % MCV 88.3 (80.0-100.0) fL MCH 28.4 (25.0-34.0) pg MCHC 32.1 (32.0-36.0) g/dL RDW Std Deviation 43.3 (36.4-46.3) fL RDW Coeff of Joaquim 13.3 (11.5-14.5) % Plt Count 412 H (130-400) K/uL MPV 9.3 L (9.4-12.4) fL Immature Gran % (Auto) 0.3 % Neut % (Auto) 84.8 % Lymph % (Auto) 5.3 % [place] % (Auto) 9.0 % Eos % (Auto) 0.5 % Baso % (Auto) 0.1 % Neut # (Auto) 7.87 H (1.40-6.50) K/uL Lymph # (Auto) 0.49 L (1.20-3.40) K/uL [place] # (Auto) 0.84 H (0.11-0.59) K/uL Eos # (Auto) 0.05 (0.00-0.50) K/uL Baso # (Auto) 0.01 (0.00-0.20) K/uL Immature Gran # (Auto) 0.03 (0.01-0.20) K/uL Sodium 132 L (136-145) mmol/L Potassium 4.3 (3.5-5.1) mmol/L Chloride 95 L (98-107) mmol/L Carbon Dioxide 27 (21-32) mmol/L Anion Gap 10 (3-11) BUN 36 H (6-23) mg/dl Creatinine 1.05 (0.6-1.4) mg/dl Est Cr Clr Drug Dosing 56.1 ml/min Est GFR ( Amer) 82.4 ml/min Est GFR (Non-Af Amer) 71.1 ml/min BUN/Creatinine Ratio 34.3 H (10-20) Glucose 165 H (70-99(Fasting)) mg/dl POC Glucose 184 H 202 H (70-99) mg/dl Estimat Average Glucose mg/dl Hemoglobin A1c (4.5-5.6) % Osmolality (280-300) mOsm/kg Calcium 9.1 (8.6-10.3) mg/dl Phosphorus 4.1 (2.5-4.9) mg/dl Magnesium 2.0 (1.7-2.4) mg/dl Iron (35-175) mcg/dl TIBC (250-450) mcg/dl Unsaturated IBC (155-355) mcg/dl Transferrin % Sat (20-50) % Ferritin (8-388) ng/ml Total Bilirubin 0.5 (0.2-1.0) mg/dl Direct Bilirubin AST 14 (13-39) U/L ALT 8 (7-52) U/L Alkaline Phosphatase 103 (34-104) U/L Lactate Dehydrogenase (86-244) U/L Total Creatine Kinase 16 L (30-223) U/L B-Natriuretic Peptide (0-100) pg/ml Total Protein 6.9 (6.0-8.3) gm/dl Albumin 3.0 L (3.4-5.0) gm/dl Globulin 3.9 (2.5-4.0) gm/dl Albumin/Globulin Ratio 0.8 L (0.9-2) Vitamin B12 (180-914) pg/ml 25-OH Vitamin D Total (30-100) ng/ml Folate (>5.38) ng/ml Procalcitonin (0-0.5) ng/ml Cortisol AM Sample (6.2-22.6) mcg/dl Urine Osmolality (500-800) mOsm/kg Ur Random Sodium mmol/L Fluid Neutrophils % % Fluid Lymphocytes % % Fluid Eosinophils % % Fluid Meso/Macro/[place] % % Fluid Comment Pleural Fluid Source Pleural Color Pleural Appearance Pleural pH (7.3-7.4) Pleural WBC (Auto) /uL Pleural RBC (Auto) /uL Pleural Total Protein gm/dl Pleural LDH U/L Pleural Glucose mg/dl Pleural Amylase U/L Stl C. cayetanensis PCR (NotDetected) Stool Rotavirus A PCR (NotDetected) Stl Adenov F 40/41 PCR (NotDetected) Stool Astrovirus (PCR) (NotDetected) Stool Campylobacter PCR (NotDetected) Stl C. diff Tox B Gene (Neg) Stool Cryptosporidium PCR (NotDetected) Stl E.coli Shiga Tox PCR (NotDetected) Stl Enterotoxigenic E PCR (NotDetected) Stool EPEC (PCR) (NotDetected) Stool EAEC (PCR) (NotDetected) Stl E. histolytica PCR (NotDetected) Stool Giardia Lamblia PCR (NotDetected) Stool Salmonella PCR (NotDetected) Stool Sapovirus (PCR) (NotDetected) Stl P. shigelloides PCR (NotDetected) Stl Shigella/EIEC PCR (NotDetected) St Y.enterocolitica PCR (NotDetected) Stool Vibrio (PCR) (NotDetected) Stl Vibrio cholerae PCR (NotDetected) Stl Norovirus GI/GII PCR (NotDetected) Anaplasma Smear Lyme Disease Screen (Negative) Lyme Tier 2 IgG Confirm (Negative) Lyme Tier 2 IgM Confirm (Negative) 11/13/23 11/13/23 11/13/23 Range/Units 16:51 11:34 07:59 WBC (4.8-10.8) K/ul RBC (4.70-6.10) M/uL Hgb (14.0-18.0) g/dl Hct (42.0-52.0) % MCV (80.0-100.0) fL MCH (25.0-34.0) pg MCHC (32.0-36.0) g/dL RDW Std Deviation (36.4-46.3) fL RDW Coeff of Joaquim (11.5-14.5) % Plt Count (130-400) K/uL MPV (9.4-12.4) fL Immature Gran % (Auto) % Neut % (Auto) % Lymph % (Auto) % [place] % (Auto) % Eos % (Auto) % Baso % (Auto) % Neut # (Auto) (1.40-6.50) K/uL Lymph # (Auto) (1.20-3.40) K/uL [place] # (Auto) (0.11-0.59) K/uL Eos # (Auto) (0.00-0.50) K/uL Baso # (Auto) (0.00-0.20) K/uL Immature Gran # (Auto) (0.01-0.20) K/uL Sodium (136-145) mmol/L Potassium (3.5-5.1) mmol/L Chloride (98-107) mmol/L Carbon Dioxide (21-32) mmol/L Anion Gap (3-11) BUN (6-23) mg/dl Creatinine (0.6-1.4) mg/dl Est Cr Clr Drug Dosing ml/min Est GFR ( Amer) ml/min Est GFR (Non-Af Amer) ml/min BUN/Creatinine Ratio (10-20) Glucose (70-99(Fasting)) mg/dl POC Glucose 191 H 239 H 158 H (70-99) mg/dl Estimat Average Glucose mg/dl Hemoglobin A1c (4.5-5.6) % Osmolality (280-300) mOsm/kg Calcium (8.6-10.3) mg/dl Phosphorus (2.5-4.9) mg/dl Magnesium (1.7-2.4) mg/dl Iron (35-175) mcg/dl TIBC (250-450) mcg/dl Unsaturated IBC (155-355) mcg/dl Transferrin % Sat (20-50) % Ferritin (8-388) ng/ml Total Bilirubin (0.2-1.0) mg/dl Direct Bilirubin AST (13-39) U/L ALT (7-52) U/L Alkaline Phosphatase (34-104) U/L Lactate Dehydrogenase (86-244) U/L Total Creatine Kinase (30-223) U/L B-Natriuretic Peptide (0-100) pg/ml Total Protein (6.0-8.3) gm/dl Albumin (3.4-5.0) gm/dl Globulin (2.5-4.0) gm/dl Albumin/Globulin Ratio (0.9-2) Vitamin B12 (180-914) pg/ml 25-OH Vitamin D Total (30-100) ng/ml Folate (>5.38) ng/ml Procalcitonin (0-0.5) ng/ml Cortisol AM Sample (6.2-22.6) mcg/dl Urine Osmolality (500-800) mOsm/kg Ur Random Sodium mmol/L Fluid Neutrophils % % Fluid Lymphocytes % % Fluid Eosinophils % % Fluid Meso/Macro/[place] % % Fluid Comment Pleural Fluid Source Pleural Color Pleural Appearance Pleural pH (7.3-7.4) Pleural WBC (Auto) /uL Pleural RBC (Auto) /uL Pleural Total Protein gm/dl Pleural LDH U/L Pleural Glucose mg/dl Pleural Amylase U/L Stl C. cayetanensis PCR (NotDetected) Stool Rotavirus A PCR (NotDetected) Stl Adenov F 40/41 PCR (NotDetected) Stool Astrovirus (PCR) (NotDetected) Stool Campylobacter PCR (NotDetected) Stl C. diff Tox B Gene (Neg) Stool Cryptosporidium PCR (NotDetected) Stl E.coli Shiga Tox PCR (NotDetected) Stl Enterotoxigenic E PCR (NotDetected) Stool EPEC (PCR) (NotDetected) Stool EAEC (PCR) (NotDetected) Stl E. histolytica PCR (NotDetected) Stool Giardia Lamblia PCR (NotDetected) Stool Salmonella PCR (NotDetected) Stool Sapovirus (PCR) (NotDetected) Stl P. shigelloides PCR (NotDetected) Stl Shigella/EIEC PCR (NotDetected) St Y.enterocolitica PCR (NotDetected) Stool Vibrio (PCR) (NotDetected) Stl Vibrio cholerae PCR (NotDetected) Stl Norovirus GI/GII PCR (NotDetected) Anaplasma Smear Lyme Disease Screen (Negative) Lyme Tier 2 IgG Confirm (Negative) Lyme Tier 2 IgM Confirm (Negative) 11/13/23 11/13/23 11/12/23 Range/Units 07:52 06:20 20:41 WBC 8.14 (4.8-10.8) K/ul RBC 4.13 L (4.70-6.10) M/uL Hgb 11.9 L (14.0-18.0) g/dl Hct 37.2 L (42.0-52.0) % MCV 90.1 (80.0-100.0) fL MCH 28.8 (25.0-34.0) pg MCHC 32.0 (32.0-36.0) g/dL RDW Std Deviation 44.6 (36.4-46.3) fL RDW Coeff of Joaquim 13.7 (11.5-14.5) % Plt Count 353 (130-400) K/uL MPV 10.2 (9.4-12.4) fL Immature Gran % (Auto) 0.9 % Neut % (Auto) 82.9 % Lymph % (Auto) 6.4 % [place] % (Auto) 8.6 % Eos % (Auto) 1.1 % Baso % (Auto) 0.1 % Neut # (Auto) 6.75 H (1.40-6.50) K/uL Lymph # (Auto) 0.52 L (1.20-3.40) K/uL [place] # (Auto) 0.70 H (0.11-0.59) K/uL Eos # (Auto) 0.09 (0.00-0.50) K/uL Baso # (Auto) 0.01 (0.00-0.20) K/uL Immature Gran # (Auto) 0.07 (0.01-0.20) K/uL Sodium 131 L (136-145) mmol/L Potassium 4.8 TNP (3.5-5.1) mmol/L Chloride 94 L (98-107) mmol/L Carbon Dioxide 27 (21-32) mmol/L Anion Gap 10 (3-11) BUN 33 H (6-23) mg/dl Creatinine 1.21 (0.6-1.4) mg/dl Est Cr Clr Drug Dosing 48.7 ml/min Est GFR ( Amer) 69.4 ml/min Est GFR (Non-Af Amer) 59.9 ml/min BUN/Creatinine Ratio 27.3 H (10-20) Glucose 158 H (70-99(Fasting)) mg/dl POC Glucose 199 H (70-99) mg/dl Estimat Average Glucose mg/dl Hemoglobin A1c (4.5-5.6) % Osmolality (280-300) mOsm/kg Calcium 9.2 (8.6-10.3) mg/dl Phosphorus (2.5-4.9) mg/dl Magnesium 2.0 (1.7-2.4) mg/dl Iron (35-175) mcg/dl TIBC (250-450) mcg/dl Unsaturated IBC (155-355) mcg/dl Transferrin % Sat (20-50) % Ferritin (8-388) ng/ml Total Bilirubin 0.5 (0.2-1.0) mg/dl Direct Bilirubin 0.2 TNP AST 16 TNP (13-39) U/L ALT 10 (7-52) U/L Alkaline Phosphatase 111 H (34-104) U/L Lactate Dehydrogenase (86-244) U/L Total Creatine Kinase (30-223) U/L B-Natriuretic Peptide (0-100) pg/ml Total Protein 7.1 (6.0-8.3) gm/dl Albumin 2.9 L (3.4-5.0) gm/dl Globulin (2.5-4.0) gm/dl Albumin/Globulin Ratio (0.9-2) Vitamin B12 (180-914) pg/ml 25-OH Vitamin D Total (30-100) ng/ml Folate (>5.38) ng/ml Procalcitonin 0.26 (0-0.5) ng/ml Cortisol AM Sample (6.2-22.6) mcg/dl Urine Osmolality (500-800) mOsm/kg Ur Random Sodium mmol/L Fluid Neutrophils % % Fluid Lymphocytes % % Fluid Eosinophils % % Fluid Meso/Macro/[place] % % Fluid Comment Pleural Fluid Source Pleural Color Pleural Appearance Pleural pH (7.3-7.4) Pleural WBC (Auto) /uL Pleural RBC (Auto) /uL Pleural Total Protein gm/dl Pleural LDH U/L Pleural Glucose mg/dl Pleural Amylase U/L Stl C. cayetanensis PCR (NotDetected) Stool Rotavirus A PCR (NotDetected) Stl Adenov F 40/41 PCR (NotDetected) Stool Astrovirus (PCR) (NotDetected) Stool Campylobacter PCR (NotDetected) Stl C. diff Tox B Gene (Neg) Stool Cryptosporidium PCR (NotDetected) Stl E.coli Shiga Tox PCR (NotDetected) Stl Enterotoxigenic E PCR (NotDetected) Stool EPEC (PCR) (NotDetected) Stool EAEC (PCR) (NotDetected) Stl E. histolytica PCR (NotDetected) Stool Giardia Lamblia PCR (NotDetected) Stool Salmonella PCR (NotDetected) Stool Sapovirus (PCR) (NotDetected) Stl P. shigelloides PCR (NotDetected) Stl Shigella/EIEC PCR (NotDetected) St Y.enterocolitica PCR (NotDetected) Stool Vibrio (PCR) (NotDetected) Stl Vibrio cholerae PCR (NotDetected) Stl Norovirus GI/GII PCR (NotDetected) Anaplasma Smear Lyme Disease Screen (Negative) Lyme Tier 2 IgG Confirm (Negative) Lyme Tier 2 IgM Confirm (Negative) 11/12/23 11/12/23 11/12/23 Range/Units 16:35 14:16 11:32 WBC (4.8-10.8) K/ul RBC (4.70-6.10) M/uL Hgb (14.0-18.0) g/dl Hct (42.0-52.0) % MCV (80.0-100.0) fL MCH (25.0-34.0) pg MCHC (32.0-36.0) g/dL RDW Std Deviation (36.4-46.3) fL RDW Coeff of Joaquim (11.5-14.5) % Plt Count (130-400) K/uL MPV (9.4-12.4) fL Immature Gran % (Auto) % Neut % (Auto) % Lymph % (Auto) % [place] % (Auto) % Eos % (Auto) % Baso % (Auto) % Neut # (Auto) (1.40-6.50) K/uL Lymph # (Auto) (1.20-3.40) K/uL [place] # (Auto) (0.11-0.59) K/uL Eos # (Auto) (0.00-0.50) K/uL Baso # (Auto) (0.00-0.20) K/uL Immature Gran # (Auto) (0.01-0.20) K/uL Sodium (136-145) mmol/L Potassium (3.5-5.1) mmol/L Chloride (98-107) mmol/L Carbon Dioxide (21-32) mmol/L Anion Gap (3-11) BUN (6-23) mg/dl Creatinine (0.6-1.4) mg/dl Est Cr Clr Drug Dosing ml/min Est GFR ( Amer) ml/min Est GFR (Non-Af Amer) ml/min BUN/Creatinine Ratio (10-20) Glucose (70-99(Fasting)) mg/dl POC Glucose 193 H 232 H (70-99) mg/dl Estimat Average Glucose mg/dl Hemoglobin A1c (4.5-5.6) % Osmolality (280-300) mOsm/kg Calcium (8.6-10.3) mg/dl Phosphorus (2.5-4.9) mg/dl Magnesium (1.7-2.4) mg/dl Iron (35-175) mcg/dl TIBC (250-450) mcg/dl Unsaturated IBC (155-355) mcg/dl Transferrin % Sat (20-50) % Ferritin (8-388) ng/ml Total Bilirubin (0.2-1.0) mg/dl Direct Bilirubin AST (13-39) U/L ALT (7-52) U/L Alkaline Phosphatase (34-104) U/L Lactate Dehydrogenase (86-244) U/L Total Creatine Kinase (30-223) U/L B-Natriuretic Peptide 50 (0-100) pg/ml Total Protein (6.0-8.3) gm/dl Albumin (3.4-5.0) gm/dl Globulin (2.5-4.0) gm/dl Albumin/Globulin Ratio (0.9-2) Vitamin B12 (180-914) pg/ml 25-OH Vitamin D Total (30-100) ng/ml Folate (>5.38) ng/ml Procalcitonin (0-0.5) ng/ml Cortisol AM Sample (6.2-22.6) mcg/dl Urine Osmolality (500-800) mOsm/kg Ur Random Sodium mmol/L Fluid Neutrophils % % Fluid Lymphocytes % % Fluid Eosinophils % % Fluid Meso/Macro/[place] % % Fluid Comment Pleural Fluid Source Pleural Color Pleural Appearance Pleural pH (7.3-7.4) Pleural WBC (Auto) /uL Pleural RBC (Auto) /uL Pleural Total Protein gm/dl Pleural LDH U/L Pleural Glucose mg/dl Pleural Amylase U/L Stl C. cayetanensis PCR (NotDetected) Stool Rotavirus A PCR (NotDetected) Stl Adenov F 40/41 PCR (NotDetected) Stool Astrovirus (PCR) (NotDetected) Stool Campylobacter PCR (NotDetected) Stl C. diff Tox B Gene (Neg) Stool Cryptosporidium PCR (NotDetected) Stl E.coli Shiga Tox PCR (NotDetected) Stl Enterotoxigenic E PCR (NotDetected) Stool EPEC (PCR) (NotDetected) Stool EAEC (PCR) (NotDetected) Stl E. histolytica PCR (NotDetected) Stool Giardia Lamblia PCR (NotDetected) Stool Salmonella PCR (NotDetected) Stool Sapovirus (PCR) (NotDetected) Stl P. shigelloides PCR (NotDetected) Stl Shigella/EIEC PCR (NotDetected) St Y.enterocolitica PCR (NotDetected) Stool Vibrio (PCR) (NotDetected) Stl Vibrio cholerae PCR (NotDetected) Stl Norovirus GI/GII PCR (NotDetected) Anaplasma Smear Lyme Disease Screen (Negative) Lyme Tier 2 IgG Confirm (Negative) Lyme Tier 2 IgM Confirm (Negative) 11/12/23 11/12/23 11/11/23 Range/Units 07:32 07:28 20:48 WBC 9.09 (4.8-10.8) K/ul RBC 4.31 L (4.70-6.10) M/uL Hgb 12.3 L (14.0-18.0) g/dl Hct 37.3 L (42.0-52.0) % MCV 86.5 (80.0-100.0) fL MCH 28.5 (25.0-34.0) pg MCHC 33.0 (32.0-36.0) g/dL RDW Std Deviation 41.7 (36.4-46.3) fL RDW Coeff of Joaquim 13.2 (11.5-14.5) % Plt Count 437 H (130-400) K/uL MPV 9.3 L (9.4-12.4) fL Immature Gran % (Auto) 0.3 % Neut % (Auto) 84.8 % Lymph % (Auto) 6.9 % [place] % (Auto) 7.5 % Eos % (Auto) 0.3 % Baso % (Auto) 0.2 % Neut # (Auto) 7.70 H (1.40-6.50) K/uL Lymph # (Auto) 0.63 L (1.20-3.40) K/uL [place] # (Auto) 0.68 H (0.11-0.59) K/uL Eos # (Auto) 0.03 (0.00-0.50) K/uL Baso # (Auto) 0.02 (0.00-0.20) K/uL Immature Gran # (Auto) 0.03 (0.01-0.20) K/uL Sodium 130 L (136-145) mmol/L Potassium 4.9 (3.5-5.1) mmol/L Chloride 93 L (98-107) mmol/L Carbon Dioxide 25 (21-32) mmol/L Anion Gap 12 H (3-11) BUN 29 H (6-23) mg/dl Creatinine 1.19 D (0.6-1.4) mg/dl Est Cr Clr Drug Dosing 49.5 ml/min Est GFR ( Amer) 70.8 ml/min Est GFR (Non-Af Amer) 61.1 ml/min BUN/Creatinine Ratio 24.4 H (10-20) Glucose 166 H (70-99(Fasting)) mg/dl POC Glucose 157 H 169 H (70-99) mg/dl Estimat Average Glucose mg/dl Hemoglobin A1c (4.5-5.6) % Osmolality (280-300) mOsm/kg Calcium 9.4 (8.6-10.3) mg/dl Phosphorus (2.5-4.9) mg/dl Magnesium 1.9 (1.7-2.4) mg/dl Iron (35-175) mcg/dl TIBC (250-450) mcg/dl Unsaturated IBC (155-355) mcg/dl Transferrin % Sat (20-50) % Ferritin (8-388) ng/ml Total Bilirubin 0.6 (0.2-1.0) mg/dl Direct Bilirubin AST 18 (13-39) U/L ALT 11 (7-52) U/L Alkaline Phosphatase 130 H (34-104) U/L Lactate Dehydrogenase (86-244) U/L Total Creatine Kinase (30-223) U/L B-Natriuretic Peptide (0-100) pg/ml Total Protein 7.3 (6.0-8.3) gm/dl Albumin 3.0 L (3.4-5.0) gm/dl Globulin 4.3 H (2.5-4.0) gm/dl Albumin/Globulin Ratio 0.7 L (0.9-2) Vitamin B12 (180-914) pg/ml 25-OH Vitamin D Total (30-100) ng/ml Folate (>5.38) ng/ml Procalcitonin (0-0.5) ng/ml Cortisol AM Sample (6.2-22.6) mcg/dl Urine Osmolality (500-800) mOsm/kg Ur Random Sodium mmol/L Fluid Neutrophils % % Fluid Lymphocytes % % Fluid Eosinophils % % Fluid Meso/Macro/[place] % % Fluid Comment Pleural Fluid Source Pleural Color Pleural Appearance Pleural pH (7.3-7.4) Pleural WBC (Auto) /uL Pleural RBC (Auto) /uL Pleural Total Protein gm/dl Pleural LDH U/L Pleural Glucose mg/dl Pleural Amylase U/L Stl C. cayetanensis PCR (NotDetected) Stool Rotavirus A PCR (NotDetected) Stl Adenov F 40/41 PCR (NotDetected) Stool Astrovirus (PCR) (NotDetected) Stool Campylobacter PCR (NotDetected) Stl C. diff Tox B Gene (Neg) Stool Cryptosporidium PCR (NotDetected) Stl E.coli Shiga Tox PCR (NotDetected) Stl Enterotoxigenic E PCR (NotDetected) Stool EPEC (PCR) (NotDetected) Stool EAEC (PCR) (NotDetected) Stl E. histolytica PCR (NotDetected) Stool Giardia Lamblia PCR (NotDetected) Stool Salmonella PCR (NotDetected) Stool Sapovirus (PCR) (NotDetected) Stl P. shigelloides PCR (NotDetected) Stl Shigella/EIEC PCR (NotDetected) St Y.enterocolitica PCR (NotDetected) Stool Vibrio (PCR) (NotDetected) Stl Vibrio cholerae PCR (NotDetected) Stl Norovirus GI/GII PCR (NotDetected) Anaplasma Smear See Comment Lyme Disease Screen (Negative) Lyme Tier 2 IgG Confirm (Negative) Lyme Tier 2 IgM Confirm (Negative) 11/11/23 11/11/23 11/11/23 Range/Units 16:08 11:23 09:20 WBC (4.8-10.8) K/ul RBC (4.70-6.10) M/uL Hgb (14.0-18.0) g/dl Hct (42.0-52.0) % MCV (80.0-100.0) fL MCH (25.0-34.0) pg MCHC (32.0-36.0) g/dL RDW Std Deviation (36.4-46.3) fL RDW Coeff of Joaquim (11.5-14.5) % Plt Count (130-400) K/uL MPV (9.4-12.4) fL Immature Gran % (Auto) % Neut % (Auto) % Lymph % (Auto) % [place] % (Auto) % Eos % (Auto) % Baso % (Auto) % Neut # (Auto) (1.40-6.50) K/uL Lymph # (Auto) (1.20-3.40) K/uL [place] # (Auto) (0.11-0.59) K/uL Eos # (Auto) (0.00-0.50) K/uL Baso # (Auto) (0.00-0.20) K/uL Immature Gran # (Auto) (0.01-0.20) K/uL Sodium (136-145) mmol/L Potassium (3.5-5.1) mmol/L Chloride (98-107) mmol/L Carbon Dioxide (21-32) mmol/L Anion Gap (3-11) BUN (6-23) mg/dl Creatinine (0.6-1.4) mg/dl Est Cr Clr Drug Dosing ml/min Est GFR ( Amer) ml/min Est GFR (Non-Af Amer) ml/min BUN/Creatinine Ratio (10-20) Glucose (70-99(Fasting)) mg/dl POC Glucose 127 H 175 H (70-99) mg/dl Estimat Average Glucose mg/dl Hemoglobin A1c (4.5-5.6) % Osmolality (280-300) mOsm/kg Calcium (8.6-10.3) mg/dl Phosphorus (2.5-4.9) mg/dl Magnesium (1.7-2.4) mg/dl Iron (35-175) mcg/dl TIBC (250-450) mcg/dl Unsaturated IBC (155-355) mcg/dl Transferrin % Sat (20-50) % Ferritin (8-388) ng/ml Total Bilirubin (0.2-1.0) mg/dl Direct Bilirubin AST (13-39) U/L ALT (7-52) U/L Alkaline Phosphatase (34-104) U/L Lactate Dehydrogenase (86-244) U/L Total Creatine Kinase (30-223) U/L B-Natriuretic Peptide (0-100) pg/ml Total Protein (6.0-8.3) gm/dl Albumin (3.4-5.0) gm/dl Globulin (2.5-4.0) gm/dl Albumin/Globulin Ratio (0.9-2) Vitamin B12 (180-914) pg/ml 25-OH Vitamin D Total (30-100) ng/ml Folate (>5.38) ng/ml Procalcitonin (0-0.5) ng/ml Cortisol AM Sample (6.2-22.6) mcg/dl Urine Osmolality 619 (500-800) mOsm/kg Ur Random Sodium 51 mmol/L Fluid Neutrophils % % Fluid Lymphocytes % % Fluid Eosinophils % % Fluid Meso/Macro/[place] % % Fluid Comment Pleural Fluid Source Pleural Color Pleural Appearance Pleural pH (7.3-7.4) Pleural WBC (Auto) /uL Pleural RBC (Auto) /uL Pleural Total Protein gm/dl Pleural LDH U/L Pleural Glucose mg/dl Pleural Amylase U/L Stl C. cayetanensis PCR (NotDetected) Stool Rotavirus A PCR (NotDetected) Stl Adenov F 40/41 PCR (NotDetected) Stool Astrovirus (PCR) (NotDetected) Stool Campylobacter PCR (NotDetected) Stl C. diff Tox B Gene (Neg) Stool Cryptosporidium PCR (NotDetected) Stl E.coli Shiga Tox PCR (NotDetected) Stl Enterotoxigenic E PCR (NotDetected) Stool EPEC (PCR) (NotDetected) Stool EAEC (PCR) (NotDetected) Stl E. histolytica PCR (NotDetected) Stool Giardia Lamblia PCR (NotDetected) Stool Salmonella PCR (NotDetected) Stool Sapovirus (PCR) (NotDetected) Stl P. shigelloides PCR (NotDetected) Stl Shigella/EIEC PCR (NotDetected) St Y.enterocolitica PCR (NotDetected) Stool Vibrio (PCR) (NotDetected) Stl Vibrio cholerae PCR (NotDetected) Stl Norovirus GI/GII PCR (NotDetected) Anaplasma Smear Lyme Disease Screen (Negative) Lyme Tier 2 IgG Confirm (Negative) Lyme Tier 2 IgM Confirm (Negative) 11/11/23 11/11/23 11/11/23 Range/Units 08:10 07:42 07:02 WBC 9.38 (4.8-10.8) K/ul RBC 4.27 L (4.70-6.10) M/uL Hgb 12.2 L (14.0-18.0) g/dl Hct 37.3 L (42.0-52.0) % MCV 87.4 (80.0-100.0) fL MCH 28.6 (25.0-34.0) pg MCHC 32.7 (32.0-36.0) g/dL RDW Std Deviation 41.5 (36.4-46.3) fL RDW Coeff of Joaquim 13.1 (11.5-14.5) % Plt Count 410 H (130-400) K/uL MPV 9.6 (9.4-12.4) fL Immature Gran % (Auto) 0.4 % Neut % (Auto) 84.9 % Lymph % (Auto) 7.6 % [place] % (Auto) 6.4 % Eos % (Auto) 0.5 % Baso % (Auto) 0.2 % Neut # (Auto) 7.96 H (1.40-6.50) K/uL Lymph # (Auto) 0.71 L (1.20-3.40) K/uL [place] # (Auto) 0.60 H (0.11-0.59) K/uL Eos # (Auto) 0.05 (0.00-0.50) K/uL Baso # (Auto) 0.02 (0.00-0.20) K/uL Immature Gran # (Auto) 0.04 (0.01-0.20) K/uL Sodium 130 L (136-145) mmol/L Potassium 4.4 (3.5-5.1) mmol/L Chloride 94 L (98-107) mmol/L Carbon Dioxide 26 (21-32) mmol/L Anion Gap 10 (3-11) BUN 18 (6-23) mg/dl Creatinine 0.79 (0.6-1.4) mg/dl Est Cr Clr Drug Dosing 74.6 ml/min Est GFR ( Amer) 104.7 ml/min Est GFR (Non-Af Amer) 90.3 ml/min BUN/Creatinine Ratio 22.8 H (10-20) Glucose 139 H (70-99(Fasting)) mg/dl POC Glucose 163 H (70-99) mg/dl Estimat Average Glucose 157 mg/dl Hemoglobin A1c 7.1 H (4.5-5.6) % Osmolality 279 L (280-300) mOsm/kg Calcium 9.3 (8.6-10.3) mg/dl Phosphorus (2.5-4.9) mg/dl Magnesium 1.7 (1.7-2.4) mg/dl Iron 27 L (35-175) mcg/dl TIBC 210 L (250-450) mcg/dl Unsaturated IBC 183 (155-355) mcg/dl Transferrin % Sat 13 L (20-50) % Ferritin 476.7 H (8-388) ng/ml Total Bilirubin 0.5 (0.2-1.0) mg/dl Direct Bilirubin AST 20 (13-39) U/L ALT 13 (7-52) U/L Alkaline Phosphatase 151 H (34-104) U/L Lactate Dehydrogenase (86-244) U/L Total Creatine Kinase (30-223) U/L B-Natriuretic Peptide (0-100) pg/ml Total Protein 7.2 (6.0-8.3) gm/dl Albumin 3.0 L (3.4-5.0) gm/dl Globulin 4.2 H (2.5-4.0) gm/dl Albumin/Globulin Ratio 0.7 L (0.9-2) Vitamin B12 332 (180-914) pg/ml 25-OH Vitamin D Total 19.3 L (30-100) ng/ml Folate 9.68 (>5.38) ng/ml Procalcitonin (0-0.5) ng/ml Cortisol AM Sample (6.2-22.6) mcg/dl Urine Osmolality (500-800) mOsm/kg Ur Random Sodium mmol/L Fluid Neutrophils % % Fluid Lymphocytes % % Fluid Eosinophils % % Fluid Meso/Macro/[place] % % Fluid Comment Pleural Fluid Source Pleural Color Pleural Appearance Pleural pH (7.3-7.4) Pleural WBC (Auto) /uL Pleural RBC (Auto) /uL Pleural Total Protein gm/dl Pleural LDH U/L Pleural Glucose mg/dl Pleural Amylase U/L Stl C. cayetanensis PCR (NotDetected) Stool Rotavirus A PCR (NotDetected) Stl Adenov F 40/41 PCR (NotDetected) Stool Astrovirus (PCR) (NotDetected) Stool Campylobacter PCR (NotDetected) Stl C. diff Tox B Gene (Neg) Stool Cryptosporidium PCR (NotDetected) Stl E.coli Shiga Tox PCR (NotDetected) Stl Enterotoxigenic E PCR (NotDetected) Stool EPEC (PCR) (NotDetected) Stool EAEC (PCR) (NotDetected) Stl E. histolytica PCR (NotDetected) Stool Giardia Lamblia PCR (NotDetected) Stool Salmonella PCR (NotDetected) Stool Sapovirus (PCR) (NotDetected) Stl P. shigelloides PCR (NotDetected) Stl Shigella/EIEC PCR (NotDetected) St Y.enterocolitica PCR (NotDetected) Stool Vibrio (PCR) (NotDetected) Stl Vibrio cholerae PCR (NotDetected) Stl Norovirus GI/GII PCR (NotDetected) Anaplasma Smear Lyme Disease Screen Positive H (Negative) Lyme Tier 2 IgG Confirm Positive H (Negative) Lyme Tier 2 IgM Confirm Negative (Negative) 11/10/23 11/10/23 11/10/23 Range/Units 20:42 17:02 16:28 WBC (4.8-10.8) K/ul RBC (4.70-6.10) M/uL Hgb (14.0-18.0) g/dl Hct (42.0-52.0) % MCV (80.0-100.0) fL MCH (25.0-34.0) pg MCHC (32.0-36.0) g/dL RDW Std Deviation (36.4-46.3) fL RDW Coeff of Joaquim (11.5-14.5) % Plt Count (130-400) K/uL MPV (9.4-12.4) fL Immature Gran % (Auto) % Neut % (Auto) % Lymph % (Auto) % [place] % (Auto) % Eos % (Auto) % Baso % (Auto) % Neut # (Auto) (1.40-6.50) K/uL Lymph # (Auto) (1.20-3.40) K/uL [place] # (Auto) (0.11-0.59) K/uL Eos # (Auto) (0.00-0.50) K/uL Baso # (Auto) (0.00-0.20) K/uL Immature Gran # (Auto) (0.01-0.20) K/uL Sodium (136-145) mmol/L Potassium (3.5-5.1) mmol/L Chloride (98-107) mmol/L Carbon Dioxide (21-32) mmol/L Anion Gap (3-11) BUN (6-23) mg/dl Creatinine (0.6-1.4) mg/dl Est Cr Clr Drug Dosing ml/min Est GFR ( Amer) ml/min Est GFR (Non-Af Amer) ml/min BUN/Creatinine Ratio (10-20) Glucose (70-99(Fasting)) mg/dl POC Glucose 133 H 109 H 69 L* (70-99) mg/dl Estimat Average Glucose mg/dl Hemoglobin A1c (4.5-5.6) % Osmolality (280-300) mOsm/kg Calcium (8.6-10.3) mg/dl Phosphorus (2.5-4.9) mg/dl Magnesium (1.7-2.4) mg/dl Iron (35-175) mcg/dl TIBC (250-450) mcg/dl Unsaturated IBC (155-355) mcg/dl Transferrin % Sat (20-50) % Ferritin (8-388) ng/ml Total Bilirubin (0.2-1.0) mg/dl Direct Bilirubin AST (13-39) U/L ALT (7-52) U/L Alkaline Phosphatase (34-104) U/L Lactate Dehydrogenase (86-244) U/L Total Creatine Kinase (30-223) U/L B-Natriuretic Peptide (0-100) pg/ml Total Protein (6.0-8.3) gm/dl Albumin (3.4-5.0) gm/dl Globulin (2.5-4.0) gm/dl Albumin/Globulin Ratio (0.9-2) Vitamin B12 (180-914) pg/ml 25-OH Vitamin D Total (30-100) ng/ml Folate (>5.38) ng/ml Procalcitonin (0-0.5) ng/ml Cortisol AM Sample (6.2-22.6) mcg/dl Urine Osmolality (500-800) mOsm/kg Ur Random Sodium mmol/L Fluid Neutrophils % % Fluid Lymphocytes % % Fluid Eosinophils % % Fluid Meso/Macro/[place] % % Fluid Comment Pleural Fluid Source Pleural Color Pleural Appearance Pleural pH (7.3-7.4) Pleural WBC (Auto) /uL Pleural RBC (Auto) /uL Pleural Total Protein gm/dl Pleural LDH U/L Pleural Glucose mg/dl Pleural Amylase U/L Stl C. cayetanensis PCR (NotDetected) Stool Rotavirus A PCR (NotDetected) Stl Adenov F 40/41 PCR (NotDetected) Stool Astrovirus (PCR) (NotDetected) Stool Campylobacter PCR (NotDetected) Stl C. diff Tox B Gene (Neg) Stool Cryptosporidium PCR (NotDetected) Stl E.coli Shiga Tox PCR (NotDetected) Stl Enterotoxigenic E PCR (NotDetected) Stool EPEC (PCR) (NotDetected) Stool EAEC (PCR) (NotDetected) Stl E. histolytica PCR (NotDetected) Stool Giardia Lamblia PCR (NotDetected) Stool Salmonella PCR (NotDetected) Stool Sapovirus (PCR) (NotDetected) Stl P. shigelloides PCR (NotDetected) Stl Shigella/EIEC PCR (NotDetected) St Y.enterocolitica PCR (NotDetected) Stool Vibrio (PCR) (NotDetected) Stl Vibrio cholerae PCR (NotDetected) Stl Norovirus GI/GII PCR (NotDetected) Anaplasma Smear Lyme Disease Screen (Negative) Lyme Tier 2 IgG Confirm (Negative) Lyme Tier 2 IgM Confirm (Negative) 11/10/23 11/10/23 11/10/23 Range/Units 16:28 11:28 07:38 WBC (4.8-10.8) K/ul RBC (4.70-6.10) M/uL Hgb (14.0-18.0) g/dl Hct (42.0-52.0) % MCV (80.0-100.0) fL MCH (25.0-34.0) pg MCHC (32.0-36.0) g/dL RDW Std Deviation (36.4-46.3) fL RDW Coeff of Joaquim (11.5-14.5) % Plt Count (130-400) K/uL MPV (9.4-12.4) fL Immature Gran % (Auto) % Neut % (Auto) % Lymph % (Auto) % [place] % (Auto) % Eos % (Auto) % Baso % (Auto) % Neut # (Auto) (1.40-6.50) K/uL Lymph # (Auto) (1.20-3.40) K/uL [place] # (Auto) (0.11-0.59) K/uL Eos # (Auto) (0.00-0.50) K/uL Baso # (Auto) (0.00-0.20) K/uL Immature Gran # (Auto) (0.01-0.20) K/uL Sodium (136-145) mmol/L Potassium (3.5-5.1) mmol/L Chloride (98-107) mmol/L Carbon Dioxide (21-32) mmol/L Anion Gap (3-11) BUN (6-23) mg/dl Creatinine (0.6-1.4) mg/dl Est Cr Clr Drug Dosing ml/min Est GFR ( Amer) ml/min Est GFR (Non-Af Amer) ml/min BUN/Creatinine Ratio (10-20) Glucose (70-99(Fasting)) mg/dl POC Glucose 64 L* 127 H 102 H (70-99) mg/dl Estimat Average Glucose mg/dl Hemoglobin A1c (4.5-5.6) % Osmolality (280-300) mOsm/kg Calcium (8.6-10.3) mg/dl Phosphorus (2.5-4.9) mg/dl Magnesium (1.7-2.4) mg/dl Iron (35-175) mcg/dl TIBC (250-450) mcg/dl Unsaturated IBC (155-355) mcg/dl Transferrin % Sat (20-50) % Ferritin (8-388) ng/ml Total Bilirubin (0.2-1.0) mg/dl Direct Bilirubin AST (13-39) U/L ALT (7-52) U/L Alkaline Phosphatase (34-104) U/L Lactate Dehydrogenase (86-244) U/L Total Creatine Kinase (30-223) U/L B-Natriuretic Peptide (0-100) pg/ml Total Protein (6.0-8.3) gm/dl Albumin (3.4-5.0) gm/dl Globulin (2.5-4.0) gm/dl Albumin/Globulin Ratio (0.9-2) Vitamin B12 (180-914) pg/ml 25-OH Vitamin D Total (30-100) ng/ml Folate (>5.38) ng/ml Procalcitonin (0-0.5) ng/ml Cortisol AM Sample (6.2-22.6) mcg/dl Urine Osmolality (500-800) mOsm/kg Ur Random Sodium mmol/L Fluid Neutrophils % % Fluid Lymphocytes % % Fluid Eosinophils % % Fluid Meso/Macro/[place] % % Fluid Comment Pleural Fluid Source Pleural Color Pleural Appearance Pleural pH (7.3-7.4) Pleural WBC (Auto) /uL Pleural RBC (Auto) /uL Pleural Total Protein gm/dl Pleural LDH U/L Pleural Glucose mg/dl Pleural Amylase U/L Stl C. cayetanensis PCR (NotDetected) Stool Rotavirus A PCR (NotDetected) Stl Adenov F 40/41 PCR (NotDetected) Stool Astrovirus (PCR) (NotDetected) Stool Campylobacter PCR (NotDetected) Stl C. diff Tox B Gene (Neg) Stool Cryptosporidium PCR (NotDetected) Stl E.coli Shiga Tox PCR (NotDetected) Stl Enterotoxigenic E PCR (NotDetected) Stool EPEC (PCR) (NotDetected) Stool EAEC (PCR) (NotDetected) Stl E. histolytica PCR (NotDetected) Stool Giardia Lamblia PCR (NotDetected) Stool Salmonella PCR (NotDetected) Stool Sapovirus (PCR) (NotDetected) Stl P. shigelloides PCR (NotDetected) Stl Shigella/EIEC PCR (NotDetected) St Y.enterocolitica PCR (NotDetected) Stool Vibrio (PCR) (NotDetected) Stl Vibrio cholerae PCR (NotDetected) Stl Norovirus GI/GII PCR (NotDetected) Anaplasma Smear Lyme Disease Screen (Negative) Lyme Tier 2 IgG Confirm (Negative) Lyme Tier 2 IgM Confirm (Negative) 11/10/23 11/09/23 11/09/23 Range/Units 06:18 20:27 18:22 WBC 8.97 (4.8-10.8) K/ul RBC 4.30 L (4.70-6.10) M/uL Hgb 12.2 L (14.0-18.0) g/dl Hct 38.1 L (42.0-52.0) % MCV 88.6 (80.0-100.0) fL MCH 28.4 (25.0-34.0) pg MCHC 32.0 (32.0-36.0) g/dL RDW Std Deviation 42.5 (36.4-46.3) fL RDW Coeff of Joaquim 13.2 (11.5-14.5) % Plt Count 369 (130-400) K/uL MPV 9.8 (9.4-12.4) fL Immature Gran % (Auto) 0.2 % Neut % (Auto) 84.2 % Lymph % (Auto) 8.2 % [place] % (Auto) 6.1 % Eos % (Auto) 1.1 % Baso % (Auto) 0.2 % Neut # (Auto) 7.54 H (1.40-6.50) K/uL Lymph # (Auto) 0.74 L (1.20-3.40) K/uL [place] # (Auto) 0.55 (0.11-0.59) K/uL Eos # (Auto) 0.10 (0.00-0.50) K/uL Baso # (Auto) 0.02 (0.00-0.20) K/uL Immature Gran # (Auto) 0.02 (0.01-0.20) K/uL Sodium 132 L (136-145) mmol/L Potassium 4.0 (3.5-5.1) mmol/L Chloride 94 L (98-107) mmol/L Carbon Dioxide 28 (21-32) mmol/L Anion Gap 10 (3-11) BUN 15 (6-23) mg/dl Creatinine 0.72 (0.6-1.4) mg/dl Est Cr Clr Drug Dosing 81.9 ml/min Est GFR ( Amer) 108.8 ml/min Est GFR (Non-Af Amer) 93.9 ml/min BUN/Creatinine Ratio 20.8 H (10-20) Glucose 105 H (70-99(Fasting)) mg/dl POC Glucose 136 H (70-99) mg/dl Estimat Average Glucose mg/dl Hemoglobin A1c (4.5-5.6) % Osmolality (280-300) mOsm/kg Calcium 9.4 (8.6-10.3) mg/dl Phosphorus (2.5-4.9) mg/dl Magnesium 1.7 (1.7-2.4) mg/dl Iron (35-175) mcg/dl TIBC (250-450) mcg/dl Unsaturated IBC (155-355) mcg/dl Transferrin % Sat (20-50) % Ferritin (8-388) ng/ml Total Bilirubin 0.6 (0.2-1.0) mg/dl Direct Bilirubin AST 21 (13-39) U/L ALT 14 (7-52) U/L Alkaline Phosphatase 126 H (34-104) U/L Lactate Dehydrogenase (86-244) U/L Total Creatine Kinase (30-223) U/L B-Natriuretic Peptide (0-100) pg/ml Total Protein 7.5 (6.0-8.3) gm/dl Albumin 3.1 L (3.4-5.0) gm/dl Globulin 4.4 H (2.5-4.0) gm/dl Albumin/Globulin Ratio 0.7 L (0.9-2) Vitamin B12 (180-914) pg/ml 25-OH Vitamin D Total (30-100) ng/ml Folate (>5.38) ng/ml Procalcitonin (0-0.5) ng/ml Cortisol AM Sample (6.2-22.6) mcg/dl Urine Osmolality (500-800) mOsm/kg Ur Random Sodium mmol/L Fluid Neutrophils % % Fluid Lymphocytes % % Fluid Eosinophils % % Fluid Meso/Macro/[place] % % Fluid Comment Pleural Fluid Source Pleural Color Pleural Appearance Pleural pH (7.3-7.4) Pleural WBC (Auto) /uL Pleural RBC (Auto) /uL Pleural Total Protein gm/dl Pleural LDH U/L Pleural Glucose mg/dl Pleural Amylase U/L Stl C. cayetanensis PCR (NotDetected) Stool Rotavirus A PCR (NotDetected) Stl Adenov F 40/41 PCR (NotDetected) Stool Astrovirus (PCR) (NotDetected) Stool Campylobacter PCR (NotDetected) Stl C. diff Tox B Gene Negative Cdiff Gene (Neg) Stool Cryptosporidium PCR (NotDetected) Stl E.coli Shiga Tox PCR (NotDetected) Stl Enterotoxigenic E PCR (NotDetected) Stool EPEC (PCR) (NotDetected) Stool EAEC (PCR) (NotDetected) Stl E. histolytica PCR (NotDetected) Stool Giardia Lamblia PCR (NotDetected) Stool Salmonella PCR (NotDetected) Stool Sapovirus (PCR) (NotDetected) Stl P. shigelloides PCR (NotDetected) Stl Shigella/EIEC PCR (NotDetected) St Y.enterocolitica PCR (NotDetected) Stool Vibrio (PCR) (NotDetected) Stl Vibrio cholerae PCR (NotDetected) Stl Norovirus GI/GII PCR (NotDetected) Anaplasma Smear Lyme Disease Screen (Negative) Lyme Tier 2 IgG Confirm (Negative) Lyme Tier 2 IgM Confirm (Negative) 11/09/23 11/09/23 Range/Units 18:20 16:49 WBC (4.8-10.8) K/ul RBC (4.70-6.10) M/uL Hgb (14.0-18.0) g/dl Hct (42.0-52.0) % MCV (80.0-100.0) fL MCH (25.0-34.0) pg MCHC (32.0-36.0) g/dL RDW Std Deviation (36.4-46.3) fL RDW Coeff of Joaquim (11.5-14.5) % Plt Count (130-400) K/uL MPV (9.4-12.4) fL Immature Gran % (Auto) % Neut % (Auto) % Lymph % (Auto) % [place] % (Auto) % Eos % (Auto) % Baso % (Auto) % Neut # (Auto) (1.40-6.50) K/uL Lymph # (Auto) (1.20-3.40) K/uL [place] # (Auto) (0.11-0.59) K/uL Eos # (Auto) (0.00-0.50) K/uL Baso # (Auto) (0.00-0.20) K/uL Immature Gran # (Auto) (0.01-0.20) K/uL Sodium (136-145) mmol/L Potassium (3.5-5.1) mmol/L Chloride (98-107) mmol/L Carbon Dioxide (21-32) mmol/L Anion Gap (3-11) BUN (6-23) mg/dl Creatinine (0.6-1.4) mg/dl Est Cr Clr Drug Dosing ml/min Est GFR ( Amer) ml/min Est GFR (Non-Af Amer) ml/min BUN/Creatinine Ratio (10-20) Glucose (70-99(Fasting)) mg/dl POC Glucose 99 (70-99) mg/dl Estimat Average Glucose mg/dl Hemoglobin A1c (4.5-5.6) % Osmolality (280-300) mOsm/kg Calcium (8.6-10.3) mg/dl Phosphorus (2.5-4.9) mg/dl Magnesium (1.7-2.4) mg/dl Iron (35-175) mcg/dl TIBC (250-450) mcg/dl Unsaturated IBC (155-355) mcg/dl Transferrin % Sat (20-50) % Ferritin (8-388) ng/ml Total Bilirubin (0.2-1.0) mg/dl Direct Bilirubin AST (13-39) U/L ALT (7-52) U/L Alkaline Phosphatase (34-104) U/L Lactate Dehydrogenase (86-244) U/L Total Creatine Kinase (30-223) U/L B-Natriuretic Peptide (0-100) pg/ml Total Protein (6.0-8.3) gm/dl Albumin (3.4-5.0) gm/dl Globulin (2.5-4.0) gm/dl Albumin/Globulin Ratio (0.9-2) Vitamin B12 (180-914) pg/ml 25-OH Vitamin D Total (30-100) ng/ml Folate (>5.38) ng/ml Procalcitonin (0-0.5) ng/ml Cortisol AM Sample (6.2-22.6) mcg/dl Urine Osmolality (500-800) mOsm/kg Ur Random Sodium mmol/L Fluid Neutrophils % % Fluid Lymphocytes % % Fluid Eosinophils % % Fluid Meso/Macro/[place] % % Fluid Comment Pleural Fluid Source Pleural Color Pleural Appearance Pleural pH (7.3-7.4) Pleural WBC (Auto) /uL Pleural RBC (Auto) /uL Pleural Total Protein gm/dl Pleural LDH U/L Pleural Glucose mg/dl Pleural Amylase U/L Stl C. cayetanensis PCR Not Detected (NotDetected) Stool Rotavirus A PCR Not Detected (NotDetected) Stl Adenov F 40/41 PCR Not Detected (NotDetected) Stool Astrovirus (PCR) Not Detected (NotDetected) Stool Campylobacter PCR Not Detected (NotDetected) Stl C. diff Tox B Gene (Neg) Stool Cryptosporidium PCR Not Detected (NotDetected) Stl E.coli Shiga Tox PCR Not Detected (NotDetected) Stl Enterotoxigenic E PCR Not Detected (NotDetected) Stool EPEC (PCR) Not Detected (NotDetected) Stool EAEC (PCR) Not Detected (NotDetected) Stl E. histolytica PCR Not Detected (NotDetected) Stool Giardia Lamblia PCR Not Detected (NotDetected) Stool Salmonella PCR Not Detected (NotDetected) Stool Sapovirus (PCR) Not Detected (NotDetected) Stl P. shigelloides PCR Not Detected (NotDetected) Stl Shigella/EIEC PCR Not Detected (NotDetected) St Y.enterocolitica PCR Not Detected (NotDetected) Stool Vibrio (PCR) Not Detected (NotDetected) Stl Vibrio cholerae PCR Not Detected (NotDetected) Stl Norovirus GI/GII PCR Not Detected (NotDetected) Anaplasma Smear Lyme Disease Screen (Negative) Lyme Tier 2 IgG Confirm (Negative) Lyme Tier 2 IgM Confirm (Negative) Diagnostic Findings Chest CTA 11/08/23 11:28 CT ANGIOGRAPHY OF THE CHEST, PULMONARY EMBOLUS PROTOCOL CLINICAL HISTORY: Shortness of breath. Renal cell carcinoma. Evaluate for pulmonary embolus. COMPARISON STUDY: Chest CT September 16, 2023. Chest radiograph September 29, 2023. TECHNIQUE: Following IV administration of 119 mL of Optiray, helical axial images of the chest were obtained utilizing the pulmonary embolus protocol. Maximal intensity projections and sagittal and coronal reformats were viewed on an independent 3D workstation. IV contrast was administered without complication. Automated exposure control was utilized for the study. A dose lowering technique was utilized adhering to the principles of ALARA. CT DOSE: 710.47 mGy.cm FINDINGS: No pulmonary emboli are identified. There is no thoracic aortic dissection. Trace pericardial effusion is present. Small left pleural effusion has decreased in size since chest CT September 16, 2023. Right pleural effusion has essentially resolved. Irregular interlobular septal thickening persists. Thoracic lymphadenopathy has improved since CT of September 16, 2023. A left lower cervical lymph node image 202 of 231 measures 3.2 x 1.9 cm, previously 3.5 x 2.4 cm. A subcarinal lymph node measures 5.6 x 3.1 cm, previously 6.5 x 3.5 cm. Several these nodes are partially calcified. Pleural thickening, greater on the left, has improved. A 3.9 cm irregular subpleural right lower lobe nodular opacity on image 79 previously measured 4.3 cm. Additional subpleural nodular opacities have mildly improved. There is no pneumothorax. No suspicious lesions within the bony thorax are present. There are gallstones within the gallbladder. Periportal edema is noted. There is also mild peripancreatic edema. The liver appears heterogeneous. This may be artifactual although underlying lesions could appear similar. Possible intrahepatic biliary ductal dilatation within the left hepatic lobe is noted. A 4 cm right adrenal metastasis previously measured 5.6 cm. IMPRESSION: 1. No pulmonary emboli identified. 2. Findings consistent with a partial treatment response. Improvement in the bilateral pleural effusions, pleural metastatic disease and thoracic lymphadenopathy since CT of September 16, 2023, as detailed above. Interval decrease in size of a right adrenal metastasis. 3. Persistent interlobular septal thickening. This could reflect lymphangitic tumor or pulmonary edema. 4. Heterogeneity of the liver with possible intrahepatic biliary ductal dilatation with the left hepatic lobe. The findings may be artifactual however metastatic disease cannot be excluded. This can be assessed with nonemergent CT of the abdomen. 5. Cholelithiasis. 5. Mild nonspecific nydia hepatis and peripancreatic stranding which can be assessed on the follow-up CT. ACT 112: Negative or not required by law. Electronically signed by: Tee Babb M.D. 11/08/2023 1:20 PM Chest X-Ray 11/09/23 08:00 XR chest 1V portable HISTORY: 73 years-old Male monitor for recurrent pleural effusions acute shortness of breath COMPARISON: CTA chest 11/08/2023 TECHNIQUE: AP view of the chest FINDINGS: Cardiac silhouette is mildly enlarged. Pulmonary emphysema with interstitial coarsening. Scattered nodular airspace opacities redemonstrated with irregular focus of consolidation within the basal right lower lobe better seen on comparison CTA. Nodular pleural thickening of left greater than right hemithoraces with small left pleural effusion and persistent left basilar consolidation. Trace right pleural effusion. Bones appear grossly intact. IMPRESSION: 1. Unchanged trace right and small left pleural effusions with bibasilar densities. 2. Emphysema with reticular interstitial opacities again noted which may represent interstitial pulmonary edema versus lymphangitic carcinomatosis. 3. Please refer to yesterday's CTA of the chest for further discussion of the patient's metastatic findings. ACT 112: Negative or not required by law. The above report was generated using voice recognition software. It may contain grammatical, syntax or spelling errors. Electronically signed by: Ramon Godinez M.D. 11/09/2023 7:31 AM Abdomen/Pelvis CT 11/10/23 16:47 CT abdomen pelvis wo/w con CT DOSE: 1553.47 mGy.cm CLINICAL HISTORY: weakness, eval progression met disease, cholelithi TECHNIQUE: Multiaxial CT images of the abdomen and pelvis were performed both before and after the intravenous administration of contrast. A dose lowering technique was utilized adhering to the principles of ALARA. COMPARISON STUDY: Chest CTA 11/08/2023. Abdomen and pelvis CT 07/06/2023. FINDINGS: There is a small left pleural effusion again noted. Persistent nodular interstitial thickening at the lung bases which could represent lymphangitic spread of tumor. Right lower lobe nodular opacities are again noted including a 3.9 cm right lung base irregular opacity. Left greater than right pleural metastatic disease is again noted. These findings are better appreciated on the recent chest CTA. There are few punctate right renal calculi. No ureteral calculi. No hydronephrosis. Subcarinal lymphadenopathy again noted. There are multiple irregular hypodense lesions seen scattered throughout the liver which are new from the prior study. The majority of these demonstrate a peripheral distribution. These are indeterminate. Multifocal metastatic disease would be the diagnosis of exclusion. Multifocal infarcts or infectious process such as an ascending cholangitis also remains in the differential diagnosis. Dominant focus within the right hepatic lobe on image 132 measures 2.6 cm. The main portal vein is patent. Multiple small gallstones. Mild thickening of the gallbladder wall and mild thickening of the common bile duct is noted. The pancreas and spleen are unremarkable. A right adrenal gland metastasis is again noted measuring 3.6 cm. Prior left nephrectomy. No evidence for intrahepatic bile duct dilatation. Retroperitoneal surgical clips are present. Normal caliber abdominal aorta. No retroperitoneal or pelvic lymphadenopathy. Prostate gland remains enlarged. No contrast within the bladder from the prior CT examination. Trace pelvic free fluid is noted. No pneumoperitoneum. No pneumatosis. No suspicious lytic or blastic osseous lesions. A metal nodularity most pronounced within the right lower quadrant best seen on image 210. This likely represents metastatic disease. This is new from the prior study. Colonic diverticulosis. No evidence for acute diverticulitis. No bowel wall thickening or obstruction. Normal appendix. IMPRESSION: 1. Redemonstration of metastatic disease within the chest. This is better appreciated on the recent chest CTA. 2. Multiple scattered irregular hypodense foci seen throughout the liver. The majority of these demonstrate a peripheral distribution. These are new compared to the prior studies. Therefore, metastatic disease would be the diagnosis of exclusion. There is also diffuse thickening of the wall of the extra hepatic bile ducts. Therefore, an ascending cholangitis or less likely hepatic infarcts also remain differential diagnosis. 3. 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 4. Prior left nephrectomy. 5. Gallbladder wall thickening with cholelithiasis. This has progressed in the interval. No surrounding inflammatory change identified. An early acute cholecystitis. Would be the diagnosis of exclusion. 6. No evidence for bowel obstruction. 7. Redemonstration of the right adrenal metastasis. 8. Prior left nephrectomy. . Additional findings as described above. ACT 112: Negative or not required by law. Electronically signed by: Gold Guardado M.D. 11/10/2023 5:45 PM Chest X-Ray 11/12/23 08:57 XR chest 2V PA/lateral HISTORY: 73 years-old Male sob, f/u acute shortness of breath COMPARISON: Chest x-ray 11/09/2023, CTA chest 11/06/2023 TECHNIQUE: AP view of the chest FINDINGS: Cardiac silhouette is enlarged. Pulmonary vascular congestion with left greater than right mixed interstitial and alveolar opacities within the mid to lower lung zone predominate distribution. Left greater than right layering pleural effusions with pleural nodularity and reticular nodular pulmonary opacities. Upper abdominal surgical clips. IMPRESSION: 1. Cardiomegaly with pulmonary vascular congestion and probable mild pulmonary edema with small pleural effusions and bibasilar consolidation. 2. Pulmonary and pleural metastasis redemonstrated. Findings are better assessed on the 11/08/2023 CTA chest. ACT 112: Negative or not required by law. The above report was generated using voice recognition software. It may contain grammatical, syntax or spelling errors. Electronically signed by: Ramon Godinez M.D. 11/12/2023 10:25 AM Chest X-Ray 11/14/23 12:57 XR chest 2V PA/lateral HISTORY: 73 years-old Male wheezing acute shortness of breath COMPARISON: 11/12/2023 TECHNIQUE: PA and lateral views of the chest FINDINGS: Cardiac silhouette is enlarged. Extensive mixed interstitial and alveolar op acities with progressive consolidation of the lung bases and right mid lung. Layering pleural effusions have also increased in size. No pneumothorax. Upper abdominal surgical clips. Degenerative changes of the shoulders and spine. IMPRESSION: 1. Cardiomegaly with extensive mixed interstitial and alveolar opacities which have progressed from prior. 2. Increased size of the layering pleural effusions. ACT 112: Negative or not required by law. The above report was generated using voice recognition software. It may contain grammatical, syntax or spelling errors. Electronically signed by: Ramon Godinez M.D. 11/14/2023 1:[address] 11/15/23 09:06 CT chest diagnostic wo con CT DOSE: 417.97 mGy.cm CLINICAL HISTORY: 73 years-old Male with worsening CXR, resp status/effusions, ca. ?infx.. Acute shortness of breath with pulmonary opacities . 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 TECHNIQUE: Multiaxial CT images of the chest were performed without contrast. A dose lowering technique was utilized adhering to the principles of ALARA. COMPARISON: CTA chest 11/08/2023 FINDINGS: No thoracic aortic aneurysm. Small pericardial effusion is present. Small left pleural effusion is unchanged. There is a new loculated moderate- sized right pleural effusion. Irregular interlobular septal thickening persists. Thoracic lymphadenopathy is overall unchanged. A left lower cervical lymph node image 42 series 4 measures 3.2 x 1.9 cm. A subcarinal lymph node measures 5.9 x 3.0 cm. several these nodes are partially calcified. Pleural thickening, greater on the left again noted with progression on the right. A 5 cm irregular subpleural right lower lobe nodular opacity on image 167 previously measured 3.9 cm. There is no pneumothorax. There is progressive mixed interstitial and alveolar opacities with worsening of the intralobular septal thickening. Subpleural patchy nodular consolidative foci also noted. No suspicious lesions within the bony thorax are present. There are gallstones within the gallbladder. Periportal edema is noted. There is also mild peripancreatic edema. Hepatic metastatic disease. Possible intrahepatic biliary ductal dilatation within the left hepatic lobe is noted. A 4 cm right adrenal metastasis is unchanged IMPRESSION: 1. Cardiomegaly with pulmonary edema, small pericardial effusion and new loculated moderate right pleural effusion. 2. Pathologic thoracic lymphadenopathy with metastatic disease of the chest redemonstrated as described above. 3. Progressive nodular bilateral airspace opacities may represent a superimposed pneumonia. 4. Possible lymphangitic carcinomatosis. 5. Hepatic and right adrenal metastasis. 6. Cholelithiasis. ACT 112: Negative or not required by law. Electronically signed by: Ramon Godinez M.D. 11/15/2023 11:39 AM Chest X-Ray 11/16/23 09:46 XR chest 1V not portable HISTORY: 73 years-old Male s/p rt thora follow-up study in a patient with pleural effusions COMPARISON: Chest CT 11/15/2023 TECHNIQUE: PA view of the chest FINDINGS: Cardiac silhouette is enlarged. Pulmonary vascular congestion with mixed interstitial and alveolar opacities redemonstrated. Layering pleural effusions are again noted, decreased in size on the right. No postprocedural pneumothorax. Pulmonary nodular foci with pleural thickening better seen on prior CT. Degenerative changes of the shoulders and spine. IMPRESSION: 1. Decreased size of the right pleural effusion status post thoracentesis. 2. No postprocedural pneumothorax identified. 3. Additional findings of the chest are better evaluated on the CT from 11/15/2023. ACT 112: Negative or not required by law. The above report was generated using voice recognition software. It may contain grammatical, syntax or spelling errors. Electronically signed by: Ramon Godinez M.D. 11/16/2023 11:02 AM Thoracentesis/Paracentesis US 11/16/23 14:05 ULTRASOUND-GUIDED RIGHT THORACENTESIS CLINICAL HISTORY: Loculated right pleural effusion PROCEDURE: Procedure and risks were explained. Informed consent was obtained. A final timeout was completed. The right lateral thorax was prepped and draped in sterile fashion. 1% lidocaine was utilized for skin anesthesia. Utilizing ultrasound guidance, a 5 [place] safety centesis catheter was advanced into the right pleural effusion. Ultrasound images were obtained. A total of 650 mL straw-colored pleural fluid was removed and sent to the lab. The catheter was removed and Band-Aid applied. The patient tolerated the procedure well. Postprocedure chest x-ray will be performed. Vital signs will be monitored on the floor. IMPRESSION: Ultrasound-guided right thoracentesis as above. Performed, dictated, and signed by Chano Yu PA-C; to be co-signed by Dr. Nirmal Pineda. PG Care Time/CCT Total # of Minutes Spent Total Time Spent with Patient: Total time spent is greater than 50% in coordination of care (as documented) at patient's floor/unit and/or counseling patient: I spent 110 minutes overall addressing this case: 20 min in medical data review/discussion with referring provider(s) and/or preparation for the visit 15 min in direct interaction with the patient/exam 45 min in Advance Care Planning/Goals of Care discussions as detailed above in note (must be >16min) 15 min in subsequent review and synthesis of assessment and plan 15 min communicating with other providers regarding the patient's case: p Advanced Care Planning 32850 Advanced Care Planning 30 Min [id number] Advanced Care Planning Additional 30 [place] [address] IN/OBS CONSULT LVL 4,60M (25 - SIGNIFICANT, SEPARATELY IDENTIFIABLE ) Patient Type New Medical Decision Making High Complexity Diagnoses Dyspnea and respiratory abnormalities R06.00; R06.89 Dysphagia, unspecified type R13.10 Dysphagia type: unspecified Generalized weakness R53.1 Cancer related pain G89.3 Advanced care planning/counseling discussion Z71.89 Additional Codes Advanced Care Planning - 81939 Advanced Care Planning 30 Min: 61291 Advanced Care Planning 30 Min ([id number]) Advanced Care Planning - 79728 Advanced Care Planning Additional 30 Min: 88832 Advanced Care Planning Additional 30 Min ([id number])
--- NOTE | 2023-11-16 17:15 | Hospitalist Progress Note ---
Date of Service November 16, 2023 Assessment & Plan (1) SOB (shortness of breath): Plan: Presented with weakness/SOB. PleurX on the RIGHT removed October 26 (prior had one on the left) but not draining anything and removed. CTA chest on admission negative for PE, findings c/w partial treatment response w/ improvement in b/l pleural effusions, pleural metastatic disease and thoracic lymphadenopathy, interval decrease in size of R adrenal mets, persistent interlobar septal thickening, ?lymphangitic tumor or pulmonary edema. Had been on room air at rest w/ suspected drops in O2 w/ ambulation given lung mets however did attempt lasix IV despite negative BNP to help w/ edema/effusions without significant response and given poor PO intake avoiding further diuretics but had been taking in boost supplements/albumin improved. Slight improvement in breathing 11/12 however appeared worse on 11/13 and repeat C2V obtained which appeared worse and discussed w/ pulm given extensive mixed interstitial and alveolar opacities which have progressed from prior. Increased size of the layering pleural effusions. I&O not accurate as having unmeasured voids, continued weight loss. WORSENED BREATHING/HYPOXIA 11/14 with WBC elevation 11.3k. Blood cultures from admission NEGATIVE. - CT Chest noncontrast obtained given worsening CXR with increased O2 needs. > Cardiomegaly with pulmonary edema, small pericardial effusion and new loculated moderate right pleural effusion. > Pathologic thoracic lymphadenopathy with metastatic disease of the chest redemonstrated. > Progressive nodular bilateral airspace opacities may represent a superimposed pneumonia. > Possible lymphangitic carcinomatosis. Pulmonary consulted. Thoracentesis on 11/15 removed 650 cc of fluid -- Analysis, cultures pending. Prior samples were malignant. - Did not provide any symptomatic improvement. - Pulmonary's recommendations include: Pleurx catheter unlikely to offer symptomatic benefit so would not proceed down this route. Recommend transitioning to palliative care measures as the burden of his disease is unlikely to respond to pulmonary interventions. Does not seem like patient is candidate for additional systemic chemotherapy given his poor performance status. - Palliative care consulted: patient does not seem ready to face his mortality, but is beginning to wonder. - Oncology to re-eval patient -- pending recommendations and guidance. > Waiting for oncology's evaluation to direct plan moving forward (chemo holiday with plan to resume in 1-2 weeks versus comfort measures?) Continue supplemental O2 to maintain sats >88%, will likely need continued oxygen at discharge. Continue Zosyn IV for coverage, ?switching to Cefepime Continue cough syrup QID, Pulmonary toilet, nebs Continued inpatient stay (2) Generalized weakness: Plan: 73yo presents for ~1 month of progressive weakness/SOB. MULTIFACTORIAL: dehydration/poor PO intake, pulm mets, chemo, hypothyroidism, B12/Vit D deficiency, progressive disease CTA chest neg for PE, biofire resp/stool negative as well as for cdiff Lyme IgG + but neg IgM and tx in the past. TSH elevation 26-- increased synthroid 75mcg daily B12 deficiency/low normal - IM x 1, continued PO daily Vit D low- PO started/continued Ativan for anxiety continued but at lower dose and prn available as well. Remeron added prior for mood/sleep/appetite which does seem to have helped appetite but poor PO tolerance Nutrition consulted, boost supplements. Has been taking, albumin improved prior. Heme/onc consulted, planned for chemo holiday x 2 weeks, but progressive findings off chemo as above and do not suspect able to tolerate further in current condition. Appreciate Dr. Packer's recommendations. (3) Metastatic renal cell carcinoma: Plan: Continued lenvatinib and everolimus and family brought in however see above now on hold for drug holiday given above, however worsening findings on CT chest as above/loculated effusion and CTAP obtained this past week as well Heme/onc consulted, appreciate repeat eval/discussion as above (4) Hypothyroidism: Plan: as above, TSH 11 earlier this year, WORSE at 26 this admission. T4/T3 wnl however on 50mcg daily and INCREASED to 75mcg daily and should be continued on such at dc/adjustment outpt (5) B12 deficiency: Plan: low normal 332 and given IM x 1 and continued PO daily Folate wnl 9 (6) Difficulty swallowing: Plan: Mouth pain/issues with swallowing for approx 1 month Aspiration precautions, Speech consult - did have recent issue of having pill stuck towards distal aspect of esophagus, anxiety about happening again Was on dexamethasone suspension QID however not using as frequent at home. Nystatin/magic swizzle Aspiration precautions, boost supplements, speech eval Synthroid adjustment as above Speech reconsulted by palliative care on 11/15 (7) Mouth pain: Plan: see above, pain controlled but difficult w/ appetite and added remeron and taking most of boost but continued/worsened weakness as above (8) Type 2 diabetes mellitus without complication: Plan: A1c 7.2 back in February 2022, repeat 7.1 BSG AC/HS, SSI while inpatient. Removed DM II from diet to increase variety and had prior hypoglycemia. Added back carb ratio/monitor No basal given poor PO intake but increased BSGs, suspect 2nd to progression of above/illness, and given complex patient did add pharmacy consult for glycemic assistance (9) Vitamin D deficiency: Plan: LOW 19.3, replacement started/continued Plan Updated at bedside Discussed case with palliative care Will need oxygen at dc, 2step closer to time pending discussions DVT proph: lovenox SQ continued CODE STATUS: Full code Dr Packer to discuss plans w/ patient regarding ongoing treatment given progression off of oral chemo for less than a week at present w/ rapid progression in chest as above. Prior PT/OT recs for HH, however may need to arrange for palliative/hospice at discharge pending sx response w/ drainage and discussions w/ oncology/palliative . Admission and Anticipated Discharge Date Admission Date: November 09, 2023 Subjective Patient seen and evaluated at bedside with . He had a thoracentesis with IR today with a total of 650 cc removed. He reports that this did not improve his shortness of breath or supplemental oxygen demand. He continues to remain short of breath at rest on 4 L via NC. Patient appeared discouraged that the thoracentesis did not help. Him and his state that they are awaiting oncology's recommendations on how to proceed forward, as well as the results of his fluid analysis from the thoracentesis today. Palliative care met with patient and his today, however he is reportedly not ready to face his mortality at this time. Plan moving forward is unclear at this time until oncology sees the patient. No additional complaints or concerns at this time. Physical Exam Physical Exam: General: Generalized weakness, increased work of breathing, chronically ill- appearing. Depressed affect. Skin: The skin was without rashes, erythema, edema, or bruising. Cardiac: Regular rhythm, tachycardic in 90s. Without murmurs gallops or rubs. Pulm: Conversationally tachypneic. Course breath sounds throughout, diminished in bases, worse R>L. 93% on 4 L. Abdominal: Soft, nontender, minimal distention. Bowel sounds present. Neuro: A&O x3. No focal neurological deficits. Results & Data Results & Data Vital Signs (Past 12 Hours) Vital Signs Temp Pulse Resp BP BP Pulse Ox O2 Del Method 11/16/23 14:35 93 H 22 93 Nasal Cannula 11/16/23 12:01 36.3 C L 91 H 24 101/66 97 Nasal Cannula 11/16/23 11:31 36.5 C 90 20 98/63 L 96 Nasal Cannula 11/16/23 11:01 36.4 C L 92 H 28 H 104/63 93 Nasal Cannula 11/16/23 10:45 36.8 C 93 H 24 107/68 95 Nasal Cannula 11/16/23 10:15 36.7 C 92 H 18 108/76 95 Nasal Cannula 11/16/23 10:00 36.8 C 91 H 20 105/69 96 Nasal Cannula 11/16/23 07:50 Nasal Cannula 11/16/23 07:49 36.6 C 89 18 115/76 94 Nasal Cannula 11/16/23 07:11 78 17 98 Nasal Cannula O2 Flow Rate 11/16/23 14:35 4 11/16/23 12:01 4 11/16/23 11:31 4 11/16/23 11:01 4 11/16/23 10:45 4 11/16/23 10:15 4 11/16/23 10:00 4 11/16/23 07:50 4 11/16/23 07:49 4 11/16/23 07:11 4 Laboratory Results Reviewed CBC Reviewed CMP Reviewed thoracentesis fluid analysis PG Care Time/CCT Total # of Minutes Spent Total Time Spent with Patient: Total time spent is greater than 50% in coordination of care (as documented) at patient's floor/unit and/or counseling patient: Coding Level of Care Code 30171 SUB INP/OBS CARE 3/50MIN Diagnoses SOB (shortness of breath) R06.02 Generalized weakness R53.1 Renal cell carcinoma of right kidney metastatic to other site C64.9 Laterality: unspecified laterality Hypothyroidism E03.9 B12 deficiency E53.8 Dysphagia, unspecified type R13.10 Dysphagia type: unspecified Mouth pain K13.79 Type 2 diabetes mellitus without complication E11.9 Vitamin D deficiency E55.9 (3) Metastatic renal cell carcinoma Laterality: unspecified laterality Qualified Code(s): C64.9 - Malignant neoplasm of unspecified kidney, except renal pelvis (6) Difficulty swallowing Dysphagia type: unspecified Qualified Code(s): R13.10 - Dysphagia, unspecified
[2023-11-16] MEDS: MoRPHine SULFATE 10 MG/0.5 ML UDP PO PRN (20:24)
[2023-11-17] MEDS: LANTUS PER UNIT CHARGE SC SCH (08:27)
[2023-11-17 08:35] LABS: Hematocrit (blood only) 38.2 % (42.0-52.0); Hemoglobin 12.1 g/dl (14.0-18.0); Mean Corpuscular Hemoglobin 28.3 pg (25.0-34.0); Mean Corpuscular Hgb Conc 31.7 g/dL (32.0-36.0); Mean Corpuscular Volume 89.3 fL (80.0-100.0); Mean Platelet Volume 9.3 fL (9.4-12.4); Platelet Count 476 K/uL (130-400); RDW Coefficient of Variation 13.8 % (11.5-14.5); RDW Standard Deviation 44.8 fL (36.4-46.3); Red Blood Count 4.28 M/uL (4.70-6.10); White Blood Count 13.67 K/ul (4.8-10.8)
[2023-11-17 08:52] LABS: Albumin Globulin Ratio 0.7 (0.9-2); Albumin Level 2.8 gm/dl (3.4-5.0); BUN Creatinine Ratio 33.9 (10-20); Bilirubin,Total 0.5 mg/dl (0.2-1.0); Calcium 9.5 mg/dl (8.6-10.3); Creatinine Clr Calc Pharmacy 54.1 ml/min; Est GFR (African American) 78.7 ml/min; Est GFR (Non-African American) 67.9 ml/min; Globulin 3.8 gm/dl (2.5-4.0); Potassium 4.1 mmol/L (3.5-5.1); Total Protein 6.6 gm/dl (6.0-8.3)
--- NOTE | 2023-11-17 09:35 | Hospitalist Progress Note ---
Date of Service November 17, 2023 Assessment & Plan (1) SOB (shortness of breath): Plan: Presented with weakness/SOB. PleurX on the RIGHT removed October 26 (prior had one on the left) but not draining anything and removed. CTA chest on admission negative for PE, findings c/w partial treatment response w/ improvement in b/l pleural effusions, pleural metastatic disease and thoracic lymphadenopathy, interval decrease in size of R adrenal mets, persistent interlobar septal thickening, ?lymphangitic tumor or pulmonary edema. Worsened breathing/hypoxia on 11/14 with WBC elevation 11.3k. Blood cultures from admission NEGATIVE. - CT Chest noncontrast obtained given worsening CXR with increased O2 needs - showed new loculated moderate right pleural effusion Pulmonary consulted. Thoracentesis on 11/15 removed 650 cc of fluid -- Analysis, cultures pending. Prior samples were malignant. - Did not provide any symptomatic improvement. - Pulmonary's recommendations include: Pleurx catheter unlikely to offer symptomatic benefit so would not proceed down this route. Recommend transitioning to palliative care measures as the burden of his disease is unlikely to respond to pulmonary interventions. Does not seem like patient is candidate for additional systemic chemotherapy given his poor performance status. - Palliative care consulted: Patient and are now leaning more towards comfort care/home with hospice. > No change in code status at this time. > Palliative care will meet with patient and again tomorrow, 11/18/2023 - Oncology to re-eval patient -- pending recommendations and guidance. > Waiting for oncology's evaluation to direct plan moving forward (chemo holiday with plan to resume in 1-2 weeks versus comfort measures?) > Seems as though patient is waiting for oncology's input in regards to if there will be any benefit to further chemo before he can make a decision about comfort care. Continue supplemental O2 to maintain sats >88%, will likely need continued oxygen at discharge. Continue Zosyn IV for coverage, ?switching to Cefepime Continue cough syrup QID, Pulmonary toilet, nebs Continued inpatient stay (2) Generalized weakness: Plan: 73yo presents for ~1 month of progressive weakness/SOB. MULTIFACTORIAL: dehydration/poor PO intake, pulm mets, chemo, hypothyroidism, B12/Vit D deficiency, progressive disease CTA chest neg for PE, biofire resp/stool negative as well as for cdiff Lyme IgG + but neg IgM and tx in the past. TSH elevation 26-- increased synthroid 75mcg daily B12 deficiency/low normal - IM x 1, continued PO daily Vit D low- PO started/continued Ativan for anxiety continued but at lower dose and prn available as well. Remeron added prior for mood/sleep/appetite which does seem to have helped appetite but poor PO tolerance Nutrition consulted, boost supplements. Has been taking, albumin improved prior. Heme/onc consulted, planned for chemo holiday x 2 weeks, but progressive findings off chemo as above and do not suspect able to tolerate further in current condition. Appreciate Dr. Packer's recommendations. (3) Metastatic renal cell carcinoma: Plan: Continued lenvatinib and everolimus and family brought in however see above now on hold for drug holiday given above, however worsening findings on CT chest as above/loculated effusion and CTAP obtained this past week as well Heme/onc consulted, appreciate repeat eval/discussion as above (4) Hypothyroidism: Plan: as above, TSH 11 earlier this year, WORSE at 26 this admission. T4/T3 wnl however on 50mcg daily and INCREASED to 75mcg daily and should be continued on such at dc/adjustment outpt (5) B12 deficiency: Plan: low normal 332 and given IM x 1 and continued PO daily Folate wnl 9 (6) Difficulty swallowing: Plan: Mouth pain/issues with swallowing for approx 1 month Aspiration precautions, Speech consult - did have recent issue of having pill stuck towards distal aspect of esophagus, anxiety about happening again Was on dexamethasone suspension QID however not using as frequent at home. Nystatin/magic swizzle Aspiration precautions, boost supplements, speech eval Synthroid adjustment as above Speech reconsulted by palliative care on 11/15 --> downgrade diet to soft bite sized, thin liquids. (7) Type 2 diabetes mellitus without complication: Plan: A1c 7.2 back in February 2022, repeat 7.1 BSG AC/HS, SSI while inpatient. Removed DM II from diet to increase variety and had prior hypoglycemia. Added back carb ratio/monitor No basal given poor PO intake but increased BSGs, suspect 2nd to progression of above/illness, and given complex patient did add pharmacy consult for glycemic assistance (8) Vitamin D deficiency: Plan: LOW 19.3, replacement started/continued Plan Updated at bedside Discussed case with multidisciplinary team Reviewed speech therapy evaluation Will need oxygen at dc, 2step closer to time pending discussions DVT proph: lovenox SQ continued CODE STATUS: Full code Dr Packer to discuss plans w/ patient regarding ongoing treatment given progression off of oral chemo for less than a week at present w/ rapid progression in chest as above. Prior PT/OT recs for HH, however may need to arrange for palliative/hospice at discharge pending sx response w/ drainage and discussions w/ oncology/palliative. Admission and Anticipated Discharge Date Admission Date: November 09, 2023 Subjective Patient seen and evaluated at bedside with . He continues to remain significantly short of breath. Per nursing, patient can only sit upright for approximately 20 seconds before being too short of breath and having to recline again. He is now on 6 L supplemental O2. Per nursing and patient's , his appetite is significantly decreased and only eating small amounts of ice cream/reports/Jell-O. Patient and met with palliative care again today, and they appear to be a leaning more towards hospice services. However, they are still anxiously awaiting input from oncology before making any decisions. Oncology should meet with the patient this evening after clinic. No additional complaints or concerns at this time. Physical Exam Physical Exam: General: Generalized weakness, increased work of breathing, chronically ill- appearing. Depressed affect. Skin: The skin was without rashes, erythema, edema, or bruising. Cardiac: Regular rhythm, tachycardic in 90s. Without murmurs gallops or rubs. Pulm: Conversationally tachypneic. Course breath sounds throughout, diminished in bases, worse R>L. 97% on 6 L. Abdominal: Soft, nontender, minimal distention. Bowel sounds present. Neuro: A&O x3. No focal neurological deficits. Results & Data Results & Data Vital Signs (Past 12 Hours) Vital Signs Temp Pulse Resp BP BP Pulse Ox O2 Del Method 11/17/23 07:23 92 H 17 96 Nasal Cannula 11/17/23 07:21 112/75 11/17/23 07:15 Nasal Cannula 11/17/23 07:11 36.4 C L 93 H 18 93/58 L 94 Nasal Cannula O2 Flow Rate 11/17/23 07:23 4 11/17/23 07:21 11/17/23 07:15 4 11/17/23 07:11 4 Laboratory Results Reviewed CBC Reviewed BMP Reviewed fluid cultures PG Care Time/CCT Total # of Minutes Spent Total Time Spent with Patient: Total time spent is greater than 50% in coordination of care (as documented) at patient's floor/unit and/or counseling patient: Coding Level of Care Code 90899 SUB INP/OBS CARE 3/50MIN Diagnoses SOB (shortness of breath) R06.02 Generalized weakness R53.1 Renal cell carcinoma of right kidney metastatic to other site C64.9 Laterality: unspecified laterality Hypothyroidism E03.9 B12 deficiency E53.8 Dysphagia, unspecified type R13.10 Dysphagia type: unspecified Type 2 diabetes mellitus without complication E11.9 Vitamin D deficiency E55.9 (3) Metastatic renal cell carcinoma Laterality: unspecified laterality Qualified Code(s): C64.9 - Malignant neoplasm of unspecified kidney, except renal pelvis (6) Difficulty swallowing Dysphagia type: unspecified Qualified Code(s): R13.10 - Dysphagia, unspecified
--- NOTE | 2023-11-17 10:46 | Pharmacy Report ---
Pharmacy Glycemic Short Note 2 - Date of Service November 17, 2023 - Glycemic Short BSG Results (Last 24 hours): 11/16/23 11/16/23 11/16/23 11:32 16:45 16:47 Glucose POC Glucose 142 H 362 H* 218 H 11/16/23 11/16/23 11/17/23 16:57 20:46 07:36 Glucose POC Glucose 250 H 221 H 183 H 11/17/23 07:55 Glucose 152 H POC Glucose OUTPATIENT ANTIDIABETIC REGIMEN: * Metformin 1 gm PO BID * Trulicity 0.75 mg SQ weekly * HbA1c = 7.1% on 11/11/23 ASSESSMENT: 11/17/23 * Blood sugars elevated yesterday, ranging 142-189 mg/dL * Received 23 units of insulin (6 units of basal and 17 units of bolus) * Fasting blood sugar improved today, but still elevated (183 mg/dL) * Will increase basal insulin today and tighten carb ratio back to 8 11/16/23 * 73 y/o M admitted for SOB/weakness and metastatic renal cell carcinoma. History of diabetes managed on Metformin PO and Trulicity SQ at home. * BSGs yesterday were [phone] mg/dl. Fasting BSG today was 156 mg/dl. * Pharmacy was consulted last night. Basal insulin 6 units (stress of 1) given yesterday at dinner time. Continued the same today AM. * Novolog carb ratio was tightened to 8 yesterday. Pre-lunch BSG trended down to 142 mg/dl today. Loosened carb ratio slightly to 9. PLAN FOR INPATIENT GLYCEMIC CONTROL: * Hold outpatient diabetes medications * Basal insulin * Lantus 8 units SQ QAM * Bolus insulin * NovoLog per scale ACHS or Q6hrs while NPO * Goal Range: Low 110 mg/dL - High 140 mg/dL * Correction Factor: 25 mg/dL/unit * Nutritional / Prandial insulin per carb ratio of 1 unit per 8 grams CHO consumed
--- NOTE | 2023-11-17 17:17 | Palliative Care Progress Note ---
Date of Service November 17, 2023 Assessment & Plan (1) Dyspnea and respiratory abnormalities: Plan: pt remains distressed by dyspnea at rest - CT results A left lower cervical lymph node image 42 series 4 measures 3.2 x 1.9 cm. A subcarinal lymph node measures 5.9 x 3.0 cm. several these nodes are partially calcified. Pleural thickening, greater on the left again noted with progression on the right. A 5 cm irregular subpleural right lower lobe nodular opacity on image 167 previously measured 3.9 cm. There is no pneumothorax. There is progressive mixed interstitial and alveolar opacities with worsening of the intralobular septal thickening. Subpleural patchy nodular consolidative foci also noted. We agreed to a trial of scheduled low dose roxanol 5mg po q6h and continue prn roxanol 5mg po q4h prn/orders written (2) Advanced care planning/counseling discussion: Plan: 45min face to face ACP at bedside with Mr & Mrs Pepe Speech/swallow eval and CT results reviewed. Discussed his general state of decline, inc fragility/weakness/anorexia. states she is leaning towards comfort/home with hospice. Patient says he mostly agrees with her, but he wants to know for sure there is not going to be a great turnaround with more cancer rx. He states he is suffering: "this is no way to live, I want to be home and be with my family." replied they could go home and he could be with the family, their pets and their close friends; she states she thinks he is dwindling here and there is not much we are going to "fix." We spoke about hospice and both patient and were receptive to hospice at home if this is the recommendation of the provider teams. He was also leaning towards no code and felt being on machines won't help him but he needs more time to contemplate the meaning of his mortality so no change to code status today. I have a follow up with them tomorrow around 3pm. (3) Difficulty swallowing: Plan: EUGENIO goldstein much appreciated (4) Cancer related pain: (5) Mouth pain: (6) Generalized weakness: (7) Palliative care by specialist: Plan As above. Thank you for allowing us to participate in the ongoing care of this patient. Please page with any additional concerns. Bere Garcia DNP Director, Palliative Medicine Admission and Anticipated Discharge Date Admission Date: November 09, 2023 Results & Data Vital Signs (Past 12 Hours) Vital Signs Temp Pulse Pulse Resp BP BP Pulse Ox 11/17/23 15:50 36.8 C 98 H 18 101/63 97 11/17/23 15:40 99 H 17 97 11/17/23 07:23 92 H 17 96 11/17/23 07:21 112/75 11/17/23 07:15 11/17/23 07:11 36.4 C L 93 H 18 93/58 L 94 O2 Del Method O2 Flow Rate 11/17/23 15:50 Nasal Cannula 6 11/17/23 15:40 Nasal Cannula 5 11/17/23 07:23 Nasal Cannula 4 11/17/23 07:21 11/17/23 07:15 Nasal Cannula 4 11/17/23 07:11 Nasal Cannula 4 Diagnostic Findings Chest CTA 11/08/23 11:28 CT ANGIOGRAPHY OF THE CHEST, PULMONARY EMBOLUS PROTOCOL CLINICAL HISTORY: Shortness of breath. Renal cell carcinoma. Evaluate for pulmonary embolus. COMPARISON STUDY: Chest CT September 16, 2023. Chest radiograph September 29, 2023. TECHNIQUE: Following IV administration of 119 mL of Optiray, helical axial images of the chest were obtained utilizing the pulmonary embolus protocol. Maximal intensity projections and sagittal and coronal reformats were viewed on an independent 3D workstation. IV contrast was administered without complication. Automated exposure control was utilized for the study. A dose lowering technique was utilized adhering to the principles of ALARA. CT DOSE: 710.47 mGy.cm FINDINGS: No pulmonary emboli are identified. There is no thoracic aortic dissection. Trace pericardial effusion is present. Small left pleural effusion has decreased in size since chest CT September 16, 2023. Right pleural effusion has essentially resolved. Irregular interlobular septal thickening persists. Thoracic lymphadenopathy has improved since CT of September 16, 2023. A left lower cervical lymph node image 202 of 231 measures 3.2 x 1.9 cm, previously 3.5 x 2.4 cm. A subcarinal lymph node measures 5.6 x 3.1 cm, previously 6.5 x 3.5 cm. Several these nodes are partially calcified. Pleural thickening, greater on the left, has improved. A 3.9 cm irregular subpleural right lower lobe nodular opacity on image 79 previously measured 4.3 cm. Additional subpleural nodular opacities have mildly improved. There is no pneumothorax. No suspicious lesions within the bony thorax are present. There are gallstones within the gallbladder. Periportal edema is noted. There is also mild peripancreatic edema. The liver appears heterogeneous. This may be artifactual although underlying lesions could appear similar. Possible intrahepatic biliary ductal dilatation within the left hepatic lobe is noted. A 4 cm right adrenal metastasis previously measured 5.6 cm. IMPRESSION: 1. No pulmonary emboli identified. 2. Findings consistent with a partial treatment response. Improvement in the bilateral pleural effusions, pleural metastatic disease and thoracic lymphadenopathy since CT of September 16, 2023, as detailed above. Interval decrease in size of a right adrenal metastasis. 3. Persistent interlobular septal thickening. This could reflect lymphangitic tumor or pulmonary edema. 4. Heterogeneity of the liver with possible intrahepatic biliary ductal dilatation with the left hepatic lobe. The findings may be artifactual however metastatic disease cannot be excluded. This can be assessed with nonemergent CT of the abdomen. 5. Cholelithiasis. 5. Mild nonspecific nydia hepatis and peripancreatic stranding which can be assessed on the follow-up CT. ACT 112: Negative or not required by law. Electronically signed by: Tee Babb M.D. 11/08/2023 1:20 PM Abdomen/Pelvis CT 11/10/23 16:47 CT abdomen pelvis wo/w con CT DOSE: 1553.47 mGy.cm CLINICAL HISTORY: weakness, eval progression met disease, cholelithi TECHNIQUE: Multiaxial CT images of the abdomen and pelvis were performed both before and after the intravenous administration of contrast. A dose lowering technique was utilized adhering to the principles of ALARA. COMPARISON STUDY: Chest CTA 11/08/2023. Abdomen and pelvis CT 07/06/2023. FINDINGS: There is a small left pleural effusion again noted. Persistent nodular interstitial thickening at the lung bases which could represent lymphangitic spread of tumor. Right lower lobe nodular opacities are again noted including a 3.9 cm right lung base irregular opacity. Left greater than right pleural metastatic disease is again noted. These findings are better appreciated on the recent chest CTA. There are few punctate right renal calculi. No ureteral calculi. No hydronephrosis. Subcarinal lymphadenopathy again noted. There are multiple irregular hypodense lesions seen scattered throughout the liver which are new from the prior study. The majority of these demonstrate a peripheral distribution. These are indeterminate. Multifocal metastatic disease would be the diagnosis of exclusion. Multifocal infarcts or infectious process such as an ascending cholangitis also remains in the differential diagnosis. Dominant focus within the right hepatic lobe on image 132 measures 2.6 cm. The main portal vein is patent. Multiple small gallstones. Mild thickening of the gallbladder wall and mild thickening of the common bile duct is noted. The pancreas and spleen are unremarkable. A right adrenal gland metastasis is again noted measuring 3.6 cm. Prior left nephrectomy. No evidence for intrahepatic bile duct dilatation. Retroperitoneal surgical clips are present. Normal caliber abdominal aorta. No retroperitoneal or pelvic lymphadenopathy. Prostate gland remains enlarged. No contrast within the bladder from the prior CT examination. Trace pelvic free fluid is noted. No pneumoperitoneum. No pneumatosis. No suspicious lytic or blastic osseous lesions. A metal nodularity most pronounced within the right lo wer quadrant best seen on image 210. This likely represents metastatic disease. This is new from the prior study. Colonic diverticulosis. No evidence for acute diverticulitis. No bowel wall thickening or obstruction. Normal appendix. IMPRESSION: 1. Redemonstration of metastatic disease within the chest. This is better appreciated on the recent chest CTA. 2. Multiple scattered irregular hypodense foci seen throughout the liver. The majority of these demonstrate a peripheral distribution. These are new compared to the prior studies. Therefore, metastatic disease would be the diagnosis of exclusion. There is also diffuse thickening of the wall of the extra hepatic bile ducts. Therefore, an ascending cholangitis or less likely hepatic infarcts also remain differential diagnosis. 3. 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 4. Prior left nephrectomy. 5. Gallbladder wall thickening with cholelithiasis. This has progressed in the interval. No surrounding inflammatory change identified. An early acute cholecystitis. Would be the diagnosis of exclusion. 6. No evidence for bowel obstruction. 7. Redemonstration of the right adrenal metastasis. 8. Prior left nephrectomy. . Additional findings as described above. ACT 112: Negative or not required by law. Electronically signed by: Gold Guardado M.D. 11/10/2023 5:[address] 11/15/23 09:06 CT chest diagnostic wo con CT DOSE: 417.97 mGy.cm CLINICAL HISTORY: 73 years-old Male with worsening CXR, resp status/effusions, ca. ?infx.. Acute shortness of breath with pulmonary opacities . 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 TECHNIQUE: Multiaxial CT images of the chest were performed without contrast. A dose lowering technique was utilized adhering to the principles of ALARA. COMPARISON: CTA chest 11/08/2023 FINDINGS: No thoracic aortic aneurysm. Small pericardial effusion is present. Small left pleural effusion is unchanged. There is a new loculated moderate- sized right pleural effusion. Irregular interlobular septal thickening persists. Thoracic lymphadenopathy is overall unchanged. A left lower cervical lymph node image 42 series 4 measures 3.2 x 1.9 cm. A subcarinal lymph node measures 5.9 x 3.0 cm. several these nodes are partially calcified. Pleural thickening, greater on the left again noted with progression on the right. A 5 cm irregular subpleural right lower lobe nodular opacity on image 167 previously measured 3.9 cm. There is no pneumothorax. There is progressive mixed interstitial and alveolar opacities with worsening of the intralobular septal thickening. Subpleural patchy nodular consolidative foci also noted. No suspicious lesions within the bony thorax are present. There are gallstones within the gallbladder. Periportal edema is noted. There is also mild peripancreatic edema. Hepatic metastatic disease. Possible intrahepatic biliary ductal dilatation within the left hepatic lobe is noted. A 4 cm right adrenal metastasis is unchanged IMPRESSION: 1. Cardiomegaly with pulmonary edema, small pericardial effusion and new loculated moderate right pleural effusion. 2. Pathologic thoracic lymphadenopathy with metastatic disease of the chest redemonstrated as described above. 3. Progressive nodular bilateral airspace opacities may represent a superimposed pneumonia. 4. Possible lymphangitic carcinomatosis. 5. Hepatic and right adrenal metastasis. 6. Cholelithiasis. ACT 112: Negative or not required by law. Electronically signed by: Ramon Godinez M.D. 11/15/2023 11:39 AM Chest X-Ray 11/16/23 09:46 XR chest 1V not portable HISTORY: 73 years-old Male s/p rt thora follow-up study in a patient with pleural effusions COMPARISON: Chest CT 11/15/2023 TECHNIQUE: PA view of the chest FINDINGS: Cardiac silhouette is enlarged. Pulmonary vascular congestion with mixed interstitial and alveolar opacities redemonstrated. Layering pleural effusions are again noted, decreased in size on the right. No postprocedural pneumothorax. Pulmonary nodular foci with pleural thickening better seen on prior CT. Degenerative changes of the shoulders and spine. IMPRESSION: 1. Decreased size of the right pleural effusion status post thoracentesis. 2. No postprocedural pneumothorax identified. 3. Additional findings of the chest are better evaluated on the CT from 11/15/2023. ACT 112: Negative or not required by law. The above report was generated using voice recognition software. It may contain grammatical, syntax or spelling errors. Electronically signed by: Ramon Godinez M.D. 11/16/2023 11:02 AM Thoracentesis/Paracentesis US 11/16/23 14:05 ULTRASOUND-GUIDED RIGHT THORACENTESIS CLINICAL HISTORY: Loculated right pleural effusion PROCEDURE: Procedure and risks were explained. Informed consent was obtained. A final timeout was completed. The right lateral thorax was prepped and draped in sterile fashion. 1% lidocaine was utilized for skin anesthesia. Utilizing ultrasound guidance, a 5 [place] safety centesis catheter was advanced into the right pleural effusion. Ultrasound images were obtained. A total of 650 mL straw-colored pleural fluid was removed and sent to the lab. The catheter was removed and Band-Aid applied. The patient tolerated the procedure well. Postprocedure chest x-ray will be performed. Vital signs will be monitored on the floor. IMPRESSION: Ultrasound-guided right thoracentesis as above. Performed, dictated, and signed by Chano Yu PA-C; to be co-signed by Dr. Nirmal Pineda. Electronically signed by: Nirmal Pineda M.D. 11/16/2023 5:14 PM PG Care Time/CCT Total # of Minutes Spent Total Time Spent with Patient: Total time spent is greater than 50% in coordination of care (as documented) at patient's floor/unit and/or counseling patient: I spent 95 minutes overall addressing this case: 10 min in medical data review/discussion with referring provider(s) and/or preparation for the visit 15 min in direct interaction with the patient/exam 45 min in Advance Care Planning/Goals of Care discussions as detailed above in note (must be >16min) 10 min in subsequent review and synthesis of assessment and plan 15 min communicating with other providers regarding the patient's case: primary, pulm, nursing, care mgt, oncology Advanced Care Planning 77479 Advanced Care Planning 30 Min 79130 Advanced Care Planning Additional 30 Min [place] [address] SUB INP/OBS CARE 3/50MIN (25 - SIGNIFICANT, SEPARATELY IDENTIFIABLE ) Patient Type Established Medical Decision Making High Complexity Diagnoses Dyspnea and respiratory abnormalities R06.00; R06.89 Advanced care planning/counseling discussion Z71.89 Dysphagia, unspecified type R13.10 Dysphagia type: unspecified Cancer related pain G89.3 Mouth pain K13.79 Generalized weakness R53.1 Palliative care by specialist Z51.5 Additional Codes Advanced Care Planning - 66639 Advanced Care Planning 30 Min: 40755 Advanced Care Planning 30 Min ([id number]) Advanced Care Planning - 56939 Advanced Care Planning Additional 30 Min: 21855 Advanced Care Planning Additional 30 Min ([id number]) (3) Difficulty swallowing Dysphagia type: unspecified Qualified Code(s): R13.10 - Dysphagia, unspecified
[2023-11-17] MEDS: MoRPHine SULFATE 10 MG/0.5 ML UDP PO SCH (17:20)
[2023-11-17 19:15] VITALS: TEMP 97.7
[2023-11-18 07:05] LABS: Hematocrit (blood only) 39.7 % (42.0-52.0); Hemoglobin 12.5 g/dl (14.0-18.0); Mean Corpuscular Hemoglobin 28.2 pg (25.0-34.0); Mean Corpuscular Hgb Conc 31.5 g/dL (32.0-36.0); Mean Corpuscular Volume 89.4 fL (80.0-100.0); Mean Platelet Volume 9.4 fL (9.4-12.4); Platelet Count 585 K/uL (130-400); RDW Coefficient of Variation 14.2 % (11.5-14.5); RDW Standard Deviation 45.7 fL (36.4-46.3); Red Blood Count 4.44 M/uL (4.70-6.10); White Blood Count 15.38 K/ul (4.8-10.8)
[2023-11-18 07:13] VITALS: BP 106/72
[2023-11-18 07:14] VITALS: RESP 22
[2023-11-18 07:26] LABS: BUN Creatinine Ratio 33.8 (10-20); Calcium 9.8 mg/dl (8.6-10.3); Creatinine Clr Calc Pharmacy 42.4 ml/min; Est GFR (African American) 58.7 ml/min; Est GFR (Non-African American) 50.6 ml/min; Potassium 3.7 mmol/L (3.5-5.1)
--- NOTE | 2023-11-18 08:39 | Hospitalist Progress Note ---
Date of Service November 18, 2023 Assessment & Plan (1) SOB (shortness of breath): Plan: Presented with weakness/SOB. PleurX on the RIGHT removed October 26 (prior had one on the left) but not draining anything and removed. CTA chest on admission negative for PE, findings c/w partial treatment response w/ improvement in b/l pleural effusions, pleural metastatic disease and thoracic lymphadenopathy, interval decrease in size of R adrenal mets, persistent interlobar septal thickening, ?lymphangitic tumor or pulmonary edema. Worsened breathing/hypoxia on 11/14 with WBC elevation 11.3k. Blood cultures from admission NEGATIVE. - CT Chest noncontrast obtained given worsening CXR with increased O2 needs - showed new loculated moderate right pleural effusion Pulmonary consulted. Thoracentesis on 11/15 removed 650 cc of fluid -- Analysis, cultures pending. Prior samples were malignant. - Did not provide any symptomatic improvement. - Pulmonary's recommendations include: Pleurx catheter unlikely to offer symptomatic benefit so would not proceed down this route. Recommend transitioning to palliative care measures as the burden of his disease is unlikely to respond to pulmonary interventions. Does not seem like patient is candidate for additional systemic chemotherapy given his poor performance status. - Oncology met with patient and 11/16 -- suspend oncological treatment indefinitely. - Palliative care meeting on 11/17, where decision was made to transition to comfort measures. > Prognosis is very grim, unsure if patient will be stable enough to discharge home with hospice. Will monitor overnight and reevaluate plan moving forward in AM. > Comfort orders written by palliative care. (2) Difficulty swallowing: Plan: Mouth pain/issues with swallowing for approx 1 month prior to admission Aspiration precautions, Speech consult - did have recent issue of having pill stuck towards distal aspect of esophagus, anxiety about happening again Was on dexamethasone suspension QID however not using as frequent at home. Nystatin/magic swizzle Aspiration precautions, boost supplements, speech eval Synthroid adjustment as above Speech reconsulted by palliative care on 11/15 --> downgrade diet to soft bite sized, thin liquids. (3) Generalized weakness: Plan: 73yo presents for ~1 month of progressive weakness/SOB. MULTIFACTORIAL: dehydration/poor PO intake, pulm mets, chemo, hypothyroidism, B12/Vit D deficiency, progressive disease CTA chest neg for PE, biofire resp/stool negative as well as for cdiff Lyme IgG + but neg IgM and tx in the past. TSH elevation 26-- increased synthroid 75mcg daily B12 deficiency/low normal - IM x 1, continued PO daily Vit D low- PO started/continued Ativan for anxiety continued but at lower dose and prn available as well. Remeron added prior for mood/sleep/appetite which does seem to have helped appetite but poor PO tolerance Nutrition consulted, boost supplements. Has been taking, albumin improved prior. (4) Type 2 diabetes mellitus without complication: Plan: A1c 7.2 back in February 2022, repeat 7.1 BSG AC/HS, SSI while inpatient. Removed DM II from diet to increase variety and had prior hypoglycemia. Added back carb ratio/monitor No basal given poor PO intake but increased BSGs, suspect 2nd to progression of above/illness, and given complex patient did add pharmacy consult for glycemic assistance Plan Updated patient's water filtration technician at bedside Discussed case with palliative medicine Updated case management on decision to transition to comfort measures only Will need oxygen at dc, 2step closer to time pending discussions DVT proph: lovenox SQ continued CODE STATUS: DNR/DNI Admission and Anticipated Discharge Date Admission Date: November 09, 2023 Subjective Patient seen and evaluated at bedside with his water filtration technician present. He clinically appears worse today. Patient was very dyspneic and fatigued. He was able to answer many questions with one-word responses, noting that he has no pain and his shortness of breath is the same as yesterday. He does note that he had a brief meeting with oncology yesterday and they have decided to suspend chemotherapy treatments indefinitely. Palliative care is planning to meet with the patient again today around 1500. No additional questions or concerns at this time. Physical Exam Physical Exam: General: Generalized weakness, increased work of breathing, chronically ill- appearing. Depressed affect. Extremely fatigued, would only awake when spoken to. Skin: The skin was without rashes, erythema, edema, or bruising. Cardiac: Regular rhythm, tachycardic in 100s. Without murmurs gallops or rubs. Pulm: Conversationally tachypneic. Course breath sounds throughout, diminished in bases, worse R>L. 94% on 4 L. Abdominal: Soft, nontender, minimal distention. Bowel sounds present. Neuro: A&O x3. No focal neurological deficits. Results & Data Results & Data Vital Signs (Past 12 Hours) Vital Signs Temp Pulse Pulse Resp BP Pulse Ox O2 Del Method 11/18/23 07:47 Nasal Cannula 11/18/23 07:11 106 H 22 94 Nasal Cannula 11/18/23 07:09 36.5 C 106 H 18 106/72 94 Nasal Cannula 11/17/23 22:39 98 H 18 94 Nasal Cannula O2 Flow Rate 11/18/23 07:47 4 11/18/23 07:11 4 11/18/23 07:09 4 11/17/23 22:39 5 Laboratory Results Reviewed CBC Reviewed BMP Reviewed fluid cultures PG Care Time/CCT Total # of Minutes Spent Total Time Spent with Patient: Total time spent is greater than 50% in coordination of care (as documented) at patient's floor/unit and/or counseling patient: Coding Level of Care Code 38623 SUB INP/OBS CARE 3/50MIN Diagnoses SOB (shortness of breath) R06.02 Dysphagia, unspecified type R13.10 Dysphagia type: unspecified Generalized weakness R53.1 Type 2 diabetes mellitus without complication E11.9 (2) Difficulty swallowing Dysphagia type: unspecified Qualified Code(s): R13.10 - Dysphagia, unspecified
[2023-11-18 14:03] VITALS: PULSE 104; O2SAT 91
[2023-11-18] MEDS: MoRPHine SULFATE 10 MG/0.5 ML UDP PO PRN (14:22)
--- NOTE | 2023-11-18 15:16 | Palliative Family Discussion ---
Date of Service November 18, 2023 Patient Directed Conference Time of Meetin-305pm Participants: Maggy Garcia DNP Patient participation: intermittent, dozing at times Patient Support System: Other Healthcare Provider Participation: None Meeting Location: bedside Advanced Directive available: pt and elect no code A family meeting was held for BOB GAVIRIA. This meeting was necessary for determining the appropriate course of treatment. Topics of Discussion Topics of Discussion: 1. Steadily worsening, today more dyspneic and air hunger, the oral morphine helps a bit but does not last long and his air hunger persists 2. Progressively declining PS, poor appetite with little PO intake, increased aspiration 3. states they agreed last night for focus on comfort, no more chemo desired and wanted a home hospice plan of care. She is understandably worried about the current decline and feels he may not be able to return home. She asks if she should notify family and remarks she has updated his Mother who is coming tonight and will be heartbroken. Other Content of Meetin. Opportunity given for participants to speak and ask questions. 2. Participants were assured of attention to patient comfort. 3. Reassurance provided. 4. Support was provided for informed, good-ward decisions. 5. Emotions expressed by family were acknowledged and addressed. 6. Move to comfort care Status. Code status is DNR/DNI. Comfort orders written. 7. We discussed changes pt may move through in the dying process including but not limited to sleeping more, disorientation when awake, restlessness, diminished senses/inability to respond to stimulus although ability to be aware of them remains intact longer, and changes in body temperatures, skin changes/mottling/cyanosis, respiratory pattern changes, and oral secretions. Family verbalized understanding. The goal is to assure a peaceful . TS: I spent 70 minutes overall addressing this case: 5 min in medical data review/discussion with referring provider(s) and/or preparation for the visit 15 min in direct interaction with the patient/exam 35 min in Advance Care Planning/Goals of Care discussions as detailed above in note (must be >16min) 5 min in subsequent review and synthesis of assessment and plan 10 min communicating with other providers regarding the patient's case: primary team, nursing, care mgt, oncology, pulmonary
[2023-11-18] MEDS ORDERED: LEVALBUTEROL HCL 0.63 MG/3 ML NEB NEB PRN (15:32)
[2023-11-18] MEDS: MoRPHine SULFATE 2 MG/ML CARP IV PRN (16:38)
[2023-11-18] MEDS: LORazepam 0.5 MG in SYRINGE 0.25 ML IV PRN (21:01)
[2023-11-19] MEDS: GLYCOPYRROLATE 0.2 MG/ML VIAL IV PRN (02:13)
--- NOTE | 2023-11-19 06:24 | Death Pronouncement Note ---
Date of Service November 19, 2023 Pronouncement Note Admission Date Admission Date: November 09, 2023 Date and Time of Date of : 11/19/23 Time of : 06:18 Contributing Factors (1) SOB (shortness of breath): (2) Difficulty swallowing: (3) Generalized weakness: (4) Type 2 diabetes mellitus without complication: Summary Additional details: At approximately 5:50 AM, was notified by nurse that patient had . Proceeded to bedside to examine the patient. Family present at bedside. On exam, was unable to detect a radial pulse bilaterally. No heart or breath sounds were heard on auscultation. Pupillary light reflex was absent bilaterally. Corneal scratch reflex test was also negative bilaterally. Time of at conclusion of exam was 6:18 AM. Additional Data Family: at bedside Attending/PCP notified?: Yes Attending physician: Georgi Sanford MD Was code activated?: No Resident Activity Tracking Resident Involvement: Resident Care Provided and Mother Baby Rn Coverage Note Care Provided: Adult Hospital Medicine
--- NOTE | 2023-11-19 14:48 | Discharge Summary ---
Discharge Summary Date of Service November 19, 2023 Principal Dx & Hospital Course #1 = Principal Diagnosis (1) SOB (shortness of breath): Presented with weakness/SOB. PleurX on the RIGHT removed October 26 (prior had one on the left) but not draining anything and removed. CTA chest on admission negative for PE, findings c/w partial treatment response w/ improvement in b/l pleural effusions, pleural metastatic disease and thoracic lymphadenopathy, interval decrease in size of R adrenal mets, persistent interlobar septal thickening, ?lymphangitic tumor or pulmonary edema. Worsened breathing/hypoxia on 11/14 with WBC elevation 11.3k. Blood cultures fro m admission NEGATIVE. - CT Chest noncontrast obtained given worsening CXR with increased O2 needs - showed new loculated moderate right pleural effusion Pulmonary consulted. Thoracentesis on 11/15 removed 650 cc of fluid -- Analysis, cultures pending. Prior samples were malignant. - Did not provide any symptomatic improvement. - Pulmonary's recommendations include: Pleurx catheter unlikely to offer symptomatic benefit so would not proceed down this route. Recommend transitioning to palliative care measures as the burden of his disease is unlikely to respond to pulmonary interventions. Does not seem like patient is candidate for additional systemic chemotherapy given his poor performance status. - Oncology met with patient and 11/16 -- suspend oncological treatment indefinitely. - Palliative care meeting on 11/17, where decision was made to transition to comfort measures. > Prognosis is very grim, unsure if patient will be stable enough to discharge home with hospice. > Comfort orders written by palliative care. Patient at 06:18 on 11/19/2023. - Electronic certificate was completed on 11/19/2023. HIM notified about certificate completion. (2) Difficulty swallowing: Mouth pain/issues with swallowing for approx 1 month prior to admission Aspiration precautions, Speech consult - did have recent issue of having pill stuck towards distal aspect of esophagus, anxiety about happening again Was on dexamethasone suspension QID however not using as frequent at home. Nystatin/magic swizzle Aspiration precautions, boost supplements, speech eval Speech reconsulted by palliative care on 11/15 --> downgrade diet to soft bite sized, thin liquids. (3) Generalized weakness: 73yo presents for ~1 month of progressive weakness/SOB. MULTIFACTORIAL: dehydration/poor PO intake, pulm mets, chemo, hypothyroidism, B12/Vit D deficiency, progressive disease CTA chest neg for PE, biofire resp/stool negative as well as for cdiff Lyme IgG + but neg IgM and tx in the past. TSH elevation 26-- increased synthroid 75mcg daily B12 deficiency/low normal - IM x 1, continued PO daily Vit D low- PO started/continued Ativan for anxiety continued but at lower dose and prn available as well. Remeron added prior for mood/sleep/appetite which does seem to have helped appetite but poor PO tolerance Nutrition consulted, boost supplements. Has been taking, albumin improved prior. (4) Type 2 diabetes mellitus without complication: A1c 7.2 back in February 2022, repeat 7.1 BSG AC/HS, SSI while inpatient. Removed DM II from diet to increase variety and had prior hypoglycemia. Added back carb ratio/monitor No basal given poor PO intake but increased BSGs, suspect 2nd to progression of above/illness, and given complex patient did add pharmacy consult for glycemic assistance Plan CODE STATUS: DNR/DNI Patient at 06:18 on 11/19/2023 Notes For Next Care Provider Patient at 06:18 on 11/19/2023 Admission HPI Per Admitting Provider Ulises is a 73 year old male with a PMH significant for metastatic renal cell carcinoma with recurrent malignant pleural effusion S/P Right PleurX catheter placement with Dr. Nguyễn on 09/03/23 (currently on oral lenavtinib/ everolimus), S/P right nephrectomy in 2018, DMII, HTN, hyperlipidemia, and hypothyroidism who presented to the [facility] ED on 11/08/2023 due to ongoing shortness of breath and generalized weakness over the past month. He remained stable in the ED besides right heart rate of 102 on arrival. Labs were significant for a WBC within normal limits, sodium of 132, initial lactate of 2.9, and full respiratory bio fire negative. CTA of the chest was read as negative for pulmonary emboli and did note findings consistent with a partial treatment response with improvement in the bilateral pleural effusions, pleural metastatic disease and thoracic lymphadenopathy send CT on September 16, 2023. Persistent interlobar septal thickening which could reflect lymphangitic tumor or pulmonary edema. Heterogenicity of the liver with possible intrahepatic biliary ductal dilation with left hepatic lobe. Findings may be artifactual however metastatic disease cannot be excluded. This can be assessed with nonemergent CT of the abdomen. Cholelithiasis. Mild nonspecific portal hepatis and Nazario pancreatic stranding which can be assessed on follow-up CT. The patient was given total of 1.5 L NSS and albuterol treatment while in the ED with improvement of his lactate to 2.1. We are asked to evaluate the patient for admission due to ongoing generalized weakness and elevated lactate on ar rival. Is a patient was lying in bed no acute distress at time of exam with his bedside, history is obtained from both. They state that the patient has had progressive decreased oral intake and generalized weakness over the past month. He has also noticed increased cough and shortness of breath over this time span with significant increase in the past 48 hours. When asked, the patient states that he has been having difficulty swallowing due to mouth pain and dry mucous membranes. He feels the many of his pills get stuck shortly before they get to his stomach but eventually pass. When asked, he states that he does try to drink liquids prior to taking his pills this does seem to help at times. He will normally try to take his pills with applesauce to prevent him from getting stuck . He states that he has been feeling well after starting his new oral chemotherapy approximately 2 months ago, and that his generalized weakness seems to be consistent with decreased oral intake. He has had his ongoing dry cough and feels as though his increased shortness of breath is mainly due to anxiety when he feels as though he has lots of things he needs to get done. Denies recent fever, chills, chest pain, hemoptysis, abdominal pain, nausea/vomiting, dysuria, hematuria, increased urinary frequency, diarrhea, lower extremity swelling, and recent trauma. He is a full code and when his to make medical decisions for him if he cannot make himself. Please refer to Dr. Tesfaye's attestation for any changes to the treatment plan. Admission Exam Per Admitting Provider General: In no acute distress, stated age, malnourished, chronically ill- appearing HEENT: Normocephalic, atraumatic, no scleral icterus, pupils around round, symmetrical, and reactive to light, mucus membranes are dry and erythematous consistent with mucositis, trachea midline, no thyromegaly Chest/Pulm: No respiratory distress, symmetrical chest expansion, scattered expiratory wheezing Cardiac: RRR, no murmurs noted Abdomen: Negative for ascites and bruising, normoactive bowel sounds, soft, non- tender to palpation throughout Musculoskeletal: Symmetrical and without signs of acute trauma, upper and lower extremities with full ROM, no atrophy, spasticity, or flaccidity Extremities: Radial, dorsalis pedis, and posterior tibial pulses are intact and symmetrical, no edema noted in the BL LE's Skin: Warm, dry, no rashes , lesions, or scars noted Neuro: Alert and oriented to person, place, month, year, and president, no focal defects, , no tremors noted Psych: No acute distress, calm and cooperative during the exam Discharge Exam On exam, nightshift physician was unable to detect a radial pulse bilaterally. No heart or breath sounds were heard on auscultation. Pupillary light reflex was absent bilaterally. Corneal scratch reflex test was also negative bilaterally. Time of at conclusion of exam was 6:18 AM. Updated Medication List Medication Instructions Recorded Confirmed Type metformin 1,000 mg tablet 1,000 mg PO BID 01/10/20 11/08/23 History tamsulosin 0.4 mg capsule 0.8 mg PO QAM 01/16/20 11/08/23 History dulaglutide 0.75 mg/0.5 mL 0.75 mg subcut WK 02/18/21 11/08/23 History subcutaneous pen injector (Trulicity) simvastatin 20 mg tablet (Zocor) 20 mg PO QPM 03/24/22 11/08/23 History levothyroxine 50 mcg capsule 50 mcg PO DAILY 09/01/23 11/08/23 History lorazepam 1 mg tablet 1 mg PO Q4 PRN Anxiety 09/16/23 11/08/23 History venlafaxine 150 mg 150 mg PO DAILY 09/16/23 11/08/23 History capsule,extended release 24 hr albuterol sulfate 90 mcg/actuation 2 inh inhalation QID PRN shortness 09/22/23 11/08/23 Rx aerosol inhaler of breath or cough #8.5 grams dexamethasone 0.5 mg/5 mL oral 10 mg (100 mL) PO DIRECTED #0 mL 09/22/23 11/08/23 Rx solution everolimus (antineoplastic) 5 mg 5 mg PO DAILY #0 tabs 09/22/23 11/08/23 Rx tablet lenvatinib 18 mg/day (10 mg x 1 18 mg PO DAILY #90 caps 09/22/23 11/08/23 Rx and 4 mg x 2) capsule (Lenvima) cabotegravir sodium 30 mg tablet 60 mg PO UD 10/22/23 11/08/23 History (Vocabria) magnesium aspart,citrate,oxide 400 mg PO DAILY 10/22/23 11/08/23 History dronabinol 5 mg capsule 5 mg PO BID 11/08/23 11/08/23 History sodium polystyrene sulfonate 15 60 ml PO DAILY 11/08/23 11/08/23 History gram-sorbitol 20 gram/60 mL oral susp (SPS (with sorbitol)) Hospital Stay Data Consultations 11/08/23 14:43 ED Decision to Admit Stat 11/09/23 08:16 Consult Hematology Routine 11/09/23 10:47 Consult Pulmonology Routine 11/11/23 09:54 Consult General Surgery Routine 11/15/23 08:57 Consult Palliative Care Routine Diagnostic Imagining Performed Laboratory Results WBC 15.38 K/ul (4.8-10.8) H 11/18/23 05:54 RBC 4.44 M/uL (4.70-6.10) L 11/18/23 05:54 Hgb 12.5 g/dl (14.0-18.0) L 11/18/23 05:54 Hct 39.7 % (42.0-52.0) L 11/18/23 05:54 MCV 89.4 fL (80.0-100.0) 11/18/23 05:54 MCH 28.2 pg (25.0-34.0) 11/18/23 05:54 MCHC 31.5 g/dL (32.0-36.0) L 11/18/23 05:54 RDW Std Deviation 45.7 fL (36.4-46.3) 11/18/23 05:54 RDW Coeff of Joaquim 14.2 % (11.5-14.5) 11/18/23 05:54 Plt Count 585 K/uL (130-400) H 11/18/23 05:54 MPV 9.4 fL (9.4-12.4) 11/18/23 05:54 Immature Gran % (Auto) 0.5 % 11/16/23 07:55 Neut % (Auto) 85.1 % 11/16/23 07:55 Lymph % (Auto) 4.9 % 11/16/23 07:55 Garland % (Auto) 9.0 % 11/16/23 07:55 Eos % (Auto) 0.3 % 11/16/23 07:55 Baso % (Auto) 0.2 % 11/16/23 07:55 Neut # (Auto) 9.42 K/uL (1.40-6.50) H 11/16/23 07:55 Lymph # (Auto) 0.54 K/uL (1.20-3.40) L 11/16/23 07:55 Garland # (Auto) 0.99 K/uL (0.11-0.59) H 11/16/23 07:55 Eos # (Auto) 0.03 K/uL (0.00-0.50) 11/16/23 07:55 Baso # (Auto) 0.02 K/uL (0.00-0.20) 11/16/23 07:55 Immature Gran # (Auto) 0.05 K/uL (0.01-0.20) 11/16/23 07:55 PT 11.5 Seconds (9.0-12.0) 11/09/23 06:21 INR 1.1 (0.9-1.1) 11/09/23 06:21 APTT 30 Seconds (21-31) 11/08/23 11:58 PTT Ratio 1.1 11/08/23 11:58 Sodium 137 mmol/L (136-145) 11/18/23 05:54 Potassium 3.7 mmol/L (3.5-5.1) 11/18/23 05:54 Chloride 96 mmol/L (98-107) L 11/18/23 05:54 Carbon Dioxide 28 mmol/L (21-32) 11/18/23 05:54 Anion Gap 13 (3-11) H 11/18/23 05:54 BUN 47 mg/dl (6-23) H 11/18/23 05:54 Creatinine 1.39 mg/dl (0.6-1.4) D 11/18/23 05:54 Est Cr Clr Drug Dosing 42.4 ml/min 11/18/23 05:54 Est GFR ( Amer) 58.7 ml/min 11/18/23 05:54 Est GFR (Non-Af Amer) 50.6 ml/min 11/18/23 05:54 BUN/Creatinine Ratio 33.8 (10-20) H 11/18/23 05:54 Glucose 120 mg/dl (70-99(Fasting)) H 11/18/23 05:54 POC Glucose 162 mg/dl (70-99) H 11/18/23 12:09 Estimat Average Glucose 157 mg/dl 11/11/23 07:02 Hemoglobin A1c 7.1 % (4.5-5.6) H 11/11/23 07:02 Osmolality 279 mOsm/kg (280-300) L 11/11/23 07:02 Lactate 2.1 mmol/L (0.4-2.0) H* 11/08/23 13:45 Calcium 9.8 mg/dl (8.6-10.3) 11/18/23 05:54 Phosphorus 4.1 mg/dl (2.5-4.9) 11/14/23 06:53 Magnesium 2.1 mg/dl (1.7-2.4) 11/16/23 07:55 Iron 27 mcg/dl (35-175) L 11/11/23 07:02 TIBC 210 mcg/dl (250-450) L 11/11/23 07:02 Unsaturated IBC 183 mcg/dl (155-355) 11/11/23 07:02 Transferrin % Sat 13 % (20-50) L 11/11/23 07:02 Ferritin 476.7 ng/ml (8-388) H 11/11/23 07:02 Total Bilirubin 0.5 mg/dl (0.2-1.0) 11/17/23 07:55 Direct Bilirubin 0.2 mg/dl (0-0.2) 11/15/23 08:27 AST 15 U/L (13-39) 11/17/23 07:55 ALT 7 U/L (7-52) 11/17/23 07:55 Alkaline Phosphatase 97 U/L (34-104) 11/17/23 07:55 Lactate Dehydrogenase 148 U/L (86-244) 11/16/23 07:55 Total Creatine Kinase 16 U/L (30-223) L 11/14/23 06:53 Troponin I High Sens 5.7 pg/ml (0-20) 11/08/23 13:43 B-Natriuretic Peptide 50 pg/ml (0-100) 11/12/23 14:16 Total Protein 6.6 gm/dl (6.0-8.3) 11/17/23 07:55 Albumin 2.8 gm/dl (3.4-5.0) L 11/17/23 07:55 Globulin 3.8 gm/dl (2.5-4.0) 11/17/23 07:55 Albumin/Globulin Ratio 0.7 (0.9-2) L 11/17/23 07:55 Lipase 32 U/L (11-82) 11/08/23 11:58 Vitamin B12 332 pg/ml (180-914) 11/11/23 07:02 25-OH Vitamin D Total 19.3 ng/ml (30-100) L 11/11/23 07:02 Folate 9.68 ng/ml (>5.38) 11/11/23 07:02 Procalcitonin 0.26 ng/ml (0-0.5) 11/13/23 06:20 TSH 26.136 uIu/ml (0.300-4.500) H 11/09/23 06:21 Free T4 0.76 ng/dl (0.61-1.60) 11/09/23 06:21 Free T3 2.33 pg/ml (2.3-4.2) 11/09/23 14:27 Cortisol AM Sample 28.89 mcg/dl (6.2-22.6) H 11/15/23 08:27 Urine Color Dark Yellow 11/08/23 Unknown Urine Appearance Clear (Clear) 11/08/23 Unknown Urine pH 6.0 (4.5-7.5) 11/08/23 Unknown Ur Specific [place] 1.025 (1.000-1.030) 11/08/23 Unknown Urine Protein 1+ (Negative) H 11/08/23 Unknown Urine Glucose (UA) Negative (Negative) 11/08/23 Unknown Urine Ketones 1+ (Negative) H 11/08/23 Unknown Urine Blood Negative (Negative) 11/08/23 Unknown Urine Nitrite Negative (Negative) 11/08/23 Unknown Urine Bilirubin Negative (Negative) 11/08/23 Unknown Urine Urobilinogen Negative (Negative) 11/08/23 Unknown Ur Leukocyte Esterase Trace (Negative) H 11/08/23 Unknown Urine WBC (Auto) 0-5 /hpf (0-5) 11/08/23 Unknown Urine RBC (Auto) 0-2 /hpf (0-2) 11/08/23 Unknown U Hyaline Cast (Auto) 0-2 /lpf (0-2) 11/08/23 Unknown U Epithel Cells (Auto) 3-5 /hpf (0-2) H 11/08/23 Unknown Urine Bacteria (Auto) None Seen (None Seen) 11/08/23 Unknown Urine Mucus Present (None Prsent) A 11/08/23 Unknown Urine Osmolality 619 mOsm/kg (500-800) 11/11/23 09:20 Ur Random Sodium 51 mmol/L 11/11/23 09:20 Fluid Neutrophils % 21 % 11/16/23 Unknown Fluid Lymphocytes % 67 % 11/16/23 Unknown Fluid Eosinophils % 2 % 11/16/23 Unknown Fluid Meso/Macro/Garland % 10 % 11/16/23 Unknown Fluid Slide Review 11/16/23 Unknown Fluid Comment 11/16/23 Unknown Pleural Fluid Source Right Lung 11/16/23 Unknown Pleural Color Pale Yellow 11/16/23 Unknown Pleural Appearance Slightly Hazy 11/16/23 Unknown Pleural pH 7.43 (7.3-7.4) H 11/16/23 Unknown Pleural WBC (Auto) 183 /uL 11/16/23 Unknown Pleural RBC (Auto) 4000 /uL 11/16/23 Unknown Pleural Total Protein 3.9 gm/dl 11/16/23 Unknown Pleural LDH 292 U/L 11/16/23 Unknown Pleural Glucose 121 mg/dl 11/16/23 Unknown Pleural Amylase 24 U/L 11/16/23 Unknown Stl C. cayetanensis PCR Not Detected (NotDetected) 11/09/23 18:20 Stool Rotavirus A PCR Not Detected (NotDetected) 11/09/23 18:20 Stl Adenov F 40/41 PCR Not Detected (NotDetected) 11/09/23 18:20 Stool Astrovirus (PCR) Not Detected (NotDetected) 11/09/23 18:20 Stool Campylobacter PCR Not Detected (NotDetected) 11/09/23 18:20 Stl C. diff Tox B Gene Negative Cdiff Gene (Neg) 11/09/23 18:22 Stool Cryptosporidium PCR Not Detected (NotDetected) 11/09/23 18:20 Stl E.coli Shiga Tox PCR Not Detected (NotDetected) 11/09/23 18:20 Stl Enterotoxigenic E PCR Not Detected (NotDetected) 11/09/23 18:20 Stool EPEC (PCR) Not Detected (NotDetected) 11/09/23 18:20 Stool EAEC (PCR) Not Detected (NotDetected) 11/09/23 18:20 Stl E. histolytica PCR Not Detected (NotDetected) 11/09/23 18:20 Stool Giardia Lamblia PCR Not Detected (NotDetected) 11/09/23 18:20 Stool Salmonella PCR Not Detected (NotDetected) 11/09/23 18:20 Stool Sapovirus (PCR) Not Detected (NotDetected) 11/09/23 18:20 Stl P. shigelloides PCR Not Detected (NotDetected) 11/09/23 18:20 Stl Shigella/EIEC PCR Not Detected (NotDetected) 11/09/23 18:20 St Y.enterocolitica PCR Not Detected (NotDetected) 11/09/23 18:20 Stool Vibrio (PCR) Not Detected (NotDetected) 11/09/23 18:20 Stl Vibrio cholerae PCR Not Detected (NotDetected) 11/09/23 18:20 Stl Norovirus GI/GII PCR Not Detected (NotDetected) 11/09/23 18:20 Adenovirus (PCR) Not Detected (NotDetected) 11/08/23 Unknown Anaplasma Smear See Comment 11/12/23 07:28 B. pertussis DNA (PCR) Not Detected (NotDetected) 11/08/23 Unknown B.parapertussis DNA PCR Not Detected (NotDetected) 11/08/23 Unknown Lyme Disease Screen Positive (Negative) H 11/11/23 08:10 Lyme Tier 2 IgG Confirm Positive (Negative) H 11/11/23 08:10 Lyme Tier 2 IgM Confirm Negative (Negative) 11/11/23 08:10 C. pneumoniae DNA (PCR) Not Detected (NotDetected) 11/08/23 Unknown Coronavirus OC43 (PCR) Not Detected (NotDetected) 11/08/23 Unknown Coronavirus HKU1 (PCR) Not Detected (NotDetected) 11/08/23 Unknown Coronavirus 229E (PCR) Not Detected (NotDetected) 11/08/23 Unknown SARS-CoV-2 (PCR) Not Detected (NotDetected) 11/08/23 Unknown Coronavirus NL63 (PCR) Not Detected (NotDetected) 11/08/23 Unknown Human Metapneumovir PCR Not Detected (NotDetected) 11/08/23 Unknown Influenza Type A (PCR) Not Detected (NotDetected) 11/08/23 Unknown Influenza Type B (PCR) Not Detected (NotDetected) 11/08/23 Unknown M. pneumoniae (PCR) Not Detected (NotDetected) 11/08/23 Unknown Parainfluenza 1 (PCR) Not Detected (NotDetected) 11/08/23 Unknown Parainfluenza 2 (PCR) Not Detected (NotDetected) 11/08/23 Unknown Parainfluenza 3 (PCR) Not Detected (NotDetected) 11/08/23 Unknown Parainfluenza 4 (PCR) Not Detected (NotDetected) 11/08/23 Unknown RSV (PCR) Not Detected (NotDetected) 11/08/23 Unknown Entero/Rhino (PCR) Not Detected (NotDetected) 11/08/23 Unknown Impressions Chest CTA 11/08/23 11:28 CT ANGIOGRAPHY OF THE CHEST, PULMONARY EMBOLUS PROTOCOL CLINICAL HISTORY: Shortness of breath. Renal cell carcinoma. Evaluate for pulmonary embolus. COMPARISON STUDY: Chest CT September 16, 2023. Chest radiograph September 29, 2023. TECHNIQUE: Following IV administration of 119 mL of Optiray, helical axial images of the chest were obtained utilizing the pulmonary embolus protocol. Maximal intensity projections and sagittal and coronal reformats were viewed on an independent 3D workstation. IV contrast was administered without complication. Automated exposure control was utilized for the study. A dose lowering technique was utilized adhering to the principles of ALARA. CT DOSE: 710.47 mGy.cm FINDINGS: No pulmonary emboli are identified. There is no thoracic aortic dissection. Trace pericardial effusion is present. Small left pleural effusion has decreased in size since chest CT September 16, 2023. Right pleural effusion has essentially resolved. Irregular interlobular septal thickening persists. Thoracic lymphadenopathy has improved since CT of September 16, 2023. A left lower cervical lymph node image 202 of 231 measures 3.2 x 1.9 cm, previously 3.5 x 2.4 cm. A subcarinal lymph node measures 5.6 x 3.1 cm, previously 6.5 x 3.5 cm. Several these nodes are partially calcified. Pleural thickening, greater on the left, has improved. A 3.9 cm irregular subpleural right lower lobe nodular opacity on image 79 previously measured 4.3 cm. Additional subpleural nodular opacities have mildly improved. There is no pneumothorax. No suspicious lesions within the bony thorax are present. There are gallstones within the gallbladder. Periportal edema is noted. There is also mild peripancreatic edema. The liver appears heterogeneous. This may be artifactual although underlying lesions could appear similar. Possible intrahepatic biliary ductal dilatation within the left hepatic lobe is noted. A 4 cm right adrenal metastasis previously measured 5.6 cm. IMPRESSION: 1. No pulmonary emboli identified. 2. Findings consistent with a partial treatment response. Improvement in the bilateral pleural effusions, pleural metastatic disease and thoracic lymphadenopathy since CT of September 16, 2023, as detailed above. Interval decrease in size of a right adrenal metastasis. 3. Persistent interlobular septal thickening. This could reflect lymphangitic tumor or pulmonary edema. 4. Heterogeneity of the liver with possible intrahepatic biliary ductal dilatation with the left hepatic lobe. The findings may be artifactual however metastatic disease cannot be excluded. This can be assessed with nonemergent CT of the abdomen. 5. Cholelithiasis. 5. Mild nonspecific nydia hepatis and peripancreatic stranding which can be assessed on the follow-up CT. ACT 112: Negative or not required by law. Electronically signed by: Tee Babb M.D. 11/08/2023 1:20 PM Abdomen/Pelvis CT 11/10/23 16:47 CT abdomen pelvis wo/w con CT DOSE: 1553.47 mGy.cm CLINICAL HISTORY: weakness, eval progression met disease, cholelithi TECHNIQUE: Multiaxial CT images of the abdomen and pelvis were performed both before and after the intravenous administration of contrast. A dose lowering technique was utilized adhering to the principles of ALARA. COMPARISON STUDY: Chest CTA 11/08/2023. Abdomen and pelvis CT 07/06/2023. FINDINGS: There is a small left pleural effusion again noted. Persistent nodular interstitial thickening at the lung bases which could represent lymphangitic spread of tumor. Right lower lobe nodular opacities are again noted including a 3.9 cm right lung base irregular opacity. Left greater than right pleural metastatic disease is again noted. These findings are better appreciated on the recent chest CTA. There are few punctate right renal calculi. No ureteral calculi. No hydronephrosis. Subcarinal lymphadenopathy again noted. There are multiple irregular hypodense lesions seen scattered throughout the liver which are new from the prior study. The majority of these demonstrate a peripheral distribution. These are indeterminate. Multifocal metastatic disease would be the diagnosis of exclusion. Multifocal infarcts or infectious process such as an ascending cholangitis also remains in the differential diagnosis. Dominant focus within the right hepatic lobe on image 132 measures 2.6 cm. The main portal vein is patent. Multiple small gallstones. Mild thickening of the gallbladder wall and mild thickening of the common bile duct is noted. The pancreas and spleen are unremarkable. A right adrenal gland metastasis is again noted measuring 3.6 cm. Prior left nephrectomy. No evidence for intrahepatic bile duct dilatation. Retroperitoneal surgical clips are present. Normal caliber abdominal aorta. No retroperitoneal or pelvic lymphadenopathy. Prostate gland remains enlarged. No contrast within the bladder from the prior CT examination. Trace pelvic free fluid is noted. No pneumoperitoneum. No pneumatosis. No suspicious lytic or blastic osseous lesions. A metal nodularity most pronounced within the right lower quadrant best seen on image 210. This likely represents metastatic disease. This is new from the prior study. Colonic diverticulosis. No evidence for acute diverticulitis. No bowel wall thickening or obstruction. Normal appendix. IMPRESSION: 1. Redemonstration of metastatic disease within the chest. This is better appreciated on the recent chest CTA. 2. Multiple scattered irregular hypodense foci seen throughout the liver. The majority of these demonstrate a peripheral distribution. These are new compared to the prior studies. Therefore, metastatic disease would be the diagnosis of exclusion. There is also diffuse thickening of the wall of the extra hepatic bile ducts. Therefore, an ascending cholangitis or less likely hepatic infarcts also remain differential diagnosis. 3. 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 4. Prior left nephrectomy. 5. Gallbladder wall thickening with cholelithiasis. This has progressed in the interval. No surrounding inflammatory change identified. An early acute cholecystitis. Would be the diagnosis of exclusion. 6. No evidence for bowel obstruction. 7. Redemonstration of the right adrenal metastasis. 8. Prior left nephrectomy. . Additional findings as described above. ACT 112: Negative or not required by law. Electronically signed by: Gold Guardado M.D. 11/10/2023 5:[address] 11/15/23 09:06 CT chest diagnostic wo con CT DOSE: 417.97 mGy.cm CLINICAL HISTORY: 73 years-old Male with worsening CXR, resp status/effusions, ca. ?infx.. Acute shortness of breath with pulmonary opacities . 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 TECHNIQUE: Multiaxial CT images of the chest were performed without contrast. A dose lowering technique was utilized adhering to the principles of ALARA. COMPARISON: CTA chest 11/08/2023 FINDINGS: No thoracic aortic aneurysm. Small pericardial effusion is present. Small left pleural effusion is unchanged. There is a new loculated moderate- sized right pleural effusion. Irregular interlobular septal thickening persists. Thoracic lymphadenopathy is overall unchanged. A left lower cervical lymph node image 42 series 4 measures 3.2 x 1.9 cm. A subcarinal lymph node measures 5.9 x 3.0 cm. several these nodes are partially calcified. Pleural thickening, greater on the left again noted with progression on the right. A 5 cm irregular subpleural right lower lobe nodu lar opacity on image 167 previously measured 3.9 cm. There is no pneumothorax. There is progressive mixed interstitial and alveolar opacities with worsening of the intralobular septal thickening. Subpleural patchy nodular consolidative foci also noted. No suspicious lesions within the bony thorax are present. There are gallstones within the gallbladder. Periportal edema is noted. There is also mild peripancreatic edema. Hepatic metastatic disease. Possible intrahepatic biliary ductal dilatation within the left hepatic lobe is noted. A 4 cm right adrenal metastasis is unchanged IMPRESSION: 1. Cardiomegaly with pulmonary edema, small pericardial effusion and new loculated moderate right pleural effusion. 2. Pathologic thoracic lymphadenopathy with metastatic disease of the chest red emonstrated as described above. 3. Progressive nodular bilateral airspace opacities may represent a superimposed pneumonia. 4. Possible lymphangitic carcinomatosis. 5. Hepatic and right adrenal metastasis. 6. Cholelithiasis. ACT 112: Negative or not required by law. Electronically signed by: Ramon Godinez M.D. 11/15/2023 11:39 AM Chest X-Ray 11/16/23 09:46 XR chest 1V not portable HISTORY: 73 years-old Male s/p rt thora follow-up study in a patient with pleural effusions COMPARISON: Chest CT 11/15/2023 TECHNIQUE: PA view of the chest FINDINGS: Cardiac silhouette is enlarged. Pulmonary vascular congestion with mixed interstitial and alveolar opacities redemonstrated. Layering pleural effusions are again noted, decreased in size on the right. No postprocedural pneumothorax. Pulmonary nodular foci with pleural thickening better seen on prior CT. Degenerative changes of the shoulders and spine. IMPRESSION: 1. Decreased size of the right pleural effusion status post thoracentesis. 2. No postprocedural pneumothorax identified. 3. Additional findings of the chest are better evaluated on the CT from 11/15/2023. ACT 112: Negative or not required by law. The above report was generated using voice recognition software. It may contain grammatical, syntax or spelling errors. Electronically signed by: Ramon Godinez M.D. 11/16/2023 11:02 AM Thoracentesis/Paracentesis US 11/16/23 14:05 ULTRASOUND-GUIDED RIGHT THORACENTESIS CLINICAL HISTORY: Loculated right pleural effusion PROCEDURE: Procedure and risks were explained. Informed consent was obtained. A final timeout was completed. The right lateral thorax was prepped and draped in sterile fashion. 1% lidocaine was utilized for skin anesthesia. Utilizing ultrasound guidance, a 5 Kinyarwanda safety centesis catheter was advanced into the right pleural effusion. Ultrasound images were obtained. A total of 650 mL straw-colored pleural fluid was removed and sent to the lab. The catheter was removed and Band-Aid applied. The patient tolerated the procedure well. Postprocedure chest x-ray will be performed. Vital signs will be monitored on the floor. IMPRESSION: Ultrasound-guided right thoracentesis as above. Performed, dictated, and signed by Chano Yu PA-C; to be co-signed by Dr. Nirmal Pineda. Electronically signed by: Nirmal Pineda M.D. 11/16/2023 5:14 PM Total Time Total Time Spent Total Time Spent (In Minutes): Less than 30 minutes spent completing this discharge process including direct patient care, medication reconciliation, documentation, review of labs and images, and coordination of care. Coding Level of Care Code 06770 IN/OBS DISCH 30 MIN/LESS Diagnoses SOB (shortness of breath) R06.02 Dysphagia, unspecified type R13.10 Dysphagia type: unspecified Generalized weakness R53.1 Type 2 diabetes mellitus without complication E11.9
== END 2023-11-19 07:00 | disposition expired | DRG 181 ==
LOC: ED 11:01 → EDINP 11:01 → SUATTDRO 15:10 → 3N 17:54 → SUATTDRO 11-09 16:05
DX: T45.1X5A Adverse effect of antineoplastic and immunosuppressive drugs, initial encounter; Z79.85 Long-term (current) use of injectable non-insulin antidiabetic drugs; C64.2 Malignant neoplasm of left kidney, except renal pelvis; I10 Essential (primary) hypertension; C78.01 Secondary malignant neoplasm of right lung; C79.71 Secondary malignant neoplasm of right adrenal gland; K80.20 Calculus of gallbladder without cholecystitis without obstruction; J91.0 Malignant pleural effusion; R13.10 Dysphagia, unspecified; E55.9 Vitamin D deficiency, unspecified; R53.1 Weakness; E86.0 Dehydration; Z66 Do not resuscitate; E03.9 Hypothyroidism, unspecified; Z90.5 Acquired absence of kidney; G89.3 Neoplasm related pain (acute) (chronic); E46 Unspecified protein-calorie malnutrition; Z79.890 Hormone replacement therapy; E11.9 Type 2 diabetes mellitus without complications; Y92.019 Unspecified place in single-family (private) house as the place of occurrence of the external cause; R62.7 Adult failure to thrive; Z87.891 Personal history of nicotine dependence; F41.9 Anxiety disorder, unspecified; C78.02 Secondary malignant neoplasm of left lung; K12.32 Oral mucositis (ulcerative) due to other drugs; E78.5 Hyperlipidemia, unspecified; E53.8 Deficiency of other specified B group vitamins; Z51.5 Encounter for palliative care